=== PATIENT | male | born 1950 | race Caucasian/White ===

== ENCOUNTER 2020-03-15 11:14 | Emergency (ER) | payer MEDICARE, OTHER, SELFPAY ==
[2020-03-15 11:42] VITALS: BP 155/95; PULSE 82; RESP 20; TEMP 36.9; O2SAT 95; BMI 32.8
--- NOTE | 2020-03-15 11:43 | CTR_ITS ---
PROCEDURE INFORMATION: Exam: CT Abdomen And Pelvis Without Contrast Exam date and time: 03/15/2020 12:02 PM Age: 69 years old Clinical indication: Other: Hematuria; Prior surgery; Surgery date: 6+ months; Surgery type: Appy TECHNIQUE: Imaging protocol: Computed tomography of the abdomen and pelvis without contrast. Radiation optimization: All CT scans at this facility use at least one of these dose optimization techniques: automated exposure control; mA and/or kV adjustment per patient size (includes targeted exams where dose is matched to clinical indication); or iterative reconstruction. COMPARISON: CT Abdomen/Pelvis Renal [id number] 03/04/2018 6:52 PM RADIATION DOSE METRICS: Total DLP (mGy-cm): 1839.98 FINDINGS: Lungs: visualized portions of the lung bases normal. visualized portions of the lung bases normal. Liver: Numerous granulomas are present within the spleen and the liver. Gallbladder and bile ducts: Normal. No calcified stones. No ductal dilation. Pancreas: Normal. No ductal dilation. Spleen: Normal. No splenomegaly. Adrenal glands: Normal. No mass. Kidneys and ureters: Prior right nephrectomy. Prominence of the collecting system on the left. Prominence of the ureter to the level of the bladder. No obstructing calculus. 3 cm simple appearing cyst left kidney Stomach and bowel: Unremarkable. No obstruction. No mucosal thickening. Appendix: The appendix is not visualized. Intraperitoneal space: No free fluid within the pelvis or within the dependent portions of the peritoneum. Vasculature: Calcification of the aorta. Lymph nodes: Unremarkable. No enlarged lymph nodes. Urinary bladder: Buck catheter is present within a nondistended bladder. Subtle stranding in the fat. Correlate regarding possible cystitis. Reproductive: prostate gland is rather prominent and enlarged. Please correlate in regards to hyperplasia versus carcinoma. Bones/joints: osseous structures are unremarkable other than mild degenerative disk disease. No fracture. osseous structures are unremarkable other than mild degenerative disk disease. No fracture. Soft tissues: Unremarkable. Other findings: No acute intra-abdominal process. No inflammatory process. No obstruction. CT/CT abdomen pelvis wo con [id number] IMPRESSION: 1. Buck catheter is present within a nondistended bladder. Subtle stranding in the fat. Correlate regarding possible cystitis. 2. No acute intra-abdominal process. . No obstruction. 3. No free fluid within the pelvis or within the dependent portions of the peritoneum. 4. Prostate gland is rather prominent and enlarged. Please correlate in regards to hyperplasia versus carcinoma. 5. Prior right nephrectomy. 6. Prominence of the collecting system on the left. Prominence of the ureter to the level of the bladder. No obstructing calculus. Possibly related to the indwelling bladder. COMMENTS: Consistent with the [employer]'s Incidental Findings Committee white paper (J Am Burke Radiol 2018): Any incidental renal lesion less than 1 cm or classified as too small to characterize, or any incidental cystic renal lesion characterized as simple-appearing, is likely benign. No follow-up imaging is recommended for these lesions per consensus recommendations based on imaging criteria. Radiation Dose CTDIVOL = (mGy): DLP = 1839.98 (mGy-cm)
--- NOTE | 2020-03-15 11:59 | ED_ITS ---
HPI - Male Genitourinary General: Chief complaint: Urogenital-Male Stated complaint: Unable to pee/passing blood Time Seen by Provider: 03/15/20 11:43 Source: patient Mode of arrival: ambulatory Limitations: no limitations History of Present Illness: HPI Narrative: 69-year-old male who presents here from his PCP with unable to urinate and hematuria. He states he has been urina ting gross blood along with blood clots. States that today has not been able to urinate and is having increased pain. He states his pain is currently sharp in nature and rates it a 9 out of 10. History of kidney cancer and had his kidney removed 2 years ago. Denies any vomiting or diarrhea. Associated symptoms: Reports hematuria; Deny nausea or vomiting Review of Systems Const: Denies: fever(s), chills, body aches or change in appetite Eyes: Denies: blurry vision or eye discomfort ENMT: Denies: throat pain or dental pain Card: Denies: chest pain Resp: Denies: dyspnea GI: Denies: abdominal pain, nausea, vomiting or diarrhea : Reports: difficulty urinating and hematuria Musc: Denies: neck pain or back pain Skin/Breast: Denies: rash Neuro: Denies: headache(s) Psych: Denies: depression Jarocho/Lymph: Denies: easy bruising All/Imm: Denies: urticaria Physical Exam Const: COMMON NORMALS: no acute distress, patient oriented x3 and healthy appearing HENMT: COMMON NORMALS: normocephalic and atraumatic HEAD & SCALP: normocephalic and atraumatic Eye: COMMON NORMALS: Equal, round and reactive pupils present and EOMs intact bilaterally PUPIL: Yes Equal, round and reactive pupils present Neck/C-Spine: COMMON NORMALS: full ROM and supple Chest: COMMONS NORMALS: normal inspection of the chest and normal palpation of entire chest wall Resp: COMMON NORMALS: normal respiratory effort, No retractions, No use of accessory muscles and clear to auscultation bilaterally AUSCULTATION: clear to auscultation bilaterally Cardio: COMMON NORMALS: regular rate, regular rhythm and No murmurs present (Cardio) RATE: regular rate RHYTHM: regular rhythm GI: COMMON NORMALS: Normal to inspection, nondistended, normoactive bowel sounds present, Soft to palpation, non-tender and no masses PALPATION: Yes Soft to palpation Extremity: COMMON NORMALS: normal to inspection and full ROM Neuro: COMMON NORMALS: patient oriented x3, moves all extremities and no focal motor deficits Psych: COMMON NORMALS: mental status grossly normal, Normal thought process present and cooperative THOUGHT PROCESS: Normal thought process present Skin: COMMON NORMALS: no rashes or lesions noted and no wounds GENERAL SKIN EXAM: no rashes or lesions noted Course Vital Signs: Vital signs: Vital Signs Temperature 98.4 F 03/15/20 11:42 Pulse Rate 82 03/15/20 11:42 Respiratory Rate 20 H 03/15/20 11:42 Blood Pressure 155/95 03/15/20 11:42 Pulse Oximetry 95 03/15/20 11:42 MDM - Male MDM Narrative: Medical decision making narrative: Patient presents here with gross hematuria along with urinary retention. Did place a Buck and flushed his bladder out. CT scan and blood work are normal. Will leave Buck in place and place him on antibiotics. We will set him up an appoint with Dr. Milian. He is stable for discharge and return if worsening. Lab Data: Labs: Lab Results 03/15/20 03/15/20 03/15/20 Range/Units 12:27 12:59 12:59 WBC 9.1 (4.0-10.0) 10^3/ uL RBC 4.88 (4.1-5.3) 10^6/u L Hgb 14.3 (11.7-16.6) g/dL Hct 43.8 (42.0-52.0) % MCV 89.8 (80-94) fL MCH 29.3 (28.0-34.0) pg MCHC 32.6 (30.0-36.0) g/dL RDW 12.9 (12.1-15.1) % Plt Count 157 (130-400) 10^3/c mm MPV 11.9 H (7.4-10.4) fL Neut % (Auto) 82.6 % Lymph % (Auto) 10.2 % [place] % (Auto) 5.6 % Eos % (Auto) 0.4 % Baso % (Auto) 0.9 % Neut # (Auto) 7.55 (1.8-7.7) 10^3/u L Lymph # (Auto) 0.9 (0.8-4.8) 10^3/u L [place] # (Auto) 0.5 (0.2-0.9) 10^3/u L Eos # (Auto) 0.0 (0.0-0.8) 10^3/u L Baso # (Auto) 0.1 (0.0-0.1) 10^3/u L Nucleated RBC % (a uto) 0 % Nucleated RBCs # 0.0 /100WBC PT 13.80 (12.1-14.9) SECO NDS INR 1.03 (0.8-1.2) Sodium (136-145) mmol/L Potassium (3.5-5.1) mmol/L Chloride (98-107) mmol/L Carbon Dioxide (22-29) mmol/L Anion Gap (5-19) BUN (8-23) mg/dL Creatinine (0.7-1.2) mg/dL GFR Calculation Glucose (65-115) mg/dL Calculated Osmolal ity (285-295) mOsm/k g Calcium (8.5-10.5) mg/dL Total Bilirubin (0.15-1.2) mg/dL AST (0-40) U/L ALT (0-41) U/L Alkaline Phosphata se (40-130) IU/L Total Protein (6.6-8.7) g/dL Albumin (3.5-5.2) g/dL Globulin (1.3-4.6) g/dL Urine Color Red (Yellow) Urine Appearance Turbid (CLEAR) Urine pH 6.5 (5-7) Ur Specific Gravit y 1.015 (1.005-1.030) Urine Protein 1+ H (Negative) Urine Glucose (UA) Norm (Normal) Urine Ketones Negative (Negative) Urine Blood 3+ H (Negative) Urine Nitrate Negative (Negative) Urine Bilirubin Neg (Negative) Urine Urobilinogen Neg (Negative) mg/dL Ur Leukocyte Alexia ase Negative (Negative) Urine RBC Too numerous to c nt H (0-2) /hpf Urine WBC None (0-5) /hpf Ur Squamous Epith Cells None (0-5) /hpf Amorphous Sediment Not Reportable Urine Bacteria 1+ H (NONE) /hpf 11/12/20 Range/Units 12:59 WBC (4.0-10.0) 10^3/ uL RBC (4.1-5.3) 10^6/u L Hgb (11.7-16.6) g/dL Hct (42.0-52.0) % MCV (80-94) fL MCH (28.0-34.0) pg MCHC (30.0-36.0) g/dL RDW (12.1-15.1) % Plt Count (130-400) 10^3/c mm MPV (7.4-10.4) fL Neut % (Auto) % Lymph % (Auto) % [place] % (Auto) % Eos % (Auto) % Baso % (Auto) % Neut # (Auto) (1.8-7.7) 10^3/u L Lymph # (Auto) (0.8-4.8) 10^3/u L [place] # (Auto) (0.2-0.9) 10^3/u L Eos # (Auto) (0.0-0.8) 10^3/u L Baso # (Auto) (0.0-0.1) 10^3/u L Nucleated RBC % (a uto) % Nucleated RBCs # /100WBC PT (12.1-14.9) SECO NDS INR (0.8-1.2) Sodium 138 (136-145) mmol/L Potassium 4.3 (3.5-5.1) mmol/L Chloride 105 (98-107) mmol/L Carbon Dioxide 23 (22-29) mmol/L Anion Gap 14.3 (5-19) BUN 21 (8-23) mg/dL Creatinine 1.6 H (0.7-1.2) mg/dL GFR Calculation Not Reportable Glucose 179 H (65-115) mg/dL Calculated Osmolal ity 293 (285-295) mOsm/k g Calcium 9.4 (8.5-10.5) mg/dL Total Bilirubin 0.3 (0.15-1.2) mg/dL AST 29 (0-40) U/L ALT 45 H (0-41) U/L Alkaline Phosphata se 90 (40-130) IU/L Total Protein 6.6 (6.6-8.7) g/dL Albumin 4.3 (3.5-5.2) g/dL Globulin 2.3 (1.3-4.6) g/dL Urine Color (Yellow) Urine Appearance (CLEAR) Urine pH (5-7) Ur Specific Gravit y (1.005-1.030) Urine Protein (Negative) Urine Glucose (UA) (Normal) Urine Ketones (Negative) Urine Blood (Negative) Urine Nitrate (Negative) Urine Bilirubin (Negative) Urine Urobilinogen (Negative) mg/dL Ur Leukocyte Alexia ase (Negative) Urine RBC (0-2) /hpf Urine WBC (0-5) /hpf Ur Squamous Epith Cells (0-5) /hpf Amorphous Sediment Urine Bacteria (NONE) /hpf Imaging Data: CT Abd/Pel: Radiologist's impression: [place] [address] CT Scan Report Signed Patient: Jennifer Montiel Unit #: [id number] : [id number] Age/Sex: 69 / M ADM Date: 03/15/20 Loc: ER Room/Bed: Attending Dr: Ordering Provider/Ordering MD: Keny Blackburn MD Date of Service: 03/15/20 Procedure(s): CT abdomen pelvis wo con [id number] Accession Number(s): [id number] Report Number: [id number] PROCEDURE INFORMATION: Exam: CT Abdomen And Pelvis Without Contrast Exam date and time: 03/15/2020 12:02 PM Age: 69 years old Clinical indication: Other: Hematuria; Prior surgery; Surgery date: 6+ months; Surgery type: Appy TECHNIQUE: Imaging protocol: Computed tomography of the abdomen and pelvis without contrast. Radiation optimization: All CT scans at this facility use at least one of these dose optimization techniques: automated exposure control; mA and/or kV adjustment per patient size (includes targeted exams where dose is matched to clinical indication); or iterative reconstruction. COMPARISON: CT Abdomen/Pelvis Renal [id number] 03/04/2018 6:52 PM RADIATION DOSE METRICS: Total DLP (mGy-cm): 1839.98 FINDINGS: Lungs: visualized portions of the lung bases normal. visualized portions of the lung bases normal. Liver: Numerous granulomas are present within the spleen and the liver. Gallbladder and bile ducts: Normal. No calcified stones. No ductal dilation. Pancreas: Normal. No ductal dilation. Spleen: Normal. No splenomegaly. Adrenal glands: Normal. No mass. Kidneys and ureters: Prior right nephrectomy. Prominence of the collecting system on the left. Prominence of the ureter to the level of the bladder. No obstructing calculus. 3 cm simple appearing cyst left kidney Stomach and bowel: Unremarkable. No obstruction. No mucosal thickening. Appendix: The appendix is not visualized. Intraperitoneal space: No free fluid within the pelvis or within the dependent portions of the peritoneum. Vasculature: Calcification of the aorta. Lymph nodes: Unremarkable. No enlarged lymph nodes. Urinary bladder: Buck catheter is present within a nondistended bladder. Subtle stranding in the fat. Correlate regarding possible cystitis. Reproductive: prostate gland is rather prominent and enlarged. Please correlate in regards to hyperplasia versus carcinoma. Bones/joints: osseous structures are unremarkable other than mild degenerative disk disease. No fracture. osseous structures are unremarkable other than mild degenerative disk disease. No fracture. Soft tissues: Unremarkable. Other findings: No acute intra-abdominal process. No inflammatory process. No obstruction. CT/CT abdomen pelvis wo con [id number] IMPRESSION: 1. Buck catheter is present within a nondistended bladder. Subtle stranding in the fat. Correlate regarding possible cystitis. 2. No acute intra-abdominal process. . No obstruction. 3. No free fluid within the pelvis or within the dependent portions of the peritoneum. 4. Prostate gland is rather prominent and enlarged. Please correlate in regards to hyperplasia versus carcinoma. 5. Prior right nephrectomy. 6. Prominence of the collecting system on the left. Prominence of the ureter to the level of the bladder. No obstructing calculus. Possibly related to the indwelling bladder. Discharge Plan Discharge Patient Disposition: Home Clinical Impression: Hematuria Qualifiers: Hematuria type: gross Qualified Code(s): R31.0 - Gross hematuria Condition: Stable Prescriptions: New Keflex 500 mg capsule 500 mg PO Q6H 7 Days Qty: 28 RF: 0 No Action metformin 500 mg tablet 500 mg PO DAILY RF: 0 Sleep Aid Liquid Gels Max St 50 mg Capsule 50 mg PO QPM RF: 0 Lipitor 10 mg Tablet 10 mg PO DAILY RF: 0 Aspir-81 81 mg Tablet,Delayed Release (Dr/Ec) 81 mg PO DAILY RF: 0 Tylenol Extra Strength 500 mg Tablet 1,000 mg PO PRN RF: 0 Flomax 0.4 mg Capsule 0.4 mg PO DAILY RF: 0 lisinopril 10 mg tablet 10 mg PO QAM RF: 0 lisinopril 5 mg tablet 5 mg PO QPM RF: 0 Vitamin D3 25 mcg (1,000 unit) Capsule 25 mcg PO DAILY RF: 0 omeprazole 20 mg Tablet,Delayed Release (Dr/Ec) 20 mg PO DAILY RF: 0 Men's Multivitamin 400-20-300 mcg Tablet 1 tab PO DAILY RF: 0 Discharge Orders: Discharge Order (Routine); Ordered 03/15/20 Ordered By: Keny Blackburn Referrals: Mayco Milian MD [Physician] - 1-3 days Juan Carlos Neri MD [Primary Care Provider] - Discharge Diet: Advance as tolerated Discharge Activity: Resume usual activity Patient Instructions: Buck Catheter Placement and Care (ED), Acute Hematuria (ED) Coding Level of Care Code ED 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
--- NOTE | 2020-03-15 12:26 | PC.NURSE ---
18Fr. Buck catheter started, large amount of clots expelled from bladder, pt reports relief.
[2020-03-15 13:01] LABS: Add Urine Microscopic? YES; Bilirubin Urine Neg (Negative); Blood Urine 3+ (Negative); Glucose Urine UA Norm (Normal); Ketones Urine Negative (Negative); Leukocyte Esterase Urine Negative (Negative); Nitrate Urine Negative (Negative); Protein Urine 1+ (Negative); Specific Gravity, Urine 1.015 (1.005-1.030); Urine Appearance Turbid (CLEAR); Urine Color Red (Yellow); Urobilinogen Urine Neg (Negative); pH Urine 6.5 (5-7)
[2020-03-15 13:02] LABS: Add Urine Culture? Yes; Bacteria Urine 1+ /hpf; RBC Urine TOO NUMEROUS TO CNT /hpf (0-2)
[2020-03-15 13:14] LABS: Basophils # 0.1 10^3/uL (0.0-0.1); Basophils % 0.9 %; Eosinophils % 0.4 %; Hematocrit 43.8 % (42.0-52.0); Hemoglobin 14.3 g/dL (11.7-16.6); Lymphocytes # 0.9 10^3/uL (0.8-4.8); Lymphocytes % 10.2 %; Mean Corpuscular HGB Conc 32.6 g/dL (30.0-36.0); Mean Corpuscular Hemoglobin 29.3 pg (28.0-34.0); Mean Corpuscular Volume 89.8 fL (80-94); Mean Platelet Volume 11.9 fL (7.4-10.4); Monocytes # 0.5 10^3/uL (0.2-0.9); Monocytes % 5.6 %; Neutrophils # 7.55 10^3/uL (1.8-7.7); Neutrophils % 82.6 %; Nucleated Red Blood Cells % 0 %; Platelet Count 157 10^3/cmm (130-400); Red Blood Count 4.88 10^6/uL (4.1-5.3); Red Cell Distribution Width 12.9 % (12.1-15.1); White Blood Count 9.1 10^3/uL (4.0-10.0)
[2020-03-15 13:28] LABS: INR 1.03 (0.8-1.2)
[2020-03-15 13:37] LABS: Alanine Aminotransferase 45 U/L (0-41); Albumin Level 4.3 g/dL (3.5-5.2); Alkaline Phosphatase 90 IU/L (40-130); Anion Gap 14.3 (5-19); Aspartate Amino Transferase 29 U/L (0-40); Blood Urea Nitrogen 21 mg/dL (8-23); Calcium 9.4 mg/dL (8.5-10.5); Carbon Dioxide 23 mmol/L (22-29); Chloride 105 mmol/L (98-107); Globulin 2.3 g/dL (1.3-4.6); Glucose 179 mg/dL (65-115); Osmolality Calculated 293 mOsm/kg (285-295); Potassium 4.3 mmol/L (3.5-5.1); Sodium 138 mmol/L (136-145); Total Bilirubin 0.3 mg/dL (0.15-1.2); Total Protein 6.6 g/dL (6.6-8.7)
--- NOTE | 2020-03-15 13:47 | DCPLANNER ---
interactive media project manager was asked to schedule a follow up appointment for patient with Dr. Milian. interactive media project manager called the office of Dr. Milian, spoke with Deidre, gave clinic patients information. interactive media project manager was told that patients information would be printed and reviewed. Clinic will call patient with appointment information.
[2020-03-15 15:04] VITALS: BP 130/72; PULSE 77; RESP 20; O2SAT 99
--- NOTE | 2020-03-20 07:48 | DCPLANNER ---
Patient has a follow up appointment scheduled for Thursday, March 21, [address] Milian. Clinic will call patient with the appointment information.
--- NOTE | 2020-04-05 14:29 | DCPLANNER ---
Patient had a follow up appointment scheduled for 03.21.[address] Milian - patient did attend appointment.
== END 2020-03-15 15:12 | disposition home or self-care (01) ==
PROVIDERS: Emergency Provider Emergency Medicine; PCP Family Medicine
DX: R31.0 Gross hematuria (principal); Z79.82 Long term (current) use of aspirin; Z79.84 Long term (current) use of oral hypoglycemic drugs
CPT/HCPCS: 12345; 74176; 80053; 81001; 85025; 85610; 87086; 99281; 99283

== ENCOUNTER → 2020-03-23 07:59 | Outpatient (BNVA) | payer MEDICARE, OTHER, SELFPAY | PROVIDERS: PCP Family Medicine; Visit Provider Urology | DX: N32.9 Bladder disorder, unspecified (principal) | CPT/HCPCS: 88112 ==

== ENCOUNTER → 2020-04-04 12:51 | Outpatient (BNVA) | payer MEDICARE, OTHER, SELFPAY | PROVIDERS: PCP Family Medicine; Visit Provider Urology | DX: R33.8 Other retention of urine (principal); N32.9 Bladder disorder, unspecified; R82.89 Other abnormal findings on cytological and histological examination of urine | CPT/HCPCS: 81003 ==

== ENCOUNTER → 2020-04-06 11:43 | Outpatient (BNVA) | payer MEDICARE, OTHER, SELFPAY | PROVIDERS: PCP Family Medicine; Visit Provider Urology | DX: Z20.828 Contact with and (suspected) exposure to other viral communicable diseases (principal); N32.9 Bladder disorder, unspecified | CPT/HCPCS: 87635 ==

== ENCOUNTER 2020-04-12 17:21 | Observation (INO) | payer MEDICARE, OTHER, SELFPAY ==
[2020-04-11 08:33] VITALS: BMI 32.1
[2020-04-12] VITALS (9 sets, daily range): BP systolic 122–179; BP diastolic 71–107; PULSE 79–97; RESP 13–20; TEMP 36.2–36.7; O2SAT 91–95
[2020-04-12 13:15] LABS: Glucose Point of Care 115 mg/dL (70-110)
[2020-04-12] MEDS: sodium chloride 0.9% 1,000 ML 30 ML IV (13:18)
--- NOTE | 2020-04-12 13:25 | ANES.PREANE2 ---
Pre-Anesthetic Assessment Pre-Anesthetic Assessment: Height/Weight: Height 1.8 m Weight 104.326 kg Temp Pulse Resp BP Pulse Ox 98.0 F 83 18 179/107 95 04/12/20 12:56 04/12/20 12:56 04/12/20 12:56 04/12/20 12:56 04/12/20 12:56 Preop Diagnosis: Bladder tumor Proposed Procedure: Operation Date: 04/12/20 14:05 Proposed Procedures p Transurethral Resection Bladder Tumor 04184 n32.9(Not Applicable) - Mayco Milian MD s Cystoscopy(Not Applicable) - Mayco Milian MD Familial anesthetic complications: None Was Beta Corby taken within 24 hours: N/A Last intake: Intake Last Liquid Date 04/12/20 Last Liquid Time 08:25 Last Solid Date 04/11/20 Last Solid Time 17:00 Social: Social History: No alcohol and No tobacco Exam: Pre-Anes Outpt Exam: alert, oriented x 3, clear to auscultation bilaterally and regular rate & rhythm Airway: Cervical ROM: WNL MP: 3 Dentition: Full CV/HEM: CV/HEM: HTN : Comments: hx kidney cancer - one kidney left GI: GI: GERD Metabolic: Metabolic: Hyperlipidemia Anesthetic Plan: ASA status: 2 Anesthesia: General Risk of > 500 ml blood loss (7ml/kg in children): No Meds/Allergies Current Medications: Current Medications Generic Name Dose Route Start Last Admin Trade Name Freq PRN Reason Stop Dose Admin Sodium Chloride 1,000 mls @ 30 ml s/hr 04/12/20 08:15 04/12/20 13:18 Sodium Chloride 0.9% IV 04/13/20 08:14 30 mls/hr .Q24H ANDRES Administration PFSH Anesthesia PFSH: Medical History Diabetes Hx of renal cell carcinoma Renal cyst, left Urinary retention Surgical History History of right nephrectomy Social History Smoking and tobacco status: former smoker Alcohol intake: unknown Adopted: No Caregiver/support person: No Lives independently: No Household members: spouse Marital status: Current occupational status: retired Data Anesthesia Other Labs: Laboratory Results - last 48 hr 04/12/20 13:13 POC Glucose 115 Cardiac Studies: No Data to Display
--- NOTE | 2020-04-12 14:54 | W.PM.OPSUD ---
Surgery/Procedure H&P Update DATE OF PROCEDURE: April 12, 2020 DATE H&P PERFORMED: 04/04/20 H&P UPDATE INFORMATION: I have reviewed H&P completed within last 30 days, I have examined patient prior to procedure, No changes to prior documentation, Changes to prior documentation as noted here and H&P is in [facility] EMR on date indicated PREOP DIAGNOSIS: Bladder tumor PRIMARY INDICATION FOR PROCEDURE: Reviewed the pertinent information again with the patient and his . PLANNED PROCEDURE: Operation Date: 04/12/20 14:05 Proposed Procedures p Transurethral Resection Bladder Tumor [id number] n32.9(Not Applicable) - Mayco Milian MD s Cystoscopy(Not Applicable) - Mayco Milian MD
--- NOTE | 2020-04-12 15:53 | PM.OP ---
Operative Report Date of procedure: April 12, 2020 Pre-op Diagnosis: Bladder tumor Post-op diagnosis: same Procedure Done: Cystoscopy, transurethral section of bladder tumor large Pathology: Bladder lesions Surgeon: Rukhsana Anesthesia: General Estimated blood loss: Minimal Urine output: Not measured Complications: None Findings: Suspicious bladder mucosa Condition: stable Disposition: PACU Brief History: Mr. Montiel is a very pleasant 69-year-old white male evaluated in March for clot urinary retention. He had a known history of renal cell carcinoma having undergone a right hand-assisted laparoscopic radical nephrectomy by Dr. Piña in April 2018 with no evidence of recurrence since. In mid March 2020 he was seen in the emergency department with clot retention, a catheter was placed his bladder irrigated and he was referred to urology. CT scan showed no evidence of recurrent renal cell carcinoma or stones. Did show some evidence of clot in the bladder. Cystoscopy revealed a significant degree of inflammatory change on the posterior bladder wall in multiple areas looking suspicious for early papillary tumors or possibly carcinoma in situ with some extension to the bladder neck. Cytologies were sent and also were suspicious for malignancy. It was recommended that we undertake TURBT for diagnostic and therapeutic purposes. Procedure: After routine preoperative evaluation examination and obtaining of informed consent he was taken to the operating suite on 04/12/2020 where general anesthesia was administered without difficulty after appropriate timeout was performed, SCDs confirmed to be functioning, preoperative antibiotics administered, beta-mina protocol confirmed. Prepped and draped in usual sterile fashion in dorsolithotomy position paying careful attention to avoiding pressure points. 21 Guatemalan cystoscope with 30 degree lens was introduced into the urethra meatus and advanced into the bladder to videoscopy. Bladder was systematically examined. The findings seen in the outpatient clinic were confirmed. The suspicious areas involve both papillary but mostly CIS appearing mucosal changes. The papillary areas involve the bladder neck at 6 o'clock position extending laterally on both sides. Near but not involving the ureteral orifices were areas that were consistent with CIS. In the midline area of the posterior floor as well there was extensive areas also consistent with CIS. On the anterior bladder wall some cobblestone type appearance also noted consistent with CIS. The urethra was calibrated with Louisa sounds and easily accommodated 30 Guatemalan. 2% lidocaine jelly was instilled into the urethra then a 25 Guatemalan continuous flow resectoscope sheath with visual obturator in place was advanced into the bladder without difficulty. The gyrus bipolar system with super loop and button probe was utilized. All of these areas were extensively sampled with a super loop and sampled with cold cup biopsies as well. The button probe was then utilized to fulgurate paying careful attention to staying away from each ureteral orifice. >5 cm of area was fulgurated extending from bladder neck posterior floor anterior bladder wall and onto the right lateral bladder wall as well. Hemostasis was confirmed. The specimens have been removed sequentially and sent for pathologic evaluation labeled as such. The completion of the procedure hemostasis was confirmed, all chips throughout the bladder, no other lesions identified. Bladder was drained with a 20 Guatemalan three-way Buck catheter with 30 cc in the balloon. Catheter function was confirmed. Light CBI was initiated. Tolerated the procedure well without complications and was awakened in the operating room and returned to the recovery in stable condition. PLANS: 1. Admit for observation status to the floor with anticipation of discharge tomorrow. 2. Plan for mitomycin instillation tomorrow
[2020-04-12] MEDS: lidocaine 2% Urojet 20 mL TOPICAL (16:35)
--- NOTE | 2020-04-12 19:07 | ANE.PACU2 ---
Inpatient post-anesthesia follow up: Airway intact: Yes Vital signs: Temperature 97.1 F Pulse Rate 93 Respiratory Rate 17 Blood Pressure 128/86 Pulse Oximetry 94 Oxygen Delivery Me thod Room Air Oxygen Flow Rate 8 Fraction of Inspir ed Oxygen Hydration adequate: Yes Nausea and vomiting: No Pain level: 2 Mental status: Baseline
[2020-04-12] MEDS: morphine 4 mg/mL SDV 1 mL IVP ×2 (19:12→20:26)
[2020-04-12] MEDS: lisinopril 5 mg Tablet PO (21:29)
[2020-04-13 05:00] VITALS: BP 138/83; PULSE 64; RESP 18; TEMP 36.7; O2SAT 96
--- NOTE | 2020-04-13 05:18 | PC.NURSE ---
AT THE BEGINNING OF THE SHIFT THIS NURSE WAS TOLD THE PATIENT HAD JUST COME TO THE FLOOR FROM SURGERY. UPON ASSESSMENT, IT WAS NOTED THE PATIENT DID NOT HAVE MUCH FLUID IN THE TORRES BAG, BUT ONE OF THE IRRIGATION BAGS WERE HALF EMPTY AND THE OTHER WAS ALMOST EMPTY. THE TORRES TUBING WAS INSPECTED FOR ANY KINKS, AND TO INSURE PROPER DRAINAGE. NOT CLOTS NOTED AND NO KINKS. THE DRAINAGE IN THE TORRES BAG WAS RED, SO A BOLUS OF THE IRRIGATION WAS PERFORMED. WITH THIS THE IRRIGATION BECAME CLEARER. THE PATIENT REPORTED HE FELT SOME RELIEF WITH THIS. AT THIS TIME 1350 ML WAS DRAINED FROM THE TORRES BAG. NO CLOTS NOTED STILL AT THIS TIME.
[2020-04-13 07:53] VITALS: BP 164/81; PULSE 68; RESP 17; TEMP 36.6; O2SAT 96
--- NOTE | 2020-04-13 08:07 | PM.MISC ---
Miscellaneous Note Purpose of Documentation: INTRAVESICAL CHEMOTHERAPY Note: 40 mg of mitomycin and normal saline instilled into the bladder this morning as prophylaxis for postop TURBT with suspicion for carcinoma in situ on examination yesterday. Atraumatic. Tolerated well. Will hold for no more than 1 hour then drained. At that point remove Buck catheter and if voids well with good emptying and no excessive bleeding he can be discharged later.
[2020-04-13] MEDS: tamsulosin 0.4 mg Capsule PO (08:46)
[2020-04-13] MEDS: lisinopril 10 mg Tablet PO (08:46)
[2020-04-13] MEDS: atorvastatin 40 mg Tablet 20 MG PO (08:46)
[2020-04-13] MEDS: pantoprazole DR 40 mg Tablet PO (08:46)
[2020-04-13] MEDS: metformin 500 mg Tablet PO (08:46)
[2020-04-13 09:00] VITALS: BP 167/97; PULSE 76; RESP 17; TEMP 36.6; O2SAT 94
[2020-04-13 11:00] VITALS: BP 136/86; PULSE 80; RESP 16; TEMP 36.7; O2SAT 91
--- NOTE | 2020-04-13 12:38 | PC.CHAP ---
Pastoral Care Encounter/Spiritual Assessment Type of Contact [] Declined computer mechanic visit [] Patient/Family/Request visit [] Outpatient visit [] Follow-up visit [] Physician referral [] Code/Alert [xx] Routine visit [] Staff referral [] Actively dying [] Patient sleeping [] Family support [] [] Out of room [] Palliative care [] [] Receiving care in room [] Pre-surgical visit [] Trauma [] Long length of stay [] ICU visit [] Other: Relational/Emotional Strength [xx] Patient feels connected with others/family/visitors/staff [] Distress [] Loneliness/isolation [] Abandonment Spirituality of Patient [xx] Person of Danielle [] Attends Sikhism of their Danielle [xx] Believes in Prayer [xx] Reads Bible or Buddhist materials [] There are Spiritual issues to be addressed Quality Control Tech Interventions [xx] Prayer [xx] Active listening [xx] Non-anxious presence [] Spiritual/emotional support [] Crisis/trauma care [] Spiritual counseling [] Bereavement support [] Provided bereavement packet [] Provided Bible/devotional materials [] Provided toy/stuffed animal, coloring book to patient or family member [] Provided Communion [] Anointing/[place] [] Salvation [xx] Completed spiritual assessment [] Other: Impact on Illness or Injury [] Angry [] Fearful [xx] Anxious [] Often cries [] Exhaustion [] Unable to work [] Unable to attend yazidi [] Unable to walk/stand [] Unable to read [] Unable to drive [] Unable to eat/drink [] Unable to sleep [xx] Unable to be with family [] Patient intubated [] Other: Summary His primary concern was his 95 year old mother in group home and has Covid-19. Prayer centered almost exclusively around her needs. He is frightened for her and is not worried about himself. A nurse was present and she prayed with the computer mechanic for patient's mother also. Time spent with patient 6 minutes
[2020-04-13 15:01] VITALS: BP 136/79; PULSE 81; RESP 16; TEMP 36.9; O2SAT 96
--- NOTE | 2020-04-13 15:32 | PM.DCS ---
Discharge Providers Date of Admission: 04/12/20 17:21 Date of Discharge: April 13, 2020 Attending Provider at Admission: Mayco Milian MD Attending Provider at Discharge: Mayco Milian MD Primary Care Provider: Juan Carlos Neri MD Reason for Visit Reason for Visit: cystoscopy Hospital Course Hospital Course Admitted on the day of the procedure which went well. Unfortunately there were multiple areas in the bladder rather diffusely that looks suspicious for carcinoma in situ as well as papillary TCCA. Multiple areas were resected and a large amount of bladder wall was fulgurated. Catheter left in postoperatively and on postoperative day #1 he was treated with intravesical instillation of MITOMYCIN 40 mg and did well. He failed his postoperative voiding trial and a catheter was replaced on the afternoon of postoperative day #1. His urine cleared appropriately and he was discharged on postoperative day #1 in stable condition. Plan was to follow-up on 04/17/2020 with voiding trial and hopefully pathology check at that time. Physical Exam Const: COMMON NORMALS: no acute distress, alert and well nourished GENERAL APPEARANCE: well kempt and well developed ORIENTATION/CONSCIOUSNESS: not confused HENMT: COMMON NORMALS: normocephalic and atraumatic HEAD & SCALP: normocephalic and atraumatic Eye: COMMON NORMALS: conjunctivae normal and no scleral icterus CONJUNCTIVA: Yes conjunctivae normal Neck/C-Spine: COMMON NORMALS: full ROM Resp: COMMON NORMALS: normal respiratory effort EFFORT & INSPECTION: No labored and No Actively coughing Neuro: COMMON NORMALS: no focal motor deficits SENSORIUM/ORIENTATION: Yes alert Psych: COMMON NORMALS: mental status grossly normal APPEARANCE: Yes grossly normal and Yes well kempt ATTITUDE: Yes calm and Yes engaged Urinary Catheter Management^: 3-way Urethral CBI: Cath Placed During This Visit: yes Reason for Continuing Indwelling Catheter: Other Urinary Catheter Date of Insertion: 04/12/20 Urinary Catheter Time of Insertion: 17:03 Discharge Data Data Completed and Pending: Pending at discharge Category Date Time Status Pathology: Surgic al [PTH] Routine Pth 04/12/20 17:19 Received Vitals: Last Vital Signs Temp 98.4 F 04/13/20 15:01 Pulse 81 04/13/20 15:01 Resp 16 04/13/20 15:01 BP 136/79 04/13/20 15:01 Pulse Ox 96 04/13/20 15:01 Discharge Plan Discharge Patient Disposition: Home Condition: Stable Prescriptions: Continued Keflex 500 mg capsule 500 mg PO DAILY Qty: 28 RF: 0 metformin 500 mg tablet 500 mg PO DAILY RF: 0 diphenhydramine HCl 50 mg Capsule 50 mg PO QPM RF: 0 atorvastatin [Lipitor] 10 mg Tablet 10 mg PO DAILY RF: 0 acetaminophen [Tylenol Extra Strength] 500 mg Tablet 1,000 mg PO PRN RF: 0 tamsulosin [Flomax] 0.4 mg Capsule 0.4 mg PO DAILY RF: 0 lisinopril 10 mg tablet 10 mg PO QAM RF: 0 lisinopril 5 mg tablet 5 mg PO QPM RF: 0 cholecalciferol (vitamin D3) [Vitamin D3] 25 mcg (1,000 unit) Capsule 25 mcg PO DAILY RF: 0 omeprazole 20 mg Tablet,Delayed Release (Dr/Ec) 20 mg PO DAILY RF: 0 Men's Multivitamin 400-20-300 mcg Tablet 1 tab PO DAILY RF: 0 Held aspirin 81 mg Tablet,Delayed Release (Dr/Ec) 81 mg PO DAILY RF: 0 Hold Instructions: Resume on 04/23/20. Discharge Orders: Discharge Order (Routine); Ordered 04/13/20 Ordered By: Mayco Milian Referrals: Mayco Milian MD [Physician] - 04/17/20 (Voiding trial, pathology check) Discharge Diet: Advance as tolerated Discharge Activity: Limit activity as instructed Activity Restrictions/Additional Instructions: 1. No lifting >10 pounds x 3 weeks. 2. We will need to communicate by phone late next week to review the pathology report. Please call my office if you have not heard from me. 3. You can reach me through the hospital bandage winding machine operator at any time. Please call if you have any questions. 4. I expect that this will show carcinoma in situ a type of bladder cancer that will require additional treatment through bladder installations. We will review this information once the pathology report is back. Discharge Attestations Time Spent in Discharge Care*: greater than 30 min Quality Metrics Clinical Quality Measures During this hospital stay, did patient experience: None Coding Level of Care Code Acute Sas Developer Analyst for Griselda Gauthier
[2020-04-13 17:32] VITALS: BP 136/79; PULSE 81; RESP 16; TEMP 36.9; O2SAT 96
== END 2020-04-13 17:00 | disposition home or self-care (01) ==
LOC: MEDSURG 17:24
PROVIDERS: Admitting Provider Urology; PCP Family Medicine; Visit Provider Urology
PROC: 0TBB8ZZ Excision of Bladder, Via Natural or Artificial Opening Endoscopic (ICD-10-PCS; CPT 52240; principal; 2020-04-12 14:05)
PROC: 0TJB8ZZ Inspection of Bladder, Via Natural or Artificial Opening Endoscopic (ICD-10-PCS; CPT 52000; 2020-04-12 14:05)
DX: C67.8 Malignant neoplasm of overlapping sites of bladder (principal); I10 Essential (primary) hypertension; K21.9 Gastro-esophageal reflux disease without esophagitis; E78.5 Hyperlipidemia, unspecified; E11.9 Type 2 diabetes mellitus without complications; Z87.891 Personal history of nicotine dependence; Z85.53 Personal history of malignant neoplasm of renal pelvis
CPT/HCPCS: 52240; 12345; 36416; 51720; 82962; 88305; 96365; 96375; G0378; J0690; J2270; J2405; J3010; J7030; J9280

== ENCOUNTER → 2020-04-17 14:53 | Outpatient (BNVA) | payer MEDICARE, OTHER, SELFPAY | PROVIDERS: PCP Family Medicine; Visit Provider Urology | DX: D09.0 Carcinoma in situ of bladder (principal); Z01.812 Encounter for preprocedural laboratory examination; Z20.828 Contact with and (suspected) exposure to other viral communicable diseases | CPT/HCPCS: 87635 ==

== ENCOUNTER 2020-04-19 15:00 | Observation (INO) | payer MEDICARE, OTHER, SELFPAY ==
[2020-04-19] VITALS (14 sets, daily range): BP systolic 138–180; BP diastolic 85–103; PULSE 70–86; RESP 12–20; TEMP 36.6–36.9; O2SAT 92–97; BMI 32.8
--- NOTE | 2020-04-19 12:05 | ANES.PREANE2 ---
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 0730 water, coffee no cream. Social: Social History: No alcohol and No tobacco Comment: reports minimal tobbaco use Quit 30 years prior Exam: Pre-Anes Outpt Exam: alert, oriented x 3 and clear to auscultation bilaterally Airway: Submandibular: WNL Cervical ROM: WNL MP: 3 History/ROS: No significant history except as noted Pulmonary: Pulmonary: None reported CV/HEM: CV/HEM: None reported : Comments: previous renal cancer 1 kidney removed. 2018 Hepatic: Hepatic: None reported GI: GI: GERD Comments: controlled on medications Metabolic: Metabolic: DM and Hyperlipidemia Comments: non-insulin dependent Neuropsych: Neuropsych: None reported Anesthetic Plan: ASA status: 3 Anesthesia: Anesthesia Evaluation and General Risk of > 500 ml blood loss (7ml/kg in children): No PFSH Anesthesia PFSH: Medical History Carcinoma in situ of bladder Diabetes Hx of renal cell carcinoma Renal cyst, left Urinary retention Surgical History History of bladder surgery TURBT for carcinoma in situ April 2020. History of right nephrectomy Social History Smoking and tobacco status: former smoker Alcohol intake: unknown Adopted: No Caregiver/support person: No Lives independently: No Household members: spouse Marital status: Current occupational status: retired Data Anesthesia Cardiac Studies: No Data to Display
[2020-04-19 12:34] LABS: Glucose Point of Care 126 mg/dL (70-110)
[2020-04-19] MEDS: sodium chloride 0.9% 1,000 ML 30 ML IV (12:34)
--- NOTE | 2020-04-19 13:35 | P.HPUD_ITS ---
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
--- NOTE | 2020-04-19 13:36 | PM.OP ---
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 Condition: stable Disposition: PACU Brief History: Mr. Montiel is a very pleasant 69-year-old white male recently evaluated for gross hematuria was found to have suspicious bladder mucosa as well as abnormal cytologies and underwent TURBT of multiple areas on the bladder. PATHOLOGY revealed carcinoma in situ with lamina propria invasion without adequate assessment of the muscle. Back now for restaging deep sampling. Procedure: After routine preoperative evaluation examination and obtaining of informed consent was taken to the operating suite on 04/19/2020 where general anesthesia was administered without difficulty after appropriate timeout was performed, SCDs confirmed to be functioning, preoperative antibiotics administered, beta-mina protocol confirmed. Prepped and draped in usual sterile fashion in dorsolithotomy position pain careful attention to avoiding pressure points. 21 [place]an cystoscope with 30 degree lens was introduced into urethral meatus and advanced into the bladder without difficulty. Bladder was systematically examined with 70 and 30 degree lenses. Findings: Urethra was calibrated with Lakeisha sounds and easily accommodated 30 [place]an. 2% lidocaine jelly was instilled into the urethra then a 25 [place] continuous flow resectoscope sheath with visual obturator in place was advanced without difficulty into the bladder. The gyrus bipolar system with super loop was utilized for the resection deep sampling. Deep sampling was conducted on the posterior floor near the bladder neck and on both lateral recio with muscle visualized at the base. The mucosa did demonstrate some fairly diffuse persistent CIS type changes. The button probe was utilized to fulgurate the resected sites. At the completion of the procedure all the chips were confirmed to be evacuated from the bladder (Lizabethik evacuator) and all resection sites were hemostatic. Bladder was drained with a 18 [place]an three-way Buck catheter with 10 cc in the balloon. CBI was initiated and run at a low rate due to clear efflux.
[2020-04-19] MEDS: levofloxacin-dextrose 5 % 500 MG/100 ML PREMIX 100 MG IV (13:52)
[2020-04-19] MEDS: lidocaine 2% Urojet 20 mL TOPICAL (14:18)
--- NOTE | 2020-04-19 16:32 | ANE.PACU2 ---
Inpatient post-anesthesia follow up: Airway intact: Yes Vital signs: Temperature 97.9 F Pulse Rate 72 Respiratory Rate 19 Blood Pressure 154/89 Pulse Oximetry 93 Oxygen Delivery Me thod Nasal Cannula Oxygen Flow Rate 2 Fraction of Inspir ed Oxygen Hydration adequate: Yes Nausea and vomiting: No Pain level: 3 Mental status: Baseline
[2020-04-19 16:52] LABS: Glucose Point of Care 143 mg/dL (70-110)
--- NOTE | 2020-04-19 17:44 | PC.NURSE ---
Notified nurse of high blood pressure.
[2020-04-19] MEDS: tamsulosin 0.4 mg Capsule PO (17:58)
--- NOTE | 2020-04-19 19:19 | PC.NURSE ---
Report to Jenni MERRITT
[2020-04-19] MEDS: lisinopril 5 mg Tablet PO (19:48)
[2020-04-19] MEDS: diphenhydrAMINE 50 mg Capsule PO (20:55)
[2020-04-19 21:24] LABS: Glucose Point of Care 170 mg/dL (70-110)
[2020-04-20 00:09] VITALS: BP 103/60; PULSE 71; RESP 18; TEMP 36.9; O2SAT 93
[2020-04-20 02:27] VITALS: BP 100/60; PULSE 76; RESP 16; TEMP 36.7; O2SAT 92
[2020-04-20 04:00] VITALS: BP 128/73; PULSE 71; RESP 14; TEMP 36.6; O2SAT 93
[2020-04-20] MEDS: lisinopril 10 mg Tablet PO (05:50)
[2020-04-20 06:40] LABS: Glucose Point of Care 129 mg/dL (70-110)
--- NOTE | 2020-04-20 07:23 | PM.DCS ---
Discharge Providers Date of Admission: 04/19/20 15:00 Date of Discharge: April 20, 2020 Attending Provider at Admission: Mayco Milian MD Attending Provider at Discharge: Mayco Milian MD Primary Care Provider: Juan Carlos Neri MD Diagnoses at Discharge Discharge Diagnosis (1) Carcinoma in situ of bladder: Status: Acute Permanent problem details: High-grade, lamina propria invasion, diffuse bladder wall involvement. Reason for Visit Reason for Visit: cystoscopy Hospital Course Hospital Course Admitted on the day of the procedure which went well. A large area of the bladder was sampled deeply and multiple areas of carcinoma in situ appearing mucosa were resected/fulgurated with >5 cm diameter total. Buck catheter was left in place postop with light CBI in the urine remained clear. Catheter was maintained at discharge on postoperative day #1 with anticipation of removing on postoperative day #4 for clinic voiding trial and SCIC instruction. Hopefully pathology will be available At time of discharge she was doing well. Good appetite, no pain and no bleeding. Was deemed a good candidate for discharge to home. Physical Exam Const: COMMON NORMALS: no acute distress, alert and well nourished GENERAL APPEARANCE: well kempt and well developed ORIENTATION/CONSCIOUSNESS: not confused HENMT: COMMON NORMALS: normocephalic and atraumatic HEAD & SCALP: normocephalic and atraumatic Eye: COMMON NORMALS: no scleral icterus Neck/C-Spine: COMMON NORMALS: full ROM GENERAL: Yes normal visual inspection Resp: COMMON NORMALS: normal respiratory effort EFFORT & INSPECTION: No labored and No Actively coughing Neuro: SENSORIUM/ORIENTATION: Yes alert Psych: COMMON NORMALS: mental status grossly normal APPEARANCE: Yes grossly normal and Yes well kempt ATTITUDE: Yes calm and Yes engaged Urinary Catheter Management^: Buck: Cath Placed During This Visit: yes, but has since been removed by the nurse Date Urinary Catheter Removed: 04/19/20 Time Urinary Catheter Discontinued: 14:00 Discharge Data Data Completed and Pending: Pending at discharge Category Date Time Status Pathology: Surgic al [PTH] Routine Pth 04/19/20 14:48 Ordered Labs from last 24 hours 04/20/20 04/19/20 04/19/20 06:31 21:06 16:48 POC Glucose 129 170 143 04/19/20 12:29 POC Glucose 126 Vitals: Last Vital Signs Temp 97.9 F 04/20/20 04:00 Pulse 71 04/20/20 04:00 Resp 14 04/20/20 04:00 BP 128/73 04/20/20 04:00 Pulse Ox 93 04/20/20 04:00 Discharge Plan Discharge Patient Disposition: Home Condition: Stable Prescriptions: Continued Keflex 500 mg capsule 500 mg PO DAILY Qty: 28 RF: 0 Sleep Aid (diphenhydramine) 50 mg Capsule 50 mg PO QPM PRN (Reason: Sleep) RF: 0 metformin 500 mg tablet 500 mg PO DAILY RF: 0 atorvastatin [Lipitor] 10 mg Tablet 10 mg PO DAILY RF: 0 acetaminophen [Tylenol Extra Strength] 500 mg Tablet 1,000 mg PO PRN RF: 0 tamsulosin [Flomax] 0.4 mg Capsule 0.4 mg PO DAILY RF: 0 lisinopril 10 mg tablet 10 mg PO QAM RF: 0 cholecalciferol (vitamin D3) [Vitamin D3] 25 mcg (1,000 unit) Capsule 25 mcg PO DAILY RF: 0 omeprazole 20 mg Tablet,Delayed Release (Dr/Ec) 20 mg PO DAILY RF: 0 Men's Multivitamin 400-20-300 mcg Tablet 1 tab PO DAILY RF: 0 Held aspirin 81 mg Tablet,Delayed Release (Dr/Ec) 81 mg PO DAILY RF: 0 Hold Instructions: Resume on 04/30/20. Discharge Orders: Discharge Order (Routine); Ordered 04/20/20 Ordered By: Mayco Milian Referrals: Mayco Milian MD [Physician] - 04/23/20 (Voiding trial, SCIC instruction.) Discharge Diet: Usual diet Discharge Activity: Limit activity as instructed Activity Restrictions/Additional Instructions: We will do a voiding trial to remove the catheter on Thursday the . Continue activity restriction as previously described. The next big step regarding your bladder cancer is to review the pathology report to decide whether we can do BCG bladder instillation treatment or more aggressive therapy such as bladder removal/chemotherapy radiation protocol. We will review these details at length before any decisions are made. Discharge Attestations Time Spent in Discharge Care*: less than 30 min Quality Metrics Clinical Quality Measures During this hospital stay, did patient experience: None Coding Level of Care Code Acute Hydro Electric Station Operator for [facility] Fwd Diagnoses Carcinoma in situ of bladder D09.0
[2020-04-20 08:00] VITALS: BP 155/83; PULSE 69; RESP 18; TEMP 36.9; O2SAT 96
[2020-04-20] MEDS: tamsulosin 0.4 mg Capsule PO (08:11)
[2020-04-20] MEDS: pantoprazole DR 40 mg Tablet PO (08:11)
[2020-04-20] MEDS: metformin 500 mg Tablet PO (08:11)
[2020-04-20] MEDS: atorvastatin 40 mg Tablet 20 MG PO (08:11)
--- NOTE | 2020-04-20 09:50 | PC.CHAP ---
Pastoral Care Encounter/Spiritual Assessment Type of Contact [] Declined appeals analyst visit [] Patient/Family/Request visit [] Outpatient visit [] Follow-up visit [] Physician referral [] Code/Alert [x] Routine visit [] Staff referral [] Actively dying [] Patient sleeping [] Family support [] [] Out of room [] Palliative care [] [] Receiving care in room [] Pre-surgical visit [] Trauma [] Long length of stay [] ICU visit [] Other: Relational/Emotional Strength [x] Patient feels connected with others/family/visitors/staff [] Distress [] Loneliness/isolation [] Abandonment Spirituality of Patient [x] Person of Danielle [x] Attends Congregation of their Danielle [] Believes in Prayer [] Reads Bible or Oriental Orthodox materials [] There are Spiritual issues to be addressed Jboss Architect Interventions [x] Prayer [x] Active listening [] Non-anxious presence [] Spiritual/emotional support [] Crisis/trauma care [] Spiritual counseling [] Bereavement support [] Provided bereavement packet [] Provided Bible/devotional materials [] Provided toy/stuffed animal, coloring book to patient or family member [] Provided Communion [] Anointing/[place] [] Salvation [x] Completed spiritual assessment [] Other: Impact on Illness or Injury [] Angry [] Fearful [] Anxious [] Often cries [] Exhaustion [] Unable to work [] Unable to attend restorationism [] Unable to walk/stand [] Unable to read [] Unable to drive [] Unable to eat/drink [] Unable to sleep [] Unable to be with family [] Patient intubated [] Other: Summary doing much better Time spent with patient 15 min
--- NOTE | 2020-04-20 11:00 | PC.NURSE ---
Reviewed discharge instructions with patient at this time. IV removed intact and patient tolerated well. Patient verbalized understanding of discharge instructions including how to take care of his Buck catheter that he was discharged home with. Patient is A&Ox3. Respirations even and non-labored on room air. Patient wheel chaired to his private car.
[2020-04-20 11:19] VITALS: BP 155/83; PULSE 69; RESP 18; TEMP 36.9; O2SAT 96
== END 2020-04-20 11:06 | disposition home or self-care (01) ==
LOC: MEDSURG 15:00
PROVIDERS: Admitting Provider Urology; PCP Family Medicine; Visit Provider Urology
PROC: 0TBB8ZZ Excision of Bladder, Via Natural or Artificial Opening Endoscopic (ICD-10-PCS; CPT 52240; principal; 2020-04-19 13:10)
PROC: 0TJB8ZZ Inspection of Bladder, Via Natural or Artificial Opening Endoscopic (ICD-10-PCS; CPT 52000; 2020-04-19 13:10)
DX: D09.0 Carcinoma in situ of bladder (principal); E11.9 Type 2 diabetes mellitus without complications; E78.5 Hyperlipidemia, unspecified; Z87.891 Personal history of nicotine dependence; Z79.82 Long term (current) use of aspirin
CPT/HCPCS: 52240; 12345; 36416; 82962; 88305; G0378; J1956; J2704; J3010; J7030; Q0163

== ENCOUNTER → 2020-05-18 11:24 | Outpatient (BNVA) | payer MEDICARE, OTHER, SELFPAY | PROVIDERS: PCP Family Medicine; Visit Provider Urology | DX: D09.0 Carcinoma in situ of bladder (principal); R33.8 Other retention of urine | CPT/HCPCS: 81003 ==

== ENCOUNTER → 2020-05-25 10:59 | Outpatient (BNVA) | payer MEDICARE, OTHER, SELFPAY | PROVIDERS: PCP Family Medicine; Visit Provider Urology | DX: D09.0 Carcinoma in situ of bladder (principal) | CPT/HCPCS: 81003 ==

== ENCOUNTER → 2020-06-01 11:04 | Outpatient (BNVA) | payer MEDICARE, OTHER, SELFPAY | PROVIDERS: PCP Family Medicine; Visit Provider Urology | DX: R33.8 Other retention of urine (principal); D09.0 Carcinoma in situ of bladder | CPT/HCPCS: 81003 ==

== ENCOUNTER → 2020-06-08 11:13 | Outpatient (BNVA) | payer MEDICARE, OTHER, SELFPAY | PROVIDERS: PCP Family Medicine; Visit Provider Urology | DX: D09.0 Carcinoma in situ of bladder (principal) | CPT/HCPCS: 81003 ==

== ENCOUNTER → 2020-06-15 10:21 | Outpatient (BNVA) | payer MEDICARE, OTHER, SELFPAY | PROVIDERS: PCP Family Medicine; Visit Provider Urology | DX: D09.0 Carcinoma in situ of bladder (principal) | CPT/HCPCS: 81003 ==

== ENCOUNTER → 2020-06-22 10:34 | Outpatient (BNVA) | payer MEDICARE, OTHER, SELFPAY | PROVIDERS: PCP Family Medicine; Visit Provider Urology | DX: D09.0 Carcinoma in situ of bladder (principal) | CPT/HCPCS: 81003 ==

== ENCOUNTER → 2020-08-02 09:05 | Outpatient (BNVA) | payer MEDICARE, OTHER, SELFPAY | PROVIDERS: PCP Family Medicine; Visit Provider Urology | DX: D09.0 Carcinoma in situ of bladder (principal); C67.9 Malignant neoplasm of bladder, unspecified | CPT/HCPCS: 81003 ==

== ENCOUNTER → 2020-08-03 09:52 | Outpatient (BNVA) | payer MEDICARE, OTHER, SELFPAY | PROVIDERS: PCP Family Medicine; Visit Provider Urology | DX: Z20.822 Contact with and (suspected) exposure to COVID-19 (principal) | CPT/HCPCS: 87635 ==

== ENCOUNTER 2020-08-09 15:59 | Observation (INO) | payer MEDICARE, OTHER, SELFPAY ==
[2020-08-08 13:59] VITALS: BMI 32.8
[2020-08-09] VITALS (11 sets, daily range): BP systolic 115–179; BP diastolic 69–102; PULSE 62–92; RESP 12–19; TEMP 36.1–36.9; O2SAT 91–95
[2020-08-09 13:03] LABS: Glucose Point of Care 138 mg/dL (70-110)
[2020-08-09] MEDS: sodium chloride 0.9% 1,000 ML 30 ML IV (13:03)
--- NOTE | 2020-08-09 13:17 | ANES.PREANE2 ---
Pre-Anesthetic Assessment Pre-Anesthetic Assessment: Height/Weight: Height 1.8 m Weight 106.594 kg Temp Pulse Resp BP Pulse Ox 98.1 F 75 18 179/102 95 08/09/20 12:46 08/09/20 12:46 08/09/20 12:46 08/09/20 12:46 08/09/20 12:46 Preop Diagnosis: Carcinoma in situ of bladder Proposed Procedure: Operation Date: 08/09/20 13:20 Proposed Procedures p Cystoscopy 70655 D09.0(Not Applicable) - Mayco Milian MD s Transurethral Resection Bladder Tumor(Not Applicable) - Mayco Milian MD Familial anesthetic complications: None Was Beta Corby taken within 24 hours: N/A Was Clonidine taken within 24 hours: N/A Last intake: Intake Last Liquid Date 08/08/20 Last Liquid Time 20:00 Last Solid Date 08/08/20 Last Solid Time 20:00 Social: Social History: No alcohol and No tobacco Exam: Pre-Anes Outpt Exam: alert, oriented x 3, clear to auscultation bilaterally and regular rate & rhythm Airway: Cervical ROM: WNL MP: 3 Dentition: Full CV/HEM: CV/HEM: HTN : : Chronic renal Insufficiency (1 kidney removed in 2018 (cancer)) GI: GI: GERD Metabolic: Metabolic: DM and Hyperlipidemia Anesthetic Plan: ASA status: 3 Anesthesia: General Risk of > 500 ml blood loss (7ml/kg in children): No Meds/Allergies Current Medications: Current Medications Generic Name Dose Route Start Last Admin Trade Name Freq PRN Reason Stop Dose Admin Sodium Chloride 1,000 mls @ 30 ml s/hr 08/09/20 12:15 08/09/20 13:03 Sodium Chloride 0.9% IV 08/10/20 12:14 30 mls/hr .Q24H ANDRES Administration PFSH Anesthesia PFSH: Medical History Carcinoma in situ of bladder High-grade, lamina propria invasion, diffuse bladder wall involvement. Diabetes Hx of renal cell carcinoma Renal cyst, left Urinary retention Surgical History History of bladder surgery TURBT for carcinoma in situ April 2020. History of right nephrectomy Family History Father , AT AGE 91 Lung disease Mother Cancer Social History Smoking and tobacco status: former smoker Alcohol intake: unknown Adopted: No Caregiver/support person: No Lives independently: No Household members: spouse Marital status: Current occupational status: retired Data Anesthesia Other Labs: Laboratory Results - last 48 hr 08/09/20 12:57 POC Glucose 138 H Cardiac Studies: No Data to Display
--- NOTE | 2020-08-09 14:15 | P.HPUD_ITS ---
Surgery/Procedure H&P Update DATE OF PROCEDURE: August 09, 2020 DATE H&P PERFORMED: 08/02/20 H&P UPDATE INFORMATION: I have reviewed H&P completed within last 30 days, I have examined patient prior to procedure, No changes to prior documentation and H&P is in [facility] EMR on date indicated PREOP DIAGNOSIS: Carcinoma in situ of bladder PLANNED PROCEDURE: Operation Date: 08/09/20 13:20 Proposed Procedures p Cystoscopy 45637 D09.0(Not Applicable) - Mayco Milian MD s Transurethral Resection Bladder Tumor(Not Applicable) - Mayco Milian MD
--- NOTE | 2020-08-09 14:16 | PM.OP ---
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 Cystoscopy, transurethral section of bladder tumor, large Pathology: other (1. Cold cup biopsies (right left and posterior floor) 2. Right left and posterior resection sites.) Pathology: History of carcinoma in situ with multiple areas of cobblestone type mucosal change suspicious for persistence of CIS Surgeon: Milian Anesthesia: General Estimated blood loss: <10 cc Complications: None Findings: Area of suspicious mucosa was resected on right lateral wall, left lateral wall, posterior floor. Additional areas fulgurated. Total area >5 cm. Condition: stable Disposition: PACU Brief History: Mr. Montiel is a very pleasant 70-year-old white male with a history of carcinoma in situ that identified on cystoscopy and during work-up for hematuria. See H&P. He has undergone BCG induction therapy and a follow-up 6-week cystoscopy showed mucosa that demonstrated both routine BCG inflammatory changes but also some mucosa that was very suspicious for persistent carcinoma in situ on the right lateral wall. He is admitted now for resection of that area and bladder sampling. Procedure: After routine preop evaluation examination and obtaining of informed consent he was taken to the operating suite on 08/09/2020 where general anesthesia was administered without difficulty after appropriate timeout was performed, SCDs confirmed to be functioning, preoperative antibiotics administered, beta-mina protocol confirmed. Prepped and draped in the usual sterile fashion in dorsolithotomy position paying careful attention to avoiding pressure points. 21 [place]arian cystoscope with 30 degree lens was introduced into urethra meatus and advanced into the bladder under videoscopy. The bladder was systematically examined. Findings: The urethra was then dilated with [place] sounds and easily accommodated 28-30 Gibraltarian. 2% lidocaine jelly was instilled into the urethra then a 25 [place]tarian continuous-flow resectoscope sheath with visual obturator in place was advanced into the bladder without difficulty. COLD CUP biopsy forceps were initially used to sample some of the suspicious areas. These were sent initially. Next, the gyrus bipolar system was then utilized for resection and fulguration with the super loop initially and the button probe at completion. All tumor that was identified was resected. Specimens sent for pathologic evaluation. These included right and left lateral wall as well as posterior floor cold cup biopsies as well as resection tissue. All sites fulgurated with the button probe. At the completion of the procedure all sites were hemostatic. No additional specimens that have been resected remained in the bladder. Bladder was drained with a 20 [place]tarian three-way Buck catheter with 10 cc placed in the balloon. Catheter plug for irrigation port. He tolerated the procedure well without complications and was awakened in the operating room and returned to the recovery room in stable condition. PLANS: 1. Observation status overnight with anticipated discharge tomorrow 2. Mitomycin bladder instillation tomorrow morning
[2020-08-09] MEDS: levofloxacin-dextrose 5 % 500 MG/100 ML PREMIX 100 MG IV (14:39)
[2020-08-09] MEDS: lidocaine 2% Urojet 20 mL TOPICAL (15:00)
--- NOTE | 2020-08-09 15:46 | P.PCN_ITS ---
PACU note PACU note: VSS, Good respiratory effort, report to HUMAN RESOURCES PARTNER Post-Anesthesia Exam: awake
--- NOTE | 2020-08-09 15:46 | PM.PACU ---
PACU note PACU note: VSS, Good respiratory effort, report to INTEGRATION DIRECTOR Post-Anesthesia Exam: awake
[2020-08-09 16:31] LABS: Glucose Point of Care 125 mg/dL (70-110)
[2020-08-09] MEDS: HYDROcodone-acetaminophen 5-325 mg Tablet 1 TAB PO (16:35)
--- NOTE | 2020-08-09 17:19 | ANE.PACU2 ---
Inpatient post-anesthesia follow up: Airway intact: Yes Vital signs: Temperature 97.2 F Pulse Rate 66 Respiratory Rate 17 Blood Pressure 163/87 Pulse Oximetry 93 Oxygen Delivery Me thod Room Air Oxygen Flow Rate 8 Fraction of Inspir ed Oxygen Hydration adequate: Yes Nausea and vomiting: No Pain level: 2 Mental status: Baseline
[2020-08-09] MEDS: lisinopril 5 mg Tablet PO (17:38)
[2020-08-09] MEDS: morphine 4 mg/mL SDV 1 mL 2 MG IVP (18:41)
--- NOTE | 2020-08-09 19:38 | PC.NURSE ---
SHIFT SUMMARY PATIENT HAS DONE WELL SINCE ARRIVING TO THE FLOOR. PATIENT HAS HAD 600ML OF YELLOW URINE OUTPUT. NO CLOTS. NO PINK COLOR. PATIENT COMPLAINED OF PAIN IN THE URETHRA. HYDROCODONE AND MORPHINE ADMINISTERED. PATIENT STATED HE IS NOW COMFORTABLE. CURRENTLY RESTING IN BED. NO COMPLAINTS AT THIS TIME.
[2020-08-10] VITALS: BP 142/84; PULSE 74; RESP 17; TEMP 36.9; O2SAT 90
[2020-08-10] MEDS: sodium chloride 0.9% 1,000 ML 30 ML IV (00:25)
--- NOTE | 2020-08-10 03:51 | PC.NURSE ---
to ensure patency of catheter 100mls of irrigation solution was easily instilled into bladder to easily return the entire amount back of pale pink fluid, with minimal fibrous blood tissue sediment. Pt tolerated well. Pt has had approx 600mls light red urine out so far tonight with minimal pain, just discomfort.
[2020-08-10 04:00] VITALS: BP 146/72; PULSE 81; RESP 17; TEMP 36.9; O2SAT 90
[2020-08-10] MEDS: lisinopril 10 mg Tablet PO (05:56)
[2020-08-10 07:06] VITALS: BP 157/83; PULSE 69; RESP 17; TEMP 37; O2SAT 91
--- NOTE | 2020-08-10 07:23 | P.DS_ITS ---
Discharge Providers Date of Admission: 08/09/20 15:59 Date of Discharge: August 10, 2020 Attending Provider at Admission: Mayco Milian MD Attending Provider at Discharge: Mayco Milian MD Primary Care Provider: Juan Carlos Neri MD Diagnoses at Discharge Discharge Diagnosis (1) Carcinoma in situ of bladder: Status: Acute Permanent problem details: High-grade, lamina propria invasion, diffuse bladder wall involvement. (2) Diabetes: Status: Acute Reason for Visit Reason for Visit: History CIS, suspicious bladder mucosa Hospital Course Hospital Course He was admitted on the day of the procedure which went well. He had multiple areas within the bladder much greater than 5 cm suspicious for persistent carcinoma in situ. Some other erythematous areas more consistent with BCG inflammatory changes. He did well on night of the surgery. Had one irrigation of the bladder which revealed no significant bleeding clots etc. On the morning of postop day #1 his urine was clear and MITOMYCIN INTRAVESICAL treatment was utilized with 40 mg instilled into the bladder for 1 hour and then drained. Because of the extent of the resection it was decided to leave the catheter in at discharge. He was trained in leg bag and night bag management which he has done before. We set up a follow-up visit for early next week for voiding trial. He has already been trained in S CIC technique and did well previously. Comfortable with that still. I reviewed his postoperative limitations and encouraged him to call if he has any concerns or questions. He was notified how to reach me if he had any problems. Physical Exam Const: COMMON NORMALS: no acute distress and alert GI: COMMON NORMALS: Soft to palpation PALPATION: Yes Soft to palpation and No Tenderness to palpation present (GI) : BLADDER/KIDNEY EXAM: Yes bladder normal to palpation MEATUS: meatus normal Neuro: SENSORIUM/ORIENTATION: Yes alert Psych: COMMON NORMALS: mental status grossly normal, Normal thought process present and cooperative ATTITUDE: Yes calm and Yes engaged THOUGHT PROCESS: Normal thought process present Urinary Catheter Management^: 3-way Urethral CBI: Cath Placed During This Visit: yes Reason for Continuing Indwelling Catheter: Acute Urinary Retention or Obstruction Urinary Catheter Date of Insertion: 08/09/20 Urinary Catheter Time of Insertion: 15:30 Discharge Data Data Completed and Pending: Pending at discharge Category Date Time Status Pathology: Surgic al [PTH] Routine Pth 08/09/20 15:45 Ordered Labs from last 24 hours 08/09/20 08/09/20 16:21 12:57 POC Glucose 125 H 138 H Vitals: Last Vital Signs Temp 98.6 F 08/10/20 07:06 Pulse 69 08/10/20 07:06 Resp 17 08/10/20 07:06 BP 157/83 08/10/20 07:06 Pulse Ox 91 08/10/20 07:06 Discharge Plan Discharge Patient Disposition: Home Condition: Stable Prescriptions: Continued dorzolamide (PF) 2 % drops 1 drp ophthalmic (eye) ONCE RF: 0 diphenhydramine HCl [Sleep Aid (diphenhydramine)] 50 mg Capsule 50 mg PO QPM PRN (Reason: Sleep) RF: 0 metformin 500 mg tablet 500 mg PO DAILY RF: 0 atorvastatin [Lipitor] 10 mg Tablet 10 mg PO DAILY RF: 0 acetaminophen [Tylenol Extra Strength] 500 mg Tablet 1,000 mg PO PRN RF: 0 tamsulosin [Flomax] 0.4 mg Capsule 0.4 mg PO DAILY RF: 0 lisinopril 10 mg tablet 10 mg PO QAM RF: 0 cholecalciferol (vitamin D3) [Vitamin D3] 25 mcg (1,000 unit) Capsule 25 mcg PO DAILY RF: 0 omeprazole 20 mg Tablet,Delayed Release (Dr/Ec) 20 mg PO DAILY RF: 0 Men's Multivitamin 400-20-300 mcg Tablet 1 tab PO DAILY RF: 0 lisinopril 5 mg tablet 5 mg PO QPM RF: 0 Discharge Orders: Discharge Order (Routine); Ordered 08/10/20 Ordered By: Mayco Milian Referrals: Mayco Milian MD [Physician] - 08/14/20 (Voiding trial) Discharge Diet: Usual diet Discharge Activity: Increase activity as tolerated Activity Restrictions/Additional Instructions: Urology instructions: 1. We will schedule a follow-up appointment next week for voiding trial in the office. 2. Hopefully by that time we will have the pathology report back. If not we will communicate over the phone once it is available. 3. Please avoid straining or lifting >10 pounds for approximately 2 to 3 weeks. 4. Please call if you have any concerns or questions. The hospital process plant operator can reach me after hours. Discharge Attestations Time Spent in Discharge Care*: less than 30 min Quality Metrics Clinical Quality Measures During this hospital stay, did patient experience: None Coding Level of Care Code Acute Chg FW DC note Diagnoses Carcinoma in situ of bladder D09.0 Diabetes E11.9
--- NOTE | 2020-08-10 07:28 | PM.MISC ---
Miscellaneous Note Note: INTRAVESICAL MITOMYCIN instillation 40 mg of mitomycin was instilled into the bladder atraumatically. He did very well. No concerns. Targeted for 1 hour. Plans: 1. Drain mitomycin at 1 hour or sooner if uncomfortable 2. Maintain Buck catheter discharge for further healing before voiding trial next week.
[2020-08-10] MEDS: tamsulosin 0.4 mg Capsule PO (08:19)
[2020-08-10] MEDS: acetaminophen 500 mg Tablet PO (08:19)
[2020-08-10] MEDS: pantoprazole DR 40 mg Tablet PO (08:19)
[2020-08-10] MEDS: atorvastatin 40 mg Tablet 20 MG PO (08:19)
[2020-08-10] MEDS: metformin 500 mg Tablet PO (08:19)
[2020-08-10 09:35] VITALS: BP 157/83; PULSE 69; RESP 17; TEMP 37; O2SAT 91
== END 2020-08-10 09:20 | disposition home or self-care (01) ==
LOC: MEDSURG 16:00
PROVIDERS: Admitting Provider Urology; PCP Family Medicine; Visit Provider Urology
PROC: 0TJB8ZZ Inspection of Bladder, Via Natural or Artificial Opening Endoscopic (ICD-10-PCS; CPT 52000; principal; 2020-08-09 13:10)
PROC: 0TBB8ZZ Excision of Bladder, Via Natural or Artificial Opening Endoscopic (ICD-10-PCS; CPT 52240; 2020-08-09 13:10)
DX: D09.0 Carcinoma in situ of bladder (principal); K21.9 Gastro-esophageal reflux disease without esophagitis; I10 Essential (primary) hypertension; E11.9 Type 2 diabetes mellitus without complications; E78.5 Hyperlipidemia, unspecified; Z87.891 Personal history of nicotine dependence
CPT/HCPCS: 51720; 52240; 36416; 51701; 82962; 88305; G0378; J1956; J2270; J2704; J2710; J3010; J3490; J7030; J9280

== ENCOUNTER → 2020-08-23 08:41 | Outpatient (BNVA) | payer MEDICARE, OTHER, SELFPAY | PROVIDERS: PCP Family Medicine; Visit Provider Urology | DX: D09.0 Carcinoma in situ of bladder (principal); R33.9 Retention of urine, unspecified; R30.0 Dysuria | CPT/HCPCS: 81003 ==

== ENCOUNTER → 2020-11-02 10:45 | Outpatient (BNVA) | payer MEDICARE, OTHER, SELFPAY | PROVIDERS: PCP Family Medicine; Visit Provider Urology | DX: D09.0 Carcinoma in situ of bladder (principal) | CPT/HCPCS: 81003 ==

== ENCOUNTER → 2020-11-07 11:03 | Outpatient (BNVA) | payer MEDICARE, OTHER, SELFPAY | PROVIDERS: PCP Family Medicine; Visit Provider Urology | DX: D09.0 Carcinoma in situ of bladder (principal) | CPT/HCPCS: 87635 ==

== ENCOUNTER 2020-11-12 17:39 | Observation (INO) | payer MEDICARE, OTHER, SELFPAY ==
[2020-11-09 15:44] VITALS: BMI 32.8
[2020-11-12] VITALS (14 sets, daily range): BP systolic 117–151; BP diastolic 71–99; PULSE 55–84; RESP 12–18; TEMP 35.9–36.6; O2SAT 91–96
--- NOTE | 2020-11-12 15:32 | P.HPUD_ITS ---
Surgery/Procedure H&P Update DATE OF PROCEDURE: November 12, 2020 DATE H&P PERFORMED: 11/02/20 H&P UPDATE INFORMATION: I have reviewed H&P completed within last 30 days, I have examined patient prior to procedure, No changes to prior documentation and H&P is in [facility] EMR on date indicated CHANGES TO PREVIOUS DOCUMENTATION: Reviewed the procedure again. Questions answered. Confirmed desire to proceed. 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
--- NOTE | 2020-11-12 15:32 | ANES.PREANE2 ---
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 Proposed Procedure: Operation Date: 11/12/20 15:55 Proposed Procedures p Transurethral Resection Bladder Tumor 93660 d09.0(Not Applicable) - Mayco Milian MD s Cystoscopy(Not Applicable) - Mayco Milian MD Was Beta Corby taken within 24 hours: N/A Was Clonidine taken within 24 hours: N/A Last intake: solid 2144 liquid 0900 Social: Social History: No alcohol and No tobacco Exam: Pre-Anes Outpt Exam: alert, No oriented x 3 and No clear to auscultation bilaterally Airway: Submandibular: WNL Cervical ROM: WNL MP: 2 Dentition: Full History/ROS: No significant history except as noted Pulmonary: Pulmonary: None reported CV/HEM: CV/HEM: HTN : Comments: only 1 kidney previous cancer. Hepatic: Hepatic: None reported GI: GI: GERD Comments: well controlled. Metabolic: Metabolic: DM Musc/skel: Musc/skel: None reported Neuropsych: Neuropsych: None reported Anesthetic Plan: ASA status: 3 Anesthesia: Anesthesia Evaluation and General Risk of > 500 ml blood loss (7ml/kg in children): No PFSH Anesthesia PFSH: Medical History Carcinoma in situ of bladder High-grade, lamina propria invasion, diffuse bladder wall involvement. Diabetes Hx of renal cell carcinoma Renal cyst, left Surgical History History of bladder surgery TURBT for carcinoma in situ April 2020. History of right nephrectomy Family History Father , AT AGE 91 Lung disease Mother Cancer Social History Smoking and tobacco status: former smoker Alcohol intake: unknown Caregiver/support person: No Marital status: Current occupational status: retired History of recent travel: No Data Anesthesia Cardiac Studies: No Data to Display Documented by User: Nikolas Conde 11/12/20 17:06 PFSH Anesthesia PFSH: Medical History Carcinoma in situ of bladder High-grade, lamina propria invasion, diffuse bladder wall involvement. Diabetes Hx of renal cell carcinoma Renal cyst, left Surgical History History of bladder surgery TURBT for carcinoma in situ April 2020. History of right nephrectomy Family History Father , AT AGE 91 Lung disease Mother Cancer Social History Smoking and tobacco status: former smoker Alcohol intake: unknown Caregiver/support person: No Marital status: Current occupational status: retired History of recent travel: No Data Anesthesia Cardiac Studies: No Data to Display
[2020-11-12] MEDS: sodium chloride 0.9% 1,000 ML 30 ML IV ×2 (15:33→18:13)
[2020-11-12 15:51] LABS: Glucose Point of Care 118 mg/dL (70-110)
[2020-11-12] MEDS: levofloxacin-dextrose 5 % 500 MG/100 ML PREMIX 100 MG IV (16:05)
--- NOTE | 2020-11-12 16:33 | P.OP_ITS ---
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 Cystoscopy, transurethral section of bladder tumor medium Pathology: Multiple areas sampled throughout the bladder involving suspicious mucosa Anesthesia: General Estimated blood loss: Less than 10 cc Urine output: Not measured Complications: None Findings: Findings seen in the clinic were confirmed. Multiple areas sampled with fulguration of the most suspicious areas measuring approximately 3 cm in diameter tolerated well. Condition: stable Disposition: PACU Brief History: Mr. Montiel is a very pleasant 70-year-old white male with a history of bladder cancer/carcinoma in situ. Has undergone BCG induction and maintenance therapy with suspicious mucosa seen on surveillance cystoscopy recently. It was recommended that he undergo resection of these areas and adequate sampling of the bladder. Procedure: After routine preoperative evaluation examination and obtaining of informed consent he was taken to the operating suite on 11/12/2020 where general anesthesia was administered without difficulty after appropriate timeout was performed, SCDs confirmed to be functioning, preoperative antibiotics administered, beta-mina protocol confirmed. Prepped and draped in usual sterile fashion in dorsolithotomy position paying careful attention to avoiding pressure points. 21 [place]ayan cystoscope with 30 degree lens was introduced into the urethra meatus and advanced into the bladder under videoscopy. The bladder was systematically examined with findings seen in clinic confirmed. No additional findings noted. There were many cystic type changes in on the right lateral anterior aspect of the bladder there was more of a solid-looking component that may have been a aggregation of the cystic type changes but it looks more suspicious than the surrounding areas. The urethra was then calibrated with [place] sounds and easily accommodated 30 [place]ayan. 2% lidocaine jelly was instilled into the urethra then a 25 [place]ayan con tinuous-flow resectoscope sheath with visual obturator in place was advanced into the bladder without difficulty. The gyrus bipolar system with super loop was utilized to resect the suspicious areas. The button probe was used to fulgurate the base of these resected areas. Total diameter of resection was about 3 cm plus. Hemostasis was visually confirmed and the bladder was drained with a 20 [place] three-way Buck with 10 cc placed in the balloon. Catheter worked well. The irrigation port was plugged. Tolerated the procedure well without complications and was awakened in the operating room and returned to the cart room in stable condition. PLANS: 1. Admit to observation status on second floor.
[2020-11-12] MEDS: fentaNYL 50 mcg/mL INJ 2mL IVP (16:54)
--- NOTE | 2020-11-12 17:07 | ANE.PACU2 ---
Inpatient post-anesthesia follow up: Airway intact: Yes Vital signs: Temperature 97.6 F Pulse Rate 71 Respiratory Rate 14 Blood Pressure 151/99 Pulse Oximetry 96 Oxygen Delivery Me thod Room Air Oxygen Flow Rate 6 Fraction of Inspir ed Oxygen Hydration adequate: Yes Nausea and vomiting: No Pain level: 2 Mental status: Baseline
[2020-11-12] MEDS: HYDROcodone-acetaminophen 5-325 mg Tablet 1 TAB PO (18:13)
[2020-11-12] MEDS: lisinopril 5 mg Tablet PO (18:13)
[2020-11-12 18:38] LABS: Glucose Point of Care 134 mg/dL (70-110)
[2020-11-12] MEDS: diphenhydrAMINE 50 mg/mL SDV 1mL 25 MG IVP (21:13)
[2020-11-13 00:25] VITALS: BP 126/76; PULSE 74; RESP 18; TEMP 36.6; O2SAT 94
[2020-11-13 04:25] VITALS: BP 129/80; PULSE 67; RESP 18; TEMP 36.7; O2SAT 95
[2020-11-13] MEDS: lisinopril 10 mg Tablet PO (06:18)
--- NOTE | 2020-11-13 06:35 | PC.NURSE ---
Shift Summary Patient slept off and on, states that vital machine kept waking him up (for post op vital signs). Asked if he could take Excedrin PM. Called Dr. Milian, he did not want patient to take, but gave orders that he could take the benadryl ordered for sleep and if that did not work could give Ambien 5mg PO once. Benadryl was given and patient rested well. Over 1,000mL of urine output, urine is light pink, no visible clots noted.
--- NOTE | 2020-11-13 06:56 | PM.DCS ---
Discharge Providers Date of Admission: 11/12/20 17:39 Date of Discharge: November 13, 2020 Attending Provider at Admission: Mayco Milian MD Attending Provider at Discharge: Mayco Milian MD Primary Care Provider: Juan Carlos Neri MD Diagnoses at Discharge Discharge Diagnosis (1) Carcinoma in situ of bladder: Status: Acute Permanent problem details: High-grade, lamina propria invasion, diffuse bladder wall involvement. (2) Diabetes: Status: Acute Reason for Visit Reason for Visit: cystoscopy Hospital Course Hospital Course Admitted on the day of the procedure which went well. Findings were felt to be more consistent with inflammatory than recurrent TCCA but pathology is pending at time of dictation. His urine remained clear postoperatively. It was decided to leave his catheter in due to prior postoperative urinary retention episodes. He was discharged on postoperative day #1 in stable condition. Plans will be to follow-up at the end of the week for hopefully pathology report check and voiding trial. Leg and night bag provided. Instructions and limitations reviewed. Physical Exam Const: COMMON NORMALS: no acute distress, alert and well nourished GENERAL APPEARANCE: well kempt and well developed ORIENTATION/CONSCIOUSNESS: not confused HENMT: COMMON NORMALS: normocephalic and atraumatic HEAD & SCALP: normocephalic and atraumatic Eye: COMMON NORMALS: conjunctivae normal and no scleral icterus CONJUNCTIVA: Yes conjunctivae normal Neck/C-Spine: COMMON NORMALS: full ROM GENERAL: Yes normal visual inspection Resp: COMMON NORMALS: normal respiratory effort EFFORT & INSPECTION: No labored and No Actively coughing : OTHER: Urine clear. Abdomen soft nontender. Bladder nondistended Extremity: COMMON NORMALS: no clubbing, cyanosis or edema Neuro: COMMON NORMALS: no focal motor deficits SENSORIUM/ORIENTATION: Yes alert Psych: COMMON NORMALS: mental status grossly normal APPEARANCE: Yes grossly normal and Yes well kempt ATTITUDE: Yes calm and Yes engaged Skin: COMMON NORMALS: no rashes or lesions noted and no jaundice GENERAL SKIN EXAM: no rashes or lesions noted Urinary Catheter Management^: Buck: Cath Placed During This Visit: no Reason for Continuing Indwelling Catheter: Other Discharge Data Data Completed and Pending: Pending at discharge Category Date Time Status Pathology: Surgic al [PTH] Routine Pth 11/12/20 18:43 Ordered Labs from last 24 hours 11/12/20 11/12/20 18:31 15:39 POC Glucose 134 H 118 H Vitals: Last Vital Signs Temp 98.0 F 11/13/20 04:25 Pulse 67 11/13/20 04:25 Resp 18 11/13/20 04:25 BP 129/80 11/13/20 04:25 Pulse Ox 95 11/13/20 04:25 Discharge Plan Discharge Patient Disposition: Home Condition: Stable Prescriptions: Continued dorzolamide (PF) 2 % drops 1 drp ophthalmic (eye) ONCE RF: 0 diphenhydramine HCl [Sleep Aid (diphenhydramine)] 50 mg Capsule 50 mg PO QPM PRN (Reason: Sleep) RF: 0 metformin 500 mg tablet 500 mg PO DAILY RF: 0 atorvastatin [Lipitor] 10 mg Tablet 10 mg PO DAILY RF: 0 acetaminophen [Tylenol Extra Strength] 500 mg Tablet 1,000 mg PO PRN RF: 0 tamsulosin [Flomax] 0.4 mg Capsule 0.4 mg PO DAILY RF: 0 lisinopril 10 mg tablet 10 mg PO QAM RF: 0 cholecalciferol (vitamin D3) [Vitamin D3] 25 mcg (1,000 unit) Capsule 25 mcg PO DAILY RF: 0 omeprazole 20 mg Tablet,Delayed Release (Dr/Ec) 20 mg PO DAILY RF: 0 Men's Multivitamin 400-20-300 mcg Tablet 1 tab PO DAILY RF: 0 lisinopril 5 mg tablet 5 mg PO QPM RF: 0 sulfamethoxazole-trimethoprim [Bactrim] 400-80 mg Tablet 1 tab PO BID RF: 0 Discharge Orders: Discharge Order (Routine); Ordered 11/13/20 Ordered By: Mayco Milian Referrals: Mayco Milian MD [Physician] - 11/16/20 7:30 am (Voiding trial) Discharge Diet: Usual diet Discharge Activity: Limit activity as instructed Patient Instructions: Opioid Safety Activity Restrictions/Additional Instructions: 1. The surgery went well. Pathology report should be back in about 1 week 2. Followup in my office on Thursday morning early for a trial of voiding. 3. Drink a lot of fluids with catheter in place. Don't lift anything over 10# Discharge Attestations Time Spent in Discharge Care*: less than 30 min Quality Metrics Clinical Quality Measures During this hospital stay, did patient experience: None Coding Level of Care Code Acute Chg FW DC note Diagnoses Carcinoma in situ of bladder D09.0 Diabetes E11.9
[2020-11-13 08:00] VITALS: BP 153/81; PULSE 69; RESP 16; TEMP 36.7; O2SAT 94
[2020-11-13 08:26] VITALS: BP 153/81; PULSE 69; RESP 16; TEMP 36.7; O2SAT 94
== END 2020-11-13 08:30 | disposition home or self-care (01) ==
LOC: MEDSURG 17:40
PROVIDERS: Admitting Provider Urology; PCP Family Medicine; Visit Provider Urology
PROC: 0TBB8ZZ Excision of Bladder, Via Natural or Artificial Opening Endoscopic (ICD-10-PCS; CPT 52235; principal; 2020-11-12 15:45)
PROC: 0TJB8ZZ Inspection of Bladder, Via Natural or Artificial Opening Endoscopic (ICD-10-PCS; CPT 52000; 2020-11-12 15:45)
DX: D09.0 Carcinoma in situ of bladder (principal); E11.9 Type 2 diabetes mellitus without complications; I10 Essential (primary) hypertension; Z87.891 Personal history of nicotine dependence
CPT/HCPCS: 52235; 36416; 82962; 88305; G0378; J1200; J1956; J2250; J2405; J2704; J2710; J3010; J3490; J7030

== ENCOUNTER → 2020-12-14 10:34 | Outpatient (BNVA) | payer MEDICARE, OTHER, SELFPAY | PROVIDERS: PCP Family Medicine; Visit Provider Urology | DX: D09.0 Carcinoma in situ of bladder (principal) | CPT/HCPCS: 81003 ==

== ENCOUNTER → 2020-12-21 10:39 | Outpatient (BNVA) | payer MEDICARE, OTHER, SELFPAY | PROVIDERS: PCP Family Medicine; Visit Provider Urology | DX: D09.0 Carcinoma in situ of bladder (principal) | CPT/HCPCS: 81003 ==

== ENCOUNTER → 2020-12-28 10:30 | Outpatient (BNVA) | payer MEDICARE, OTHER, SELFPAY | PROVIDERS: PCP Family Medicine; Visit Provider Urology | DX: D09.0 Carcinoma in situ of bladder (principal) | CPT/HCPCS: 81003 ==

== ENCOUNTER → 2021-02-07 10:17 | Outpatient (BNVA) | payer MEDICARE, OTHER, SELFPAY | PROVIDERS: PCP Family Medicine; Visit Provider Urology | DX: D09.0 Carcinoma in situ of bladder (principal) | CPT/HCPCS: 81003 ==

== ENCOUNTER → 2021-04-05 10:34 | Outpatient (BNVA) | payer MEDICARE, OTHER, SELFPAY | PROVIDERS: PCP Family Medicine; Visit Provider Urology | DX: D09.0 Carcinoma in situ of bladder (principal) | CPT/HCPCS: 81003 ==

== ENCOUNTER → 2021-04-12 10:36 | Outpatient (BNVA) | payer MEDICARE, OTHER, SELFPAY | PROVIDERS: PCP Family Medicine; Visit Provider Urology | DX: D09.0 Carcinoma in situ of bladder (principal) | CPT/HCPCS: 81003 ==

== ENCOUNTER → 2021-04-19 10:30 | Outpatient (BNVA) | payer MEDICARE, OTHER, SELFPAY | PROVIDERS: PCP Family Medicine; Visit Provider Urology | DX: D09.0 Carcinoma in situ of bladder (principal) | CPT/HCPCS: 81003 ==

== ENCOUNTER 2021-05-20 09:55 | Outpatient (CLI) | payer MEDICARE, OTHER, SELFPAY ==
[2021-05-20 10:15] VITALS: BP 153/88; PULSE 91; RESP 16; TEMP 36.5; O2SAT 97; BMI 32.3
[2021-05-20 11:33] VITALS: BP 125/80; PULSE 85; RESP 16; TEMP 36.4; O2SAT 97
[2021-05-20 12:33] VITALS: BP 119/83; PULSE 85; RESP 16; TEMP 36.5; O2SAT 94
== END 2021-05-20 09:56 | disposition home or self-care (01) ==
LOC: OPS 09:59
PROVIDERS: PCP Family Medicine; Visit Provider Nurse Practitioner Family
DX: U07.1 COVID-19 (principal)
CPT/HCPCS: 96365

== ENCOUNTER → 2021-09-13 10:36 | Outpatient (BNVA) | payer MEDICARE, OTHER, SELFPAY | PROVIDERS: PCP Family Medicine; Visit Provider Urology | DX: D09.0 Carcinoma in situ of bladder (principal) | CPT/HCPCS: 52000; 81003 ==

== ENCOUNTER → 2021-10-31 15:44 | Outpatient (BNVA) | payer MEDICARE, OTHER, SELFPAY | PROVIDERS: PCP Family Medicine; Visit Provider Nurse Practitioner Family | DX: D09.0 Carcinoma in situ of bladder (principal) | CPT/HCPCS: 51720; 81003 ==

== ENCOUNTER → 2021-11-11 08:55 | Outpatient (BNVA) | payer MEDICARE, OTHER, SELFPAY | PROVIDERS: PCP Family Medicine; Visit Provider Family Medicine | DX: E11.9 Type 2 diabetes mellitus without complications (principal); I10 Essential (primary) hypertension | CPT/HCPCS: 80053; 80061; 83036 ==

== ENCOUNTER → 2022-01-08 08:37 | Outpatient (BNVA) | payer MEDICARE, OTHER, SELFPAY | PROVIDERS: PCP Family Medicine; Visit Provider Family Medicine | DX: L02.91 Cutaneous abscess, unspecified (principal) | CPT/HCPCS: 87070; 87075; 87077; 87184; 87205 ==

== ENCOUNTER → 2022-01-14 11:26 | Outpatient (BNVA) | payer MEDICARE, OTHER, SELFPAY | PROVIDERS: PCP Family Medicine; Visit Provider Family Medicine | DX: E11.22 Type 2 diabetes mellitus with diabetic chronic kidney disease (principal); N18.9 Chronic kidney disease, unspecified | CPT/HCPCS: 80048 ==

== ENCOUNTER → 2022-01-28 09:20 | Outpatient (BNVA) | payer MEDICARE, OTHER, SELFPAY | PROVIDERS: PCP Family Medicine; Visit Provider Family Medicine | DX: N17.9 Acute kidney failure, unspecified (principal); N18.9 Chronic kidney disease, unspecified; E11.9 Type 2 diabetes mellitus without complications; I10 Essential (primary) hypertension | CPT/HCPCS: 80053; 80061; 83036; 86140 ==

== ENCOUNTER → 2022-02-24 09:59 | Outpatient (BNVA) | payer OTHER, SELFPAY | PROVIDERS: PCP Family Medicine; Visit Provider Podiatrist Foot & Ankle Surgery | DX: L84 Corns and callosities (principal); Q66.6 Other congenital valgus deformities of feet | CPT/HCPCS: 99204 ==

== ENCOUNTER → 2022-02-28 08:10 | Outpatient (BNVA) | payer OTHER, SELFPAY | PROVIDERS: PCP Family Medicine; Visit Provider Urology | DX: D09.0 Carcinoma in situ of bladder (principal) | CPT/HCPCS: 52000; 81003 ==

== ENCOUNTER → 2022-05-01 11:13 | Outpatient (BNVA) | payer MEDICARE, OTHER, SELFPAY | PROVIDERS: PCP Family Medicine; Visit Provider Podiatrist Foot & Ankle Surgery | DX: M79.671 Pain in right foot (principal); L84 Corns and callosities; Q66.6 Other congenital valgus deformities of feet | CPT/HCPCS: 11055; 99213 ==

== ENCOUNTER → 2022-06-25 14:02 | Outpatient (BNVA) | payer MEDICARE, OTHER, SELFPAY | PROVIDERS: PCP Family Medicine; Visit Provider Podiatrist Foot & Ankle Surgery | DX: Q66.6 Other congenital valgus deformities of feet (principal); L97.512 Non-pressure chronic ulcer of other part of right foot with fat layer exposed; L03.115 Cellulitis of right lower limb; E11.621 Type 2 diabetes mellitus with foot ulcer; E11.628 Type 2 diabetes mellitus with other skin complications; E11.8 Type 2 diabetes mellitus with unspecified complications; Z79.84 Long term (current) use of oral hypoglycemic drugs | CPT/HCPCS: 99214 ==

== ENCOUNTER → 2022-06-26 12:56 | Outpatient (BNVA) | payer MEDICARE, OTHER, SELFPAY | PROVIDERS: PCP Family Medicine; Visit Provider Urology | DX: D09.0 Carcinoma in situ of bladder (principal) | CPT/HCPCS: 81003 ==

== ENCOUNTER → 2022-07-09 14:19 | Outpatient (BNVA) | payer MEDICARE, OTHER, SELFPAY | PROVIDERS: PCP Family Medicine; Visit Provider Podiatrist Foot & Ankle Surgery | DX: Q66.6 Other congenital valgus deformities of feet (principal) | CPT/HCPCS: 99214 ==

== ENCOUNTER 2022-07-18 06:37 | Day surgery (SDC) | payer MEDICARE, OTHER, SELFPAY ==
[2022-07-17 10:25] VITALS: BMI 31.1
[2022-07-18 06:53] VITALS: BP 155/99; PULSE 82; RESP 18; TEMP 36.5; O2SAT 95
[2022-07-18] MEDS: sodium chloride 0.9% 1,000 ML 30 ML IV (07:12)
[2022-07-18 07:16] LABS: Glucose Point of Care 109 mg/dL (70-110)
--- NOTE | 2022-07-18 07:55 | W.PM.OPSUD ---
Surgery/Procedure H&P Update DATE OF PROCEDURE: July 18, 2022 DATE H&P PERFORMED: 07/09/22 CHANGES TO PREVIOUS DOCUMENTATION: nonr PREOP DIAGNOSIS: Bunion, second hammertoe, right foot. PLANNED PROCEDURE: Operation Date: 07/18/22 08:10 Proposed Procedures p Right bunionectomy with double osteotomy and second hammertoe correction 78266, 12990,?M21.611,M20.11, M20.41(Right) - You Davis DPM s Double Osteotomy(Right) - KETTY Sandoval Second Hammertoe Correction(Right) - You Davis DPM
--- NOTE | 2022-07-18 07:56 | XR_ITS ---
WS: [id number] XR foot RT min 3V* [id number] REASON FOR EXAM: preop eval hallux valgus FINDINGS: Mild narrowing of the joint spaces with subchondral sclerosis in the DIP and PIP joints of the second through the fifth toes. Moderate hallux valgus deformity at the first metatarsal phalangeal joint with mild joint space narro wing and bony overgrowth of the distal metatarsal head. Remainder of the bone and joint structure of the forefoot without significant abnormality. Joint spaces of the midfoot are intact and relatively well-preserved. No focal bone abnormality in th e midfoot. Subtalar joint is intact and relatively well-preserved. No significant focal bony abnormality of the hindfoot. Moderate calcaneal plantar enthesophyte. XR/XR foot RT min 3V* [id number] IMPRESSION: Hallux valgus. 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 Calcaneal enthesophyte.
--- NOTE | 2022-07-18 07:57 | P.ANESASSM_ITS ---
Pre-Anesthetic Assessment Height/Weight: Height 1.8 m Weight 101.151 kg Temp Pulse Resp BP Pulse Ox O2 Del Method 97.7 F 82 18 155/99 95 07/18/22 06:53 07/18/22 06:53 07/18/22 06:53 07/18/22 06:53 07/18/22 06:53 07/18/22 06:53 Preop Diagnosis: Bunion, second hammertoe, right foot. Operation Date: 07/18/22 08:10 Proposed Procedures p Right bunionectomy with double osteotomy and second hammertoe correction 39065, 02394,?M21.611,M20.11, M20.41(Right) - You Davis DPM s Double Osteotomy(Right) - KETTY Sandoval Second Hammertoe Correction(Right) - You Davis DPM Familial anesthetic complications: none Was Beta Corby taken within 24 hours: N/A Was Clonidine taken within 24 hours: N/A Last intake: Intake Last Liquid Date 07/16/22 Last Liquid Time 22:00 Last Solid Date 07/16/22 Last Solid Time 22:00 Social No alcohol and No tobacco Exam alert, oriented x 3, clear to auscultation bilaterally and regular rate & rhythm Airway Submandibular: within normal limits Cervical ROM: within normal limits Mallampati: Class II Dentition: false (upper) CV/HEM Hypertension Chronic Renal Insufficiency single kidney GI Gastroesophageal Reflux Disease Metabolic Hyperlipidemia Anesthetic Plan ASA status: 3 Anesthesia: MAC Medications/Allergies Home Medications Medication Instructions Recorded Confirmed Last Taken Type acetaminophen 500 mg tablet 1,000 mg PO PRN 03/15/20 07/18/22 07/17/22 History (Tylenol Extra Strength) atorvastatin 10 mg tablet (Lipitor) 10 mg PO DAILY 03/15/20 07/18/22 07/17/22 History cholecalciferol (vitamin D3) 25 25 mcg PO DAILY 03/15/20 07/18/22 07/17/22 History mcg (1,000 unit) capsule (Vitamin D3) metformin 500 mg tablet 500 mg PO DAILY 03/15/20 07/18/22 07/17/22 History fwifvrtn-grtmvnkf-yxgti acid 400 1 tab PO DAILY 03/15/20 07/18/22 07/17/22 History mcg-vit K 20 mcg-lycop 300 mcg tablet (Men's Multivitamin) omeprazole 20 mg tablet,delayed 20 mg PO DAILY 03/15/20 07/18/22 07/17/22 Histo ry release diphenhydramine HCl 50 mg capsule 50 mg PO QPM PRN Sleep 04/19/20 07/18/22 07/17/22 History (Sleep Aid (diphenhydramine)) dorzolamide (PF) 2 % (PF) eye drops 1 drp ophthalmic (eye) DAILY 05/18/20 07/18/22 07/17/22 History tamsulosin 0.4 mg capsule (Flomax) 0.4 mg PO BID 12/14/20 07/18/22 07/17/22 History glimepiride 1 mg tablet 1 mg PO DAILY 09/13/21 07/18/22 07/17/22 History lisinopril 10 mg tablet 10 mg PO DAILY #30 tabs 01/15/22 07/18/22 07/17/22 Rx tadalafil 5 mg tablet 5 mg PO .Q 3 Days PRN sexual 03/21/22 07/18/22 Unknown Rx activity #10 tabs Allergies Allergy/AdvReac Type Severity Reaction Status Date / Time bactrim Allergy Intermediate renal Uncoded 07/18/22 06:50 failure Current Medications Generic Name Dose Route Start Last Admin Trade Name Freq PRN Reason Stop Dose Admin Sodium Chloride 1,000 mls @ 30 mls/hr 07/18/22 07:00 07/18/22 07:12 Sodium Chloride 0.9% IV 07/19/22 06:59 30 mls/hr .Q24H ANDRES Administration PFSH Anesthesia Medical History Carcinoma in situ of bladder High-grade, lamina propria invasion, diffuse bladder wall involvement. Chronic kidney disease (CKD) Diabetes Hx of renal cell carcinoma Hypertension Renal cyst, left Surgical History History of bladder surgery TURBT for carcinoma in situ April 2020. History of right nephrectomy Family History Father , AT AGE 91 Lung disease Mother Cancer Social History Smoking and tobacco status: former smoker Alcohol intake: unknown Caregiver/support person: No Marital status: Current occupational status: retired Data Anesthesia Cardiac Studies: No Data to Display
[2022-07-18] MEDS: ceFAZolin 2,000 MG in sodium chloride 0.9% (plus) 50 ML 100 MG IV (08:22)
[2022-07-18] MEDS: lidocaine 2% INJ 20 mL 15 ML INJECTION (08:32)
[2022-07-18 09:26] VITALS: BP 108/64; PULSE 68; RESP 14; TEMP 36.1; O2SAT 93
--- NOTE | 2022-07-18 09:27 | PM.OP ---
Operative Report Date of procedure: July 18, 2022 Pre-op diagnosis: Right bunion deformity. Right second hammertoe deformity Post-op diagnosis: Same Procedure done: Right bunionectomy with double osteotomy. CPT code 84398 Right second hammertoe correction. CPT code 44372 Implants: Golden 10 mm nitinol staple, 3-0 Vicryl, 4-0 Vicryl, 4-0 nylon Specimens removed/disposition: None Pathology: None Surgeon: You Davis D.P.M. Dyeing Machine Feeder: Robert Estimated blood loss: Less than 5 mL 39 IV fluids: None Urine output: None Complications: None Brief History: Previously documented wounds epithelialized.? Patient would like to proceed with surgical correction of his right second toe and bunion.? Discussed surgical correction of underlying deformities to surgical offload the deformity and reduce risk for recurrence of wound to the right second toe this would entail Hasmukh/Johnny/second hammertoe repair.? Like to proceed with this when he is healed.? Scheduled for July 18. I reviewed at length with the patient, the risks, potential complications, benefits, alternatives, expectations, and typical outcomes associated with the surgery. The risks and potential complications were explained in detail, including but not limited to infection, wound dehiscence or soft tissue complications, bleeding and hematoma, chronic edema, neuritis or nerve damage producing numbness or chronic pain, CRPS, failure to relieve pain or worsening pain, thick / painful / unsightly scar, limited motion / stiffness, malposition, delayed union, malunion, or nonunion, fracture, reaction to implants, anesthetic complications, venous thromboembolism, and deformity recurrence.? I discussed the notion of no regrets with the patient as it pertains to complications and outcomes. The patient seemed to understand the nature of the proposed care and required convalescence. They asked appropriate questions, answered to their satisfaction. They are aware no guarantees can be made as to a satisfactory outcome and they understand there may be other possible unforeseen complications or outcomes not listed here that will be treated accordingly if they arise. There were no written or implied guarantees given to the patient. Procedure: Under mild sedation the patient was brought to the operating room and remained on the gurney in supine position. A timeout was performed. Anesthesia was then administered by the anesthesia service. Local anesthesia was injected by myself consisting of 30 cc of one-to-one mixture 1% lidocaine and 0.5% Marcaine plain in a right Adam block and second ray block fashion. Well-padded pneumatic tourniquet was applied to the right ankle. The right lower extremity was then scrubbed, prepped and draped utilizing normal aseptic technique. Right foot was then exanguinated with an Esmarch bandage and the tourniquet inflated to 250 mmHg. Attention was directed to the dorsal medial aspect of the right first metatarsal phalangeal joint where a linear longitudinal incision was made medial and parallel to the extensor houses longus tendon through skin with a #15 blade. Dissection was carried down through subcutaneous tissue to the layer of capsule and periosteum utilizing a combination of sharp and blunt technique. Care was taken to retract and preserve neurovascular and tendinous structures. All bleeders were ligated and cauterized as necessary. Hallux valgus deformity was appreciated this was reducible. Also hammertoe of the second digit also appreciated. A linear capsulotomy was performed followed by an osteotomy to the head of the first metatarsal resecting the medial eminence and this was passed from the operative field with all rough edges smoothed with a hand rasp. Attention was then directed to the proximal phalanx of the right great toe where a Johnny osteotomy was performed maintaining a lateral cortical hinge. This was fixated after reduction utilizing a Powervation 10 mm compression staple with excellent bony apposition and compression noted. A reduction of the hallux valgus deformity was appreciated. Smooth range of motion of the first metatarsal phalangeal joint of the right foot also appreciated intraoperatively. Direct visualization confirmed that the hardware did not violate the articular surface of the first metatarsal phalangeal joint this was also confirmed with intraoperative C arm and noted to be excellent orthopedic hardware placement in all 3 planes the AP, oblique and lateral view. The incision was irrigated with copious amounts of sterile skin solution and closed in a layered fashion. Capsule and periosteum reapproximated with 3-0 Vicryl. Subcutaneous tissue reapproximated with 4-0 Vicryl and skin with 4-0 nylon. Attention was directed to the dorsal aspect of the right second hammertoe deformity where a linear longitudinal incision was made encompassing the proximal interphalangeal joint. Dissection was carried through subcutaneous tissue down to the layer of periosteum and joint capsule utilizing sharp and blunt technique. Care was taken to retract and preserve neurovascular tendinous structures. All bleeders were ligated and cauterized as necessary. The head of the proximal phalanx and base of the intermediate phalanx were then identified. Arthroplasty at the proximal interphalangeal joint was performed utilizing a sagittal saw and all rough edges smoothed utilizing hand rasp. The incision was irrigated with copious months of Staticin solution and closed in a layered fashion with subcutaneous tissue reapproximated with 4-0 Vicryl and skin with 4-0 nylon. Improvement to the right foot bunion and second hammertoe appreciated intraoperatively. The incisions were dressed with Adaptic, sterile 4 x 4's, Kerlix and Bartolome wrap. Tourniquet was then deflated and a prompt hyperemic response was noted to the distal digits of the right foot. Patient tolerated the procedure and anesthesia well and was transferred to the PACU with vital signs stable and vascular status intact. He was dispensed a cam boot and a postoperative shoe to be worn at all times when ambulating. He is to elevate his right foot while resting. Was given at home care instructions as well as my cell phone number to contact with any postoperative questions or concerns. He was given follow-up scheduled next week to be seen in podiatry clinic for his first dressing change.
[2022-07-18 09:31] VITALS: BP 119/71; PULSE 69; RESP 15; TEMP 36.1; O2SAT 93
[2022-07-18 09:36] VITALS: BP 109/79; PULSE 67; RESP 18; TEMP 36.4; O2SAT 93
[2022-07-18] MEDS: TRAMadol 50 mg Tablet PO (09:44)
[2022-07-18 09:56] VITALS: BP 132/91; PULSE 70; RESP 18; O2SAT 94
--- NOTE | 2022-07-18 14:10 | ANE.PACU2 ---
Inpatient post-anesthesia follow up: Airway intact: Yes Vital signs: Temperature 97.6 F Pulse Rate 70 Respiratory Rate 18 Blood Pressure 132/91 Pulse Oximetry 94 Oxygen Delivery Me thod Room Air Oxygen Flow Rate Fraction of Inspir ed Oxygen Hydration adequate: Yes Nausea and vomiting: No Pain level: 2 Mental status: Baseline
== END 2022-07-18 10:05 | disposition home or self-care (01) ==
PROVIDERS: PCP Family Medicine; Visit Provider Podiatrist Foot & Ankle Surgery
PROC: (CPT 28296; principal; 2022-07-18 08:10)
PROC: (CPT 28299; 2022-07-18 08:10)
PROC: (CPT 28285; 2022-07-18 08:10)
DX: M21.611 Bunion of right foot (principal); M20.41 Other hammer toe(s) (acquired), right foot; M20.11 Hallux valgus (acquired), right foot; K21.9 Gastro-esophageal reflux disease without esophagitis; E78.5 Hyperlipidemia, unspecified; E11.22 Type 2 diabetes mellitus with diabetic chronic kidney disease; I12.9 Hypertensive chronic kidney disease with stage 1 through stage 4 chronic kidney disease, or unspecified chronic kidney disease; N18.9 Chronic kidney disease, unspecified; Z87.891 Personal history of nicotine dependence
CPT/HCPCS: 28285; 28299; 36416; 73630; 82962; C1713; J0690; J2370; J2405; J2704; J3010; J3490; J7030

== ENCOUNTER → 2022-07-24 15:02 | Outpatient (BNVA) | payer MEDICARE, OTHER, SELFPAY | PROVIDERS: PCP Family Medicine; Visit Provider Podiatrist Foot & Ankle Surgery | DX: Z98.890 Other specified postprocedural states (principal) | CPT/HCPCS: 99024 ==

== ENCOUNTER → 2022-07-31 13:55 | Outpatient (BNVA) | payer MEDICARE, OTHER, SELFPAY | PROVIDERS: PCP Family Medicine; Visit Provider Podiatrist Foot & Ankle Surgery | DX: Z98.890 Other specified postprocedural states (principal) | CPT/HCPCS: 73630; 99024 ==

== ENCOUNTER → 2022-08-21 15:51 | Outpatient (BNVA) | payer MEDICARE, OTHER, SELFPAY | PROVIDERS: PCP Family Medicine; Visit Provider Podiatrist Foot & Ankle Surgery | DX: Z98.890 Other specified postprocedural states (principal) | CPT/HCPCS: 73630; 99024 ==

== ENCOUNTER → 2022-09-11 14:35 | Outpatient (BNVA) | payer MEDICARE, OTHER, SELFPAY | PROVIDERS: PCP Family Medicine; Visit Provider Podiatrist Foot & Ankle Surgery | DX: Z98.890 Other specified postprocedural states (principal) | CPT/HCPCS: 73630; 99024 ==

== ENCOUNTER 2023-09-21 06:23 | Outpatient (CLI) | payer OTHER, SELFPAY ==
--- NOTE | 2023-09-21 06:34 | USCV_ITS ---
Nicho Montiel Age: 73 Gender: M : 1950 Exam Date: 09/21/2023 06:44 Ordering Phys: Snow Calix MD Technologist: [place] [facility] [facility] [place]: chest pain BP: / HR: 78 Rhythm: Sinus Technical Quality: Adequate MEASUREMENTS (Male / Female) Normal Values 2D ECHO LV Diastolic Diameter PLAX 4.7 cm 4.2 - 5.9 / 3.9 - 5.3 cm IVS Diastolic Thickness 1.1 cm 0.6 - 1.0 / 0.6 - 0.9 cm IVS Systolic Thickness 1.5 cm LVPW Diastolic Thickness 0.8 cm 0.6 - 1.0 / 0.6 - 0.9 cm LVPW Systolic Thickness 1.5 cm LVOT Diameter 2.0 cm LV Ejection Fraction 2D Teich 67.1 % LV Ejection Fraction MOD 2C 63.7 % LV Ejection Fraction 2C AL 64.4 % LA Diameter 3.6 cm RA Systolic Volume 4C AL 35.3 ml RA Systolic Volume 4C MOD 33.8 ml Aorta at Sinotubular Diameter 2.8 cm IVC Diameter 2.4 cm M-MODE LA Ao Ratio MM 1.4 AV Cusp Separation MM 2.2 cm DOPPLER AV Peak Velocity 134.0 cm/s LVOT Peak Velocity 92.0 cm/s AV Area Cont Eq vti 2.5 cm squared AV Area Cont Eq pk 2.2 cm squared MV Peak Velocity 91.0 cm/s MV Area PHT 4.9 cm squared Mitral E to A Ratio 1.0 TV Peak Velocity 152.0 cm/s TR Peak Velocity 209.0 cm/s TR Peak Gradient 17.5 mmHg TV Peak E Velocity 106.0 cm/s Right Atrial Pressure 3.0 mmHg Pulmonary Artery Systolic Pressu 20.5 mmHg PV Peak Velocity 91.0 cm/s FINDINGS Left Ventricle Normal left ventricular size and systolic function, EF 64% . No regional wall motion abnormalities.Grade I/IV diastolic dysfunction (abnormal relaxation filling pattern), normal to mildly elevated filling pressures. Right Ventricle The right ventricle is normal in size and function. Right Atrium The right atrium is normal in size. Left Atrium The left atrium is normal in size. Mitral Valve Trace mitral valve regurgitation. Aortic Valve No gross abnormalities noted Tricuspid Valve No gross abnormalities noted Pulmonic Valve No gross abnormalities noted Pericardium Normal pericardium without effusion. Aorta Normal ascending aorta dimension. IVC Inferior vena cava not visualized. CONCLUSIONS Normal left ventricular size and systolic function, EF 64% . No regional wall motion abnormalities.Grade I/IV diastolic dysfunction (abnormal relaxation filling pattern), normal to mildly elevated filling pressures. Trace mitral valve regurgitation. There is no pericardial effusion. There are no intracardiac masses. No similar previous studies are available for comparison Dr Silas Azul MD FAC (Electronically Signed) Final Date: 21 Sep 2023 20:37 S
== END 2023-09-21 06:24 | disposition home or self-care (01) ==
LOC: RAD 06:23
PROVIDERS: PCP Family Medicine; Visit Provider Family Medicine
DX: I50.30 Unspecified diastolic (congestive) heart failure (principal)
CPT/HCPCS: 93306

== ENCOUNTER 2023-10-14 16:19 | Emergency (ER) | payer OTHER, MEDICARE, SELFPAY ==
[2023-10-14 16:21] VITALS: BP 118/75; PULSE 114; RESP 16; TEMP 37.4; O2SAT 95
--- NOTE | 2023-10-14 16:33 | XRR_ITS ---
PROCEDURE INFORMATION: Exam: XR Chest Exam date and time: 10/14/2023 4:39 PM Age: 73 years old Clinical indication: Other: Poss swpsis; Additional info: Possible sepsis TECHNIQUE: Imaging protocol: Radiologic exam of the chest. Views: 1 view. COMPARISON: CR XR chest 1V [id number] 02/27/2018 7:42 PM FINDINGS: Lungs: Unremarkable. No consolidation or mass. Pleural spaces: Unremarkable. No pleural effusion. No pneumothorax. Heart/Mediastinum: Unremarkable. No cardiomegaly. Bones/joints: Unremarkable. XR/XR chest 1V portable [id number] IMPRESSION: No acute findings.
[2023-10-14] MEDS: sodium chloride 0.9% 1,000 ML 999 ML IV (16:45)
--- NOTE | 2023-10-14 16:45 | ECG_ITS ---
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 Measurements Intervals [place] Rate: 95 P: 53 MD: 174 QRS: 3 QRSD: 123 T: 52 QT: 346 QTc: 436 Interpretive Statements SINUS RHYTHM POSSIBLE LEFT ATRIAL ENLARGEMENT [-0.1mV P-WAVE IN V1/V2] INDETERMINATE AXIS RIGHT BUNDLE BRANCH BLOCK [120+ ms QRS DURATION, UPRIGHT V1, 40+ ms S IN I/aVL/V4/V5/V6] Compared to ECG 02/27/2018 18:16:06 Indeterminate axis now present Myocardial infarct finding no longer present Electronically Signed On 10-14-2023 17:06:18 CDT by Ganga Diego M.D. [id number]
--- NOTE | 2023-10-14 16:52 | ED_ITS ---
HPI - Dizziness 2 General: Chief Complaint: Dizziness Stated Complaint: low BP high HR Time Seen by Provider: 10/14/23 16:33 History of Present Illness: HPI Narrative: 73-year-old male patient comes in today for complaints of chills and decreased urine output since last night. Patient states that he was awakened with chills last night. Patient this morning was able to get up and take his grandkids to town and then came home and mowed. When patient came in from mowing his temperature was 101.9 and he had more chills. Patient denied any significant fluid intake. Patient appears nontoxic. Patient reports no pain. Patient has a history of cancer of the kidneys, diabetes mellitus, hypertension, sciatica, and BPH. Associated symptoms: Reports chills Review of Systems 2 General: Reports: 10 or more systems reviewed and unremarkable except in HPI and below Const: Reports: fever(s) and chills : Reports: difficulty urinating PFSH ED 2 PFSH: Medical History Carcinoma in situ of bladder High-grade, lamina propria invasion, diffuse bladder wall involvement. Chronic kidney disease (CKD) Diabetes Hx of renal cell carcinoma Hypertension Renal cyst, left Surgical History History of bladder surgery TURBT for carcinoma in situ April 2020. History of right nephrectomy Family History Father , AT AGE 91 Lung disease Mother Cancer Social History Smoking and tobacco/nicotine status: former use of tobacco/nicotine Alcohol intake: unknown Substance/Drug Use: never Caregiver/support person: No Marital status: Current occupational status: retired Physical Exam 2 Const: COMMON NORMALS: alert HENMT: COMMON NORMALS: normocephalic HEAD & SCALP: normocephalic THROAT: posterior oropharynx normal Neck/C-Spine: COMMON NORMALS: full ROM Resp: COMMON NORMALS: normal respiratory effort and clear to auscultation bilaterally AUSCULTATION: clear to auscultation bilaterally Cardio: COMMON NORMALS: regular rate and regular rhythm RATE: regular rate RHYTHM: regular rhythm GI: COMMON NORMALS: Soft to palpation and non-tender PALPATION: Yes Soft to palpation Back/Pelvis: COMMON NORMALS: thoracic and lumbar spine normal to inspection Extremity: COMMON NORMALS: no pedal edema Neuro: SENSORIUM/ORIENTATION: Yes alert Skin: COMMON NORMALS: turgor normal GENERAL SKIN EXAM: turgor normal Course 2 Vital Signs: Vital signs: Vital Signs Temperature 99.4 F 10/14/23 16:21 Pulse Rate 114 H 10/14/23 16:21 Respiratory Rate 16 10/14/23 16:21 Blood Pressure 118/75 10/14/23 16:21 Pulse Oximetry 95 10/14/23 16:21 Oxygen Delivery Me thod Room Air 10/14/23 16:21 MDM - Dizziness Medical Decision Making 73-year-old male patient comes in today for complaints of fever and chills. Patient appears nontoxic. Patient appears in no pain. Lungs are clear to auscultation. Abdomen soft nontender. Vital signs are normal except for some mild elevation in pulse at 114. No edema is noted in the extremities. Differential diagnosis includes but not limited to pneumonia, viral syndrome, UTI, dehydration, heat exhaustion. Chest x-ray showed no acute findings. CBC noted a white blood cell count of 15.5, CMP showed creatinine of 1.9, urinalysis was clean. Lactic was 1.1. Outstanding labs included a respiratory panel, blood cultures, and a tick panel. Patient does not recall any tick bites this summer so far. Will go ahead and treat patient for a viral syndrome supportive care at this time. Patient and family both report understanding and need to return to the ER for worsening symptoms such as inability to hold fluids down, increasing shortness of breath, or severe chest pain. Patient will follow-up otherwise with primary care in 2 to 3 days for recheck. I reviewed this with Dr. Quintana, attending ER physician, who agreed with plan. Lab Data 10/14/23 16:54 10/14/23 16:54 Radiology Impressions Chest X-Ray 10/14/23 16:33 IMPRESSION: No acute findings. Laboratory Results WBC 15.55 10^3/uL (3.29-11.43) H 10/14/23 16:54 RBC 5.01 10^6/uL (3.85-5.65) 10/14/23 16:54 Hgb 14.80 g/dL (11.27-16.99) 10/14/23 16:54 Hct 46.2 % (37-53) 10/14/23 16:54 MCV 92.2 fl (82-101) 10/14/23 16:54 MCH 29.5 pg (27-33) 10/14/23 16:54 MCHC 32.0 g/dL (30-55) 10/14/23 16:54 RDW 13.4 % (12.1-15.1) 10/14/23 16:54 Plt Count 178 10^3/cmm (157-399) 10/14/23 16:54 MPV 11.3 fL (7.4-10.4) H 10/14/23 16:54 Neut % (Auto) 87.8 % 10/14/23 16:54 Lymph % (Auto) 6.2 % 10/14/23 16:54 Dukes % (Auto) 5.2 % 10/14/23 16:54 Eos % (Auto) 0.0 % 10/14/23 16:54 Baso % (Auto) 0.4 % 10/14/23 16:54 Neut # (Auto) 13.65 10^3/uL (1.8-7.7) H 10/14/23 16:54 Lymph # (Auto) 1.0 10^3/uL (0.8-4.8) 10/14/23 16:54 Dukes # (Auto) 0.8 10^3/uL (0.2-0.9) 10/14/23 16:54 Eos # (Auto) 0.0 10^3/uL (0.0-0.8) 10/14/23 16:54 Baso # (Auto) 0.1 10^3/uL (0.0-0.1) 10/14/23 16:54 Nucleated RBC % (auto) 0 % 10/14/23 16:54 Nucleated RBCs # 0.0 /100WBC 10/14/23 16:54 Sodium 138 mmol/L (136-145) 10/14/23 16:54 Potassium 4.1 mmol/L (3.5-5.1) 10/14/23 16:54 Chloride 103 mmol/L (98-107) 10/14/23 16:54 Carbon Dioxide 23 mmol/L (22-29) 10/14/23 16:54 Anion Gap 16.1 (5-19) 10/14/23 16:54 BUN 20 mg/dL (8-23) 10/14/23 16:54 Creatinine 1.9 mg/dL (0.7-1.2) H 10/14/23 16:54 GFR Calculation Not Reportable 10/14/23 16:54 Glucose 95 mg/dL (65-115) 10/14/23 16:54 Calculated Osmolality 288 mOsm/kg (285-295) 10/14/23 16:54 Lactic Acid 1.1 mmol/L (0.5-2.2) 10/14/23 16:54 Calcium 9.2 mg/dL (8.5-10.5) 10/14/23 16:54 Magnesium 1.9 mg/dL (1.7-2.3) 10/14/23 16:54 Total Bilirubin 0.4 mg/dL (0.15-1.2) 10/14/23 16:54 AST 15 U/L (0-40) 10/14/23 16:54 ALT 24 U/L (0-41) 10/14/23 16:54 Alkaline Phosphatase 103 U/L (40-130) 10/14/23 16:54 Total Protein 7.5 g/dL (6.6-8.7) 10/14/23 16:54 Albumin 4.4 g/dL (3.5-5.2) 10/14/23 16:54 Globulin 3.1 g/dL (1.3-4.6) 10/14/23 16:54 Urine Color Yellow (Yellow) 10/14/23 17:35 Urine Appearance Clear (CLEAR) 10/14/23 17:35 Urine pH 5 (5-7) 10/14/23 17:35 Ur Specific [place] 1.015 (1.005-1.030) 10/14/23 17:35 Urine Protein Neg (Negative) 10/14/23 17:35 Urine Glucose (UA) Norm (Normal) 10/14/23 17:35 Urine Ketones Negative (Negative) 10/14/23 17:35 Urine Blood Neg (Negative) 10/14/23 17:35 Urine Nitrate Negative (Negative) 10/14/23 17:35 Urine Bilirubin Neg (Negative) 10/14/23 17:35 Urine Urobilinogen Norm mg/dL (Negative) 10/14/23 17:35 Ur Leukocyte Esterase Negative (Negative) 10/14/23 17:35 All radiology interpretation(s) finalized by discharge EKG Data EKG 1: I personally reviewed and interpreted this EKG as follows: EKG interpretation date: 10/14/23 EKG interpretation time: 17:10 Prior EKG tracings: not available for review Interpretation: EKG shows a sinus rhythm with a regular rate at [address] elevation or ectopy is noted. Artifact is present on the exam. No prior exam was available for comparison. Computer generated interpretation: Sinus rhythm, possible left atrial enlargement, indeterminate axis, right bundle branch block, abnormal EKG, unconfirmed report. Discharge Plan Discharge Patient Disposition: Home Clinical Impression: Viral syndrome Condition: Stable Prescriptions: No Action dorzolamide (PF) 2 % drops 1 drp ophthalmic (eye) DAILY glimepiride 1 mg tablet 1 mg PO DAILY lisinopril 10 mg tablet 10 mg PO DAILY Qty: 30 11RF tadalafil 5 mg tablet 5 mg PO .Q 3 Days PRN (Reason: sexual activity) Qty: 10 6RF Rx Instructions: administer approximately 30min before sexual activity diphenhydramine HCl [Sleep Aid (diphenhydramine)] 50 mg Capsule 50 mg PO QPM PRN (Reason: Sleep) metformin 500 mg tablet 500 mg PO DAILY atorvastatin [Lipitor] 10 mg Tablet 10 mg PO DAILY acetaminophen [Tylenol Extra Strength] 500 mg Tablet 1,000 mg PO PRN cholecalciferol (vitamin D3) [Vitamin D3] 25 mcg (1,000 unit) Capsule 25 mcg PO DAILY omeprazole 20 mg Tablet,Delayed Release (Dr/Ec) 20 mg PO DAILY Men's Multivitamin 400-20-300 mcg Tablet 1 tab PO DAILY tamsulosin [Flomax] 0.4 mg capsule 0.4 mg PO BID Discharge Orders: Discharge ED (Routine); Ordered 10/14/23 Ordered By: Diego Hill Referrals: Snow Calix MD [Primary Care Provider] - Discharge Diet: Usual diet Discharge Activity: Increase activity as tolerated Patient Instructions: Viral Syndrome (ED) Activity Restrictions/Additional Instructions: Home and rest. Drink plenty of water and fluids. Use acetaminophen and ibuprofen for discomfort or fever. Follow-up with primary care in 2 to 3 days for recheck. Return to ED for worsening symptoms such as increasing shortness of breath, inability to hold fluids down, or new concerns. Coding Level of Care Code ED Department Of Sociology Chair for Griselda Gauthier
[2023-10-14 17:04] LABS: Basophils # 0.1 10^3/uL (0.0-0.1); Basophils % 0.4 %; Hematocrit 46.2 % (37-53); Lymphocytes % 6.2 %; Mean Corpuscular Hemoglobin 29.5 pg (27-33); Mean Corpuscular Volume 92.2 fl (82-101); Mean Platelet Volume 11.3 fL (7.4-10.4); Monocytes # 0.8 10^3/uL (0.2-0.9); Monocytes % 5.2 %; Neutrophils # 13.65 10^3/uL (1.8-7.7); Neutrophils % 87.8 %; Nucleated Red Blood Cells % 0 %; Platelet Count 178 10^3/cmm (157-399); Red Blood Count 5.01 10^6/uL (3.85-5.65); Red Cell Distribution Width 13.4 % (12.1-15.1); White Blood Count 15.55 10^3/uL (3.29-11.43)
[2023-10-14 17:26] LABS: Alanine Aminotransferase 24 U/L (0-41); Albumin Level 4.4 g/dL (3.5-5.2); Alkaline Phosphatase 103 U/L (40-130); Anion Gap 16.1 (5-19); Aspartate Amino Transferase 15 U/L (0-40); Blood Urea Nitrogen 20 mg/dL (8-23); Calcium 9.2 mg/dL (8.5-10.5); Carbon Dioxide 23 mmol/L (22-29); Chloride 103 mmol/L (98-107); Globulin 3.1 g/dL (1.3-4.6); Glucose 95 mg/dL (65-115); Magnesium 1.9 mg/dL (1.7-2.3); Osmolality Calculated 288 mOsm/kg (285-295); Potassium 4.1 mmol/L (3.5-5.1); Sodium 138 mmol/L (136-145); Total Bilirubin 0.4 mg/dL (0.15-1.2); Total Protein 7.5 g/dL (6.6-8.7)
[2023-10-14 17:28] LABS: Lactic Sepsis W/Reflex 1.1 mmol/L (0.5-2.2)
[2023-10-14 17:40] LABS: Add Urine Microscopic? NO; Charge for UA Resulting for Rev
[2023-10-14 17:44] LABS: Bilirubin Urine Neg (Negative); Blood Urine Neg (Negative); Glucose Urine UA Norm (Normal); Ketones Urine Negative (Negative); Nitrate Urine Negative (Negative); Protein Urine Neg (Negative); Specific Gravity, Urine 1.015 (1.005-1.030); Urine Appearance Clear (CLEAR); Urine Color Yellow (Yellow); pH Urine 5 (5-7)
[2023-10-14 17:45] LABS: Leukocyte Esterase Urine Negative (Negative); Urobilinogen Urine Norm (Negative)
[2023-10-14 18:25] LABS: C Reactive Protein 37.2 mg/L (0.0-4.9)
[2023-10-14 18:33] LABS: Erythrocyte Sedimentation Rate 2 mm/hr (0-10)
[2023-10-14 20:24] LABS: Adenovirus Not Detected (NOT DETECT); Chlamydia Pneumoniae Not Detected (NOT DETECT); Coronavirus 229E,HKU1,NL63,OC4 Not Detected (NOT DETECT); Human Metapneumovirus Not Detected (NOT DETECT); Human Rhinovirus/Enterovirus Not Detected (NOT DETECT); Influenza A Not Detected (NOT DETECT); Influenza A H1 Not Detected (NOT DETECT); Influenza A H1-2009 Not Detected (NOT DETECT); Influenza A H3 Not Detected (NOT DETECT); Influenza B Not Detected (NOT DETECT); Mycoplasma Pneumoniae Not Detected (NOT DETECT); Parainfluenza Virus Type 1 Not Detected (NOT DETECT); Parainfluenza Virus Type 2 Not Detected (NOT DETECT); Parainfluenza Virus Type 3 Not Detected (NOT DETECT); Parainfluenza Virus Type 4 Not Detected (NOT DETECT); Respiratory Syncytial Virus A Not Detected (NOT DETECT); Respiratory Syncytial Virus B Not Detected (NOT DETECT); SARS-COV-2 Not Detected (NOT DETECT)
[2023-10-16 13:14] LABS: Lyme AB Screen <0.90 index
[2023-10-20 22:05] LABS: E. Chaffeensis AB IGG <1:64; E. Chaffeensis AB IGM <1:20
== END 2023-10-14 18:24 | disposition home or self-care (01) ==
PROVIDERS: Emergency Provider Nurse Practitioner Family; PCP Family Medicine
DX: B34.9 Viral infection, unspecified (principal); I45.10 Unspecified right bundle-branch block; Z79.84 Long term (current) use of oral hypoglycemic drugs; Z87.891 Personal history of nicotine dependence; E11.22 Type 2 diabetes mellitus with diabetic chronic kidney disease; I12.9 Hypertensive chronic kidney disease with stage 1 through stage 4 chronic kidney disease, or unspecified chronic kidney disease; N18.9 Chronic kidney disease, unspecified; Z85.528 Personal history of other malignant neoplasm of kidney; Z85.51 Personal history of malignant neoplasm of bladder
CPT/HCPCS: 36415; 71045; 80053; 81003; 83605; 83735; 85025; 85651; 86140; 86618; 86666; 86757; 87040; 87486; 87581; 87633; 93005; 99285; J7030

== ENCOUNTER 2023-11-23 07:04 | Outpatient (CLI) | payer OTHER, SELFPAY ==
--- NOTE | 2023-11-23 07:30 | ECG_ITS ---
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
--- NOTE | 2023-11-23 07:30 | NMCV_ITS ---
NM sruthi perf SPECT r/s* [id number] WisemanNicho shin Age: 73 Gender: M : 1950 Exam Date: 11/23/2023 07:55 Ordering Phys: Snow Calix MD Technologist: TIM Christian Exam Location: [facility] Indications: CP STRESS TEST Please see separate stress test report in [facility] for full findings IMAGE PROTOCOL Rest/Stress 1 Lexiscan Day Radiopharmaceutical Dose (mCi) Administration Site Administered by Rest: Tc-99m 10.5 IV TIM Sheffield Sestamibi Stress:Tc-99m 32.7 IV TIM Christian Sestamital Rest: 23-Nov-2023 60 Discovery 630 Stress: 23-Nov-2023 30 Discovery 630 0.4mg Lexiscan. Images obtained in supine and prone position. SPECT RESULTS Technical Quality: Excellent Raw Data Analysis: Normal Image Corrections: No attenuation or motion correction applied Summed Stress Score: 3 Summed Rest Score: 7 Summed Difference Score: 0 PERFUSION FINDINGS There is small sized, fixed perfusion defect noted in the inferior wall. This is consistent with small area of prior infarct seen in the inferior wall. No evidence of ischemia. FUNCTIONAL RESULTS (calculated via Gated SPECT) Stress Image LV EF (%): 74 Stress EDV (mL):78 TID: 0.97 Stress ESV (mL):20 FUNCTIONAL FINDINGS: There is normal left ventricular systolic function. IMPRESSIONS 1. 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 2. LV systolic function is normal. Ganga Diego MD (Electronically Signed) Final Date: 23 November 2023 10:34 S
[2023-11-23 07:36] VITALS: BMI 30.5
[2023-11-23] MEDS: regadenoson 0.4 Mg/5 ml Syringe IVP (08:37)
[2023-11-23 08:51] VITALS: BP 125/70; PULSE 89
== END 2023-11-23 07:05 | disposition home or self-care (01) ==
LOC: CDL 07:05
PROVIDERS: PCP Family Medicine; Visit Provider Family Medicine
DX: R06.02 Shortness of breath (principal); R94.39 Abnormal result of other cardiovascular function study
CPT/HCPCS: 36415; 78452; 93017; 96374; A9500; J2785

== ENCOUNTER 2024-01-31 00:32 | Inpatient (IN) | payer OTHER, SELFPAY ==
[2024-01-31] VITALS (13 sets, daily range): BP systolic 93–147; BP diastolic 50–66; PULSE 30–63; RESP 14–28; TEMP 36.2–37.2; O2SAT 90–98; BMI 30.7; BMI 33.2; BMI 32.5
--- NOTE | 2024-01-31 00:52 | XRR_ITS ---
PROCEDURE INFORMATION: Exam: XR Chest Exam date and time: 01/31/2024 12:57 AM Age: 73 years old Clinical indication: Pain; Shortness of breath; Chest pressure; Additional info: SOB cp TECHNIQUE: Imaging protocol: Radiologic exam of the chest. Views: 1 view. COMPARISON: CR XR chest 1V portable [id number] 10/14/2023 4:39 PM FINDINGS: Lungs: Unremarkable. No consolidation. Pleural spaces: Unremarkable. No pleural effusion. No pneumothorax. Heart/Mediastinum: Stable cardiomediastinal silhouette. Bones/joints: Unremarkable. XR/XR chest 1V portable [id number] IMPRESSION: No evidence of active cardiopulmonary disease.
--- NOTE | 2024-01-31 00:52 | ECG_ITS ---
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 Measurements Intervals [place] Rate: 30 P: 0 NE: 0 QRS: -12 QRSD: 116 T: 52 QT: 537 QTc: 385 Interpretive Statements SINUS RHYTHM WITH HIGH GRADE AV BLOCK INCOMPLETE RIGHT BUNDLE BRANCH BLOCK [90+ ms QRS DURATION, TERMINAL R IN V1/V2, 40+ ms S IN I/aVL/V4/V5/V6] PROBABLE LATERAL MYOCARDIAL INFARCTION , OF INDETERMINATE AGE [35 ms Q WAVE IN I/aVL/V5/V6 Compared to ECG 10/14/2023 17:05:10 Incomplete right bundle-branch block now present Myocardial infarct finding now present Indeterminate axis no longer present Right bundle-branch block no longer present Electronically Signed On 02-01-2024 18:49:47 CDT by Ganga Diego M.D. [id number]
--- NOTE | 2024-01-31 00:56 | ED_ITS ---
HPI - SOB/Dyspnea 2 General: Chief Complaint: Shortness of Breath/Dyspnea Stated Complaint: SOB Time Seen by Provider: 01/31/24 00:46 History of Present Illness: HPI Narrative: 73-year-old male gentleman with no histo ry of coronary disease. He does have a history of hypertension. He presents after waking up at 11:30 PM not feeling well. He states he generally just does not feel well. He has a funny feeling in his chest. He is short of breath. He is generally weak feeling. In triage, he was noted to have a heart rate of 30. Related Data Home Medications Medication Instructions Recorded Confirmed acetaminophen 500 mg tablet 1,000 mg PO PRN 03/15/20 09/11/22 (Tylenol Extra Strength) atorvastatin 10 mg tablet (Lipitor) 10 mg PO DAILY 03/15/20 09/11/22 cholecalciferol (vitamin D3) 25 25 mcg PO DAILY 03/15/20 09/11/22 mcg (1,000 unit) capsule (Vitamin D3) metformin 500 mg tablet 500 mg PO DAILY 03/15/20 09/11/22 uetzqfdo-abkgunws-ovqlf acid 400 1 tab PO DAILY 03/15/20 09/11/22 mcg-vit K 20 mcg-lycop 300 mcg tablet (Men's Multivitamin) omeprazole 20 mg tablet,delayed 20 mg PO DAILY 03/15/20 09/11/22 release diphenhydramine HCl 50 mg capsule 50 mg PO QPM PRN Sleep 04/19/20 09/11/22 (Sleep Aid (diphenhydramine)) dorzolamide (PF) 2 % (PF) eye drops 1 drp ophthalmic (eye) DAILY 05/18/20 09/11/22 tamsulosin 0.4 mg capsule (Flomax) 0.4 mg PO BID 12/14/20 09/11/22 glimepiride 1 mg tablet 1 mg PO DAILY 09/13/21 09/11/22 Previous Rx's Medication Instructions Recorded lisinopril 10 mg tablet 10 mg PO DAILY #30 tabs 01/15/22 tadalafil 5 mg tablet 5 mg PO .Q 3 Days PRN sexual 03/21/22 activity #10 tabs Allergies Allergy/AdvReac Type Severity Reaction Status Date / Time bactrim Allergy Intermediate renal Uncoded 10/14/23 16:27 failure PFSH ED 2 PFSH: Medical History Chronic kidney disease (CKD) Hypertension Carcinoma in situ of bladder High-grade, lamina propria invasion, diffuse bladder wall involvement. Diabetes Renal cyst, left Hx of renal cell carcinoma Surgical History History of bladder surgery TURBT for carcinoma in situ April 2020. History of right nephrectomy Family History Father , AT AGE 91 Lung disease Mother Cancer Social History Smoking and tobacco/nicotine status: former use of tobacco/nicotine Alcohol intake: unknown Substance/Drug Use: never Caregiver/support person: No Marital status: Current occupational status: retired Physical Exam 2 Const: GENERAL APPEARANCE: cooperative and ill appearing; not frail appearing ORIENTATION/CONSCIOUSNESS: Yes awake HENMT: COMMON NORMALS: normocephalic, atraumatic and Normal external nose present HEAD & SCALP: normocephalic and atraumatic FACE & SINUS: normal facial exam and face symmetric NOSE: Normal external nose present Eye: COMMON NORMALS: Equal, round and reactive pupils present and EOMs intact bilaterally PUPIL: Yes Equal, round and reactive pupils present Neck/C-Spine: GENERAL: Yes trachea midline Chest: CHEST: Yes Symmetrical chest wall rise Resp: COMMON NORMALS: normal respiratory effort, No retractions, No use of accessory muscles and clear to auscultation bilaterally AUSCULTATION: clear to auscultation bilaterally Cardio: RATE: bradycardic (severe) GI: COMMON NORMALS: Normal to inspection, nondistended, normoactive bowel sounds present Extremity: COMMON NORMALS: no pedal edema Neuro: DIONNE COMA SCALE: document GCS findings Dionne coma scale eye opening: Spontaneous Dionne coma scale verbal response: Orientated [place] coma scale motor response: Obey commands [place] coma scale total score: 15 S ENSORY EXAM: Yes extremities (intact) Psych: COMMON NORMALS: speech normal SPEECH: Yes normal speech Skin: COMMON NORMALS: no rashes or lesions noted GENERAL SKIN EXAM: no rashes or lesions noted Course 2 Vital Signs: Vital signs: Vital Signs Temperature 97.2 F L 01/31/24 03:45 Pulse Rate 60 01/31/24 15:58 Respiratory Rate 23 H 01/31/24 03:45 Blood Pressure 114/55 01/31/24 03:45 Pulse Oximetry 98 01/31/24 13:57 Oxygen Delivery Me thod Nasal Cannula 01/31/24 13:57 Oxygen Flow Rate 2 01/31/24 13:57 MDM - SOB/Dyspnea Medical Decision Making Patient has a heart rate of 30. His blood pressure is holding, currently 128/61. EKG shows complete heart block. Pacer pads were placed. He did not respond to 1/2 mg of atropine. Dopamine drip was started at 15. Cardiology was consulted. Recommendations are again, dopamine. Calling the [place] team in. The patient is not on any heart rate lowering medication. He will have a temporary pacer this morning. Lab Data 01/31/24 00:45 01/31/24 04:12 Labs/Radiology: Radiology Impressions Chest X-Ray 01/31/24 00:52 IMPRESSION: No evidence of active cardiopulmonary disease. Laboratory Results WBC 9.01 10^3/uL (3.29-11.43) 01/31/24 00:45 RBC 5.02 10^6/uL (3.85-5.65) 01/31/24 00:45 Hgb 14.70 g/dL (11.27-16.99) 01/31/24 00:45 Hct 45.2 % (37-53) 01/31/24 00:45 MCV 90.0 fl (82-101) 01/31/24 00:45 MCH 29.3 pg (27-33) 01/31/24 00:45 MCHC 32.5 g/dL (30-55) 01/31/24 00:45 RDW 14.2 % (12.1-15.1) 01/31/24 00:45 Plt Count 237 10^3/cmm (157-399) 01/31/24 00:45 MPV 11.0 fL (7.4-10.4) H 01/31/24 00:45 Neut % (Auto) 59.3 % 01/31/24 00:45 Lymph % (Auto) 28.4 % 01/31/24 00:45 Dickens % (Auto) 9.5 % 01/31/24 00:45 Eos % (Auto) 1.7 % 01/31/24 00:45 Baso % (Auto) 0.9 % 01/31/24 00:45 Neut # (Auto) 5.34 10^3/uL (1.8-7.7) 01/31/24 00:45 Lymph # (Auto) 2.6 10^3/uL (0.8-4.8) 01/31/24 00:45 Dickens # (Auto) 0.9 10^3/uL (0.2-0.9) 01/31/24 00:45 Eos # (Auto) 0.2 10^3/uL (0.0-0.8) 01/31/24 00:45 Baso # (Auto) 0.1 10^3/uL (0.0-0.1) 01/31/24 00:45 Nucleated RBC % (auto) 0 % 01/31/24 00:45 Nucleated RBCs # 0.0 /100WBC 01/31/24 00:45 PT 13.20 SECONDS (12.1-14.9) 01/31/24 00:45 INR 0.97 (0.8-1.2) 01/31/24 00:45 APTT 30.0 SECONDS (23.9-36.7) 01/31/24 00:45 D-Dimer 0.51 ug/mLFEU (0-0.59) 01/31/24 00:45 Sodium 136 mmol/L (136-145) 01/31/24 00:45 Potassium 4.0 mmol/L (3.5-5.1) 01/31/24 00:45 Chloride 105 mmol/L (98-107) 01/31/24 00:45 Carbon Dioxide 21 mmol/L (22-29) L 01/31/24 00:45 Anion Gap 14.0 (5-19) 01/31/24 00:45 BUN 21 mg/dL (8-23) 01/31/24 00:45 Creatinine 1.6 mg/dL (0.7-1.2) H 01/31/24 00:45 GFR Calculation Not Reportable 01/31/24 00:45 Glucose 189 mg/dL (65-115) H 01/31/24 00:45 Calculated Osmolality 290 mOsm/kg (285-295) 01/31/24 00:45 Calcium 9.1 mg/dL (8.5-10.5) 01/31/24 00:45 Phosphorus 3.5 mg/dL (2.5-4.5) 01/31/24 00:45 Magnesium 1.9 mg/dL (1.7-2.3) 01/31/24 00:45 Total Bilirubin 0.3 mg/dL (0.15-1.2) 01/31/24 00:45 AST 27 U/L (0-40) 01/31/24 00:45 ALT 37 U/L (0-41) 01/31/24 00:45 Alkaline Phosphatase 91 U/L (40-130) 01/31/24 00:45 Troponin T Baseline 14 ng/L (0-15) 01/31/24 00:45 NT-Pro-B Natriuret Pep 154 pg/mL (0-450) 01/31/24 00:45 Total Protein 6.8 g/dL (6.6-8.7) 01/31/24 00:45 Albumin 4.3 g/dL (3.5-5.2) 01/31/24 00:45 Globulin 2.5 g/dL (1.3-4.6) 01/31/24 00:45 TSH 3.26 uIU/mL (0.27-4.20) 01/31/24 00:45 All radiology interpretation(s) finalized by discharge Discharge Plan Discharge Patient Disposition: Admitted As Inpatient Admit Provider: Ganga Diego Clinical Impression: Complete heart block Condition: Critical Coding Level of Care Code ED Office Technology Instructor for Griselda Gauthier
--- NOTE | 2024-01-31 00:59 | PC.NURSE ---
0.5 mg atropine given 0042. HR raised from 30 BPM to 42 BPM. 3 L NC applied at 0046. Dopamine started at 15 mcg/kg/min per MD verbal order at bedside at 0047.
[2024-01-31] MEDS: ondansetron 2 mg/ML SDV 2 mL 4 MG IVP (01:00)
[2024-01-31] MEDS: DOPamine drip 400 MG/250 ML PREMIX 18.71 MG IV (01:10)
--- NOTE | 2024-01-31 01:14 | PC.NURSE ---
o2 up to 5 L NC
--- NOTE | 2024-01-31 01:22 | P.HP_ITS ---
Providers/Chief Complaint Admitting Physician: Ganga Diego MD Primary Care Provider: Snow Calix MD Chief Complaint: SOB History of Present Illness Jennifer Montiel is a 73 year old male with past medical history of hypertension, diabetes who woke up with shortness and breath and was weak and dizzy. Some chest pressure. Patient checked his BP and found heart rate was in 20-30s. EKG shows complete heart block. His blood pressure is stable. He is nauseous and having vomiting. Stress test was done a few months ago that showed prior infarct in the RCA territory. Review of Systems Card: Reports: lightheadedness Resp: Reports: dyspnea Medications/Allergies Home Medications Medication Instructions Recorded Confirmed Last Taken Type acetaminophen 500 mg tablet 1,000 mg PO PRN 03/15/20 09/11/22 07/17/22 History (Tylenol Extra Strength) atorvastatin 10 mg tablet (Lipitor) 10 mg PO DAILY 03/15/20 09/11/22 07/17/22 History cholecalciferol (vitamin D3) 25 25 mcg PO DAILY 03/15/20 09/11/22 07/17/22 History mcg (1,000 unit) capsule (Vitamin D3) metformin 500 mg tablet 500 mg PO DAILY 03/15/20 09/11/22 07/17/22 History qqdoffjm-domittrl-eetws acid 400 1 tab PO DAILY 03/15/20 09/11/22 07/17/22 History mcg-vit K 20 mcg-lycop 300 mcg tablet (Men's Multivitamin) omeprazole 20 mg tablet,delayed 20 mg PO DAILY 03/15/20 09/11/22 07/17/22 Histo ry release diphenhydramine HCl 50 mg capsule 50 mg PO QPM PRN Sleep 04/19/20 09/11/22 07/17/22 History (Sleep Aid (diphenhydramine)) dorzolamide (PF) 2 % (PF) eye drops 1 drp ophthalmic (eye) DAILY 05/18/20 09/11/22 07/17/22 History tamsulosin 0.4 mg capsule (Flomax) 0.4 mg PO BID 12/14/20 09/11/22 07/17/22 History glimepiride 1 mg tablet 1 mg PO DAILY 09/13/21 09/11/22 07/17/22 History lisinopril 10 mg tablet 10 mg PO DAILY #30 tabs 01/15/22 09/11/22 07/17/22 Rx tadalafil 5 mg tablet 5 mg PO .Q 3 Days PRN sexual 03/21/22 09/11/22 Unknown Rx activity #10 tabs Allergies Allergy/AdvReac Type Severity Reaction Status Date / Time bactrim Allergy Intermediate renal Uncoded 10/14/23 16:27 failure PFSH Acute PFSH: Medical History Chronic kidney disease (CKD) Hypertension Carcinoma in situ of bladder High-grade, lamina propria invasion, diffuse bladder wall involvement. Diabetes Renal cyst, left Hx of renal cell carcinoma Surgical History History of bladder surgery TURBT for carcinoma in situ April 2020. History of right nephrectomy Family History Father , AT AGE 91 Lung disease Mother Cancer Social History Smoking and tobacco/nicotine status: former use of tobacco/nicotine Alcohol intake: unknown Substance/Drug Use: never Caregiver/support person: No Marital status: Current occupational status: retired Vitals/I&O/Wt Last Vital Signs Temp 97.7 F 01/31/24 00:49 Pulse 44 L 01/31/24 01:11 Resp 18 01/31/24 01:11 BP 132/50 01/31/24 01:11 Pulse Ox 92 01/31/24 01:11 O2 Del Method Nasal Cannula 01/31/24 01:11 O2 Flow Rate 3 01/31/24 01:11 01/30/24 01/30/24 01/31/24 14:59 22:59 06:59 Intake Total 0.312 / 0.312 Balance 0.312 / 0.312 Weight last 48 hrs Weight 220 lb Physical Exam Narrative: GENERAL: Patient is alert, awake and oriented x3. [] NECK: No jugular vein distension. [] HEENT: No cyanosis. No icterus. No pallor. [] HEART: Bradycardic LUNGS: Diminished air entry bilaterally. CENTRAL NERVOUS SYSTEM: Grossly nonfocal. [] EXTREMITIES: Lower extremities with 1+ edema bilaterally. A&P Assessment and plan (1) Complete heart block: (2) Hypertension: (3) Diabetes: (4) Chronic kidney disease (CKD): Plan Patient has presented with complete heart block. Also has chest pressure and shortness of breath. We will proceed with placement of temporary transvenous pacemaker emergently. Will also have coronary angiogram with possible PCI. Patient is not on rate controlling medications. Will need permanent pacemaker placement on thursday/thursday. We will consult medicine team for management of medical issues Attestations Medical Necessity Statement*: Care expected to cross 2 midnights. Patient has presented with complete heart block and going for emergent temporary transvenous pacemaker and coronary angiogram Coding Level of Care Code Acute Code for [facility] Diagnoses Complete heart block I44.2 Hypertension I10 Diabetes E11.9 Chronic kidney disease (CKD) N18.9
[2024-01-31 01:24] LABS: Basophils # 0.1 10^3/uL (0.0-0.1); Basophils % 0.9 %; Eosinophils # 0.2 10^3/uL (0.0-0.8); Eosinophils % 1.7 %; Hematocrit 45.2 % (37-53); Lymphocytes # 2.6 10^3/uL (0.8-4.8); Lymphocytes % 28.4 %; Mean Corpuscular HGB Conc 32.5 g/dL (30-55); Mean Corpuscular Hemoglobin 29.3 pg (27-33); Monocytes # 0.9 10^3/uL (0.2-0.9); Monocytes % 9.5 %; Neutrophils # 5.34 10^3/uL (1.8-7.7); Neutrophils % 59.3 %; Nucleated Red Blood Cells % 0 %; Platelet Count 237 10^3/cmm (157-399); Red Blood Count 5.02 10^6/uL (3.85-5.65); Red Cell Distribution Width 14.2 % (12.1-15.1); White Blood Count 9.01 10^3/uL (3.29-11.43)
[2024-01-31 01:30] LABS: INR 0.97 (0.8-1.2)
[2024-01-31 01:40] LABS: Troponin(5th) Baseline 14 ng/L (0-15)
--- NOTE | 2024-01-31 01:43 | W.PM.OPSUD ---
Surgery/Procedure H&P Update DATE OF PROCEDURE: January 31, 2024 DATE H&P PERFORMED: 01/31/24 H&P UPDATE INFORMATION: I have reviewed H&P completed within last 30 days, I have examined patient prior to procedure and No changes to prior documentation PREOP DIAGNOSIS: Complete heart block/shortness of breath/chest pressure PRIMARY INDICATION FOR PROCEDURE: Complete heart block/shortness of breath/chest pressure PLANNED PROCEDURE: Temporary transvenous pacemaker placement Left heart cath with possible percutaneous coronary intervention PATIENT REASSESSED PRIOR TO SEDATION, WITH NO CHANGE NOTED: Yes PHYSICAL EXAM: alert and oriented x 3 OTHER PERTINENT EXAM FINDINGS: Bradycardic, diminished air entry AIRWAY EVAL/ANESTHESIA PLAN: normal airway, ASA III, Local Anesthesia, Risks, benefits & alternatives of sedation and/or procedure discussed and Patient agrees to continue as planned ADDITIONAL INFORMATION: Moderate sedation
[2024-01-31 01:46] LABS: Alanine Aminotransferase 37 U/L (0-41); Albumin Level 4.3 g/dL (3.5-5.2); Alkaline Phosphatase 91 U/L (40-130); Aspartate Amino Transferase 27 U/L (0-40); Blood Urea Nitrogen 21 mg/dL (8-23); Calcium 9.1 mg/dL (8.5-10.5); Carbon Dioxide 21 mmol/L (22-29); Chloride 105 mmol/L (98-107); Creatinine Clr Calc Pharmacy 48.0142; Globulin 2.5 g/dL (1.3-4.6); Glucose 189 mg/dL (65-115); Magnesium 1.9 mg/dL (1.7-2.3); NT Pro B Type Natriuretic Pept 154 pg/mL (0-450); Osmolality Calculated 290 mOsm/kg (285-295); Phosphorus 3.5 mg/dL (2.5-4.5); Sodium 136 mmol/L (136-145); Thyroid Stimulating Hormone 3.26 uIU/mL (0.27-4.20); Total Bilirubin 0.3 mg/dL (0.15-1.2); Total Protein 6.8 g/dL (6.6-8.7)
--- NOTE | 2024-01-31 02:52 | ECG_ITS ---
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 Measurements Intervals [place] Rate: 58 P: 0 MT: 0 QRS: -89 QRSD: 164 T: 70 QT: 521 QTc: 515 Interpretive Statements ELECTRONIC VENTRICULAR PACEMAKER Compared to ECG 01/31/2024 00:34:51 Sinus rhythm no longer present Incomplete right bundle-branch block no longer present Myocardial infarct finding no longer present Electronically Signed On 02-01-2024 18:57:43 CDT by Ganga Diego M.D. [id number]
--- NOTE | 2024-01-31 03:34 | P.CONIM_ITS ---
Providers/Reason For Consult 2 Consulting Physician/Specialty*: Hospitalist Reason for Consult*: Medical management Attending Physician: Ganga Diego M.D Primary Care Provider: Snow Calix MD History of Present Illness History of Present Illness Pleasant 73-year-old gentleman with history of HTN, HLD, diabetes, former smoker, came in due to feeling unwell and funny feeling in his chest. Was found to have heart rate in the 30s on arrival, received atropine, dopamine, cardiology called and was taken to [facility] Otol[facility]ology for transvenous pacer placement. Found to be in complete heart block. With risk factors of coronary disease additionally underwent coronary angiography and found to have critical stenosis of LAD and RCA treated by angioplasty and stenting. Subsequently admitted to ICU. Review of Systems 2 Const: Reports: fatigue; Denies: fever(s), chills, body aches or malaise ENMT: Denies: throat pain, oral sores or ear or mastoid pain Card: Reports: palpitations and lightheadedness; Denies: chest pain, edema, pre-syncope or dyspnea on exertion Resp: Denies: dyspnea, productive cough, change in phlegm color or hemoptysis GI: Denies: abdominal pain, nausea, vomiting, diarrhea, constipation, hematochezia or melena : Denies: flank pain, difficulty urinating, urinary frequency or hematuria Musc: Denies: back pain, joint swelling or joint redness Skin/Breast: Denies: rash or new lesions Neuro: Denies: headache(s) or dizziness Medications/Allergies Home Medications Medication Instructions Recorded Confirmed Last Taken Type acetaminophen 500 mg tablet 1,000 mg PO PRN 03/15/20 09/11/22 07/17/22 History (Tylenol Extra Strength) atorvastatin 10 mg tablet (Lipitor) 10 mg PO DAILY 03/15/20 09/11/22 07/17/22 History cholecalciferol (vitamin D3) 25 25 mcg PO DAILY 03/15/20 09/11/22 07/17/22 History mcg (1,000 unit) capsule (Vitamin D3) metformin 500 mg tablet 500 mg PO DAILY 03/15/20 09/11/22 07/17/22 History welmwfde-cnmxtfpw-damik acid 400 1 tab PO DAILY 03/15/20 09/11/22 07/17/22 History mcg-vit K 20 mcg-lycop 300 mcg tablet (Men's Multivitamin) omeprazole 20 mg tablet,delayed 20 mg PO DAILY 03/15/20 09/11/22 07/17/22 History release diphenhydramine HCl 50 mg capsule 50 mg PO QPM PRN Sleep 04/19/20 09/11/22 07/17/22 History (Sleep Aid (diphenhydramine)) dorzolamide (PF) 2 % (PF) eye drops 1 drp ophthalmic (eye) DAILY 05/18/20 09/11/22 07/17/22 History tamsulosin 0.4 mg capsule (Flomax) 0.4 mg PO BID 12/14/20 09/11/22 07/17/22 History glimepiride 1 mg tablet 1 mg PO DAILY 09/13/21 09/11/22 07/17/22 History lisinopril 10 mg tablet 10 mg PO DAILY #30 tabs 01/15/22 09/11/22 07/17/22 Rx tadalafil 5 mg tablet 5 mg PO .Q 3 Days PRN sexual 03/21/22 09/11/22 Unknown Rx activity #10 tabs Allergies Allergy/AdvReac Type Severity Reaction Status Date / Time bactrim Allergy Intermediate renal Uncoded 10/14/23 16:27 failure PFSH Acute 2 PFSH: Medical History Chronic kidney disease (CKD) Hypertension Carcinoma in situ of bladder High-grade, lamina propria invasion, diffuse bladder wall involvement. Diabetes Renal cyst, left Hx of renal cell carcinoma Surgical History History of bladder surgery TURBT for carcinoma in situ April 2020. History of right nephrectomy Family History Father , AT AGE 91 Lung disease Mother Cancer Social History Smoking and tobacco/nicotine status: former use of tobacco/nicotine Alcohol intake: unknown Substance/Drug Use: never Caregiver/support person: No Marital status: Current occupational status: retired Vitals/I&O/Wt Last Vital Signs Temp 97.7 F 01/31/24 00:49 Pulse 42 L 01/31/24 01:48 Resp 16 01/31/24 01:48 BP 125/55 01/31/24 01:48 Pulse Ox 90 01/31/24 01:48 O2 Del Method Nasal Cannula 01/31/24 01:11 O2 Flow Rate 3 01/31/24 01:11 01/30/24 01/30/24 01/31/24 14:59 22:59 06:59 Intake Total 0.312 / 0.312 Balance 0.312 / 0.312 Weight last 48 hrs Weight 99.79 kg Physical Exam 2 Const: COMMON NORMALS: patient oriented x3 and alert GENERAL APPEARANCE: c ooperative ORIENTATION/CONSCIOUSNESS: Yes awake HENMT: COMMON NORMALS: oropharynx normal Neck/C-Spine: COMMON NORMALS: no JVD Resp: COMMON NORMALS: normal respiratory effort and clear to auscultation bilaterally AUSCULTATION: clear to auscultation bilaterally Cardio: COMMON NORMALS: no JVD, regular rhythm, S1 normal heart sound present, S2 normal heart sound present and No murmurs present (Cardio) RHYTHM: regular rhythm HEART SOUNDS: S1 normal heart sound present and S2 normal heart sound present OTHER: Transvenous pacing, heart rate 59. GI: COMMON NORMALS: Normal to inspection, nondistended, normoactive bowel sounds present, Soft to palpation and non-tender PALPATION: Yes Soft to palpation Extremity: COMMON NORMALS: no joint enlargement and no pedal edema Neuro: COMMON NORMALS: patient oriented x3 and moves all extremities S ENSORIUM/ORIENTATION: Yes alert Skin: COMMON NORMALS: no rashes or lesions noted GENERAL SKIN EXAM: no rashes or lesions noted Data 01/31/24 00:45 01/31/24 00:45 A&P Assessment and plan (1) Complete heart block: Reviewed vitals, CBC, INR, CMP, magnesium, baseline troponin, TSH, EKG, chest x- ray, ER provider note, discussed with ER provider, discussed with manager clinic, nursing. Currently heart rate 59, status post transvenous pacer placement. He is feeling well. No chest pain or pressure. No difficulty breathing. Is still requiring oxygen 5 L. Chest x-ray unremarkable. Will check D-dimer. Continues on Aggrastat, monitor for bleeding. Reassess blood counts. Aspirin, Plavix, statin, not a candidate for beta-mina. Continue transvenous pacing support, monitor heart rates. Has undergone coronary revascularization due to critical stenosis of LAD and RCA. Monitor for recovery of [place] rhythm. Otherwise may require permanent pacemaker. (2) CAD (coronary artery disease): Critical stenosis of LAD and RCA status post angioplasty and stenting during angiography, with ischemia possibly triggering complete heart block. Continues on Aggrastat, continue postcatheterization care. Continue aspirin, statin, not a candidate for beta-mina. Reassess kidney function. Monitor on telemetry with risk of arrhythmia. Monitor vitals. Check A1c. Optimize cardiovascular risk factors with follow-up with PCP. (3) Hypertension: Currently blood pressure 114/55, hold antihypertensive for now. Monitor blood pressure. (4) Diabetes: Last A1c available here was in 2021. Will recheck. Has been on oral hypoglycemics, hold for now. POC glucose. Mild SSI. Consult carbohydrate diet. (5) Chronic kidney disease (CKD): Creatinine so far has been at baseline. Monitor renal function. 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 Follows with urology. Has not been requiring self- catheterizations. Plan Hypoxia: Trending down on oxygen after his procedure. Possibly transient cardiogenic pulm edema/diastolic CHF due to severe bradycardia, cardiac ischemia. Continue oxygen support, wean down as tolerating. Will check COVID/flu/RSV PCR. Check D-dimer. No history of underlying respiratory illness. He does snore at night, may benefit from post discharge follow-up for sleep study for sleep apnea. HLD: Continue statin. Consult Attestations 2 Medical Necessity Statement: Admission of over 2 midnights anticipated for assessment and management of complete heart block, CAD requiring transvenous pacing, status post angioplasty and stenting of LAD and RCA. Additional comorbidities as above. Coding Level of Care Code Critical Care >/= 30 minutes Critical care time (in minutes): 35 The high probability of a clinically significant, sudden or life threatening deterioration, as referenced in this documentation, required my full and direct attention, intervention and personal management. The critical care time shown is in addition to time spent performing any reported separately billable procedures and includes the following: [x] Data and vital sign review and interpretation [x ] Patient assessment, examination and intervention [x] Medication orders and management [x] Patient/Family updates as able [x] Care Coordination and Documentation. Diagnoses Complete heart block I44.2 CAD (coronary artery disease) I25.10 Hypertension I10 Diabetes E11.9 Chronic kidney disease (CKD) N18.9 Carcinoma in situ of bladder D09.0
[2024-01-31] MEDS: sodium chloride 0.9% 1,000 ML 100 ML IV (04:10)
[2024-01-31 04:41] LABS: Troponin 5 2HR 25.67 ng/L (0-15)
[2024-01-31 04:42] LABS: Anion Gap 14.1 (5-19); Blood Urea Nitrogen 23 mg/dL (8-23); Calcium 8.7 mg/dL (8.5-10.5); Carbon Dioxide 21 mmol/L (22-29); Chloride 105 mmol/L (98-107); Glucose 214 mg/dL (65-115); Osmolality Calculated 292 mOsm/kg (285-295); Potassium 4.1 mmol/L (3.5-5.1); Sodium 136 mmol/L (136-145)
[2024-01-31 04:50] LABS: Creatinine Clr Calc Pharmacy 49.8672
[2024-01-31 04:52] LABS: Troponin 5 2HR Delta 11.67 ABS# (0-10)
[2024-01-31 05:07] LABS: D Dimer 0.51 ug/mLFEU (0-0.59)
[2024-01-31 06:32] LABS: Covid PCR NEGATIVE (Negative); Influenza A NEGATIVE (Negative); Influenza B NEGATIVE (Negative); Respiratory Syncytial Virus Ce NEGATIVE (Negative)
--- NOTE | 2024-01-31 06:52 | ECG_ITS ---
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 Measurements Intervals [place] Rate: 58 P: 0 MI: 0 QRS: -81 QRSD: 165 T: 72 QT: 511 QTc: 505 Interpretive Statements ELECTRONIC VENTRICULAR PACEMAKER ABNORMAL RHYTHM ECG Compared to ECG 01/31/2024 03:39:28 No significant changes Electronically Signed On 02-01-2024 18:57:16 CDT by Ganga Diego M.D. [email or web address]
--- NOTE | 2024-01-31 06:55 | PC.NURSE ---
TR band removal: TR band air was removed 2mL at a time q15m, removed at 0655 and tegaderm applied.
[2024-01-31 07:05] LABS: Troponin 5 6HR 44.38 ng/L (0-15)
[2024-01-31 07:07] LABS: Troponin 5 6HR Delta 30.38 ng/L (0-12)
[2024-01-31 08:06] LABS: Glucose Point of Care 130 mg/dL (70-110)
[2024-01-31] MEDS: aspirin 81 mg EC Tablet PO (08:07)
[2024-01-31] MEDS: clopidogrel 75 mg Tablet PO (08:08)
--- NOTE | 2024-01-31 09:32 | USCV_ITS ---
Jennifer Montiel Age: 73 Gender: M : 1950 Exam Date: 01/31/2024 16:11 Ordering Phys: Ganga Diego M.D ([email or web address]) Technologist: Tu Chamorro Exam Location: [facility] – [place] Indication: nstemi BP: 114 / 55 HR: 58 Rhythm: Sinus Technical Quality: Adequate MEASUREMENTS (Male / Female) Normal Values 2D ECHO LV Diastolic Diameter PLAX 4.5 cm 4.2 - 5.9 / 3.9 - 5.3 cm IVS Diastolic Thickness 1.5 cm 0.6 - 1.0 / 0.6 - 0.9 cm IVS Systolic Thickness 1.8 cm LVPW Diastolic Thickness 1.4 cm 0.6 - 1.0 / 0.6 - 0.9 cm LVPW Systolic Thickness 1.8 cm LVOT Diameter 2.0 cm LV Ejection Fraction 2D Teich 67.2 % LV Ejection Fraction MOD 4C 67.6 % LV Ejection Fraction MOD 2C 68.0 % LV Ejection Fraction 2C AL 67.2 % LA Diameter 3.2 cm RA Systolic Volume 4C AL 39.3 ml RA Systolic Volume 4C MOD 39.5 ml LA Sys Volume AL 45.3 cm cubed LA Sys Volume Index AL 19.4 cm cubed/m squared Aorta at Sinotubular Diameter 2.4 cm M-MODE LA Ao Ratio MM 1.1 AV Cusp Separation MM 1.6 cm DOPPLER AV Peak Velocity 88.0 cm/s LVOT Peak Velocity 74.0 cm/s AV Area Cont Eq vti 2.3 cm squared AV Area Cont Eq pk 2.8 cm squared MV Area PHT 4.4 cm squared Mitral E to A Ratio 0.9 TV Peak Velocity 307.5 cm/s TR Peak Velocity 325.0 cm/s TR Peak Gradient 42.3 mmHg TR Mean Velocity 259.0 cm/s TR Mean Gradient 28.3 mmHg TR Velocity Time Integral 72.5 cm PV Peak Velocity 63.0 cm/s RV Ejection Time 0.3 s FINDINGS Left Ventricle Left ventricle is normal in size. LV systolic function is normal with the EF of 55 to 60%. No regional wall motion abnormalities are seen. Grade 1 diastolic dysfunction. Right Ventricle Normal in size and function Right Atrium Normal in size Left Atrium Normal in size Mitral Valve Structurally normal mitral valve. Mild mitral regurgitation. Aortic Valve Structurally normal aortic valve. No significant stenosis or regurgitation. Tricuspid Valve Mild tricuspid regurgitation. Insufficient TR jet to calculate RVSP Pulmonic Valve Not well visualized Pericardium Normal Aorta Normal in size IVC Not seen CONCLUSIONS LV systolic lesion is normal with EF of 55 to 60%. Grade 1 diastolic dysfunction. Mild mitral regurgitation Mild tricuspid regurgitation Ganga Diego MD (Electronically Signed) Final Date: 31 January 2024 18:11 S
--- NOTE | 2024-01-31 09:50 | PM.PROC ---
Procedure Note: Date of procedure: 01/31/24 Pre-procedure diagnosis: Complete heart block/shortness of breath/chest pressure Post-procedure diagnosis: other (S/p successful transvenous pacemaker placement and PCI of rca and LAD) Procedure: Procedure details: We obtained access in the right common femoral vein and advanced temporary transvenous pacemaker under fluoroscopic guidance. We started asynchronous pacing at 60 bpm and mA of 2.5. This was followed by coronary angiography that demonstrated severe proximal to mid RCA stenosis status post successful revascularization with 1 stent and severe mid LAD stenosis status post revascularization with 1 stent. Patient was transferred to ICU in a stable condition. Performing Provider: Ganga Diego Complications: None Pathology: other Condition: stable Disposition: ICU Coding Level of Care Code Acute Code for Griselda Gauthier
[2024-01-31 12:03] LABS: Glucose Point of Care 116 mg/dL (70-110)
[2024-01-31] MEDS: sodium chloride 0.9% 1,000 ML 75 ML IV (15:53)
--- NOTE | 2024-01-31 16:17 | P.PN_ITS ---
Subjective 2 Subjective: No acute overnight events noted. Seen him at bedside this morning, denies any complaint of dizziness or shortness of breath or chest pain. Medications: Reviewed: Yes Vitals/I&O/Wt Last Vital Signs Temp 97.2 F L 01/31/24 03:45 Pulse 60 01/31/24 15:58 Resp 23 H 01/31/24 03:45 BP 114/55 01/31/24 03:45 Pulse Ox 98 01/31/24 13:57 O2 Del Method Nasal Cannula 01/31/24 13:57 O2 Flow Rate 2 01/31/24 13:57 01/31/24 01/31/24 01/31/24 06:59 14:59 22:59 Intake Total 159.347 / 091.640 0216.667 / 1191.667 408.333 / 1600.000 Output Total 300 / 300 1000 / 1000 Balance -140.653 / -822.373 2571.667 / 1191.667 -591.667 / 600.000 Weight last 48 hrs Weight 106 kg Weight 108 kg Weight 99.79 kg Physical Exam 2 Narrative: He is alert awake oriented x 3, not in acute distress Chest clear to auscultation bilaterally Cardiovascular normal heart sounds Abdomen soft nontender nondistended normal bowel sounds Extremities no edema noted bilateral lower extremity Data 01/31/24 00:45 01/31/24 04:12 A&P Assessment and plan (1) Complete heart block: Reviewed vitals, CBC, INR, CMP, magnesium, baseline troponin, TSH, EKG, chest x- ray, ER provider note, discussed with ER provider, discussed with liquid sugar melter, nursing. Currently heart rate 59, status post transvenous pacer placement. He is feeling well. No chest pain or pressure. No difficulty breathing. Is still requiring oxygen 5 L. Chest x-ray unremarkable. Will check D-dimer. Continues on Aggrastat, monitor for bleeding. Reassess blood counts. Aspirin, Plavix, statin, not a candidate for beta-mina. Continue transvenous pacing support, monitor heart rates. Has undergone coronary revascularization due to critical stenosis of LAD and RCA. Monitor for recovery of [place] rhythm. Otherwise may require permanent pacemaker. (2) CAD (coronary artery disease): Critical stenosis of LAD and RCA status post angioplasty and stenting during angiography, with ischemia possibly triggering complete heart block. Continues on Aggrastat, continue postcatheterization care. Continue aspirin, statin, not a candidate for beta-mina. Reassess kidney function. Monitor on telemetry with risk of arrhythmia. Monitor vitals. Check A1c. Optimize cardiovascular risk factors with follow-up with PCP. (3) Hypertension: Currently blood pressure 114/55, hold antihypertensive for now. Monitor blood pressure. (4) Diabetes: Last A1c available here was in 2021. Will recheck. Has been on oral hypoglycemics, hold for now. POC glucose. Mild SSI. Consult carbohydrate diet. (5) Chronic kidney disease (CKD): Creatinine so far has been at baseline. Monitor renal function. 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 Follows with urology. Has not been requiring self- catheterizations. Plan 01/30--Hypoxia: Resolved. Respiratory panel negative. D-dimer normal. Continue supplemental oxygen to keep saturation more than 90%. POC noted, well- controlled on correction scale for now. Continue to monitor. Follow-up cardiology for any new recommendations.Continue transvenous pacing support, monitor heart rates. Has undergone coronary revascularization due to critical stenosis of LAD and RCA. Monitor for recovery of [place] rhythm. Otherwise may require permanent pacemaker. Attestations 2 Medical Necessity Statement*: Care expected to cross 2 midnights. Patient has presented with complete heart block and going for emergent temporary transvenous pacemaker and coronary angiogram, need post cath care and monitoring of bradycardia. Time Spent in Patient Care: 20 minutes Coding Level of Care Code Acute Code for [facility] Fwd Diagnoses Complete heart block I44.2 CAD (coronary artery disease) I25.10 Hypertension I10 Diabetes E11.9 Chronic kidney disease (CKD) N18.9 Carcinoma in situ of bladder D09.0 Time Spent (min) 20
[2024-01-31 18:47] LABS: Anion Gap 12.1 (5-19); Blood Urea Nitrogen 23 mg/dL (8-23); Calcium 8.8 mg/dL (8.5-10.5); Carbon Dioxide 25 mmol/L (22-29); Chloride 103 mmol/L (98-107); Glucose 114 mg/dL (65-115); Osmolality Calculated 287 mOsm/kg (285-295); Potassium 4.1 mmol/L (3.5-5.1); Sodium 136 mmol/L (136-145)
[2024-01-31 18:59] LABS: Creatinine Clr Calc Pharmacy 49.4158
[2024-01-31] MEDS: temazepam 15 mg Capsule PO (20:13)
[2024-01-31] MEDS: atorvastatin 40 mg Tablet PO (20:13)
[2024-02-01] VITALS (26 sets, daily range): BP systolic 99–159; BP diastolic 60–122; PULSE 56–66; RESP 12–20; TEMP 36.8–37.1; O2SAT 92–98
[2024-02-01 04:06] LABS: Basophils # 0.1 10^3/uL (0.0-0.1); Basophils % 0.7 %; Eosinophils # 0.1 10^3/uL (0.0-0.8); Eosinophils % 1.2 %; Hematocrit 38.7 % (37-53); Lymphocytes # 1.9 10^3/uL (0.8-4.8); Lymphocytes % 22.7 %; Mean Corpuscular HGB Conc 31.8 g/dL (30-55); Mean Corpuscular Hemoglobin 29.1 pg (27-33); Mean Corpuscular Volume 91.5 fl (82-101); Mean Platelet Volume 11.1 fL (7.4-10.4); Monocytes # 0.7 10^3/uL (0.2-0.9); Monocytes % 8.9 %; Neutrophils # 5.44 10^3/uL (1.8-7.7); Neutrophils % 66.3 %; Nucleated Red Blood Cells % 0 %; Platelet Count 165 10^3/cmm (157-399); Red Blood Count 4.23 10^6/uL (3.85-5.65); Red Cell Distribution Width 14.2 % (12.1-15.1); White Blood Count 8.22 10^3/uL (3.29-11.43)
[2024-02-01 04:25] LABS: Blood Urea Nitrogen 24 mg/dL (8-23); Calcium 8.5 mg/dL (8.5-10.5); Carbon Dioxide 22 mmol/L (22-29); Chloride 108 mmol/L (98-107); Glucose 122 mg/dL (65-115); Osmolality Calculated 289 mOsm/kg (285-295); Sodium 137 mmol/L (136-145)
[2024-02-01 04:37] LABS: Creatinine Clr Calc Pharmacy 49.4158
[2024-02-01] MEDS: sodium chloride 0.9% 1,000 ML 75 ML IV ×2 (04:49→17:49)
[2024-02-01 07:36] LABS: Glucose Point of Care 171 mg/dL (70-110)
--- NOTE | 2024-02-01 07:54 | PC.NURSE ---
Dr. Azul telephone order to hold morning dose of Plavix. Okay to give asprin. Order RBR.
--- NOTE | 2024-02-01 08:08 | PM.PN ---
Subjective Subjective: Patient is doing well. no chest pain. Pacemaker capture is appropriate. Still has underlying heart block. Vitals/I&O/Wt Last Vital Signs Temp 98.4 F 02/01/24 04:00 Pulse 63 02/01/24 08:00 Resp 15 02/01/24 08:00 BP 132/80 02/01/24 08:00 Pulse Ox 97 02/01/24 08:00 O2 Del Method Nasal Cannula 02/01/24 08:00 O2 Flow Rate 3 02/01/24 08:00 01/31/24 02/01/24 02/01/24 22:59 06:59 14:59 Intake Total 848.333 / 2040.000 1030 / 3070.000 Output Total 1500 / 1500 275 / 1775 Balance -651.667 / 540.000 755 / 1295.000 Weight last 48 hrs Weight 233 lb 11.04 oz Weight 233 lb 11.04 oz Weight 238 lb 1.588 oz Weight 220 lb Physical Exam Narrative: GENERAL: Patient is alert, awake and oriented x3. [] NECK: No jugular vein distension. [] HEENT: No cyanosis. No icterus. No pallor. [] HEART: Bradycardic LUNGS: Diminished air entry bilaterally. CENTRAL NERVOUS SYSTEM: Grossly nonfocal. [] EXTREMITIES: Lower extremities with 1+ edema bilaterally. Data 02/02/24 05:17 02/02/24 05:17 A&P Assessment and plan (1) Complete heart block: (2) Hypertension: Qualifiers: Hypertension type: primary hypertension Qualified Code(s): I10 - Essential (primary) hypertension (3) Diabetes: Qualifiers: Diabetes mellitus type: type 2 Diabetes mellitus residential insulin use: without residential use Diabetes mellitus complication status: without complication Qualified Code(s): E11.9 - Type 2 diabetes mellitus without complications (4) Chronic kidney disease (CKD): Qualifiers: Chronic kidney disease stage: stage 2 (mild) Qualified Code(s): N18.2 - Chronic kidney disease, stage 2 (mild) (5) NSTEMI (non-ST elevated myocardial infarction): Plan Patient was found to have severe proximal to mid RCA stenosis treated with successful revascularization with 1 stent and severe mid LAD stenosis underwent successful revascularization with 1 stent. His troponins did go up significantly. Continue aspirin and Plavix. Has temporary transvenous pacemaker appropriately pacing. Still has underlying heart block. If it 48 hours there is no recovery of heart block, plan for permanent pacemaker placement tomorrow. Echo shows normal LV systolic function. Thank you for involving us with care of this patient. We will continue to follow. please call with questions. Attestations Medical Necessity Statement*: Care expected to cross 2 midnights. Coding Level of Care Code Acute Code for g Fwd Diagnoses Complete heart block I44.2 Primary hypertension I10 Hypertension type: primary hypertension Type 2 diabetes mellitus without complication, without long-term current use of insulin E11.9 Diabetes mellitus type: type 2 Diabetes mellitus residential insulin use: without glassware selector use Diabetes mellitus complication status: without complication Stage 2 chronic kidney disease N18.2 Chronic kidney disease stage: stage 2 (mild) NSTEMI (non-ST elevated myocardial infarction) I21.4
[2024-02-01] MEDS: aspirin 81 mg EC Tablet PO (09:52)
[2024-02-01 11:44] LABS: Glucose Point of Care 150 mg/dL (70-110)
--- NOTE | 2024-02-01 11:54 | P.PN_ITS ---
Subjective 2 Subjective: No acute overnight events noted. Denies any complaint of shortness of breath or chest pain. Medications: Reviewed: Yes Vitals/I&O/Wt Last Vital Signs Temp 98.4 F 02/01/24 04:00 Pulse 56 L 02/01/24 10:45 Resp 12 02/01/24 10:00 BP 111/71 02/01/24 10:00 Pulse Ox 96 02/01/24 10:45 O2 Del Method Nasal Cannula 02/01/24 10:45 O2 Flow Rate 2 02/01/24 10:45 01/31/24 02/01/24 02/01/24 22:59 06:59 14:59 Intake Total 848.333 / 2040.000 1030 / 3070.000 200 / 200 Output Total 1500 / 1500 275 / 1775 250 / 250 Balance -651.667 / 540.000 755 / 1295.000 -50 / -50 Weight last 48 hrs Weight 106 kg Weight 106 kg Weight 108 kg Weight 99.79 kg Physical Exam 2 Narrative: He is alert awake oriented x 3, not in acute distress Chest clear to auscultation bilaterally Cardiovascular normal heart sounds Abdomen soft nontender nondistended normal bowel sounds Extremities no edema noted bilateral lower extremity Data 02/01/24 03:54 02/01/24 03:54 A&P Assessment and plan (1) Complete heart block: Reviewed vitals, CBC, INR, CMP, magnesium, baseline troponin, TSH, EKG, chest x- ray, ER provider note, discussed with ER provider, discussed with alarm installer, nursing. Currently heart rate 59, status post transvenous pacer placement. He is feeling well. No chest pain or pressure. No difficulty breathing. Is still requiring oxygen 5 L. Chest x-ray unremarkable. Will check D-dimer. Continues on Aggrastat, monitor for bleeding. Reassess blood counts. Aspirin, Plavix, statin, not a candidate for beta-mina. Continue transvenous pacing support, monitor heart rates. Has undergone coronary revascularization due to critical stenosis of LAD and RCA. Monitor for recovery of [place] rhythm. Otherwise may require permanent pacemaker. (2) CAD (coronary artery disease): Critical stenosis of LAD and RCA status post angioplasty and stenting during angiography, with ischemia possibly triggering complete heart block. Continues on Aggrastat, continue postcatheterization care. Continue aspirin, statin, not a candidate for beta-mina. Reassess kidney function. Monitor on telemetry with risk of arrhythmia. Monitor vitals. Check A1c. Optimize cardiovascular risk factors with follow-up with PCP. (3) Hypertension: Currently blood pressure 114/55, hold antihypertensive for now. Monitor blood pressure. (4) Diabetes: Last A1c available here was in 2021. Will recheck. Has been on oral hypoglycemics, hold for now. POC glucose. Mild SSI. Consult carbohydrate diet. (5) Chronic kidney disease (CKD): Creatinine so far has been at baseline. Monitor renal function. 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 Follows with urology. Has not been requiring self- catheterizations. Plan 01/30--Hypoxia: Resolved. Respiratory panel negative. D-dimer normal. Continue supplemental oxygen to keep saturation more than 90%. POC noted, well- controlled on correction scale for now. Continue to monitor. Follow-up cardiology for any new recommendations.Continue transvenous pacing support, monitor heart rates. Has undergone coronary revascularization due to critical stenosis of LAD and RCA. Monitor for recovery of [place] rhythm. Otherwise may require permanent pacemaker. 01/31--- patient had a trial after switching off transvenous pacing but heart rate dropped to 40s hence plan for pacemaker in a.m. Will follow-up cardiology. Blood sugars have been well, he is on insulin lispro correction scale with meals and bedtime. Attestations 2 Medical Necessity Statement*: Care expected to cross 2 midnights. Patient has presented with complete heart block and going for emergent temporary transvenous pacemaker and coronary angiogram, need post cath care and monitoring of bradycardia with plan of permanent pacemaker in a.m. Time Spent in Patient Care: 15 minutes Coding Level of Care Code Acute Code for Chg Fwd Diagnoses Complete heart block I44.2 CAD (coronary artery disease) I25.10 Hypertension I10 Diabetes E11.9 Chronic kidney disease (CKD) N18.9 Carcinoma in situ of bladder D09.0 Time Spent (min) 15
[2024-02-01 12:30] LABS: Glucose Point of Care 140 mg/dL (70-110)
[2024-02-01 12:30] LABS: Glucose Point of Care 194 mg/dL (70-110)
--- NOTE | 2024-02-01 13:26 | PC.NURSE ---
Dr. Azul telephone order RBV for one dose plavix to be given now. See MAR.
[2024-02-01] MEDS: clopidogrel 75 mg Tablet PO (13:38)
--- NOTE | 2024-02-01 19:45 | PC.NURSE ---
Assumed care of patient. Resting in bed reading book. No reports of pain or discomfort. Transvenous pacemaker to right groin with dressing c/d/i, pacer capture noted. Respirations even and unlabored. Educated patient on NPO status after midnight for permanent pacemaker placement at 7AM. Left chest clipped with clippers and chest cleaned with chlorhexadine wipes.
[2024-02-01] MEDS: atorvastatin 40 mg Tablet PO (21:07)
[2024-02-01] MEDS: temazepam 15 mg Capsule PO (21:07)
--- NOTE | 2024-02-01 21:33 | P.CONIM_ITS ---
Providers/Reason For Consult 2 Consulting Physician/Specialty*: VON Azul MD/cardiology Reason for Consult*: Patient with complete heart block to consider permanent pacemaker [place] Requesting Physician: Dr. Diego Attending Physician: Marleen Drake MD Primary Care Provider: Snow Calix MD History of Present Illness History of Present Illness Jennifer Montiel is a 73 year old male with a history of hypertension, type 2 diabetes, dyslipidemia and chronic kidney disease, was admitted to the hospital with some atypical chest symptoms, weakness and shortness of breath which woke him up from sleep. He was found to have a heart rate in the 30s. EKG showed complete heart block. Patient underwent a temporary pacemaker insertion through the right femoral vein by Dr. Diego. Subsequent cardiac catheterization revealed a high-grade lesion in the proximal to mid RCA and mid LAD. He underwent a PCI of these lesions. Patient continues to be in complete heart block. He denies any chest pain or chest tightness at this time. No shortness of breath. No fever or chills. No other specific complaints. Review of Systems 2 Narrative: CONSTITUTIONAL: No fever or chills. EYES: No blurring of vision or other visual disturbances lately. ENT: No hoarseness of voice, auditory disturbances or sore throat. CARDIOVASCULAR: As mentioned above. RESPIRATORY: No significant cough. GASTROINTESTINAL: No hematemesis or melena. GENITOURINARY: Chronic kidney disease INTEGUMENTARY: No skin rashes or history of skin cancer. NEURO: No transient ischemic attacks or amaurosis. PSYCHIATRIC: No history of psychosis or major depression. HEMATOLOGIC: No bleeding disorders or significant anemia. ENDOCRINE: History of type 2 diabetes MUSCULOSKELETAL: No recent joint pain or swelling. ALLERGY/IMMUNOLOGY: As mentioned above. Medications/Allergies Home Medications Medication Instructions Recorded Confirmed Last Taken Type acetaminophen 500 mg tablet 1,000 mg PO PRN 03/15/20 02/01/24 07/17/22 History (Tylenol Extra Strength) cholecalciferol (vitamin D3) 25 25 mcg PO DAILY 03/15/20 02/01/24 07/17/22 History mcg (1,000 unit) capsule (Vitamin D3) metformin 500 mg tablet 500 mg PO DAILY 03/15/20 02/01/24 07/17/22 History diphenhydramine HCl 50 mg capsule 50 mg PO QPM PRN Sleep 04/19/20 02/01/24 07/17/22 History (Sleep Aid (diphenhydramine)) tamsulosin 0.4 mg capsule (Flomax) 0.4 mg PO BID 12/14/20 02/01/24 07/17/22 History glimepiride 1 mg tablet 1 mg PO DAILY 09/13/21 02/01/24 07/17/22 History tadalafil 5 mg tablet 5 mg PO .Q 3 Days PRN sexual 03/21/22 02/01/24 Unknown Rx activity #10 tabs atorvastatin 20 mg tablet 20 mg PO QPM 02/01/24 02/01/24 Unknown History finasteride 5 mg tablet 5 mg PO DAILY 02/01/24 02/01/24 Unknown History hydrochlorothiazide 25 mg tablet 25 mg PO DAILY 02/01/24 02/01/24 Unknown History lisinopril 40 mg tablet 20 mg PO DAILY 02/01/24 02/01/24 Unknown History Allergies Allergy/AdvReac Type Severity Reaction Status Date / Time bactrim Allergy Intermediate renal Uncoded 10/14/23 16:27 failure Current Medications Generic Name Dose Route Start Last Admin Trade Name Freq PRN Reason Stop Dose Admin Aspirin 81 mg 01/31/24 09:00 02/01/24 09:52 Aspirin 81 Mg Ec Tablet PO 81 mg DAILY ANDRES Administration Atorvastatin Calcium 40 mg 01/31/24 21:00 02/01/24 21:07 Atorvastatin 40 Mg Tablet PO 40 mg BEDTIME ANDRES Administration Clopidogrel Bisulfate 75 mg 01/31/24 09:00 02/01/24 07:56 Clopidogrel 75 Mg Tablet PO Not Given DAILY ANDRES Sodium Chloride 1,000 mls @ 75 mls/hr 01/31/24 03:30 02/01/24 17:49 Sodium Chloride 0.9% IV 75 mls/hr .[id number] ANDRES Administration Insulin Human Lispro 0 unit 01/31/24 08:00 02/01/24 21:05 Insulin Lispro 100 Unit/1 Ml SUBCUT Not Given WM&BEDTIME ANDRES Protocol Temazepam 15 mg 01/31/24 03:23 02/01/24 21:07 Temazepam 15 Mg Capsule PO 15 mg BEDTIME PRN Administration INSOMNIA PFSH Acute 2 PFSH: Medical History Chronic kidney disease (CKD) Hypertension Carcinoma in situ of bladder High-grade, lamina propria invasion, diffuse bladder wall involvement. Diabetes Renal cyst, left Hx of renal cell carcinoma Surgical History History of bladder surgery TURBT for carcinoma in situ April 2020. History of right nephrectomy Family History Father , AT AGE 91 Lung disease Mother Cancer Social History Smoking and tobacco/nicotine status: former use of tobacco/nicotine Alcohol intake: unknown Substance/Drug Use: never Caregiver/support person: No Marital status: Current occupational status: retired Vitals/I&O/Wt Last Vital Signs Temp 98.3 F 02/01/24 20:00 Pulse 61 02/01/24 20:00 Resp 17 02/01/24 20:00 BP 135/88 02/01/24 20:00 Pulse Ox 95 02/01/24 20:00 O2 Del Method Nasal Cannula 02/01/24 20:00 O2 Flow Rate 2 02/01/24 20:00 02/01/24 02/01/24 02/01/24 06:59 14:59 22:59 Intake Total 1030 / 3070.000 300 / 300 1175 / 1475 Output Total 275 / 1775 400 / 400 250 / 650 Balance 755 / 1295.000 -100 / -100 925 / 825 Weight last 48 hrs Weight 233 lb 11.04 oz Weight 233 lb 11.04 oz Weight 238 lb 1.588 oz Weight 220 lb Physical Exam 2 Narrative: GENERAL: The patient is alert and oriented times three. Not in any acute distress. HEENT: No significant pallor, icterus or lymphadenopathy.Oral cavity: There are no mucous membrane lesions. NECK: Trachea appears to be central. No masses noted. No JVD or thyromegaly appreciated. RESPIRATORY: Chest is symmetrical. No intercostals muscle retraction or any accessory muscle activation. There is no chest wall tenderness. Breath sounds are heard bilaterally. No rales or rhonchi heard. No evidence of any consolidation. BREASTS: Deferred. HEART: The heart sounds are normal. No S3 or S4. No significant murmurs. No pericardial rub ABDOMEN: No vessel pulsations or distention. No tenderness. No organomegaly appreciated. Bowel sounds are normally heard. : Deferred. RECTAL: Deferred. LYMPHATIC: No lymphadenopathy noted in the neck. EXTREMITIES: No edema or cyanosis. No clubbing. Right groin has no hematoma bleeding MUSCULOSKELETAL: No acute joint deformities or swelling SKIN: There are no significant rashes or ecchymosis NEUROPSYCHIATRIC: The patient is alert and oriented x3. Appears to be in a good mood. No tremors or rigidity noted. Data 02/01/24 03:54 02/01/24 03:54 Other Labs: The initial EKG showed sinus rhythm with third-degree heart block. Junctional escape rhythm of 30 bpm. The echocardiogram on 01/31/2024 LV systolic lesion is normal with EF of 55 to 60%. Grade 1 diastolic dysfunction. Mild mitral regurgitation Mild tricuspid regurgitation Other data: Laboratory Last Values WBC 8.22 10^3/uL (3.29-11.43) 02/01/24 03:54 RBC 4.23 10^6/uL (3.85-5.65) 02/01/24 03:54 Hgb 12.30 g/dL (11.27-16.99) 02/01/24 03:54 Hct 38.7 % (37-53) 02/01/24 03:54 MCV 91.5 fl (82-101) 02/01/24 03:54 MCH 29.1 pg (27-33) 02/01/24 03:54 MCHC 31.8 g/dL (30-55) 02/01/24 03:54 RDW 14.2 % (12.1-15.1) 02/01/24 03:54 Plt Count 165 10^3/cmm (157-399) D 02/01/24 03:54 MPV 11.1 fL (7.4-10.4) H 02/01/24 03:54 Neut % (Auto) 66.3 % 02/01/24 03:54 Lymph % (Auto) 22.7 % 02/01/24 03:54 [place] % (Auto) 8.9 % 02/01/24 03:54 Eos % (Auto) 1.2 % 02/01/24 03:54 Baso % (Auto) 0.7 % 02/01/24 03:54 Neut # (Auto) 5.44 10^3/uL (1.8-7.7) 02/01/24 03:54 Lymph # (Auto) 1.9 10^3/uL (0.8-4.8) 02/01/24 03:54 [place] # (Auto) 0.7 10^3/uL (0.2-0.9) 02/01/24 03:54 Eos # (Auto) 0.1 10^3/uL (0.0-0.8) 02/01/24 03:54 Baso # (Auto) 0.1 10^3/uL (0.0-0.1) 02/01/24 03:54 Nucleated RBC % (auto) 0 % 02/01/24 03:54 Nucleated RBCs # 0.0 /100WBC 02/01/24 03:54 PT 13.20 SECONDS (12.1-14.9) 01/31/24 00:45 INR 0.97 (0.8-1.2) 01/31/24 00:45 APTT 30.0 SECONDS (23.9-36.7) 01/31/24 00:45 D-Dimer 0.51 ug/mLFEU (0-0.59) 01/31/24 00:45 Sodium 137 mmol/L (136-145) 02/01/24 03:54 Potassium 4.0 mmol/L (3.5-5.1) 02/01/24 03:54 Chloride 108 mmol/L (98-107) H 02/01/24 03:54 Carbon Dioxide 22 mmol/L (22-29) 02/01/24 03:54 Anion Gap 11.0 (5-19) 02/01/24 03:54 BUN 24 mg/dL (8-23) H 02/01/24 03:54 Creatinine 1.6 mg/dL (0.7-1.2) H 02/01/24 03:54 GFR Calculation Not Reportable 02/01/24 03:54 Glucose 122 mg/dL (65-115) H 02/01/24 03:54 POC Glucose 150 mg/dL (70-110) H 02/01/24 11:41 Calculated Osmolality 289 mOsm/kg (285-295) 02/01/24 03:54 Calcium 8.5 mg/dL (8.5-10.5) 02/01/24 03:54 Phosphorus 3.5 mg/dL (2.5-4.5) 01/31/24 00:45 Magnesium 1.9 mg/dL (1.7-2.3) 01/31/24 00:45 Total Bilirubin 0.3 mg/dL (0.15-1.2) 01/31/24 00:45 AST 27 U/L (0-40) 01/31/24 00:45 ALT 37 U/L (0-41) 01/31/24 00:45 Alkaline Phosphatase 91 U/L (40-130) 01/31/24 00:45 Troponin T Baseline 14 ng/L (0-15) 01/31/24 00:45 Troponin T 120 Minute 25.67 ng/L (0-15) H 01/31/24 04:12 Delta Troponin T 11.67 ABS# (0-10) H* 01/31/24 04:12 Troponin T Hi Sens 6Hr 44.38 ng/L (0-15) H 01/31/24 06:37 Troponin T Hi Sens 6Hr Delta 30.38 ng/L (0-12) H* 01/31/24 06:37 NT-Pro-B Natriuret Pep 154 pg/mL (0-450) 01/31/24 00:45 Total Protein 6.8 g/dL (6.6-8.7) 01/31/24 00:45 Albumin 4.3 g/dL (3.5-5.2) 01/31/24 00:45 Globulin 2.5 g/dL (1.3-4.6) 01/31/24 00:45 TSH 3.26 uIU/mL (0.27-4.20) 01/31/24 00:45 Coronavirus (PCR) Negative (Negative) 01/31/24 05:37 Influenza A (PCR) Negative (Negative) 01/31/24 05:37 Influenza Type B (PCR) Negative (Negative) 01/31/24 05:37 RSV (PCR) Negative (Negative) 01/31/24 05:37 A&P Assessment and plan (1) Complete heart block: Patient has third-degree heart block with the slow junctional escape rhythm of 30 bpm. He is symptomatic with this arrhythmia. Now it is more than 24 hours since he had the coronary intervention. He continues to be bradycardic. Telemetry shows 100% V paced rhythm. (2) Atherosclerotic heart disease of [place] coronary artery with other forms of angina pectoris: Patient with high-grade lesions in the proximal to mid right coronary artery and mid LAD. Status post PCI. Currently seems to be stable. (3) Chronic kidney disease (CKD): Patient's creatinine is around 1.6, seems to be stable. History of renal carcinoma and bladder CA Qualifiers: Chronic kidney disease stage: stage 2 (mild) Qualified Code(s): N18.2 - Chronic kidney disease, stage 2 (mild) (4) Hypertension: Fairly under control. Qualifiers: Hypertension type: primary hypertension Qualified Code(s): I10 - Essential (primary) hypertension (5) Diabetes: The diabetes seems to be fairly under control. Qualifiers: Diabetes mellitus type: type 2 Diabetes mellitus complication status: w ithout complication Diabetes mellitus termite control servicer insulin use: without nursing home use Qualified Code(s): E11.9 - Type 2 diabetes mellitus without complications Plan Patient has symptomatic bradycardia with third-degree heart block. If she continues to remain in this rhythm even after 48 hours of coronary intervention, it would be appropriate to go ahead with a permanent pacemaker insertion, for further management of his condition. I discussed this in detail with the patient and his Which he understood well and consented to proceed. Also discussed about the possible risks and benefits of the procedure. The risk of bleeding, hematoma, vascular injury, myocardial perforation, pericardial tamponade pneumothorax, infection, renal failure and other concomitant complications were explained in detail. The patient and his understood this well and consented to proceed. Because of the chronic kidney disease, he carries a higher risk for contrast-induced nephropathy. I also discussed with the patient and the family that as of now, we do not have a cardiac surgery backup to deal with any complications that may arise with the procedure. If such a situation arise, he may need to be transferred emergently to another facility with surgical backup. The implications were discussed in detail. Patient is wanting to have the procedure done in our facility with this understanding. He will be kept n.p.o. after midnight Reevaluate in the morning and a final decision will be made afterwards Coding Level of Care Code 83677 Diagnoses Complete heart block I44.2 Atherosclerotic heart disease of [place] coronary artery with other forms of angina pectoris I25.118 Stage 2 chronic kidney disease N18.2 Chronic kidney disease stage: stage 2 (mild) Primary hypertension I10 Hypertension type: primary hypertension Type 2 diabetes mellitus without complication, without long-term current use of insulin E11.9 Diabetes mellitus type: type 2 Diabetes mellitus complication status: without complication Diabetes mellitus nursing home insulin use: without nursing home use
--- NOTE | 2024-02-01 21:36 | PC.NURSE ---
Dr. Azul called to check on patient status and wants this nurse to verify that pacemaker is scheduled for 7am and pacemaker rep has been called. Notified housekeeper cleaning cooking. tunnel form placing supervisor, Angie contacted cardiac cath lab manager team and Nilsa Blackburn to verify. Reports that Nilsa reports it is all scheduled and everyone is notified of pacemaker at 0700.
[2024-02-01 23:59] LABS: Glucose Point of Care 129 mg/dL (70-110)
[2024-02-02] VITALS (27 sets, daily range): BP systolic 99–160; BP diastolic 60–87; PULSE 58–92; RESP 13–22; TEMP 36.7–37.6; O2SAT 91–98
[2024-02-02 05:38] LABS: Basophils # 0.1 10^3/uL (0.0-0.1); Basophils % 0.4 %; Eosinophils # 0.1 10^3/uL (0.0-0.8); Eosinophils % 1.1 %; Hematocrit 41.1 % (37-53); Lymphocytes # 1.5 10^3/uL (0.8-4.8); Lymphocytes % 13.8 %; Mean Corpuscular HGB Conc 31.9 g/dL (30-55); Mean Corpuscular Hemoglobin 29.6 pg (27-33); Mean Corpuscular Volume 92.8 fl (82-101); Mean Platelet Volume 11.4 fL (7.4-10.4); Monocytes # 0.8 10^3/uL (0.2-0.9); Monocytes % 6.7 %; Neutrophils # 8.68 10^3/uL (1.8-7.7); Neutrophils % 77.6 %; Nucleated Red Blood Cells % 0 %; Platelet Count 169 10^3/cmm (157-399); Red Blood Count 4.43 10^6/uL (3.85-5.65); Red Cell Distribution Width 14.1 % (12.1-15.1); White Blood Count 11.18 10^3/uL (3.29-11.43)
--- NOTE | 2024-02-02 05:57 | PC.NURSE ---
Chlorhexadine wipes to chest and arms bilat.
[2024-02-02 06:01] LABS: Anion Gap 12.3 (5-19); Blood Urea Nitrogen 17 mg/dL (8-23); Calcium 8.3 mg/dL (8.5-10.5); Carbon Dioxide 23 mmol/L (22-29); Chloride 108 mmol/L (98-107); Creatinine Clr Calc Pharmacy 60.2639; Glucose 119 mg/dL (65-115); Osmolality Calculated 291 mOsm/kg (285-295); Potassium 4.3 mmol/L (3.5-5.1); Sodium 139 mmol/L (136-145)
[2024-02-02] MEDS: sodium chloride 0.9% 1,000 ML 75 ML IV ×3 (06:37→20:59)
--- NOTE | 2024-02-02 06:57 | PC.NURSE ---
To seed analysis laboratory assistant via bed with RN x2 at bedside.
--- NOTE | 2024-02-02 07:02 | PC.NURSE ---
To labeling machine operator via bed by labeling machine operator team. Patient AAOX4, no complaints.
--- NOTE | 2024-02-02 07:08 | P.PN_ITS ---
Subjective 2 Subjective: The patient remained on a paced rhythm throughout the night. Was 100% V paced. Denies any chest pain or shortness of breath. No fever, chills or cough. Medications: Medication Review Details: Current Medications Acetaminophen (Acetaminophen 325 Mg Tablet) 650 mg PO Q6H PRN PRN Reason: MILD PAIN Al Hydrox/Mg Hydrox/Simethicone (Msqx-Unt-Pcxplwzgu-Agnes 30 Ml Udc) 30 ml PO Q15M PRN PRN Reason: INDIGESTION Aspirin (Aspirin 81 Mg Ec Tablet) 81 mg PO DAILY [facility] Last Admin: 02/01/24 09:52 Dose: 81 mg Atorvastatin Calcium (Atorvastatin 40 Mg Tablet) 40 mg PO BEDTIME [facility] Last Admin: 02/01/24 21:07 Dose: 40 mg Atropine Sulfate (Atropine 1 Mg/Ml Sdv 1 Ml) 0.5 mg IVP PRN PRN PRN Reason: Symptomatic bradycardia Clopidogrel Bisulfate (Clopidogrel 75 Mg Tablet) 75 mg PO DAILY [facility] Last Admin: 02/01/24 07:56 Dose: Not Given Fentanyl (Fentanyl 50 Mcg/Ml Inj 2ml) 50 mcg IVP PRN PRN PRN Reason: Prior to sheath removal Glucagon (Glucagon 1 Mg/Ml Kit 1 Ml) 1 mg IM ONCE PRN; Protocol PRN Reason: Adult Acute Hypoglycemia Nursing Prot. Sodium Chloride (Sodium Chloride 0.9%) 1,000 mls @ 75 mls/hr IV .[id number] [facility] Last Admin: 02/02/24 06:37 Dose: 75 mls/hr Dextrose (D5w) 500 mls @ 0 mls/hr IV ONCE PRN; Protocol PRN Reason: Adult Acute Hypoglycemia Prot Dextrose (D10w) 125 mls @ 750 mls/hr IV PRN PRN; Protocol PRN Reason: Adult Acute Hypoglycemia Nursing Protocol Dextrose (D10w) 250 mls @ 1,000 mls/hr IV PRN PRN; Protocol PRN Reason: Adult Acute Hypoglycemia Nursing Protocol Sodium Chloride (Sodium Chloride 0.9%) 1,000 mls @ 75 mls/hr IV .[id number] [facility] Last Admin: 02/01/24 22:01 Dose: Not Given Insulin Human Lispro (Insulin Lispro 100 Unit/1 Ml) 0 unit SUBCUT WM&BEDTIME [facility]; Protocol Last Admin: 02/01/24 21:05 Dose: Not Given Magnesium Hydroxide (Magnesium Hydroxide 30 Ml Udc) 30 ml PO DAILY PRN PRN Reason: CONSTIPATION Naloxone HCl (Naloxone 0.4 Mg/Ml Sdv) 0.1 mg IVP Q2M PRN PRN Reason: RESPIRATORY RATE < 8/MIN Nitroglycerin (Nitroglycerin 0.4 Mg Sublingual Tablet) 0.4 mg SUBLINGUAL Q5M PRN PRN Reason: CHEST PAIN Temazepam (Temazepam 15 Mg Capsule) 15 mg PO BEDTIME PRN PRN Reason: INSOMNIA Last Admin: 02/01/24 21:07 Dose: 15 mg Vitals/I&O/Wt Last Vital Signs Temp 98.0 F 02/02/24 04:00 Pulse 58 L 02/02/24 06:00 Resp 19 H 02/02/24 06:00 BP 141/83 02/02/24 06:00 Pulse Ox 96 02/02/24 06:00 O2 Del Method Nasal Cannula 02/02/24 06:00 O2 Flow Rate 2 02/02/24 04:00 02/01/24 02/02/24 02/02/24 22:59 06:59 14:59 Intake Total 1275 / 1575 960 / 2535 Output Total 500 / 900 750 / 1650 Balance 775 / 675 210 / 885 Weight last 48 hrs Weight 229 lb 4.492 oz Weight 233 lb 11.04 oz Physical Exam 2 Narrative: GENERAL: The patient is alert and oriented times three. Not in any acute distress. HEENT: No significant pallor, icterus or lymphadenopathy.Oral cavity: There are no mucous membrane lesions. NECK: Trachea appears to be central. No masses noted. No JVD or thyromegaly appreciated. RESPIRATORY: Chest is symmetrical. No intercostals muscle retraction or any accessory muscle activation. There is no chest wall tenderness. Breath sounds are heard bilaterally. No rales or rhonchi heard. No evidence of any consolidation. BREASTS: Deferred. HEART: The heart sounds are normal. No S3 or S4. No significant murmurs. No pericardial rub ABDOMEN: No vessel pulsations or distention. No tenderness. No organomegaly appreciated. Bowel sounds are normally heard. : Deferred. RECTAL: Deferred. LYMPHATIC: No lymphadenopathy noted in the neck. EXTREMITIES: No edema or cyanosis. No clubbing. Right groin has no hematoma bleeding MUSCULOSKELETAL: No acute joint deformities or swelling SKIN: There are no significant rashes or ecchymosis NEUROPSYCHIATRIC: The patient is alert and oriented x3. Appears to be in a good mood. No tremors or rigidity noted. Data 02/02/24 05:17 02/02/24 05:17 Other Labs: Laboratory Last Values WBC 11.18 10^3/uL (3.29-11.43) 02/02/24 05:17 RBC 4.43 10^6/uL (3.85-5.65) 02/02/24 05:17 Hgb 13.10 g/dL (11.27-16.99) 02/02/24 05:17 Hct 41.1 % (37-53) 02/02/24 05:17 MCV 92.8 fl (82-101) 02/02/24 05:17 MCH 29.6 pg (27-33) 02/02/24 05:17 MCHC 31.9 g/dL (30-55) 02/02/24 05:17 RDW 14.1 % (12.1-15.1) 02/02/24 05:17 Plt Count 169 10^3/cmm (157-399) 02/02/24 05:17 MPV 11.4 fL (7.4-10.4) H 02/02/24 05:17 Neut % (Auto) 77.6 % 02/02/24 05:17 Lymph % (Auto) 13.8 % 02/02/24 05:17 [place] % (Auto) 6.7 % 02/02/24 05:17 Eos % (Auto) 1.1 % 02/02/24 05:17 Baso % (Auto) 0.4 % 02/02/24 05:17 Neut # (Auto) 8.68 10^3/uL (1.8-7.7) H 02/02/24 05:17 Lymph # (Auto) 1.5 10^3/uL (0.8-4.8) 02/02/24 05:17 [place] # (Auto) 0.8 10^3/uL (0.2-0.9) 02/02/24 05:17 Eos # (Auto) 0.1 10^3/uL (0.0-0.8) 02/02/24 05:17 Baso # (Auto) 0.1 10^3/uL (0.0-0.1) 02/02/24 05:17 Nucleated RBC % (auto) 0 % 02/02/24 05:17 Nucleated RBCs # 0.0 /100WBC 02/02/24 05:17 PT 13.20 SECONDS (12.1-14.9) 01/31/24 00:45 INR 0.97 (0.8-1.2) 01/31/24 00:45 APTT 30.0 SECONDS (23.9-36.7) 01/31/24 00:45 D-Dimer 0.51 ug/mLFEU (0-0.59) 01/31/24 00:45 Sodium 139 mmol/L (136-145) 02/02/24 05:17 Potassium 4.3 mmol/L (3.5-5.1) 02/02/24 05:17 Chloride 108 mmol/L (98-107) H 02/02/24 05:17 Carbon Dioxide 23 mmol/L (22-29) 02/02/24 05:17 Anion Gap 12.3 (5-19) 02/02/24 05:17 BUN 17 mg/dL (8-23) 02/02/24 05:17 Creatinine 1.3 mg/dL (0.7-1.2) H 02/02/24 05:17 GFR Calculation Not Reportable 02/02/24 05:17 Glucose 119 mg/dL (65-115) H 02/02/24 05:17 POC Glucose 129 mg/dL (70-110) H 02/01/24 21:04 Calculated Osmolality 291 mOsm/kg (285-295) 02/02/24 05:17 Calcium 8.3 mg/dL (8.5-10.5) L 02/02/24 05:17 Phosphorus 3.5 mg/dL (2.5-4.5) 01/31/24 00:45 Magnesium 1.9 mg/dL (1.7-2.3) 01/31/24 00:45 Total Bilirubin 0.3 mg/dL (0.15-1.2) 01/31/24 00:45 AST 27 U/L (0-40) 01/31/24 00:45 ALT 37 U/L (0-41) 01/31/24 00:45 Alkaline Phosphatase 91 U/L (40-130) 01/31/24 00:45 Troponin T Baseline 14 ng/L (0-15) 01/31/24 00:45 Troponin T 120 Minute 25.67 ng/L (0-15) H 01/31/24 04:12 Delta Troponin T 11.67 ABS# (0-10) H* 01/31/24 04:12 Troponin T Hi Sens 6Hr 44.38 ng/L (0-15) H 01/31/24 06:37 Troponin T Hi Sens 6Hr Delta 30.38 ng/L (0-12) H* 01/31/24 06:37 NT-Pro-B Natriuret Pep 154 pg/mL (0-450) 01/31/24 00:45 Total Protein 6.8 g/dL (6.6-8.7) 01/31/24 00:45 Albumin 4.3 g/dL (3.5-5.2) 01/31/24 00:45 Globulin 2.5 g/dL (1.3-4.6) 01/31/24 00:45 TSH 3.26 uIU/mL (0.27-4.20) 01/31/24 00:45 Coronavirus (PCR) Negative (Negative) 01/31/24 05:37 Influenza A (PCR) Negative (Negative) 01/31/24 05:37 Influenza Type B (PCR) Negative (Negative) 01/31/24 05:37 RSV (PCR) Negative (Negative) 01/31/24 05:37 A&P Assessment and plan (1) Complete heart block: Patient has third-degree heart block with the slow junctional escape rhythm of 30 bpm. He is symptomatic with this arrhythmia. Now it is more than 48 hours since he had the coronary intervention. He continues to be bradycardic. Telemetry shows 100% V paced rhythm. At this point, we will be appropriate to go ahead with the permanent pacemaker insertion. This was discussed with the patient once again which he understood well and consented to proceed. (2) Atherosclerotic heart disease of [place] coronary artery with other forms of angina pectoris: Patient with high-grade lesions in the proximal to mid right coronary artery and mid LAD. Status post PCI. Currently seems to be stable. (3) Chronic kidney disease (CKD): Patient's creatinine is around 1.3, seems to be stable. History of renal carcinoma and bladder CA Qualifiers: Chronic kidney disease stage: stage 2 (mild) Qualified Code(s): N18.2 - Chronic kidney disease, stage 2 (mild) (4) Hypertension: Fairly under control. Qualifiers: Hypertension type: primary hypertension Qualified Code(s): I10 - Essential (primary) hypertension (5) Diabetes: The diabetes seems to be fairly under control. Qualifiers: Diabetes mellitus type: type 2 Diabetes mellitus intermediate insulin use: without rodent exterminator use Diabetes mellitus complication status: without complication Qualified Code(s): E11.9 - Type 2 diabetes mellitus without complications Plan Because of third-degree heart block, patient would benefit from a dual-chamber permanent pacemaker. This is scheduled for this morning. He need to be staying overnight after the procedure, for IV antibiotics Possible discharge home tomorrow. Attestations 2 Medical Necessity Statement*: Patient need to stay in the hospital for the above Coding Level of Care Code 97040 Diagnoses Complete heart block I44.2 Atherosclerotic heart disease of [place] coronary artery with other forms of angina pectoris I25.118 Stage 2 chronic kidney disease N18.2 Chronic kidney disease stage: stage 2 (mild) Primary hypertension I10 Hypertension type: primary hypertension Type 2 diabetes mellitus without complication, without long-term current use of insulin E11.9 Diabetes mellitus type: type 2 Diabetes mellitus rodent exterminator insulin use: without intermediate use Diabetes mellitus complication status: without complication
--- NOTE | 2024-02-02 07:12 | W.PM.OPSUD ---
Surgery/Procedure H&P Update DATE OF PROCEDURE: February 02, 2024 DATE H&P PERFORMED: 02/01/24 H&P UPDATE INFORMATION: I have reviewed H&P completed within last 30 days, I have examined patient prior to procedure and No changes to prior documentation PREOP DIAGNOSIS: Complete heart block/ASHD PRIMARY INDICATION FOR PROCEDURE: Symptomatic bradycardia with a heart rate in the 30s. Third-degree heart block on EKG PLANNED PROCEDURE: Operation Date: 01/31/24 01:30 Proposed Procedures p Cardiac Catheterization(Not Applicable) - Ganga Diego M.D PATIENT REASSESSED PRIOR TO SEDATION, WITH NO CHANGE NOTED: Yes PHYSICAL EXAM: alert, oriented x 3, clear to auscultation bilaterally and regular rate & rhythm AIRWAY EVAL/ANESTHESIA PLAN: normal airway, see other exam findings, ASA III, Monitored Anesthesia, Local Anesthesia, Risks, benefits & alternatives of sedation and/or procedure discussed and Patient agrees to continue as planned
--- NOTE | 2024-02-02 07:16 | PM.PN ---
Subjective Subjective: Patient is doing well. Had permanent pacemaker placed today. Appropriately capturing. No chest pain. Vitals/I&O/Wt Last Vital Signs Temp 98.0 F 02/02/24 04:00 Pulse 58 L 02/02/24 06:00 Resp 19 H 02/02/24 06:00 BP 141/83 02/02/24 06:00 Pulse Ox 96 02/02/24 06:00 O2 Del Method Nasal Cannula 02/02/24 06:00 O2 Flow Rate 2 02/02/24 04:00 02/01/24 02/02/24 02/02/24 22:59 06:59 14:59 Intake Total 1275 / 1575 960 / 2535 Output Total 500 / 900 750 / 1650 Balance 775 / 675 210 / 885 Weight last 48 hrs Weight 229 lb 4.492 oz Weight 233 lb 11.04 oz Physical Exam Narrative: GENERAL: Patient is alert, awake and oriented x3. [] NECK: No jugular vein distension. [] HEENT: No cyanosis. No icterus. No pallor. [] HEART: Bradycardic LUNGS: Diminished air entry bilaterally. CENTRAL NERVOUS SYSTEM: Grossly nonfocal. [] EXTREMITIES: Lower extremities with 1+ edema bilaterally. 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 Will continue with aspirin and Plavix. At provide pacemaker placement today. Likely discharge home tomorrow. Attestations Medical Necessity Statement*: Care expected to cross 2 midnights. Patient had permanent pacemaker placement today. Likely will be discharged tomorrow. 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
--- NOTE | 2024-02-02 09:14 | P.OP_ITS ---
Operative Report Date of procedure: February 02, 2024 Surgeon: Silas Azul MD Procedure: LOCATION: ICU PREOPERATIVE DIAGNOSES: Complete heart block. POSTOPERATIVE DIAGNOSES: Same. COMPLICATIONS: None. ESTIMATED BLOOD LOSS: Around less than 5 milliliters. BRIEF HISTORY: This is a 73-year-old white male who was admitted to hospital with complaints of shortness of breath, fatigue and some sweating. He was found to be in third-degree heart block with heart rate of 30 bpm. He had a temporary pacer insertion to the right groin by Dr. Diego. He was found to have high- grade lesions in the proximal to mid RCA and mid LAD for which she underwent PCI . Even after 48 hours of the intervention, he continued to stay in the heart block. For further management of his condition, a permanent pacemaker Insertion was requested. A dual-chamber pacemaker was thought to be appropriate for the symptom relief and AV synchrony The procedure was explained to the patient in detail with the risks and benefits. The risks of bleeding, hematoma, vascular injury, infection, pneumothorax, myocardial perforation and other concomitant complications were explained in detail, which the patient understood well and consented to proceed. PROCEDURE DESCRIPTION: The patient was brought to the Cardiac Catheterization Lab. The left and the right side of the neck and the subclavian area were cleaned and draped in a sterile fashion. 1% Xylocaine was used as the local anesthetic agent. Left subclavian venogram was performed by injecting 20 milliliters of Omnipaque through the left antecubital vein. A left subclavian venous access was obtained using a micropuncture needle system, under venographic guidance. . A two-inch long incision was made 2.0 centimeters below the midclavicular region. By sharp and blunt dissection, a pacemaker pocket was made. A second venous access was obtained using another micropuncture needle system. Over the first guidewire, a 7-[place] venous sheath with dilator was advanced. The venous dilator and the guidewire were taken out. A screw-in ventricular lead was advanced through the venous sheath and was positioned towards the right ventricle. Under fluoroscopic guidance, the ventricular lead was positioned toward the right ventricular apex. Good pacing and sensing thresholds were obtained. The lead was secured to the endocardium by advancing the helix. The stability of the lead was tested by gentle twisting movements and also by asking the patient to take some deep breaths and cough. The venous sheath was peeled off, at this time. The lead was secured to the pectoralis fascia, by suturing with 1-0 Surgilon. Over the second guidewire, another 7- [place] venous sheath with dilator was advanced. The dilator and the guidewire were taken out. Under fluoroscopic guidance, an atrial lead (Medtronic), was advanced and positioned toward the right atrium. The lead was positioned in the right atrial appendage. Good pacing and sensing thresholds were obtained. The lead was secured to the endocardium by advancing the helix. Stability of the lead was tested by gentle twisting movements and also by asking the patient to take some deep breaths and cough. The venous sheath was peeled off, at this time. The lead was secured to the pectoralis fascia by suturing with 0-Surgilon. The pacemaker pocket was copiously irrigated with vancomycin solution. Complete hemostasis was achieved. Sponge counts were confirmed. The leads were attached to a Medtronic generator. The leads were positioned behind the generator and the generator was attached to the pectoralis fascia by suturing with 0-Surgilon. The pocket was closed in layers. Skin was approximated using 4-0 Vicryl. IMPLANTED DEVICES: ATRIAL LEAD: Model number: 5076/52 Serial number: [id number] Make: Medtronic VENTRICULAR LEAD: Model number: 5076/58 Serial number: [id number] Make: Medtronic GENERATOR Brand: Telma XT DR MRI SureScan Model number: W1 DR01 Serial number: [id number] Make: Medtronic IMPLANTATION DATA: With the pacing system analyzer, the R wave sensing was 11.6 millivolts with a lead impedance of 997 and a pacing threshold was 0.5 volts at 0.4 milliseconds. In the atrium, the sensing was 3.0 millivolts with a lead impedance of 738 ohms and a pacing threshold was 0.7 volts at 0.4 milliseconds. Through the device, the R-wave sensing was not obtained because of the pacer dependency. With a lead impedance of 741 and a pacing threshold was 0.5 volts at 0.4 milliseconds. The atrial sensing was 2.4 millivolts with a lead impedance of 551 ohms and a pacing threshold of less than 0.75 volts at 0.4 milliseconds. The pacemaker was set for AAIR/DDDR mode with upper rate of 130 and a lower rate of 60. A pressure dressing was applied over the pacemaker site. The patient was transferred to the Medical Floor in stable condition. A chest x-ray was ordered to confirm the lead position and also to rule out any pneumothorax.
[2024-02-02] MEDS: aspirin 81 mg EC Tablet PO (10:14)
[2024-02-02] MEDS: clopidogrel 75 mg Tablet PO (10:14)
--- NOTE | 2024-02-02 10:34 | PC.NURSE ---
0950 to room, VSS, incision intact with pressure dressing. 5# sandbag applied. at bedside.
[2024-02-02 12:07] LABS: Glucose Point of Care 142 mg/dL (70-110)
[2024-02-02 12:13] LABS: Glucose Point of Care 102 mg/dL (70-110)
--- NOTE | 2024-02-02 17:26 | P.PN_ITS ---
Subjective 2 Subjective: No acute overnight events noted. Seen him at bedside this morning. Denies any complaint of chest pain or palpitations. Medications: Reviewed: Yes Vitals/I&O/Wt Last Vital Signs Temp 98.7 F 02/02/24 16:00 Pulse 81 02/02/24 16:00 Resp 15 02/02/24 16:00 BP 160/86 02/02/24 16:00 Pulse Ox 93 02/02/24 16:00 O2 Del Method Room Air 02/02/24 16:00 O2 Flow Rate 2 02/02/24 14:00 02/02/24 02/02/24 02/02/24 06:59 14:59 22:59 Intake Total 960 / 2535 240 / 240 Output Total 750 / 1650 500 / 500 Balance 210 / 885 -260 / -260 Weight last 48 hrs Weight 104 kg Weight 106 kg Physical Exam 2 Narrative: He is alert awake oriented x 3, not in acute distress Chest clear to auscultation bilaterally Cardiovascular normal heart sounds Abdomen soft nontender nondistended normal bowel sounds Extremities no edema noted bilateral lower extremity Data 02/02/24 05:17 02/02/24 05:17 A&P Assessment and plan (1) Complete heart block: Reviewed vitals, CBC, INR, CMP, magnesium, baseline troponin, TSH, EKG, chest x- ray, ER provider note, discussed with ER provider, discussed with optical fabricator, nursing. Currently heart rate 59, status post transvenous pacer placement. He is feeling well. No chest pain or pressure. No difficulty breathing. Is still requiring oxygen 5 L. Chest x-ray unremarkable. Will check D-dimer. Continues on Aggrastat, monitor for bleeding. Reassess blood counts. Aspirin, Plavix, statin, not a candidate for beta-mina. Continue transvenous pacing support, monitor heart rates. Has undergone coronary revascularization due to critical stenosis of LAD and RCA. Monitor for recovery of chehalis rhythm. Otherwise may require permanent pacemaker. (2) CAD (coronary artery disease): Critical stenosis of LAD and RCA status post angioplasty and stenting during angiography, with ischemia possibly triggering complete heart block. Continues on Aggrastat, continue postcatheterization care. Continue aspirin, statin, not a candidate for beta-mina. Reassess kidney function. Monitor on telemetry with risk of arrhythmia. Monitor vitals. Check A1c. Optimize cardiovascular risk factors with follow-up with PCP. (3) Hypertension: Currently blood pressure 114/55, hold antihypertensive for now. Monitor blood pressure. Qualifiers: Hypertension type: primary hypertension Qualified Code(s): I10 - Essential (primary) hypertension (4) Diabetes: Last A1c available here was in 2021. Will recheck. Has been on oral hypoglycemics, hold for now. POC glucose. Mild SSI. Consult carbohydrate diet. 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 Monitor renal function. 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 Follows with urology. Has not been requiring self- catheterizations. Plan 01/30--Hypoxia: Resolved. Respiratory panel negative. D-dimer normal. Continue supplemental oxygen to keep saturation more than 90%. POC noted, well- controlled on correction scale for now. Continue to monitor. Follow-up cardiology for any new recommendations.Continue transvenous pacing support, monitor heart rates. Has undergone coronary revascularization due to critical stenosis of LAD and RCA. Monitor for recovery of chehalis rhythm. Otherwise may require permanent pacemaker. 01/31--- patient had a trial after switching off transvenous pacing but heart rate dropped to 40s hence plan for pacemaker in a.m. Will follow-up cardiology. Blood sugars have been well, he is on insulin lispro correction scale with meals and bedtime. 02/01--- he is s/p pacemaker. The pacemaker was set for AAIR/DDDR mode with upper rate of 130 and a lower rate of 60. Doing well. Blood sugars have been well-controlled. Will continue to follow. Attestations 2 Medical Necessity Statement*: He is s/p pacemaker and needs monitoring in ICU. Will follow-up cardiology for discharge planning. Time Spent in Patient Care: 10 minutes Coding Level of Care Code Acute Code for [facility] Fwd Diagnoses Complete heart block I44.2 CAD (coronary artery disease) I25.10 Primary hypertension I10 Hypertension type: primary hypertension Type 2 diabetes mellitus without complication, without long-term current use of insulin E11.9 Diabetes mellitus type: type 2 Diabetes mellitus fci insulin use: without terminal gauger supervisor use Diabetes mellitus complication status: without complication Stage 2 chronic kidney disease N18.2 Chronic kidney disease stage: stage 2 (mild) Carcinoma in situ of bladder D09.0 Time Spent (min) 10
--- NOTE | 2024-02-02 17:52 | XRR_ITS ---
PROCEDURE INFORMATION: Exam: XR Chest Exam date and time: 02/02/2024 6:02 PM Age: 73 years old Clinical indication: Device placement; Cardiac pacemaker placement or adjustment; Prior surgery; Surgery date: Post-operative (0-2 days); Surgery type: Pacer; Additional info: Post pacemaker placement TECHNIQUE: Imaging protocol: Radiologic exam of the chest. Views: 1 view. COMPARISON: CR (CHEST, ) 01/31/2024 12:57 AM FINDINGS: Tubes, catheters and devices: Interval placement of a left subclavian pacer with right atrial appendage and right ventricular leads. Lungs: Low lung volumes with mild hypoventilatory changes. No focal consolidation. Pleural spaces: Unremarkable. No pleural effusion. No pneumothorax. Heart/Mediastinum: Unremarkable. No cardiomegaly. Bones/joints: Unremarkable. XR/XR chest 1V portable [id number] IMPRESSION: 1. Interval placement of a left subclavian pacer. 2. No definite acute cardiopulmonary findings.
[2024-02-02 17:59] LABS: Glucose Point of Care 100 mg/dL (70-110)
[2024-02-02] MEDS: lisinopril 20 mg Tablet PO (18:08)
[2024-02-02] MEDS: ceFAZolin 2,000 mg SDV 2000 MG IVP (18:09)
[2024-02-02 19:43] LABS: Glucose Point of Care 117 mg/dL (70-110)
[2024-02-02] MEDS: temazepam 15 mg Capsule PO (20:01)
[2024-02-02] MEDS: atorvastatin 40 mg Tablet PO (20:01)
[2024-02-02 21:00] LABS: Glucose Point of Care 110 mg/dL (70-110)
[2024-02-03] VITALS (16 sets, daily range): BP systolic 109–157; BP diastolic 68–88; PULSE 75–88; RESP 11–18; TEMP 36.9–37.2; O2SAT 90–95
[2024-02-03] MEDS: ceFAZolin 2,000 mg SDV 2000 MG IVP ×2 (01:24→08:07)
[2024-02-03] MEDS: acetaminophen 325 mg Tablet 650 MG PO ×2 (03:42→11:40)
[2024-02-03 04:03] LABS: Basophils % 0.4 %; Eosinophils # 0.1 10^3/uL (0.0-0.8); Hematocrit 40.9 % (37-53); Lymphocytes # 1.1 10^3/uL (0.8-4.8); Lymphocytes % 11.6 %; Mean Corpuscular HGB Conc 32.5 g/dL (30-55); Mean Corpuscular Volume 89.3 fl (82-101); Mean Platelet Volume 10.9 fL (7.4-10.4); Monocytes # 0.8 10^3/uL (0.2-0.9); Monocytes % 8.3 %; Neutrophils # 7.66 10^3/uL (1.8-7.7); Neutrophils % 78.4 %; Nucleated Red Blood Cells % 0 %; Platelet Count 155 10^3/cmm (157-399); Red Blood Count 4.58 10^6/uL (3.85-5.65); Red Cell Distribution Width 13.8 % (12.1-15.1); White Blood Count 9.77 10^3/uL (3.29-11.43)
--- NOTE | 2024-02-03 06:00 | ECG_ITS ---
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 Measurements Intervals [place] Rate: 73 P: 53 NM: 187 QRS: -82 QRSD: 172 T: 63 QT: 446 QTc: 492 Interpretive Statements ELECTRONIC VENTRICULAR PACEMAKER ABNORMAL RHYTHM ECG Compared to ECG 01/31/2024 06:30:27 No significant changes Electronically Signed On 02-03-2024 23:43:46 CDT by Silas Azul M.D. [email or web address]
[2024-02-03] MEDS: clopidogrel 75 mg Tablet PO (08:07)
[2024-02-03] MEDS: aspirin 81 mg EC Tablet PO (08:07)
[2024-02-03] MEDS: lisinopril 20 mg Tablet PO (08:07)
[2024-02-03 08:10] LABS: Glucose Point of Care 102 mg/dL (70-110)
--- NOTE | 2024-02-03 08:53 | P.MISC_ITS ---
Miscellaneous Note Purpose of Documentation: Post pacemaker insertion Note: The patient is doing okay. He has no hematoma bleeding at the pacemaker insertion site. The pacemaker function was found to be appropriate. Chest x- ray shows appropriate positioning of the atrial ventricular leads. No pneumothorax. Patient may take Keflex 500 mg p.o. every 6 hours x 5 days Multivitamin 1 tablet daily for 2 weeks Appointment at the [facility] to be seen by the nurse practitioner in 1 week for a wound check and pacemaker check Patient was given instructions about the pacemaker care/wound care Disposition-as per the primary attending
--- NOTE | 2024-02-03 11:21 | PC.SOCIAL ---
IMM Updated Updated pt on IMM. No questions voiced. Provided pt a copy. Initialed, dated, & timed a copy & placed in chart.
--- NOTE | 2024-02-03 11:54 | PM.DCS ---
Discharge Providers Date of Admission: 01/31/24 03:28 Date of Discharge: February 03, 2024 Attending Provider at Admission: Ganga Diego M.D Attending Provider at Discharge: Marleen Drake MD Primary Care Provider: Snow Calix MD Diagnoses at Discharge Discharge Diagnosis (1) Complete heart block: Status: Acute (2) Hypertension: Status: Acute Qualifiers: Hypertension type: primary hypertension Qualified Code(s): I10 - Essential (primary) hypertension (3) Diabetes: Status: Acute Qualifiers: Diabetes mellitus type: type 2 Diabetes mellitus halfway insulin use: without adjunct faculty for medical terminology use Diabetes mellitus complication status: without complication Qualified Code(s): E11.9 - Type 2 diabetes mellitus without complications (4) Chronic kidney disease (CKD): Status: Acute Qualifiers: Chronic kidney disease stage: stage 2 (mild) Qualified Code(s): N18.2 - Chronic kidney disease, stage 2 (mild) (5) NSTEMI (non-ST elevated myocardial infarction): Status: Acute Reason for Visit Reason for Visit: SOB Brief History: Pleasant 73-year-old gentleman with history of HTN, HLD, diabetes, former smoker, came in due to feeling unwell and funny feeling in his chest. Was found to have heart rate in the 30s on arrival, received atropine, dopamine, cardiology called and was taken to Tobacco Primer Machine Operator for transvenous pacer placement. Found to be in complete heart block. With risk factors of coronary disease additionally underwent coronary angiography and found to have critical stenosis of LAD and RCA treated by angioplasty and stenting. Subsequently admitted to ICU. Stress test was done a few months ago that showed prior infarct in the RCA territory. Hospital Course Hospital Course (1) Complete heart block: Reviewed vitals, CBC, INR, CMP, magnesium, baseline troponin, TSH, EKG, chest x-ray, ER provider note, discussed with ER provider, discussed with brasswind instrument repairer, nursing. Currently heart rate 59, status post transvenous pacer placement. He is feeling well. No chest pain or pressure. No difficulty breathing. Is still requiring oxygen 5 L. Chest x-ray unremarkable. Will check D-dimer. Continues on Aggrastat, monitor for bleeding. Reassess blood counts. Aspirin, Plavix, statin, not a candidate for beta-mina. Continue transvenous pacing support, monitor heart rates. Has undergone coronary revascularization due to critical stenosis of LAD and RCA. Monitor for recovery of [place] rhythm. Otherwise may require permanent pacemaker. (2) CAD (coronary artery disease): Critical stenosis of LAD and RCA status post angioplasty and stenting during angiography, with ischemia possibly triggering complete heart block. Continues on Aggrastat, continue postcatheterization care. Continue aspirin, statin, not a candidate for beta-mina. Reassess kidney function. Monitor on telemetry with risk of arrhythmia. Monitor vitals. Check A1c. Optimize cardiovascular risk factors with follow-up with PCP. (3) Hypertension: Currently blood pressure 114/55, hold antihypertensive for now. Monitor blood pressure. (4) Diabetes: Last A1c available here was in 2021. Will recheck. Has been on oral hypoglycemics, hold for now. POC glucose. Mild SSI. Consult carbohydrate diet. (5) Chronic kidney disease (CKD): Creatinine so far has been at baseline. Monitor renal function. 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 Follows with urology. Has not been requiring self-catheterizations. 01/30--Hypoxia: Resolved. Respiratory panel negative. D-dimer normal. Continue supplemental oxygen to keep saturation more than 90%. POC noted, well-controlled on correction scale for now. Continue to monitor. Follow-up cardiology for any new recommendations.Continue transvenous pacing support, monitor heart rates. Has undergone coronary revascularization due to critical stenosis of LAD and RCA. Monitor for recovery of [place] rhythm. Otherwise may require permanent pacemaker. 01/31--- patient had a trial after switching off transvenous pacing but heart rate dropped to 40s hence plan for pacemaker in a.m. Will follow-up cardiology. Blood sugars have been well, he is on insulin lispro correction scale with meals and bedtime. 02/01--- he is s/p pacemaker. The pacemaker was set for AAIR/DDDR mode with upper rate of 130 and a lower rate of 60. Doing well. Blood sugars have been well-controlled. Will continue to follow. 02/02---He is doing well and feeling well. Will discharge him today anf follow up in cardiology clinic in 1 week. He is suppose to take Keflex 500 mg p.o. every 6 hours x 5 days Multivitamin 1 tablet daily for 2 weeks. He has no hematoma bleeding at the pacemaker insertion site. The pacemaker function was found to be appropriate. Chest x-ray shows appropriate positioning of the atrial ventricular leads. No pneumothorax. Physical Exam Narrative: He is alert awake oriented x 3, not in acute distress Chest clear to auscultation bilaterally Cardiovascular normal heart sounds Abdomen soft nontender nondistended normal bowel sounds Extremities no edema noted bilateral lower extremity Discharge Data Studies Completed and Pending Completed Studies During Hospitalization Category Date Time Status INTERNAL SECURITY MANAGER request for service Routine Exams 02/02/24 07:00 Completed XR chest 1V portable [id number] Routine Exams 02/02/24 17:52 Completed XR chest 1V portable [id number] Stat Exams 01/31/24 00:52 Completed CV. echo complete* [id number] Routine Ultrasound 01/31/24 09:32 Completed Pending at discharge Category Date Time Status INTERNAL SECURITY MANAGER request for service Routine Exams 01/31/24 01:10 Taken Radiology Impressions Chest X-Ray 02/02/24 17:52 IMPRESSION: 1. Interval placement of a left subclavian pacer. 2. No definite acute cardiopulmonary findings. Laboratory Results WBC 9.77 10^3/uL (3.29-11.43) 02/03/24 03:44 RBC 4.58 10^6/uL (3.85-5.65) 02/03/24 03:44 Hgb 13.30 g/dL (11.27-16.99) 02/03/24 03:44 Hct 40.9 % (37-53) 02/03/24 03:44 MCV 89.3 fl (82-101) 02/03/24 03:44 MCH 29.0 pg (27-33) 02/03/24 03:44 MCHC 32.5 g/dL (30-55) 02/03/24 03:44 RDW 13.8 % (12.1-15.1) 02/03/24 03:44 Plt Count 155 10^3/cmm (157-399) L 02/03/24 03:44 MPV 10.9 fL (7.4-10.4) H 02/03/24 03:44 Neut % (Auto) 78.4 % 02/03/24 03:44 Lymph % (Auto) 11.6 % 02/03/24 03:44 Grainger % (Auto) 8.3 % 02/03/24 03:44 Eos % (Auto) 1.0 % 02/03/24 03:44 Baso % (Auto) 0.4 % 02/03/24 03:44 Neut # (Auto) 7.66 10^3/uL (1.8-7.7) 02/03/24 03:44 Lymph # (Auto) 1.1 10^3/uL (0.8-4.8) 02/03/24 03:44 Grainger # (Auto) 0.8 10^3/uL (0.2-0.9) 02/03/24 03:44 Eos # (Auto) 0.1 10^3/uL (0.0-0.8) 02/03/24 03:44 Baso # (Auto) 0.0 10^3/uL (0.0-0.1) 02/03/24 03:44 Nucleated RBC % (auto) 0 % 02/03/24 03:44 Nucleated RBCs # 0.0 /100WBC 02/03/24 03:44 PT 13.20 SECONDS (12.1-14.9) 01/31/24 00:45 INR 0.97 (0.8-1.2) 01/31/24 00:45 APTT 30.0 SECONDS (23.9-36.7) 01/31/24 00:45 D-Dimer 0.51 ug/mLFEU (0-0.59) 01/31/24 00:45 Sodium 139 mmol/L (136-145) 02/02/24 05:17 Potassium 4.3 mmol/L (3.5-5.1) 02/02/24 05:17 Chloride 108 mmol/L (98-107) H 02/02/24 05:17 Carbon Dioxide 23 mmol/L (22-29) 02/02/24 05:17 Anion Gap 12.3 (5-19) 02/02/24 05:17 BUN 17 mg/dL (8-23) 02/02/24 05:17 Creatinine 1.3 mg/dL (0.7-1.2) H 02/02/24 05:17 GFR Calculation Not Reportable 02/02/24 05:17 Glucose 119 mg/dL (65-115) H 02/02/24 05:17 POC Glucose 102 mg/dL (70-110) 02/03/24 07:54 Calculated Osmolality 291 mOsm/kg (285-295) 02/02/24 05:17 Calcium 8.3 mg/dL (8.5-10.5) L 02/02/24 05:17 Phosphorus 3.5 mg/dL (2.5-4.5) 01/31/24 00:45 Magnesium 1.9 mg/dL (1.7-2.3) 01/31/24 00:45 Total Bilirubin 0.3 mg/dL (0.15-1.2) 01/31/24 00:45 AST 27 U/L (0-40) 01/31/24 00:45 ALT 37 U/L (0-41) 01/31/24 00:45 Alkaline Phosphatase 91 U/L (40-130) 01/31/24 00:45 Troponin T Baseline 14 ng/L (0-15) 01/31/24 00:45 Troponin T 120 Minute 25.67 ng/L (0-15) H 01/31/24 04:12 Delta Troponin T 11.67 ABS# (0-10) H* 01/31/24 04:12 Troponin T Hi Sens 6Hr 44.38 ng/L (0-15) H 01/31/24 06:37 Troponin T Hi Sens 6Hr Delta 30.38 ng/L (0-12) H* 01/31/24 06:37 NT-Pro-B Natriuret Pep 154 pg/mL (0-450) 01/31/24 00:45 Total Protein 6.8 g/dL (6.6-8.7) 01/31/24 00:45 Albumin 4.3 g/dL (3.5-5.2) 01/31/24 00:45 Globulin 2.5 g/dL (1.3-4.6) 01/31/24 00:45 TSH 3.26 uIU/mL (0.27-4.20) 01/31/24 00:45 Coronavirus (PCR) Negative (Negative) 01/31/24 05:37 Influenza A (PCR) Negative (Negative) 01/31/24 05:37 Influenza Type B (PCR) Negative (Negative) 01/31/24 05:37 RSV (PCR) Negative (Negative) 01/31/24 05:37 Vitals Last Vital Signs Temp 98.4 F 02/03/24 08:00 Pulse 79 02/03/24 10:00 Resp 14 02/03/24 08:00 BP 130/68 02/03/24 10:00 Pulse Ox 92 02/03/24 10:00 O2 Del Method Room Air 02/02/24 20:00 O2 Flow Rate 2 02/02/24 14:00 Discharge Plan Discharge Patient Disposition: Home Condition: Stable Prescriptions: New atorvastatin 40 mg Tablet 40 mg PO BEDTIME 30 Days Qty: 30 0RF lisinopril 20 mg Tablet 20 mg PO DAILY 15 Days Qty: 15 0RF multivitamin Tablet 1 tab PO DAILY Qty: 14 0RF cephalexin 500 mg capsule 500 mg PO QID Qty: 20 0RF metoprolol succinate [Toprol XL] 25 mg tablet extended release 24 hr 25 mg PO BID Qty: 14 0RF Continued glimepiride 1 mg tablet 1 mg PO DAILY diphenhydramine HCl [Sleep Aid (diphenhydramine)] 50 mg Capsule 50 mg PO QPM PRN (Reason: Sleep) metformin 500 mg tablet 500 mg PO DAILY acetaminophen [Tylenol Extra Strength] 500 mg Tablet 1,000 mg PO PRN cholecalciferol (vitamin D3) [Vitamin D3] 25 mcg (1,000 unit) Capsule 25 mcg PO DAILY tamsulosin [Flomax] 0.4 mg capsule 0.4 mg PO BID finasteride 5 mg Tablet 5 mg PO DAILY Held hydrochlorothiazide 25 mg Tablet 25 mg PO DAILY Hold Instructions: Resume on 02/11/24. Blood pressure soft, hols for BP<130/90 Discontinued tadalafil 5 mg tablet 5 mg PO .Q 3 Days PRN (Reason: sexual activity) Qty: 10 6RF Rx Instructions: administer approximately 30min before sexual activity atorvastatin 20 mg Tablet 20 mg PO QPM lisinopril 40 mg Tablet 20 mg PO DAILY Discharge Orders: Discharge Order (Routine); Ordered 02/03/24 Ordered By: Marleen Drake Referrals: Hedy Ellis FNP [Nurse Practitioner] - 02/10/24 Discharge Diet: Cardiac Discharge Activity: Increase activity as tolerated Patient Instructions: Opioid Safety Activity Restrictions/Additional Instructions: Minimize the movements of the left shoulder to 45 degrees. Avoid any weight bearing of the left elbow for the next 6 weeks. Follow the physical therapy instructions. Keflex 500 mg p.o. every 6 hours for 5 days Multivitamin 1 tablet p.o. daily for 2 weeks Appointment the [facility] to be seen by nurse practitioner in 1 week for a pacemaker check and wound check Appoint with me Dr Azul in the office in 1 month. Discharge Attestations Time Spent in Discharge Care*: less than 30 min Quality Metrics Clinical Quality Measures [ No reported AMI, CVA or VTE this stay] Coding Level of Care Code Acute Code for Chg Fwd Diagnoses Complete heart block I44.2 Primary hypertension I10 Hypertension type: primary hypertension Type 2 diabetes mellitus without complication, without long-term current use of insulin E11.9 Diabetes mellitus type: type 2 Diabetes mellitus adjunct faculty for medical terminology insulin use: without halfway use Diabetes mellitus complication status: without complication Stage 2 chronic kidney disease N18.2 Chronic kidney disease stage: stage 2 (mild) NSTEMI (non-ST elevated myocardial infarction) I21.4 Time Spent (min) 20
--- NOTE | 2024-02-03 12:04 | PM.PN ---
Vitals/I&O/Wt Last Vital Signs Temp 98.4 F 02/03/24 08:00 Pulse 88 02/03/24 11:54 Resp 14 02/03/24 08:00 BP 130/68 02/03/24 10:00 Pulse Ox 94 02/03/24 11:54 O2 Del Method Room Air 02/03/24 11:54 O2 Flow Rate 2 02/02/24 14:00 02/02/24 02/03/24 02/03/24 22:59 06:59 14:59 Intake Total 2036.25 / 2276.25 150 / 150 Output Total 460 / 960 200 / 1160 200 / 200 Balance 1576.25 / 1316.25 -200 / 1116.25 -50 / -50 Weight last 48 hrs Weight 241 lb 6.499 oz Weight 229 lb 4.492 oz Data 02/03/24 03:44 02/02/24 05:17 Coding Level of Care Code Acute Code for Chg Fwd
--- NOTE | 2024-02-03 13:39 | PC.NURSE ---
Plavix not on D/C meds, 90 supply with 3 refills called in to [facility] pharmacy per t.o. from Dr. Diego
--- NOTE | 2024-02-03 13:40 | PC.NURSE ---
All D/C instructions educated to patient, transported home by , [facility] dc
== END 2024-02-03 13:40 | disposition home or self-care (01) | DRG 244 ==
LOC: ER 00:46 → CCL 00:53 → ICU 03:29
PROVIDERS: Internal Medicine; Internal Medicine Cardiovascular Disease; Admitting Provider Internal Medicine; Emergency Provider Emergency Medicine; PCP Family Medicine; Visit Provider Internal Medicine
PROC: 027135Z Dilation of Coronary Artery, Two Arteries with Two Drug-eluting Intraluminal Devices, Percutaneous Approach (ICD-10-PCS; principal; 2024-01-31 01:30)
PROC: 027135Z Dilation of Coronary Artery, Two Arteries with Two Drug-eluting Intraluminal Devices, Percutaneous Approach (ICD-10-PCS; 2024-01-31 01:30)
PROC: 0JH606Z Insertion of Pacemaker, Dual Chamber into Chest Subcutaneous Tissue and Fascia, Open Approach (ICD-10-PCS; principal; 2024-02-02 07:00)
DX: I44.2 Atrioventricular block, complete (principal); I12.9 Hypertensive chronic kidney disease with stage 1 through stage 4 chronic kidney disease, or unspecified chronic kidney disease; E11.22 Type 2 diabetes mellitus with diabetic chronic kidney disease; N18.2 Chronic kidney disease, stage 2 (mild); E78.5 Hyperlipidemia, unspecified; I25.10 Atherosclerotic heart disease of native coronary artery without angina pectoris; R09.02 Hypoxemia; Z79.84 Long term (current) use of oral hypoglycemic drugs; Z87.891 Personal history of nicotine dependence
CPT/HCPCS: 0241U; 33208; 33210; 36415; 36416; 71045; 80048; 80053; 82962; 83735; 83880; 84100; 84443; 84484; 85025; 85347; 85378; 85610; 85730; 93005; 93306; 93454; 96365; 96367; 96374; 96375; 96376; 97165; 99152; 99153; 99285; 99291; A4216; C1725; C1769; C1779; C1786; C1874; C1887; C1894; C1898; C9600; J0461; J0690; J1265; J1644; J1940; J2250; J2405; J3010; J3370; J3490; J7030; J7050; Q9967

== ENCOUNTER → 2024-02-10 13:24 | Outpatient (BNVA) | payer OTHER, SELFPAY | PROVIDERS: PCP Family Medicine; Visit Provider Nurse Practitioner Family | DX: I25.10 Atherosclerotic heart disease of native coronary artery without angina pectoris (principal); Z87.891 Personal history of nicotine dependence; I12.9 Hypertensive chronic kidney disease with stage 1 through stage 4 chronic kidney disease, or unspecified chronic kidney disease; N18.9 Chronic kidney disease, unspecified; E11.22 Type 2 diabetes mellitus with diabetic chronic kidney disease; Z79.84 Long term (current) use of oral hypoglycemic drugs | CPT/HCPCS: 99214 ==

== ENCOUNTER → 2024-02-17 08:40 | Outpatient (BNVA) | payer OTHER, SELFPAY | PROVIDERS: PCP Family Medicine; Visit Provider Internal Medicine Cardiovascular Disease | DX: Z45.010 Encounter for checking and testing of cardiac pacemaker pulse generator [battery] (principal) | CPT/HCPCS: 93296 ==

== ENCOUNTER 2024-03-22 14:14 | Outpatient (RCR) | payer OTHER, SELFPAY | END 2024-04-02 23:59 | disposition home or self-care (01) | LOC: CR 14:14 | PROVIDERS: PCP Family Medicine; Referring Provider Family Medicine; Visit Provider Family Medicine | DX: Z95.5 Presence of coronary angioplasty implant and graft (principal) | CPT/HCPCS: 93798 ==

== ENCOUNTER 2024-04-05 08:13 | Outpatient (RCR) | payer OTHER, SELFPAY | END 2024-05-03 23:59 | disposition home or self-care (01) | LOC: CR 08:13 | PROVIDERS: PCP Family Medicine; Referring Provider Family Medicine; Visit Provider Family Medicine | DX: Z95.5 Presence of coronary angioplasty implant and graft (principal) | CPT/HCPCS: 93798 ==

== ENCOUNTER 2024-05-04 08:56 | Outpatient (RCR) | payer OTHER, SELFPAY | END 2024-06-03 23:59 | disposition home or self-care (01) | LOC: CR 08:56 | PROVIDERS: PCP Family Medicine; Referring Provider Family Medicine; Visit Provider Family Medicine | DX: Z95.5 Presence of coronary angioplasty implant and graft (principal) | CPT/HCPCS: 93798 ==

== ENCOUNTER 2024-06-06 13:04 | Outpatient (RCR) | payer OTHER, SELFPAY | END 2024-07-01 23:59 | disposition home or self-care (01) | LOC: CR 13:04 | PROVIDERS: PCP Family Medicine; Referring Provider Family Medicine; Visit Provider Family Medicine | DX: Z95.5 Presence of coronary angioplasty implant and graft (principal) | CPT/HCPCS: 93798 ==

== ENCOUNTER 2024-07-02 13:11 | Outpatient (RCR) | payer OTHER, SELFPAY | END 2024-08-01 23:59 | disposition home or self-care (01) | LOC: CR 13:11 | PROVIDERS: PCP Family Medicine; Referring Provider Family Medicine; Visit Provider Family Medicine | DX: Z95.5 Presence of coronary angioplasty implant and graft (principal) | CPT/HCPCS: 93798 ==

== ENCOUNTER 2024-08-03 10:14 | Outpatient (RCR) | payer SELFPAY | END 2024-08-31 23:59 | disposition home or self-care (01) | LOC: CR 10:14 | PROVIDERS: PCP Family Medicine; Referring Provider Family Medicine; Visit Provider Family Medicine | DX: Z95.5 Presence of coronary angioplasty implant and graft (principal) ==

== ENCOUNTER → 2024-08-31 10:52 | Outpatient (BNVA) | payer OTHER, SELFPAY | PROVIDERS: PCP Family Medicine; Visit Provider Internal Medicine Cardiovascular Disease | DX: Z45.018 Encounter for adjustment and management of other part of cardiac pacemaker (principal) | CPT/HCPCS: 93296 ==

== ENCOUNTER 2024-09-01 13:32 | Outpatient (RCR) | payer SELFPAY | END 2024-10-01 23:59 | disposition home or self-care (01) | LOC: CR 13:32 | PROVIDERS: PCP Family Medicine; Referring Provider Family Medicine; Visit Provider Family Medicine | DX: Z95.5 Presence of coronary angioplasty implant and graft (principal) ==

== ENCOUNTER → 2024-09-14 14:30 | Outpatient (BNVA) | payer OTHER, SELFPAY | PROVIDERS: PCP Family Medicine; Visit Provider Internal Medicine | DX: I25.10 Atherosclerotic heart disease of native coronary artery without angina pectoris (principal); Z98.61 Coronary angioplasty status; Z79.01 Long term (current) use of anticoagulants; Z95.0 Presence of cardiac pacemaker; Z87.891 Personal history of nicotine dependence | CPT/HCPCS: 99214 ==

== ENCOUNTER 2024-10-05 07:31 | Outpatient (RCR) | payer SELFPAY | END 2024-10-31 23:59 | disposition home or self-care (01) | LOC: CR 07:31 | PROVIDERS: PCP Family Medicine; Referring Provider Family Medicine; Visit Provider Family Medicine | DX: I25.10 Atherosclerotic heart disease of native coronary artery without angina pectoris (principal) ==

== ENCOUNTER 2024-11-01 10:47 | Outpatient (RCR) | payer SELFPAY | END 2024-12-01 23:59 | disposition home or self-care (01) | LOC: CR 10:47 | PROVIDERS: PCP Family Medicine; Referring Provider Family Medicine; Visit Provider Family Medicine | DX: Z95.5 Presence of coronary angioplasty implant and graft (principal) ==

== ENCOUNTER 2024-11-18 22:25 | Emergency (ER) | payer OTHER, MEDICARE, SELFPAY ==
--- OUTSIDE RECORDS SUMMARY | 2024-02-17 06:30 | XMS_ITS | Encounter Summary ---
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 This section includes the names of all active insurance providers for the patient. Insurance Provider Type of Coverage Plan Name Start of Policy Coverage End of Policy Coverage Group Number Member ID Insurance Provider's Telephone Number Policy Fernández's Name Patient's Relationship to Policy Fernández MEDICARE (WNR) MEDICARE (M) PART A Jul 02, 2013 PART A [id number] JENNIFER KATZ PATIENT MEDICARE (WNR) MEDICARE (M) PART B Jul 02, 2013 PART B [id number] [phone] JENNIFER KATZ PATIENT Selected Encounter This section includes the information on record at [place] for the Encounter. Date/Time Encounter Type Encounter Description Reason Provider Source Feb 17, 2024 11:30 AM OFFICE O/P EST MOD 30 MIN PRIMARY CARE/MEDICINE ICD-10-CM I25.10 Athscl heart disease of [place] coronary artery w/o ang pctrs SNOW DUVAL IHE Encounter Template Text not used by [facility] Assessments - Encounter Diagnoses This section includes the primary and secondary diagnoses documented for the Encounter. Date/Time Primary/Secondary Diagnosis Diagnosis Name Provider Source Feb 17, 2024 12:18 PM PRIMARY Athscl heart disease of [place] coronary artery w/o ang pctrs SNOW DUVAL [facility] Feb 17, 2024 12:18 PM SECONDARY [facility]rioventricular block, [facility] Feb 17, 2024 12:18 PM SECONDARY Benign prostatic hyperplasia without lower urinry tract symp [facility] Feb 17, 2024 12:18 PM SECONDARY Contact with and exposure to other hazardous substances [facility] Feb 17, 2024 12:18 PM SECONDARY Encounter for immunization [facility] Feb 17, 2024 12:18 PM SECONDARY Gastro-esophageal reflux disease without esophagitis [facility] Feb 17, 2024 12:18 PM SECONDARY Hyperlipidemia, unspecified [facility] Feb 17, 2024 12:18 PM SECONDARY Hypertensive heart disease without heart failure [facility] Feb 17, 2024 12:18 PM SECONDARY Insomnia, unspecified [facility] Feb 17, 2024 12:18 PM SECONDARY Malignant neoplasm of bladder, unspecified [facility] Feb 17, 2024 12:18 PM SECONDARY Malignant neoplasm of unsp kidney, except renal pelvis [facility] Feb 17, 2024 12:18 PM SECONDARY Obesity, unspecified [facility] Feb 17, 2024 12:18 PM SECONDARY Type 2 diabetes mellitus with diabetic neuropathy, unsp [facility] Feb 17, 2024 12:18 PM SECONDARY Type 2 diabetes mellitus with unspecified complications [facility] Feb 17, 2024 12:18 PM SECONDARY Unspecified glaucoma [facility] Feb 17, 2024 12:18 PM SECONDARY Unspecified right bundle-branch block [facility] Feb 17, 2024 12:18 PM SECONDARY Vitamin deficiency, unspecified SNOW DUVAL [facility] Plan of Treatment: Future Appointments (+ 6 months) and Future Tests (+/- 45 days) The Plan of Treatment section includes future care activities for the patient from all [place] [facility]. This section includes future appointments and future orders which are active, pending or scheduled. Future Appointments This section includes appointments that were scheduled to occur 6 months from the date of the Encounter, up to a maximum of 20 appointments. The data comes from all [place] treatment facilities. Appointment Date/Time Appointment Type Appointme nt Facility Name Jul 14, 2024 10:20 AM [facility] [facility] Lab Results: +/- 30 days of the encounter This section includes the Chemistry and Hematology Lab Results on record with [place] for the patient. Radiology Reports and Pathology Reports are provided separately, in subsequent sections. Lab Results This section contains the Chemistry/Hematology Results that were resulted 30 days before or 30 daysafter the date of the Encounter. Date/Time Source Result Type Result - Unit Interpretation Reference Range Specimen Type Comment Mar 01, 2024 08:04 AM [facility] HGA1C BLOOD Specimen Type: BLOOD No comment entered. Ordering Provider: SNOW DUVAL Report Released Date/Time: Mar 03, 2023 02:03 PM Reporting Lab: [place] [facility] [address] [place] [address] Performing Lab: [place] [facility] [address] [place] [address] HGA1C 6.5 H 4.0-6.0 Mar 01, 2024 08:04 AM [facility] CHOLESTEROL PANEL (PB) PLASMA Specimen Type: P LASMA No comment entered. Ordering Provider: SNOW DUVAL Report Released Date/Time: Mar 03, 2023 02:03 PM Reporting Lab: [place] [facility] [address] [place] [address] Performing Lab: [place] [facility] [address] [place] [address] CHOLESTEROL 118 mg/dL 0-200 TRIGLYCERIDE 190 mg/dL H 0-150 CALCULATED LDL 49.0 mg/dL HDL(New) 31.0 mg/dL L >40 HDL % OF TOTAL CHOLESTEROL (PB) 26.3 >25 Mar 01, 2024 08:04 AM [facility] TSH (MA-PB) SERUM Specimen Typ e: SERUM No comment entered. Ordering Provider: SNOW DUVAL Report Released Date/Time: Mar 03, 2023 02:03 PM Reporting Lab: [place] [facility] [address] [place] [address] Performing Lab: [place] [facility] [address] [place] [address] TSH 1.633 u[IU]/mL 0.47-5 Mar 01, 2024 08:04 AM [facility] COMPREHENSIVE METABOLIC PANEL PLASMA Specimen Type: PLASMA No comment entered. Ordering Provider: SNOW DUVAL Report Released Date/Time: Mar 03, 2023 02:03 PM Reporting Lab: [place] [facility] [address] [place] [address] Performing Lab: [place] [facility] [address] [place] [address] CREATININE 1.74 mg/dL H 0.7-1.3 UREA NITROGEN 19 mg/dL 9-25 GLUCOSE 106 mg/dL H 72-99 SODIUM 139 meq/L 136-145 POTASSIUM 4.4 meq/L 3.5-5 CHLORIDE 107 meq/L 98-107 CARBON DIOXIDE 23 meq/L 22-31 CALCIUM 9.3 mg/dL 8.4-10.4 PROTEIN 7.1 g/dL 6-8.6 ALBUMIN 4.2 g/dL 3.4-5 TOTAL BILIRUBIN 0.4 mg/dL 0.2-1.2 ALKALINE PHOSPHATASE 86 U/L 40-150 AST/SGOT 19 U/L 5-34 ALT/SGPT 27 U/L 8-40 EGFR (CKD-EPI 2020) 40 Mar 01, 2024 08:03 AM [facility] URINE ALBUMIN PROFILE-ih (PB) URINE Specimen Type: URINE No comment entered. Ordering Provider: SNOW DUVAL Report Released Date/Time: Mar 03, 2023 02:03 PM Reporting Lab: [place] [facility] [address] [place] [address] Performing Lab: [place] [facility] [address] [place] [address] URINE ALBUMIN (PB-STL) 13.30 mg/L 0-30 uACR (PB-MA) 12.04 ug/mg CREATININE URINE/OTHERS 110.42 mg/dL Mar 01, 2024 08:03 AM [facility] CBC BLOOD Specimen Type: BLOOD No comment entered. Ordering Provider: SNOW DUVAL Report Released Date/Time: Mar 03, 2023 02:03 PM Reporting [facility] [address] [place] [phone] Performing Lab: [place] [facility] [address] [place] [phone] WBC 6.3 10*3/uL 3.6-11.2 RBC 4.92 10*6/uL 4.10-5.70 HGB 14.1 g/dL 13.1-16.8 HCT 43.4 38.2-48.4 MCV 88.2 fL 80.0-100.0 MCH 28.7 pg 27.0-34.0 MCHC 32.5 g/dL L 33.0-36.0 PLT 178 10*3/uL 150-400 MPV 11.7 fL H 7.5-11.2 RDW 13.5 11.8-15.1 LYMPHOCYTES, AUTO % 22.3 MONOCYTES, AUTO % 7.7 NEUTROPHILS, AUTO % 66.2 EOSINOPHILS, AUTO % 2.2 BASOPHILS, AUTO % 1.1 LYMPHOCYTES, ABSOLUTE 1.40 10*3/uL 0.77- 4.50 MONOCYTES, ABSOLUTE 0.48 10*3/uL 0.19-0. 8 NEUTROPHILS, ABSOLUTE 4.15 10*3/uL 2.10- 8.00 EOSINOPHILS, ABSOLUTE 0.14 10*3/uL 0.00- 0.60 BASOPHILS, ABSOLUTE 0.07 10*3/uL 0.00-0. 20 IMMATURE GRANS, AUTO % 0.5 IMMATURE GRANS, AUTO ABS 0.03 10*3/uL 0. 00-0.05 Vital Signs: All taken on the encounter date This section contains inpatient and outpatient Vital Signs collected on the date of the Encounter. Date/Time Temperature Pulse Blood Pressure Respiratory Rate SP02 Pain Height Weight Body Mass Index Source Feb 17, 2024 11:38 AM 97.9 86 128/86 18 96 0 71.0 226.5 32 [facility] Immunizations: All administered on the encounter date This section contains immunizations associated to the Encounter. Immunization Series Date Issued Administered By Site Reaction Lot Number CVX Code Drug Retention Manager Comment(s) Source INFLUENZA, HIGH-DOSE, TRIVALENT, PF Feb 17, 2024 ONEAL CATALAN RIGHT DELTO ID [id number] [facility] AT [facility] Social History: Smoking Status (Most current) and Tobacco Use (All prior to encounter date) This section includes the most current, and the historical, smoking and tobacco- related health factors from the [place] facility where the Encounter took place. Current Smoking Status This section includes the most current smoking, or tobacco-related health factor, from the [place] facility where the Encounter took place. Date/Time Current Smoking Status Comment Facil ity Mar 03, 2023 01:00 PM VA-TOBACCO FORMER USER [facility] Tobacco Use History This section includes a history of the smoking, or tobacco-related health factors, that were collected on or before the date of the Encounter. The data comes from the [place] facility where the Encounter took place. Date/Time Smoking Status/Tobacco Use Comment F acility Mar 03, 2023 01:00 PM VA-TOBACCO QUIT 15 YRS OR MORE [facility] Feb 21, 2022 09:00 AM VA-TOBACCO FORMER USER [facility] Feb 21, 2022 09:00 AM VA-TOBACCO QUIT 15 YRS OR MORE [facility] Feb 06, 2021 08:30 AM VA-TOBACCO NEVER USED [facility] Mar 04, 2018 02:14 PM VA-TOBACCO FORMER USER [facility] Mar 04, 2018 02:14 PM VA-TOBACCO QUIT 15 YRS OR MORE [facility] Oct 15, 2011 01:47 PM QUIT TOBACCO >7 YEARS AGO [facility] Advance Directives: All historical and current Section Date Range: From patient's date of to the date document was created. This section includes ALL of a patient's completed or amended [place] Advance and Rescinded Directives. The entries below indicate that a directive exists for the patient, but an actual copy is not included with this document. The data comes from all [place] facilities. Date Advance Directives Provider Source Mar 06, 2015 ADVANCE DIRECTIVE DISCUSSION SANDRA CAMPBELL [facility] Feb 02, 2013 ADVANCE DIRECTIVE DISCUSSION MYLA WILL [facility] Oct 15, 2011 ADVANCE DIRECTIVE DISCUSSION SANDRA CAMPBELL [facility] Jul 28, 2011 ADVANCE DIRECTIVE MANISHA CESAR [facility] Radiology Reports: +/- 30 days of the encounter Radiology Reports For cases when an order for radiology services may have been completed prior to the date of the Encounter, the report list includes the Radiology Reports that were completed up to 30 days before dateof the Encounter. For cases when an order for radiology services may have been completed after the date of the Encounter, the report list also includes the Radiology Reports that were completed up to30 days after date of the Encounter. The data comes from all [place] treatment facilities. Date/Time Radiology Report Provider Source Feb 02, 2024 06:02 PM CHEST PORTABLE: JENNIFER KATZ EAR [id number] -1950 M Exm Date: FEB 02, 2024@18:02 Req Phys: SNOW DUVAL Pat Loc: OUTSIDE PB-GENERAL RAD (Req'g Img Loc: OUTSIDE PB-GENERAL RAD Service: Unknown (Case 84 COMPLETE) CHEST PORTABLE (RAD Detailed) CPT:93758 Reason for Study: Exam imported from outside Clinical History: Original Data for Imported Study Patient Name: JENNIFER KATZ Date: 1950 Sex: M Study Date: 02/02/24 Study Time: 06:02:01 Study Description: XR chest 1V portable [id number] Referring Physician: UNKNOWN, UNKNOWN Series 1: 1 CR file, description: CHEST AP 72 VG Acquisition site: [facility] Report Status: Electronically Filed Date Reported: MAY 01, 2024 Report: Electronically generated report for outside study. Impression: Electronically generated report for outside study. VERIFIED BY: / *ELECTRONICALLY FILED* SHE DAVID [facility] Feb 02, 2024 08:07 AM UNLISTED RADIOLOGI C PROCEDURE: JENNIFER KATZ EAR [id number] -1950 M Exm Date: FEB 02, 2024@08:07 Req Phys: SNOW DUVAL Loc: OUTSIDE PB-GENERAL RAD (Req'g Img Loc: OUTSIDE PB-GENERAL RAD Service: Unknown (Case 85 COMPLETE) UNLISTED RADIOLOGIC PROCEDURE (RAD Detailed) CPT:32777 Reason for Study: Exam imported from outside Clinical History: Original Data for Imported Study Patient Name: Jennifer Katz Date: 1950 Sex: M Study Date: 02/02/24 Study Time: 08:07:13 Study Description: Cardiac Catheterization Referring Physician: Series 1: 1 XA file, description: Left Coronary 15 fps Series 2: 1 XA file, description: Left Coronary 15 fps Acquisition site: [facility] Report Status: Electronically Filed Date Reported: MAY 01, 2024 Report: Electronically generated report for outside study. Impression: Electronically generated report for outside study. VERIFIED BY: / *ELECTRONICALLY FILED* SHE FRANKIE ADAIR [facility] Jan 31, 2024 04:11 PM US ECHOCARDIOGRAPH Y, TRANSTHORACIC: JENNIFER KATZ EAR [id number] -1950 M Exm Date: JAN 31, 2024@16:11 Req Phys: SNOW DUVAL Loc: OUTSIDE PB-ULTRASOUND (Req'g L Img Loc: OUTSIDE PB-ULTRASOUND Service: Unknown (Case 137 COMPLETE) US ECHOCARDIOGRAPHY, TRANSTHORACI(US Detailed) CPT:69362 Reason for Study: Exam imported from outside Clinical History: Original Data for Imported Study Patient Name: Jennifer Katz Date: 1950 Sex: M Study Date: 01/31/24 Study Time: 04:11:00 Study Description: Transthoracic Echo Referring Physician: ALEKSANDR Series 1: 82 US files, description: CV. echo complete* 01727 Acquisition site: [place] [address] Report Status: Electronically Filed Date Reported: MAY 01, 2024 Report: Electronically generated report for outside study. Impression: Electronically generated report for outside study. VERIFIED BY: / *ELECTRONICALLY FILED* NATIVIDADDAHIANA JEANELUIS ANTONIO [facility] Jan 31, 2024 01:12 AM UNLISTED RADIOLOGI C PROCEDURE: JENNIFER KATZ EAR [id number] -1950 M Exm Date: JAN 31, 2024@01:12 Req Phys: SNOW DUVAL Loc: OUTSIDE PB-GENERAL RAD (Req'g Img Loc: OUTSIDE PB-GENERAL RAD Service: Unknown (Case 86 COMPLETE) UNLISTED RADIOLOGIC PROCEDURE (RAD Detailed) CPT:10040 Reason for Study: Exam imported from outside Clinical History: Original Data for Imported Study Patient Name: Jennifer Katz Date: 1950 Sex: M Study Date: 01/31/24 Study Time: 01:12:00 Study Description: Cardiac Catheterization Referring Physician: Alvin ESPINOZA Series 1: 1 XA file Series 2: 1 XA file Series 3: 1 XA file Series 4: 1 XA file Series 5: 1 XA file Series 6: 1 XA file Series 7: 1 XA file Series 8: 1 XA file Series 9: 1 XA file, description: RDSR Series Acquisition site: [facility] Address: [address] [place], [place] [id number] Report Status: Electronically Filed Date Reported: MAY 01, 2024 Report: Electronically generated report for outside study. Impression: Electronically generated report for outside study. VERIFIED BY: / *ELECTRONICALLY FILED* POPLDAHIANA JEANELUIS ANTONIO [facility] Jan 31, 2024 12:57 AM CHEST PORTABLE: JENNIFER KATZ EAR [id number] -1950 M Exm Date: JAN 31, 2024@00:57 Req Phys: SNOW DUVAL Loc: OUTSIDE PB-GENERAL RAD (Req'g Img Loc: OUTSIDE PB-GENERAL RAD Service: Unknown (Case 83 COMPLETE) CHEST PORTABLE (RAD Detailed) CPT:30287 Reason for Study: Exam imported from outside Clinical History: Original Data for Imported Study Patient Name: JENNIFER KATZ Date: 1950 Sex: M Study Date: 01/31/24 Study Time: 12:57:58 Study Description: XR chest 1V portable [id number] Referring Physician: UNKNOWN, UNKNOWN Series 1: 1 CR file, description: CHEST AP X-ANDREA VG Acquisition site: [facility] Report Status: Electronically Filed Date Reported: MAY 01, 2024 Report: Electronically generated report for outside study. Impression: Electronically generated report for outside study. VERIFIED BY: / *ELECTRONICALLY FILED* SHE DAVID [facility] Encounter Notes: All associated encounter notes This section contains the clinical notes associated to the Encounter. Date/Time Encounter Note(s) Provider Source Mar 02, 2024 08:55 AM PHYSICIAN LETTERS: LOCAL TITLE: TEST RESULT GENERAL LETTER ST STANDARD TITLE: PHYSICIAN LETTERS DATE OF NOTE: MAR 02, 2024@08:55 ENTRY DATE: MAR 02, 2024@08:55:50 AUTHOR: SNOW DUVAL EXP COSIGNER: URGENCY: STATUS: COMPLETED [facility] [address] [place] [address] Mar 02, 2024 Mr. Jennifer Katz [address] [place], [place] [address] Dear Mr. Katz: This letter is to inform you regarding your recent laboratory tests. The ordering provider has reviewed these reports and will take necessary action, if needed. Date Lab Test Result H/L Unit Range 03/01/2024 TSH 1.633 uIU/mL 0.47 - 5 03/01/2024 HEMOGLOBIN A1C 6.5 H % 4.0 - 6.0 03/01/2024 eGFR 40 - 03/01/2024 SODIUM 139 mEq/L 136 - 145 03/01/2024 POTASSIUM 4.4 mEq/L 3.5 - 5 03/01/2024 CHLORIDE 107 mEq/L 98 - 107 03/01/2024 UREA NITROGEN 19 mg/dL 9 - 25 03/01/2024 CREATININE, SERUM 1.74 H mg/dL 0.7 - 1.3 03/01/2024 CALCIUM, SERUM 9.3 mg/dL 8.4 - 10.4 03/01/2024 PROTEIN, TOTAL 7.1 g/dL 6 - 8.6 03/01/2024 ALBUMIN, SERUM 4.2 g/dL 3.4 - 5 03/01/2024 TRIGLYCERIDE 190 H mg/dL 0 - 150 03/01/2024 CHOLESTEROL 118 mg/dL 0 - 200 03/01/2024 ALKALINE PHOSPHAT 86 U/L 40 - 150 03/01/2024 ALT (SGPT) 27 U/L 8 - 40 03/01/2024 AST (SGOT) 19 U/L 5 - 34 03/01/2024 BILIRUBIN, TOTAL 0.4 mg/dL 0.2 - 1.2 03/01/2024 CO2 23 mEq/L 22 - 31 03/01/2024 GLUCOSE 106 H mg/dL 72 - 99 03/01/2024 HDL-CHOL 31.0 L mg/dL 40 - 03/01/2024 LDL-CHOL 49.0 mg/dL - 03/01/2024 HDL%CHO 26.3 % 25 - 03/01/2024 uACR (PB-MA) 12.04 mcg/mg - 03/01/2024 CREATuF 110.42 mg/dL - 03/01/2024 MICROALBUMIN LEVE 13.30 mg/L 0 - 30 03/01/2024 WBC 6.3 10*3/uL 3.6 - 11.2 03/01/2024 RBC 4.92 10*6/uL 4.10 - 5.70 03/01/2024 HEMOGLOBIN 14.1 g/dL 13.1 - 16.8 03/01/2024 HEMATOCRIT 43.4 % 38.2 - 48.4 03/01/2024 MCV 88.2 fL 80.0 - 100.0 03/01/2024 MCH 28.7 pg 27.0 - 34.0 03/01/2024 MCHC 32.5 L g/dL 33.0 - 36.0 03/01/2024 RDW 13.5 % 11.8 - 15.1 03/01/2024 PLATELETS 178 10*3/uL 150 - 400 03/01/2024 MPV 11.7 H fL 7.5 - 11.2 03/01/2024 NEUTROPHIL % 66.2 % - 03/01/2024 LYMPHOCYTE % 22.3 % - 03/01/2024 MONOCYTES, AUTO % 7.7 % - 03/01/2024 EO% 2.2 % - 03/01/2024 BASOPHILS, AUTO % 1.1 % - 03/01/2024 IG% 0.5 % - 03/01/2024 NEUT ABS 4.15 10*3/uL 2.10 - 8.00 03/01/2024 LYMPH ABS 1.40 10*3/uL 0.77 - 4.50 03/01/2024 MONO ABS 0.48 10*3/uL 0.19 - 0.8 03/01/2024 EO ABS 0.14 10*3/uL 0.00 - 0.60 03/01/2024 BASO ABS 0.07 10*3/uL 0.00 - 0.20 03/01/2024 IG ABS 0.03 10*3/uL 0.00 - 0.05 If you are seeing any outside provider(s), please share this information with him/her. If you have any questions, please feel free to contact our clinic. Sincerely, Snow Duval MD [facility] JENNIFER [facility] Feb 18, 2024 12:48 PM ADDENDUM: LOCAL TITLE: Addendum STANDARD TITLE: ADDENDUM DATE OF NOTE: FEB 18, 2024@12:48:36 ENTRY DATE: FEB 18, 2024@12:48:37 AUTHOR: SNOW DUVAL EXP COSIGNER: URGENCY: STATUS: COMPLETED Notify patient I did receive his stress test result from 11/23/2023 which was normal except for a noted small prior infarct in the RCA distribution. /es/ Snow Duval MD [facility] Signed: 02/18/2024 12:49 Receipt Acknowledged By: 02/26/2024 10:18 /es/ LESLIE CATALAN LPN [place] [facility] --- Original Document --- 02/17/24 PRIMARY CARE CLINIC PROGRESS NOTE PB: SUBJECTIVE: JENNIFER KATZ is a 73 years old MALE. HPI: Presents to the clinic today for a periodic health maintenance visit and hospital follow-up. Last seen September 09, 2023 HPI: Patient was admitted to [facility] 01/30- 02/03/2024 for complete heart block received a pacemaker and 2 coronary stents. He has been out of his metoprolol for about a week now. Since getting out of the hospital he reports no chest pain no shortness of breath very minimal lightheadedness a couple of times upon standing, but actually better than before he had been feeling. He did have an echocardiogram back in September which was normal. He had a stress test done in November which I did not get the report on. Non-VA Primary Care Provider none Specialty Services Urology, Dr. Renner Nephrology in [place] Dr. Ruiz, dermatology Dr. Hayden, optometry Cardiology, Dr. Diego Opthamologist, Dr. Cr FAMILY HX: Mother is , cancer? age - 95 Father is , age - 92 Siblings - neg SOCIAL HX: MARITAL STATUS: , [employer] WORK HX: retired, [employer] HOBBIES: golf TOBACCO: quit pipe/cigar for 20 years ALCOHOL: no DRUGS: no HX: BRANCH: [facility] . 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 STATIONS/DEPLOYMENTS: [place] [employer] ACCIDENTS OR INJURIES WHILE ON ACTIVE DUTY: SURGICAL HX: Right nephrectomy Tonsillectomy Appendectomy Coronary stents x 2 Pacemaker Problem List 1) Glaucoma (SNOMED CT 38948645) 2) HTN - Hypertension (SNOMED CT 03651109) 3) Vitamin D deficiency (SNOMED CT 07881467) 4) Right bundle branch block (SNOMED CT 92507580) 5) Diabetes mellitus type 2 (SNOMED CT 43700688) 6) Diabetic neuropathy 7) HLD - Hyperlipidemia 8) Obesity 9) GERD - Gastro-esophageal reflux disease 10) Renal cell carcinoma 11) Bladder cancer 12) Benign prostatic hyperplasia 13) Insomnia ([facility] [id number]) 14) Exposure to potentially hazardous substance 15) Complete heart block Active Outpatient Medications (including Supplies): Active Outpatient Medications Status 1) ATORVASTATIN CALCIUM 20MG TAB TAKE ONE-HALF TABLET BY ACTIVE MOUTH EVERY EVENING FOR CHOLESTEROL. REPORT ANY UNEXPLAINED MUSCLE PAIN/WEAKNESS TO PROVIDER THIS TABLET IS TO BE CUT IN HALF FOR YOUR DOSE 2) ATORVASTATIN CALCIUM 40MG TAB TAKE ONE TABLET BY ACTIVE MOUTH AT BEDTIME 3) CLOPIDOGREL BISULFATE 75MG TAB TAKE ONE TABLET BY ACTIVE MOUTH ONCE A DAY 4) DORZOLAMIDE 22.3/TIMOLOL6.8MG/ML OPH SIERRA INSTILL 1 ACTIVE DROP IN BOTH EYES TWICE A DAY FOR GLAUCOMA 5) FINASTERIDE 5MG TAB TAKE ONE TABLET BY MOUTH ONCE A ACTIVE DAY FOR BENIGN PROSTATIC HYPERPLASIA SWALLOW WHOLE, DO NOT CRUSH, SPLIT, OR CHEW. 6) GLIMEPIRIDE 1MG TAB TAKE ONE TABLET BY MOUTH EVERY ACTIVE MORNING FOR DIABETES. TAKE WITH BREAKFAST OR FIRST FOOD. 7) HYDROCHLOROTHIAZIDE 25MG TAB TAKE ONE-HALF TABLET BY ACTIVE MOUTH ONCE A DAY FOR BLOOD PRESSURE 8) LISINOPRIL 40MG TAB TAKE ONE-HALF TABLET BY MOUTH ACTIVE ONCE A DAY FOR HEART OR BLOOD PRESSURE 9) METFORMIN HCL 500MG TAB TAKE ONE-HALF TABLET BY MOUTH ACTIVE TWICE A DAY WITH MEALS FOR BLOOD SUGAR CONTROL. TAKE WITH FOOD. AVOID ALCOHOL. DISCONTINUE BEFORE GETTING XRAY DYE. 10) METOPROLOL SUCCINATE 25MG SA TAB TAKE ONE TABLET BY ACTIVE MOUTH TWICE A DAY SWALLOW WHOLE, DO NOT CRUSH OR CHEW (TABLETS MAY BE CUT IN HALF). 11) TAMSULOSIN HCL 0.4MG CAP TAKE ONE CAPSULE BY MOUTH ACTIVE TWICE A DAY APPROXIMATELY 30 MINUTES AFTER THE SAME MEAL EACH DAY (FOR PROSTATE) Active Non-VA Medications Status 1) Non-VA CHOLECALCIF 25MCG (D3-1,000UNIT) TAB 1000UNIT ACTIVE BY MOUTH ONCE A DAY 12 Total Medications Allergies: BACTRIM Review of Systems: as per HPI and Systemic: Denies fatigue, fever, chills, or weight loss CV: Denies chest pain, palpitations Pulmonary: Denies hemoptysis, Shortness of breath, dyspnea on exertion GI: Denies constipation, bloody stools, diarrhea, indigestion, or n/v Ext: Denies any swelling Neuro: Denies slurred speech or dizziness Skin: Denies abnormal lesions; denies any new rashes PSYCH: Denies SI/HI; denies nightmares OBJECTIVE: Vital Signs Temperature: 97.9 F [36.6 C] (02/17/2024 11:38) Respiratory Rate: 18 (02/17/2024 11:38) Pulse Rate: 86 (02/17/2024 11:38) Blood Pressure: 128/86 (02/17/2024 11:38) HT: 71.0 in [180.3 cm] (02/17/2024 11:38) WT: 226.5 lb [102.74 kg] (02/17/2024 11:38) BMI: 31.7 96% (02/17/2024 11:38) Physical Exam General: NAD noted, A&Ox3, pleasant, appears stated age HEENT: NCAT, TM's clear, nares and oropharynx clear Neck: Supple with normal active ROM, without any lymphadenopathy Heart: RRR, no murmur, clicks, or rub Resp: Lungs CTA bilaterally, respirations even and unlabored Ext: No clubbing, cyanosis, edema or obvious deformity Skin: Warm, pink, and dry, no rashes Neuro: Grossly intact Psych: Affect normal, answers questions appropriately throughout visit A/P: ASSESSMENT and PLAN Health Maintenance: Labs pending. Discussed preventative health to include diet and exercise as well as immunizations. He did receive his flu shot today he is going to get his COVID-vaccine through the health department. Coronary artery disease with recent ME and complete heart block status post stents x 2 and pacemaker; on Plavix followed by cardiology HTN - controlled with HCTZ, lisinopril; now also on metoprolol Vitamin D Deficiency- on supplement Diabetes mellitus type 2- controlled on metformin and glimepiride; lab pending Diabetic neuropathy- stable Hyperlipidemia - controlled on atorvastatin; lab pending Obesity- encouraged healthy diet and exercise; will be starting cardiac rehab soon GERD - controlled on omeprazole Renal cell and Bladder cancer- followed by urology, no treatments at this time Benign prostatic hyperplasia- on tamsulosin and finasteride Glaucoma- followed by optometry Insomnia- doing better, did not like the trazadone. Exposure to potentially hazardous substance Stable. Discussed medications with patient; med rec completed. Continue current regimen as prescribed by PCP and specialists. RTC as needed if developing any new or worsening symptoms. Please notify PACT with medication changes or for orders coordination as needed if seen by a specialist in the future. Will f/u with patient once updated labs / imaging / testing received; otherwise f/u as listed below. Follow-up: 6 months with fasting labs prior to appointment and/or as needed. Discussed with patient that in the event of community imaging / testing being ordered in the future, once the imaging / testing has been completed, please notify PACT of completion at outside facility if not called with results within 1 week by a [facility] PACT member; this is due to intermittent lapses in notification of imaging completion within [facility]. All questions answered; agrees to plan of care. Follow up as listed above, annually, and as needed. Keep all appointments. Medications Reconciled. See AVS given to . Time spent 30 minutes. /anne/ MD [facility] Signed: 02/17/2024 13:15 SNOW DUVAL JIM Feb 17, 2024 11:44 AM PRIMARY CARE PROGRESS NOTE: LOCAL TITLE: PRIMARY CARE CLINIC PROGRESS NOTE PB STANDARD TITLE: PRIMARY CARE PROGRESS NOTE DATE OF NOTE: FEB 17, 2024@11:44 ENTRY DATE: FEB 17, 2024@11:44:13 AUTHOR: SNOW DUVAL EXP COSIGNER: URGENCY: STATUS: COMPLETED PRIMARY CARE CLINIC PROGRESS NOTE PB Has ADDENDA SUBJECTIVE: GIANNAJENNIFER is a 73 years old MALE. HPI: Presents to the clinic today for a periodic health maintenance visit and hospital follow-up. Last seen September 09, 2023 HPI: Patient was admitted to [facility] 01/30- 02/03/2024 for complete heart block received a pacemaker and 2 coronary stents. He has been out of his metoprolol for about a week now. Since getting out of the hospital he reports no chest pain no shortness of breath very minimal lightheadedness a couple of times upon standing, but actually better than before he had been feeling. He did have an echocardiogram back in September which was normal. He had a stress test done in November which I did not get the report on. Non-VA Primary Care Provider none Specialty Services Urology, Dr. Renner [facility] in [place] Dr. Ruiz, dermatology Dr. Hayden, optometry Cardiology, Dr. Diego Opthamologist, Dr. Cr FAMILY HX: Mother is , cancer? age - 95 Father is , age - 92 Siblings - neg SOCIAL HX: MARITAL STATUS: , [employer] WORK HX: retired, [employer] HOBBIES: golf TOBACCO: quit pipe/cigar for 20 years ALCOHOL: no DRUGS: no HX: BRANCH: [facility] . 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 STATIONS/DEPLOYMENTS: [employer]JOR ACCIDENTS OR INJURIES WHILE ON ACTIVE DUTY: SURGICAL HX: Right nephrectomy Tonsillectomy Appendectomy Coronary stents x 2 Pacemaker Problem List 1) Glaucoma (SNOMED CT 19049340) 2) HTN - Hypertension (SNOMED CT 63646525) 3) Vitamin D deficiency (SNOMED CT 22382794) 4) Right bundle branch block (SNOMED CT 06041790) 5) Diabetes mellitus type 2 (SNOMED CT 45510380) 6) Diabetic neuropathy 7) HLD - Hyperlipidemia 8) Obesity 9) GERD - Gastro-esophageal reflux disease 10) Renal cell carcinoma 11) Bladder cancer 12) Benign prostatic hyperplasia 13) Insomnia (SCT 778055325) 14) Exposure to potentially hazardous substance 15) Complete heart block Active Outpatient Medications (including Supplies): Active Outpatient Medications Status 1) ATORVASTATIN CALCIUM 20MG TAB TAKE ONE-HALF TABLET BY ACTIVE MOUTH EVERY EVENING FOR CHOLESTEROL. REPORT ANY UNEXPLAINED MUSCLE PAIN/WEAKNESS TO PROVIDER THIS TABLET IS TO BE CUT IN HALF FOR YOUR DOSE 2) ATORVASTATIN CALCIUM 40MG TAB TAKE ONE TABLET BY ACTIVE MOUTH AT BEDTIME 3) CLOPIDOGREL BISULFATE 75MG TAB TAKE ONE TABLET BY ACTIVE MOUTH ONCE A DAY 4) DORZOLAMIDE 22.3/TIMOLOL6.8MG/ML OPH SIERRA INSTILL 1 ACTIVE DROP IN BOTH EYES TWICE A DAY FOR GLAUCOMA 5) FINASTERIDE 5MG TAB TAKE ONE TABLET BY MOUTH ONCE A ACTIVE DAY FOR BENIGN PROSTATIC HYPERPLASIA SWALLOW WHOLE, DO NOT CRUSH, SPLIT, OR CHEW. 6) GLIMEPIRIDE 1MG TAB TAKE ONE TABLET BY MOUTH EVERY ACTIVE MORNING FOR DIABETES. TAKE WITH BREAKFAST OR FIRST FOOD. 7) HYDROCHLOROTHIAZIDE 25MG TAB TAKE ONE-HALF TABLET BY ACTIVE MOUTH ONCE A DAY FOR BLOOD PRESSURE 8) LISINOPRIL 40MG TAB TAKE ONE-HALF TABLET BY MOUTH ACTIVE ONCE A DAY FOR HEART OR BLOOD PRESSURE 9) METFORMIN HCL 500MG TAB TAKE ONE-HALF TABLET BY MOUTH ACTIVE TWICE A DAY WITH MEALS FOR BLOOD SUGAR CONTROL. TAKE WITH FOOD. AVOID ALCOHOL. DISCONTINUE BEFORE GETTING XRAY DYE. 10) METOPROLOL SUCCINATE 25MG SA TAB TAKE ONE TABLET BY ACTIVE MOUTH TWICE A DAY SWALLOW WHOLE, DO NOT CRUSH OR CHEW (TABLETS MAY BE CUT IN HALF). 11) TAMSULOSIN HCL 0.4MG CAP TAKE ONE CAPSULE BY MOUTH ACTIVE TWICE A DAY APPROXIMATELY 30 MINUTES AFTER THE SAME MEAL EACH DAY (FOR PROSTATE) Active Non-VA Medications Status 1) Non-VA CHOLECALCIF 25MCG (D3-1,000UNIT) TAB 1000UNIT ACTIVE BY MOUTH ONCE A DAY 12 Total Medications Allergies: BACTRIM Review of Systems: as per HPI and Systemic: Denies fatigue, fever, chills, or weight loss CV: Denies chest pain, palpitations Pulmonary: Denies hemoptysis, Shortness of breath, dyspnea on exertion GI: Denies constipation, bloody stools, diarrhea, indigestion, or n/v Ext: Denies any swelling Neuro: Denies slurred speech or dizziness Skin: Denies abnormal lesions; denies any new rashes PSYCH: Denies SI/HI; denies nightmares OBJECTIVE: Vital Signs Temperature: 97.9 F [36.6 C] (02/17/2024 11:38) Respiratory Rate: 18 (02/17/2024 11:38) Pulse Rate: 86 (02/17/2024 11:38) Blood Pressure: 128/86 (02/17/2024 11:38) HT: 71.0 in [180.3 cm] (02/17/2024 11:38) WT: 226.5 lb [102.74 kg] (02/17/2024 11:38) BMI: 31.7 96% (02/17/2024 11:38) Physical Exam General: NAD noted, A&Ox3, pleasant, appears stated age HEENT: NCAT, TM's clear, nares and oropharynx clear Neck: Supple with normal active ROM, without any lymphadenopathy Heart: RRR, no murmur, clicks, or rub Resp: Lungs CTA bilaterally, respirations even and unlabored Ext: No clubbing, cyanosis, edema or obvious deformity Skin: Warm, pink, and dry, no rashes Neuro: Grossly intact Psych: Affect normal, answers questions appropriately throughout visit A/P: ASSESSMENT and PLAN Health Maintenance: Labs pending. Discussed preventative health to include diet and exercise as well as immunizations. He did receive his flu shot today he is going to get his COVID-vaccine through the health department. Coronary artery disease with recent ME and complete heart block status post stents x 2 and pacemaker; on Plavix followed by cardiology HTN - controlled with HCTZ, lisinopril; now also on metoprolol Vitamin D Deficiency- on supplement Diabetes mellitus type 2- controlled on metformin and glimepiride; lab pending Diabetic neuropathy- stable Hyperlipidemia - controlled on atorvastatin; lab pending Obesity- encouraged healthy diet and exercise; will be starting cardiac rehab soon GERD - controlled on omeprazole Renal cell and Bladder cancer- followed by urology, no treatments at this time Benign prostatic hyperplasia- on tamsulosin and finasteride Glaucoma- followed by optometry Insomnia- doing better, did not like the trazadone. Exposure to potentially hazardous substance Stable. Discussed medications with patient; med rec completed. Continue current regimen as prescribed by PCP and specialists. RTC as needed if developing any new or worsening symptoms. Please notify PACT with medication changes or for orders coordination as needed if seen by a specialist in the future. Will f/u with patient once updated labs / imaging / testing received; otherwise f/u as listed below. Follow-up: 6 months with fasting labs prior to appointment and/or as needed. Discussed with patient that in the event of community imaging / testing being ordered in the future, once the imaging / testing has been completed, please notify PACT of completion at outside facility if not called with results within 1 week by a [facility] PACT member; this is due to intermittent lapses in notification of imaging completion within [facility]. All questions answered; agrees to plan of care. Follow up as listed above, annually, and as needed. Keep all appointments. Medications Reconciled. See AVS given to . Time spent 30 minutes. /anne/ Snow Duval MD [facility] Signed: 02/17/2024 13:15 02/18/2024 ADDENDUM STATUS: COMPLETED Notify patient I did receive his stress test result from 11/23/2023 which was normal except for a noted small prior infarct in the RCA distribution. /anne/ Snow Duval MD [facility] Signed: 02/18/2024 12:49 Receipt Acknowledged By: * AWAITING SIGNATURE * CHITRA MCCOY T[facility]MY [facility] Feb 17, 2024 11:27 AM PRIMARY CARE NURSING NOTE: LOCAL TITLE: PRIMARY CARE NURSING PROGRESS NOTE (TEXT) NURSING P STANDARD TITLE: PRIMARY CARE NURSING NOTE DATE OF NOTE: FEB 17, 2024@11:27 ENTRY DATE: FEB 17, 2024@11:28:04 AUTHOR: LESLIE CATALAN COSIGNER: URGENCY: STATUS: COMPLETED PRIMARY CARE NURSING PROGRESS NOTE (TEXT) NURSING PB Has ADDENDA Established Patient JENNIFER KATZ IS A 73 YEAR OLD MALE BEING SEEN IN CLINIC FEB 17, 2024. REASON FOR VISIT: here for hospital follow up Are you receiving care any where other than the [facility]? No HEALTH AND SURGICAL HISTORY: Does patient report using home oxygen? No CURRENT ACTIVE MEDICATIONS FOR REVIEW: Allergies/ADRs (Tool #5) FACILITY ALLERGY/ADR -------- No Remote Allergy/ADR Data available for this patient [facility] Med. Reconciliation (Tool #1) INCLUDED IN THIS LIST: Alphabetical list of active outpatient prescriptions dispensed from this VA (local) and dispensed from another VA or DoD facility (remote) as well as inpatient orders (local pending and active), local clinic medications, locally documented non-VA medications, and local prescriptions that have or been discontinued in the past 90 days. Non-VA Meds Last Documented On: Feb 05, 2016 NOTE The display of VA prescriptions dispensed from another VA or DoD facility (remote) is limited to active outpatient prescription entries matched to National Drug File at the originating site and may not include some items such as investigational drugs, compounds, etc. NOT INCLUDED IN THIS LIST: Medications self-entered by the patient into personal health records (i.e. [employer]) are NOT included in this list. Non-VA medications documented outside this [place], remote inpatient orders (regardless of status) and remote clinic medications are NOT included in this list. The patient and provider must always discuss medications the patient is taking, regardless of where the medication was dispensed or obtained. OUTPT ATORVASTATIN CALCIUM 20MG TAB (Status = Active) TAKE ONE-HALF TABLET BY MOUTH EVERY EVENING FOR CHOLESTEROL. REPORT ANY UNEXPLAINED MUSCLE PAIN/WEAKNESS TO PROVIDER THIS TABLET IS TO BE CUT IN HALF FOR YOUR DOSE Rx# [id number] Last Released: 01/28/24 Qty/Days Supply: Rx Expiration Date: 10/29/24 Refills Remainin OUTPT ATORVASTATIN CALCIUM 40MG TAB (Status = Active) TAKE ONE TABLET BY MOUTH AT BEDTIME Rx# [id number] Last Released: 02/15/24 Qty/Days Supply: Rx Expiration Date: 02/10/25 Refills Remainin Non-VA CHOLECALCIF 25MCG (D3-1,000UNIT) TAB TAKE ONE TABLET BY MOUTH ONCE A DAY Patient wants to buy from Non-VA pharmacy. Medication prescribed by Non-VA provider. OUTPT CLOPIDOGREL BISULFATE 75MG TAB (Status = Active) TAKE ONE TABLET BY MOUTH ONCE A DAY Rx# [id number] Last Released: 02/15/24 Qty/Days Supply: Rx Expiration Date: 02/10/25 Refills Remainin OUTPT DORZOLAMIDE 22.3/TIMOLOL6.8MG/ML OPH SIERRA (Status = Discontinued) INSTILL 1 DROP IN BOTH EYES TWICE A DAY FOR GLAUCOMA Rx# [id number] Last Released: 10/16/23 Qty/Days Supply: 03/02 Rx Expiration Date: 01/07/24 Refills Remainin OUTPT DORZOLAMIDE 22.3/TIMOLOL6.8MG/ML OPH SIERRA (Status = Active) INSTILL 1 DROP IN BOTH EYES TWICE A DAY FOR GLAUCOMA Rx# [id number] Last Released: 02/05/24 Qty/Days Supply: 03/02 Rx Expiration Date: 02/03/25 Refills Remainin OUTPT FINASTERIDE 5MG TAB (Status = Active) TAKE ONE TABLET BY MOUTH ONCE A DAY FOR BENIGN PROSTATIC HYPERPLASIA SWALLOW WHOLE, DO NOT CRUSH, SPLIT, OR CHEW. Rx# [id number] Last Released: 12/18/23 Qty/Days Supply: Rx Expiration Date: 08/28/24 Refills Remainin Indication: FOR BENIGN PROSTATIC HYPERPLASIA OUTPT GLIMEPIRIDE 1MG TAB (Status = Active) TAKE ONE TABLET BY MOUTH EVERY MORNING FOR DIABETES. TAKE WITH BREAKFAST OR FIRST FOOD. Rx# [id number] Last Released: 02/10/24 Qty/Days Supply: 90 Rx Expiration Date: 03/20/24 Refills Remainin OUTPT HYDROCHLOROTHIAZIDE 25MG TAB (Status = Active) TAKE ONE-HALF TABLET BY MOUTH ONCE A DAY FOR BLOOD PRESSURE Rx# [id number] Last Released: 11/11/23 Qty/Days Supply: 45 Rx Expiration Date: 05/05/24 Refills Remainin OUTPT LISINOPRIL 40MG TAB (Status = Active) TAKE ONE-HALF TABLET BY MOUTH ONCE A DAY FOR HEART OR BLOOD PRESSURE Rx# [id number] Last Released: 12/30/23 Qty/Days Supply: 45 Rx Expiration Date: 03/02/24 Refills Remainin OUTPT METFORMIN HCL 500MG TAB (Status = Active) TAKE ONE-HALF TABLET BY MOUTH TWICE A DAY WITH MEALS FOR BLOOD SUGAR CONTROL. TAKE WITH FOOD. AVOID ALCOHOL. DISCONTINUE BEFORE GETTING XRAY DYE. Rx# [id number] Last Released: 01/28/24 Qty/Days Supply: Rx Expiration Date: 06/29/24 Refills Remainin OUTPT METOPROLOL SUCCINATE 25MG SA TAB (Status = Active) TAKE ONE TABLET BY MOUTH TWICE A DAY SWALLOW WHOLE, DO NOT CRUSH OR CHEW (TABLETS MAY BE CUT IN HALF). Rx# [id number] Last Released: 02/16/24 Qty/Days Supply: 180/ Rx Expiration Date: 02/10/25 Refills Remainin OUTPT OMEPRAZOLE 20MG EC CAP (Status = ) TAKE ONE CAPSULE BY MOUTH EVERY MORNING TO LOWER STOMACH ACID. TAKE 30 MINUTES PRIOR TO FOOD. Rx# [id number] Last Released: 10/30/23 Qty/Days Supply: 90 Rx Expiration Date: 01/16/24 Refills Remainin OUTPT TAMSULOSIN HCL 0.4MG CAP (Status = Active) TAKE ONE CAPSULE BY MOUTH TWICE A DAY APPROXIMATELY 30 MINUTES AFTER THE SAME MEAL EACH DAY (FOR PROSTATE) Rx# [id number] Last Released: 02/08/24 Qty/Days Supply: 180/90 Rx Expiration Date: 07/17/24 Refills Remainin SUPPLIES PHARMACY TERMS AND POSSIBLE PATIENT ACTIONS INPT = [place] inpatient order IV = [place] intravenous medication OUTPT = [place] outpatient prescription PHARMACY POSSIBLE PATIENT TERMS EXPLANATION ACTIONS -------- -- ACTIVE A prescription that can be If you have refills, filled at the local [place] pharmacy. you may request a refill of this prescription from your [place] pharmacy. CLINIC A medication you received during If you have questions a visit to a [place] clinic or about this medication emergency department. contact your [place] healthcare team. DISCONTINUED A prescription your provider has Contact your [place] stopped. It is no longer healthcare team if you available to be sent to you or need more of this picked up at the [place] pharmacy medication. window. A prescription which is too old Contact your VA to fill. This does not refer to healthcare team if you the expiration date of the need more of this medication in the container. medication. NON-VA A medication that came from If this medication someplace other than a VA information is pharmacy. This may be a incorrect or out of prescription from either the VA date, please tell your or non VA providers that was VA healthcare team. filled outside the VA. Or, it may be an [id number] (OTC), herbal, dietary supplements or sample medication. ON HOLD An active prescription that will Contact your VA not be filled until pharmacy pharmacy when you need resolves the issue. more of this medication. PARKED An active prescription that will Contact your VA not be filled until the patient pharmacy when you need requests it. this medication. PENDING This prescription order has been If you have been sent to the pharmacy for review instructed to start and is not ready yet. this medication now, contact your VA pharmacy. SUSPENDED An active prescription that is Contact your [place] not scheduled to be filled yet. pharmacy if you need You should receive it before this medication now. you run out. ====== Patient reports taking medications as ordered. IS PATIENT TAKING ANY OVER THE COUNTER MEDICATIONS, SUCH VITAMINS OR HERBAL SUPPLEMENTS, INCLUDING ANY MEDICATIONS PRESCRIBED BY ANOTHER PHYSICIAN? No ALLERGIES/ADVERSE REACTIONS: BACTRIM Does patient have any new allergies to report since last visit? NO VITALS: TEMPERATURE: 99.6 F [37.6 C] (10/14/2023 15:58) BP: 102/67 (10/14/2023 15:58) RESP: 20 (10/14/2023 15:55) PULSE: 119 (10/14/2023 15:58) HT: 71 in [180.3 cm] (09/09/2023 10:11) WT: 227.1 lb [103.01 kg] (10/14/2023 15:55) BMI: 31.7 PAIN ASSESSMENT: (Most Recent Pain Score in Vitals Package: 0 (09/09/2023 10:11) ) The patient indicated that they and their close contacts have not traveled outside of the [place] in the past 21 days. The patient reports the following symptoms: No symptoms present The patient is not immunocompromised. The patient does not report having a history of Multi Drug Resistant Organism (MDRO) within the last five years. The patient does not report having been exposed to measles, chickenpox, or zoster in last 30 days. Patient reports no pain at this visit. Pain Score = 0. STRESS: Thank you for your service. Now let us serve you. At the [facility], we strive to provide you with exceptional health care that improves your health and well-being. Are you feeling sad, empty, or depressed? No Do you need to talk about things in your life that worry you or cause you stress? No Do you need to talk about personal problems, family problems, alcohol use, drug use, or mental or emotional illness? No SUICIDE SCREENING: The patient was asked, Over the past two weeks, how often have you been bothered by thoughts that you would be better off or of hurting yourself in some way? Not At All SPIRITUAL ASSESSMENT: Are there roman catholic practices or spiritual concerns you want the post hole digging machine operator, your physician, and other health care team members to immediately know about? No Patient advised to call the clinic for any concerns, questions, or symptoms. Patient and/or caregiver verbalized understanding of plan of care. Suicide Screen - V: C-SSRS Screening [place]-Suicide Severity Rating Scale (C-SSRS Screener) 1. Over the past month, have you wished you were or wished you could go to sleep and not wake up? No 2. Over the past month, have you had any actual thoughts of killing yourself? No 3. Over the past month, have you been thinking about how you might do this? Response not required due to responses to other questions. 4. Over the past month, have you had these thoughts and had some intention of acting on them? Response not required due to responses to other questions. 5. Over the past month, have you started to work out or worked out the details of how to kill yourself? Response not required due to responses to other questions. 6. If yes, at any time in the past month did you intend to carry out this plan? Response not required due to responses to other questions. 7. In your lifetime, have you ever done anything, started to do anything, or prepared to do anything to end your life (for example, collected pills, obtained a gun, gave away valuables, went to the roof but didn't jump)? No 8. If YES, was this within the past 3 months? Response not required due to responses to other questions. /anne/ LESLIE CATALAN LPN [facility] Signed: 02/17/2024 11:55 02/17/2024 ADDENDUM STATUS: COMPLETED Influenza Immunization - L,N,P,PH,U: Influenza, High-Dose, Trivalent, Preservative Free (Fluzone-Syringe) Administered: INFLUENZA, HIGH-DOSE, TRIVALENT, PF Date Administered: Feb 17, 2024 11:30 Retention Manager: [employer] PASTEUR Lot: [id number] Exp Date: Oct 31, 2024 [facility] [place]: [phone] Admin Route/Site: INTRAMUSCULAR/RIGHT DELTOID Dosage: 0.5mL Vaccine Information Statement(s): INFLUENZA(FLU) VACC(INACTIVATED OR RECOMBINANT)VIS Dec 07, 2020 ([place]RA[place]IAN) Order By: Policy Administered By: Leslie Catalan The Influenza Vaccine Information Statement (VIS) was reviewed with the patient/caregiver which lists the benefits and risks of the vaccine and the risks of not receiving the Influenza vaccine. The patient/caregiver denied any prior severe reaction to this vaccine or its components or a severe allergic reaction, such as anaphylaxis, to any vaccine or any injectable therapy. The patient/caregiver gave verbal consent to receive the vaccine. /anne/ LESLIE CATALAN LPN [facility] Signed: 02/17/2024 12:17 LESLIE CATALAN [facility]
--- OUTSIDE RECORDS SUMMARY | 2024-09-01 09:31 | XMS_ITS | Encounter Summary ---
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 Date/Time Encounter Type Encounter Description Reason Pro vider Source September 01, 2024 02:31 PM Outpatient Encounter ADMIN PAT ACTIVTIES (MASNONCT) I[facility] Encounter Template Text not used by [facility] Plan of Treatment: Future Appointments (+ 6 months) and Future Tests (+/- 45 days) The Plan of Treatment section includes future care activities for the patient from all [facility] treatment[facility]. This section includes future appointments and future orders which are active, pending or scheduled. Future Appointments This section includes appointments that were scheduled to occur 6 months from the date of the Encounter, up to a maximum of 20 appointments. The data comes from all [facility] treatment facilities. Appointment Date/Time Appointment Type Appointme nt Facility Name September 08, 2024 09:00 AM [facility] September 14, 2024 02:45 PM [facility] [place] [facility] Mar 02, 2025 08:20 AM AMBULATORY - MEDICINE [facility] Lab Results: +/- 30 days of the encounter This section includes the Chemistry and Hematology Lab Results on record with [facility] for the patient. Radiology Reports and Pathology Reports are provided separately, in subsequent sections. Lab Results This section contains the Chemistry/Hematology Results that were resulted 30 days before or 30 daysafter the date of the Encounter. Date/Time Source Result Type Result - Unit Interpretation Reference Range Specimen Type Comment September 01, 2024 08:03 AM [facility] HGA1C BLOOD Specimen Type: BLOOD No comment entered. Ordering Provider: RODRIGO DUVAL Report Released Date/Time: Feb 17, 2024 12:05 PM Reporting Lab: [place] [facility] [address] [place] [address] Performing Lab: [place] [facility] [address] [place] [address] HGA1C 7.0 H 4.0-6.0 September 01, 2024 08:03 AM [facility] CHOLESTEROL PANEL (PB) PLASMA Specimen Type: P LASMA No comment entered. Ordering Provider: RODRIGO DUVAL Report Released Date/Time: Feb 17, 2024 12:05 PM Reporting Lab: [place] [facility] [address] [place] [address] Performing Lab: [place] [facility] [address] [place] [address] CHOLESTEROL 110 mg/dL 0-200 TRIGLYCERIDE 246 mg/dL H 0-150 CALCULATED LDL 31.8 mg/dL HDL(New) 29.0 mg/dL L >40 HDL % OF TOTAL CHOLESTEROL (PB) 26.4 >25 September 01, 2024 08:03 AM [facility] COMPREHENSIVE METABOLIC PANEL PLASMA Specimen Type: PLASMA No comment entered. Ordering Provider: RODRIGO DUVAL Report Released Date/Time: Feb 17, 2024 12:05 PM Reporting Lab: [place] [facility] [address] [place] [address] Performing Lab: [place] [facility] [address] [place] [address] CREATININE 1.48 mg/dL H 0.7-1.3 UREA NITROGEN 17 mg/dL 9-25 GLUCOSE 140 mg/dL H 72-99 SODIUM 140 meq/L 136-145 POTASSIUM 4.3 meq/L 3.5-5 CHLORIDE 109 meq/L H 98-107 CARBON DIOXIDE 23 meq/L 22-31 CALCIUM 8.9 mg/dL 8.4-10.4 PROTEIN 7.0 g/dL 6-8.6 ALBUMIN 4.3 g/dL 3.4-5 TOTAL BILIRUBIN 0.6 mg/dL 0.2-1.2 ALKALINE PHOSPHATASE 81 U/L 40-150 AST/SGOT 23 U/L 5-34 ALT/SGPT 30 U/L 8-40 EGFR (CKD-EPI 2020) 49 Social History: Smoking Status (Most current) and Tobacco Use (All prior to encounter date) This section includes the most current, and the historical, smoking and tobacco- related health factors from the [facility] facility where the Encounter took place. Current Smoking Status This section includes the most current smoking, or tobacco-related health factor, from the [facility] facility where the Encounter took place. Date/Time Current Smoking Status Comment [place] [facility] Mar 03, 2023 01:00 PM VA-TOBACCO QUIT 15 YRS OR MORE [facility] Tobacco Use History This section includes a history of the smoking, or tobacco-related health factors, that were collected on or before the date of the Encounter. The data comes from the [facility] facility where the Encounter took place. Date/Time Smoking Status/Tobacco Use Comment F acility Mar 03, 2023 01:00 PM VA-TOBACCO QUIT 15 YRS OR MORE [facility] Feb 21, 2022 09:00 AM VA-TOBACCO FORMER USER [facility] Feb 21, 2022 09:00 AM VA-TOBACCO QUIT 15 YRS OR MORE [facility] Feb 06, 2021 08:30 AM VA-TOBACCO NEVER USED [facility] Mar 04, 2018 02:14 PM VA-TOBACCO FORMER USER [facility] Mar 04, 2018 02:14 PM VA-TOBACCO QUIT 15 YRS OR MORE [facility] Oct 15, 2011 01:47 PM QUIT TOBACCO >7 YEARS AGO [facility] Advance Directives: All historical and current Section Date Range: From patient's date of to the date document was created. This section includes ALL of a patient's completed or amended [facility] Advance and Rescinded Directives. The entries below indicate that a directive exists for the patient, but an actual copy is not included with this document. The data comes from all [facility] facilities. Date Advance Directives Provider Source Mar 06, 2015 ADVANCE DIRECTIVE DISCUSSION SANDRA CAMPBELL [facility] Feb 02, 2013 ADVANCE DIRECTIVE DISCUSSION MYLA WILL [facility] Oct 15, 2011 ADVANCE DIRECTIVE DISCUSSION SANDRA CAMPBELL [facility] Jul 28, 2011 ADVANCE DIRECTIVE MANISHA CESAR [facility] Encounter Notes: All associated encounter notes This section contains the clinical notes associated to the Encounter. Date/Time Encounter Note(s) Provider Source September 01, 2024 02:31 PM GENERAL MEDICINE N OTE: LOCAL TITLE: General Note PB STANDARD TITLE: GENERAL MEDICINE NOTE DATE OF NOTE: SEPTEMBER 01, 2024@14:31 ENTRY DATE: SEPTEMBER 01, 2024@14:32 AUTHOR: JAMIE KHAN EXP COSIGNER: URGENCY: STATUS: COMPLETED Eye Care At-Risk Screen - L,N,PH,U: Patient identified to be at risk for the following eye condition(s): DIABETIC RETINOPATHY: Diabetes Diagnosis Information: Encounter Diagnosis: 02/17/2024@11:30 E11.8 (ICD-10-CM) Type 2 Diabetes Mellitus with unspecified Complications rank: SECONDARY Prov. Narr. - Diabetes mellitus type 2 ([facility] [id number]) MACULAR DEGENERATION: Macular Degeneration Risk Factors Information: Reminder Term: [facility]-AMD RISK FACTORS Encounter Diagnosis: 02/17/2024@11:30 I25.10 (ICD-10-CM) Atherosclerotic Heart Disease of [place] Coronary Artery without Angina Pectoris rank: PRIMARY Prov. Narr. - Coronary artery disease ([facility] CT [id number]) GLAUCOMA: Glaucoma Risk Factors Information: Encounter Diagnosis: 02/17/2024@11:30 H40.9 (ICD-10-CM) Unspecified Glaucoma rank: SECONDARY Prov. Narr. - Glaucoma ([facility] [id number]) Action: No Referral Ordered: Eye exam completed elsewhere by an Health Support Specialist or Jacquard Fixer Diabetic retinal exam result: Results Unknown (recommended that patient proceed with eye care request or obtain outside retinal exam result within 90 days) Date: June, ? Exact date is unknown Location: Dr. Brady Comment: Per he is seen by Dr. Brady every 3 months /es/ JAMIE KHAN Telehealth Clinical Director Of Cardiology Service Line Signed: 09/01/2024 14:33 [facility]
--- OUTSIDE RECORDS SUMMARY | 2024-09-08 04:00 | XMS_ITS | Encounter Summary ---
Author Name [facility] Organization [facility] [place] Address [address], [place] [address] Care Team Providers Care Kitchen Clerk Name Role Phone SNOW DUVAL Primary Care [...] PART A Jul 02, 2013 PART A [id number] [phone] SARAH KATZ PATIENT MEDICARE (WNR) MEDICARE (M) PART B Jul 02, 2013 PART B [id number] SARAH KATZ PATIENT Selected Encounter This section includes the information on record at [place] for the Encounter. Date/Time Encounter Type Encounter Description Reason Provider Source September 08, 2024 09:00 AM OFFICE O/P EST MOD 30 MIN PRIMARY CARE/MEDICINE ICD-10-CM E11.8 Type 2 diabetes mellitus with unspecified complications GLORIA DUVAL IHAnette Encounter Template Text not used by [facility] Assessments - Encounter Diagnoses This section includes the primary and secondary diagnoses documented for the Encounter. Date/Time Primary/Secondary Diagnosis Diagnosis Name Provider Source September 08, 2024 09:29 AM PRIMARY Type 2 diabetes mellitus with unspecified complications SNOW DU[facility] September 08, 2024 09:29 AM SECONDARY Athscl heart disease of [place] coronary artery w/o ang pctrs [facility] [place] [place] [facility] September 08, 2024 09:29 AM SECONDARY [facility], [facility] September 08, 2024 09:29 AM SECONDARY Benign prostatic hyperplasia without lower urinry tract symp [facility] September 08, 2024 09:29 AM SECONDARY Contact with and exposure to other hazardous substances [facility] September 08, 2024 09:29 AM SECONDARY Gastro-esophageal reflux disease without esophagitis [facility] September 08, 2024 09:29 AM SECONDARY Hyperlipidemia, unspecified [facility] September 08, 2024 09:29 AM SECONDARY Hypertensive heart disease without heart failure [facility] September 08, 2024 09:29 AM SECONDARY Insomnia, unspecified [facility] September 08, 2024 09:29 AM SECONDARY Malignant neoplasm of bladder, unspecified [facility] [place] September 08, 2024 09:29 AM SECONDARY Malignant neoplasm of unsp kidney, except renal pelvis [facility] September 08, 2024 09:29 AM SECONDARY Obesity, unspecified [facility] September 08, 2024 09:29 AM SECONDARY Type 2 diabetes mellitus with diabetic neuropathy, unsp [facility],SNOW [facility] September 08, 2024 09:29 AM SECONDARY Unspecified glaucoma [facility] September 08, 2024 09:29 AM SECONDARY Unspecified right bundle-branch block [facility] [place] [facility] September 08, 2024 09:29 AM SECONDARY Vitamin deficiency, unspecified [facility]UK[facility],SNOW [facility] Plan of Treatment: Future Appointments (+ 6 months) and Future Tests (+/- 45 days) The Plan of Treatment section includes future care activities for the patient from all [place] treatmentfacilities. This section includes future appointments and future orders which are active, pending or scheduled. Future Appointments This section includes appointments that were scheduled to occur 6 months from the date of the Encounter, up to a maximum of 20 appointments. The data comes from all [place] treatment facilities. Appointment Date/Time Appointment Type Appointme nt Facility Name September 14, 2024 02:45 PM AMBULATORY - [place]ICINE [place] [facility] Mar 02, 2025 08:20 AM AMBULATORY - MEDICINE [facility] Mar 09, 2025 08:30 AM AMBULATORY - MEDICINE [facility] Lab Results: +/- 30 days of the encounter This section includes the Chemistry and Hematology Lab Results on record with PA for the patient. Radiology Reports and Pathology Reports are provided separately, in subsequent sections. Lab Results This section contains the Chemistry/Hematology Results that were resulted 30 days before or 30 daysafter the date of the Encounter. Date/Time Source Result Type Result - Unit Interpretation Reference Range Specimen Type Comment September 01, 2024 08:03 AM [facility] HGA1C BLOOD Specimen Type: BLOOD No comment entered. Ordering Provider: SNOW DUVAL Report Released Date/Time: Feb 17, 2024 12:05 PM Reporting Lab: [place] [facility] [address] [place] [address] Performing Lab: [place] [facility] [address] [place] [address] HGA1C 7.0 H 4.0-6.0 September 01, 2024 08:03 AM [facility] CHOLESTEROL PANEL (PB) PLASMA Specimen Type: P LASMA No comment entered. Ordering Provider: SNOW DUVAL Report Released Date/Time: Feb 17, 2024 12:05 PM Reporting Lab: [place] [facility] [address] [place] [address] Performing Lab: [place] [facility] [address] [place] [address] CHOLESTEROL 110 mg/dL 0-200 TRIGLYCERIDE 246 mg/dL H 0-150 CALCULATED LDL 31.8 mg/dL HDL(New) 29.0 mg/dL L >40 HDL % OF TOTAL CHOLESTEROL (PB) 26.4 >25 September 01, 2024 08:03 AM [facility] COMPREHENSIVE METABOLIC PANEL PLASMA Specimen Type: PLASMA No comment entered. Ordering Provider: SNOW DUVAL Report Released Date/Time: Feb 17, 2024 12:05 PM Reporting Lab: [place] [facility] [address] [place] [place] [address] Performing Lab: [place] [facility] [address] [facility] [address] CREATININE 1.48 mg/dL H 0.7-1.3 UREA NITROGEN [...] 30 U/L 8-40 EGFR (CKD-EPI 2020) 49 Vital Signs: All taken on the encounter date This section contains inpatient and outpatient Vital Signs collected on the date of the Encounter. Date/Time Temperature Pulse Blood Pressure Respiratory Rate SP02 Pain Height Weight Body Mass Index Source September 08, 2024 09:12 AM 79 137/83 18 95 0 239.2 33 [facility] Social History: Smoking Status (Most current) and Tobacco Use (All prior to encounter date) This section includes the most current, and the historical, smoking and tobacco- related health factors from the [place] facility where the Encounter took place. Current Smoking Status This section includes the most current smoking, or tobacco-related health factor, from the PA facility where the Encounter took place. Date/Time Current Smoking Status Comment Facil ity September 08, 2024 09:00 AM PA-TOBACCO USE FORMER CIGARETTES [facility] Tobacco Use History This section includes a history of the smoking, or tobacco-related health factors, that were collected on or before the date of the Encounter. The data comes from the [place] facility where the Encounter took place. Date/Time Smoking Status/Tobacco Use Comment F acility September 08, 2024 09:00 AM VA-TOBACCO USE FORMER CIGARETTES [facility] Mar 03, 2023 01:00 PM VA-TOBACCO FORMER USER [facility] Mar 03, 2023 01:00 PM VA-TOBACCO QUIT 15 YRS OR MORE [facility] Feb 21, 2022 09:00 AM VA-TOBACCO FORMER USER [facility] Feb 21, 2022 09:00 AM VA-TOBACCO QUIT 15 YRS OR MORE [facility] Feb 06, 2021 08:30 AM VA-TOBACCO NEVER USED [facility] Mar 04, 2018 02:14 PM VA-TOBACCO FORMER USER [facility] Mar 04, 2018 02:14 PM VA-TOBACCO QUIT 15 YRS OR MORE [facility] Oct 15, 2011 01:47 PM QUIT TOBACCO >7 YEARS AGO [facility] Advance Directives: All historical and current Section Date Range: From patient's date of to the date document was created. This section includes ALL of a patient's completed or amended [place] Advance and Rescinded Directives. The entries below indicate that a directive exists for the patient, but an actual copy is not included with this document. The data comes from all [place] facilities. Date Advance Directives Provider Source Mar 06, 2015 ADVANCE DIRECTIVE DISCUSSION SANDRA CAMPBELL [facility] Feb 02, 2013 ADVANCE DIRECTIVE DISCUSSION MYLA WILL [facility] Oct 15, 2011 ADVANCE DIRECTIVE DISCUSSION SANDRA CAMPBELL [facility] Jul 28, 2011 ADVANCE DIRECTIVE MANISHA CESAR [facility] Encounter Notes: All associated encounter notes This section contains the clinical notes associated to the Encounter. Date/Time Encounter Note(s) Provider Source September 08, 2024 09:15 AM PRIMARY CARE PROGRESS NOTE: LOCAL TITLE: PRIMARY CARE CLINIC PROGRESS NOTE PB STANDARD TITLE: PRIMARY CARE PROGRESS NOTE DATE OF NOTE: SEPTEMBER 08, 2024@09:15 ENTRY DATE: SEPTEMBER 08, 2024@09:15:30 AUTHOR: SNOW DUVAL COSIGNER: URGENCY: STATUS: COMPLETED SUBJECTIVE: GIANNASARAH PAUL is a 74 years old MALE. HPI: Presents to the clinic today for a periodic health maintenance visit. Last seen February 17, 2024. He reports doing well overall. Feeling better after his stents placement last fall. Non-VA Primary Care Provider none Specialty Services Urology, Dr. Renner Nephrology in [place] Dr. Ruiz, dermatology Dr. Hayden, optometry Cardiology, Dr. Diego Opthamologist, Dr. Cr FAMILY HX: Mother is , cancer? age - 95 Father is , age - 92 Siblings - neg SOCIAL HX: MARITAL STATUS: , [employer] WORK HX: retired, [employer] HOBBIES: golf TOBACCO: quit pipe/cigar for 20 years ALCOHOL: no DRUGS: no HX: BRANCH: [facility] . 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 STATIONS/DEPLOYMENTS: [employer] ACCIDENTS OR INJURIES WHILE ON ACTIVE DUTY: SURGICAL HX: Right nephrectomy Tonsillectomy Appendectomy Coronary stents x 2 Pacemaker Problem List 1) Glaucoma (SNOMED CT 90496030) 2) HTN - Hypertension (SNOMED CT 48513477) 3) Vitamin D deficiency (SNOMED CT 39592677) 4) Right bundle branch block (SNOMED CT 17919770) 5) Diabetes mellitus type 2 (SNOMED CT 42167761) 6) Diabetic neuropathy 7) HLD - Hyperlipidemia 8) Obesity 9) GERD - Gastro-esophageal reflux disease 10) Renal cell carcinoma 11) Bladder cancer 12) Benign prostatic hyperplasia 13) Insomnia (SCT 956563594) 14) Exposure to potentially hazardous substance 15) Complete heart block 16) Coronary artery disease Active Outpatient Medications (including Supplies): Active Outpatient Medications Status 1) ATORVASTATIN CALCIUM 20MG TAB TAKE ONE-HALF TABLET BY MOUTH ACTIVE EVERY EVENING FOR CHOLESTEROL. REPORT ANY UNEXPLAINED MUSCLE PAIN/WEAKNESS TO PROVIDER THIS TABLET IS TO BE CUT IN HALF FOR YOUR DOSE 2) ATORVASTATIN CALCIUM 40MG TAB TAKE ONE TABLET BY MOUTH AT ACTIVE BEDTIME 3) CLOPIDOGREL BISULFATE 75MG TAB TAKE ONE TABLET BY MOUTH ONCE ACTIVE A DAY 4) DORZOLAMIDE 22.3/TIMOLOL6.8MG/ML OPH SIERRA INSTILL 1 DROP IN ACTIVE BOTH EYES TWICE A DAY FOR GLAUCOMA 5) GLIMEPIRIDE 1MG TAB TAKE ONE TABLET BY MOUTH EVERY MORNING ACTIVE FOR DIABETES. TAKE WITH BREAKFAST OR FIRST FOOD. 6) HYDROCHLOROTHIAZIDE 25MG TAB TAKE ONE-HALF TABLET BY MOUTH ACTIVE ONCE A DAY FOR BLOOD PRESSURE 7) LISINOPRIL 40MG TAB TAKE ONE-HALF TABLET BY MOUTH ONCE A DAY ACTIVE FOR HEART OR BLOOD PRESSURE 8) METFORMIN HCL 500MG TAB TAKE ONE-HALF TABLET BY MOUTH TWICE ACTIVE A DAY WITH MEALS FOR BLOOD SUGAR CONTROL. TAKE WITH FOOD. AVOID ALCOHOL. DISCONTINUE BEFORE GETTING XRAY DYE. 9) METOPROLOL SUCCINATE 25MG SA TAB TAKE ONE TABLET BY MOUTH ACTIVE TWICE A DAY SWALLOW WHOLE, DO NOT CRUSH OR CHEW (TABLETS MAY BE CUT IN HALF). 10) OMEPRAZOLE 20MG EC CAP TAKE ONE CAPSULE BY MOUTH EVERY ACTIVE MORNING TO LOWER STOMACH ACID. TAKE 30 MINUTES PRIOR TO FOOD. 11) TAMSULOSIN HCL 0.4MG CAP TAKE ONE CAPSULE BY MOUTH TWICE A ACTIVE DAY APPROXIMATELY 30 MINUTES AFTER THE SAME MEAL EACH DAY (FOR PROSTATE) Active Non-VA Medications Status 1) Non-VA CHOLECALCIF 25MCG (D3-1,000UNIT) TAB 1000UNIT BY ACTIVE MOUTH ONCE A DAY 12 Total Medications [...] [36.6 C] (02/17/2024 11:38) Respiratory Rate: 18 (09/08/2024 09:12) Pulse Rate: 79 (09/08/2024 09:12) Blood Pressure: 137/83 (09/08/2024 09:12) HT: 71.0 in [180.3 cm] (02/17/2024 11:38) WT: 239.2 lb [108.50 kg] (09/08/2024 09:12) BMI: 33.4 95% (09/08/2024 09:12) Physical Exam General: NAD noted, A&Ox3, pleasant, [...] A/P: ASSESSMENT and PLAN Health Maintenance: Labs reviewed with patient and printout given to patient. Discussed preventative health to include diet and exercise as well as immunizations. Coronary artery disease with ME 02/2024 and complete heart block status post stents x 2 and pacemaker; on Plavix followed by cardiology; still in cardiac rehab HTN - controlled with HCTZ, lisinopril, and metoprolol Vitamin D Deficiency- on supplement Diabetes mellitus type 2- controlled on metformin and glimepiride; encouraged healthy diet Diabetic neuropathy- stable Hyperlipidemia - controlled on atorvastatin; encouraged improved diet low- cholesterol Obesity- encouraged healthy diet and exercise GERD - controlled on omeprazole Renal cell and Bladder cancer- followed by urology, no treatments at this time Benign prostatic hyperplasia- on tamsulosin and finasteride Glaucoma- followed by optometry Insomnia- doing better, using benadryl prn Exposure to potentially hazardous substance Stable. Discussed [...] given to . Time spent 30 minutes. /es/ Snow Duval MD [facility] Primary Care Signed: 09/08/2024 09:30 SNOW DUVAL [facility] September 08, 2024 08:52 AM PRIMARY CARE NURSING NOTE: LOCAL TITLE: PRIMARY CARE NURSING PROGRESS NOTE (TEXT) NURSING P STANDARD TITLE: PRIMARY CARE NURSING NOTE DATE OF NOTE: SEPTEMBER 08, 2024@08:52 ENTRY DATE: SEPTEMBER 08, 2024@08:52:34 AUTHOR: CHITRA MOHAN COSIGNER: URGENCY: STATUS: COMPLETED Established Patient SARAH KATZ IS A 74 YEAR OLD MALE BEING SEEN IN CLINIC SEPTEMBER 08, 2024. REASON FOR VISIT: The is here for 6 month follow up for DM. Short term memory, Dm neuropathy getting worse Are you receiving care any where other than the VA? No HEALTH AND SURGICAL HISTORY: Does patient report using home oxygen? No CURRENT ACTIVE MEDICATIONS FOR REVIEW: If the list for review does not include a component, then it was not applicable to this patient. Allergies/ADRs (Tool #5) FACILITY ALLERGY/ADR -------- No Remote Allergy/ADR Data available for this patient [facility] Med. Reconciliation (Tool #1) INCLUDED [...] display of VA prescriptions dispensed from another PA or [facility] facility (remote) is limited to active outpatient prescription entries matched to National Drug File at the originating site and may not include some items such as investigational drugs, compounds, etc. NOT INCLUDED IN THIS LIST: Medications self-entered by the patient into personal health records (i.e. [employer]) are NOT included in this list. Non-VA medications documented outside this PA, remote inpatient orders (regardless of status) and [...] CUT IN HALF FOR YOUR DOSE Rx# [id number] Last Released: 01/28/24 Qty/Days Supply: Rx Expiration Date: 10/29/24 Refills Remainin OUTPT ATORVASTATIN CALCIUM 40MG TAB (Status = Active) TAKE ONE TABLET BY MOUTH AT BEDTIME Rx# [id number] Last Released: 08/16/24 Qty/Days Supply: Rx Expiration Date: 02/10/25 Refills Remainin Non-VA CHOLECALCIF 25MCG (D3-1,000UNIT) TAB TAKE ONE TABLET BY MOUTH ONCE A DAY Patient wants to buy from Non-VA pharmacy. Medication prescribed by Non-VA provider. OUTPT CLOPIDOGREL BISULFATE 75MG TAB (Status = Active) TAKE ONE TABLET BY MOUTH ONCE A DAY Rx# [id number] Last Released: 08/16/24 Qty/Days Supply: Rx Expiration Date: 02/10/25 Refills Remainin OUTPT DORZOLAMIDE 22.3/TIMOLOL6.8MG/ML OPH SIERRA (Status = Active) INSTILL 1 DROP IN BOTH EYES TWICE A DAY FOR GLAUCOMA Rx# [id number] Last Released: 08/15/24 Qty/Days Supply: 03/02 Rx Expiration Date: 02/03/25 Refills Remainin OUTPT FINASTERIDE 5MG TAB (Status = ) TAKE ONE TABLET BY MOUTH ONCE A DAY FOR BENIGN PROSTATIC HYPERPLASIA SWALLOW WHOLE, DO NOT CRUSH, SPLIT, OR CHEW. Rx# [id number] Last Released: 06/21/24 Qty/Days Supply: Rx Expiration Date: 08/28/24 Refills Remainin Indication: FOR BENIGN PROSTATIC HYPERPLASIA OUTPT GLIMEPIRIDE 1MG TAB (Status = Active) TAKE ONE TABLET BY MOUTH EVERY MORNING FOR DIABETES. TAKE WITH BREAKFAST OR FIRST FOOD. Rx# [id number] Last Released: 07/19/24 Qty/Days Supply: Rx Expiration Date: 05/10/25 Refills Remainin OUTPT HYDROCHLOROTHIAZIDE 25MG TAB (Status = Active) TAKE ONE-HALF TABLET BY MOUTH ONCE A DAY FOR BLOOD PRESSURE Rx# [id number] Last Released: 08/16/24 Qty/Days Supply: Rx Expiration Date: 05/21/25 Refills Remainin OUTPT LISINOPRIL 40MG TAB (Status = Active) TAKE ONE-HALF TABLET BY MOUTH ONCE A DAY FOR HEART OR BLOOD PRESSURE Rx# [id number] Last Released: 07/01/24 Qty/Days Supply: Rx Expiration Date: 04/07/25 Refills Remainin OUTPT METFORMIN HCL 500MG TAB (Status = Discontinued) TAKE ONE-HALF TABLET BY MOUTH TWICE A DAY WITH MEALS FOR BLOOD SUGAR CONTROL. TAKE WITH FOOD. AVOID ALCOHOL. DISCONTINUE BEFORE GETTING XRAY DYE. Rx# [id number] Last Released: 05/05/24 Qty/Days Supply: Rx Expiration Date: 06/29/24 Refills Remainin OUTPT METFORMIN HCL 500MG TAB (Status = Active) TAKE ONE-HALF TABLET BY MOUTH TWICE A DAY WITH MEALS FOR BLOOD SUGAR CONTROL. TAKE WITH FOOD. AVOID ALCOHOL. DISCONTINUE BEFORE GETTING XRAY DYE. Rx# [id number] Last Released: 07/28/24 Qty/Days Supply: Rx Expiration Date: 07/27/25 Refills Remainin OUTPT METOPROLOL SUCCINATE 25MG SA TAB (Status = Active) TAKE ONE TABLET BY MOUTH TWICE A DAY SWALLOW WHOLE, DO NOT CRUSH OR CHEW (TABLETS MAY BE CUT IN HALF). Rx# [id number] Last Released: 08/16/24 Qty/Days Supply: 180 Rx Expiration Date: 02/10/25 Refills Remainin OUTPT OMEPRAZOLE 20MG EC CAP (Status = Active) TAKE ONE CAPSULE BY MOUTH EVERY MORNING TO LOWER STOMACH ACID. TAKE 30 MINUTES PRIOR TO FOOD. Rx# [id number] Last Released: 08/30/24 Qty/Days Supply: Rx Expiration Date: 02/19/25 Refills Remainin OUTPT TAMSULOSIN HCL 0.4MG CAP (Status = Discontinued) TAKE ONE CAPSULE BY MOUTH TWICE A DAY APPROXIMATELY 30 MINUTES AFTER THE SAME MEAL EACH DAY (FOR PROSTATE) Rx# [id number] Last Released: 05/05/24 Qty/Days Supply: Rx Expiration Date: 07/17/24 Refills Remainin OUTPT TAMSULOSIN HCL 0.4MG CAP (Status = Active) TAKE ONE CAPSULE BY MOUTH TWICE A DAY APPROXIMATELY 30 MINUTES AFTER THE SAME MEAL EACH DAY (FOR PROSTATE) Rx# [id number] Last Released: 08/17/24 Qty/Days Supply: Rx Expiration Date: 08/16/25 Refills Remainin SUPPLIES PHARMACY TERMS AND POSSIBLE PATIENT ACTIONS INPT = PA inpatient order IV = PA intravenous medication OUTPT = PA outpatient prescription PHARMACY POSSIBLE PATIENT TERMS EXPLANATION ACTIONS -------- -- ACTIVE A prescription that can be If you have refills, filled at the local PA pharmacy. you may request a refill of this prescription from your VA pharmacy. CLINIC A medication you received during If you have questions a visit to a PA clinic or about this medication emergency department. contact your PA healthcare team. DISCONTINUED A prescription your provider has Contact your VA stopped. It is no longer healthcare team if you available to be sent to you or need more of this picked up at the PA pharmacy medication. window. A prescription which is [...] the VA. Or, it may be an lyfm-zop-rkvtajk (OTC), herbal, dietary supplements or sample medication. [...] An active prescription that is Contact your VA not scheduled to be filled yet. pharmacy if you need You should receive it before this medication now. you run out. ====== Medication list reviewed with Patient and caregiver Patient/Caregiver reports taking medications as ordered. IS PATIENT TAKING ANY OVER THE COUNTER MEDICATIONS, SUCH VITAMINS OR HERBAL SUPPLEMENTS, INCLUDING ANY MEDICATIONS PRESCRIBED BY ANOTHER PHYSICIAN? No Does patient have any new allergies to report since last visit? NO VITALS: TEMPERATURE: 97.9 F [36.6 C] (02/17/2024 11:38) BP: 128/86 (02/17/2024 11:38) RESP: 18 (02/17/2024:) PULSE: 86 (02/17/2024:) HT: 71.0 in [180.3 cm] (02/17/2024) WT: 226.5 lb [102.74 kg] (02/17/2024) BMI: 31.7 PAIN ASSESSMENT: (Most Recent Pain Score in Vitals Package: 0 (02/17/2024 11:38) ) The patient indicated that they and [...] Now let us serve you. At the [facility], we strive to provide you with exceptional [...] Not At All SPIRITUAL ASSESSMENT: Are there scientologist practices or spiritual concerns you want the retail performance coach, your physician, and other health care team members to immediately know about? No Patient advised to call the clinic for any concerns, questions, or symptoms. Patient and/or caregiver verbalized understanding of plan of care. Depression Screening - V: Perform PHQ-2 A PHQ-2 screen was performed. The score was 0 which is a negative screen for depression. Over the past two weeks, how often have you been bothered by the following problems? 1. Little interest or pleasure in doing things Not at all 2. Feeling down, depressed, or hopeless Not at all Homelessness/Food Insecurity Screen - DI,L,N,P,PH,PS,S,U: In the past 2 months, have you been living in stable housing that you own, rent, or stay in as part of a household? Yes - Living in stable housing. Are you worried or concerned that in the next 2 months you may NOT have stable housing that you own, rent, or stay in as part of a household? No - Not worried about housing near future [facility] [place] reports the following: Within the past 12 months, you worried whether your food would run out before you got money to buy more. Never true Within the past 12 months, the food you bought just didn't last and you didn't have money to get more. Never true FALL RISK OP PB: SAPPHIRE FALL RISK ASSESSMENT Have you experienced any falls within the last 12 months: 0 = No Secondary Dx: 5 = Yes Secondary Dx Ambulatory Aid: 0 = No Gait/Transferrin = Normal/Bedrest/Immobile Mental status: 0 = Oriented to own ability Medications: 5 = High risk meds TOTAL SCORE: 10 Score <30 - patient IS NOT at risk for falls. No action at this time. Reassess annually or if needed. Fall Documentation No - Patient did not experience a fall within the last year RHS Screen - VS: RHS Screen Session Format: Face to Face Environmental Check Screening was not completed at this time due to: Another adult present COVID-19 Immunization-L,N,P,PH,U: Refused Moderna Monovalent COVID-19 vaccine Immunization: COVID-19 (MODERNA), MRNA, LNP-S, PF, 50 MCG/0.5 ML (AGES 12+ YEARS) Refusal Reason: PATIENT DECISION Patient refuses all immunization(s) in the COVID-19 group Comment: reports that he had one 03/2024 Date Documented: 09/08/24 09:17 Alcohol Use Screen (AUDIT-C) - V: Alcohol Screen: SCREEN FOR ALCOHOL (AUDIT-C) An alcohol screening test (AUDIT-C) was negative (score=0). 1. How often did you have a drink containing alcohol in the past year? Consider a drink to be a 12 ounce can or bottle of regular beer, 8 ounces of malt liquor, a 5 ounce glass of table wine, or a 1.5 ounce shot of liquor (like scotch, gin, or vodka). Never 2. How many drinks containing alcohol did you have on a typical day when you were drinking in the past year? Response not required due to responses to other questions. 3. How often did you have six or more drinks on one occasion in the past year? Response not required due to responses to other questions. Tobacco Use Screening - AT,DE,L,M,N,P,PH,PS,RT,S,U: The patient is a former cigarette smoker. The patient has never used other types of tobacco. Pain Assessment: - PAIN ASSESSMENT: .. Patient reports no pain at this visit. Pain Score = 0. Patient's self identified pain goal: 0 Weight Control/Nutrition Counseling: * Patient declined nutrition and weight screen counseling at this encounter. Patient/Nurse Interview: * * Patient stated that adequate information was received regarding the condition and/or treatment. Comment: If you have any questions please call the clinic PAVE Foot Check - L,N,P,PH,PO,PT,U: A complete foot check was completed at this encounter. VISUAL INSPECTION: Includes inspection for skin breaks, deformity, erythema, trauma, pallor on elevation, dependent rubor, nail deformities, extensive callus and pitting edema. Visual exam results: Normal PEDAL PULSES: Includes palpation of dorsalis and posterior tibial pulses and signs/symptoms of vascular compromise like pain, pallor, paresthesia or paralysis. Present (even if diminished) SENSORY CHECK: Includes 10 gram Monofilament (Tracy-Joaquin) test of sensation. Intact (Greater than or equal to 80% of sites checked) Abnormal (Less than 80% of sites checked): Intact LOW-RISK: LOW RISK INFORMATION PROVIDED: 1. Advised patient not to walk barefoot. 2. Explained the importance of daily foot checks for changes. 3. Stressed the importance of daily foot hygiene, including bathing and complete drying. The patient verbalized understanding and was offered a detailed handout on diabetic foot care. Per [facility] Directive 1605.06, wristband documentation: Patient wristband was removed and destroyed by (staff name) Patria Mohan RN and placed in the designated [employer] bin. /anne/ Chitra Mohan RN,BSN [place], CBOC Signed: 09/08/2024 09:20 CHITRA MOHAN
--- OUTSIDE RECORDS SUMMARY | 2024-11-18 17:33 | XMS_ITS | Continuity of Care Document ---
Author Name [facility] Organization [facility] Care Team Providers Care Case Specialist Name Role Phone [facility] Unavailable Unavailable Problems Combined list of problems from Department of Defense and Veterans Affairs facilities. It does not include entries that were removed or entered in error. Problem Status Onset Date Problem Type Date of Resolution Comments Source Benign prostatic hyperplasia Active Condition [facility] Bladder cancer Active Condition [facility] Complete heart block Active Condition Feb 17, 2024 Entered By: GLORIA DUVAL Comment: Pacemaker placement 02/2024 [facility] Coronary artery disease Active Condition September 28, 2024 Entered By: GLORIA DUVAL Comment: PCI of LAD and RCA [facility] Diabetes mellitus type 2 (SNOMED CT 50298982) Active Condition [facility] Diabetic neuropathy Active Condition [facility] Exposure to potentially hazardous substance Active Condition [facility] - Gastro-esophageal reflux disease Active Condition [facility] Glaucoma (SNOMED CT 92056497) Active Condition [facility] HLD - Hyperlipidemia Active Condition [facility] HTN - Hypertension (SNOMED CT 11269833) Active Condition [facility] [facility] Insomnia (SCT 391978522) Active Condition [facility] Obesity Active Condition [facility] Renal cell carcinoma Active Condition May 15, 2020 Entered By: GLORIA DUVAL Comment: s/p right nephrectomy [facility] Right bundle branch block (SNOMED CT 05437136) Active Condition [facility] Vitamin D deficiency (SNOMED CT 23805157) Active Condition [facility] Acute low back pain (SNOMED CT 150098943) Inactive Condition 02/04/2016 [facility] Electrocardiogram Abnormal (ICD-9-CM 794.31) Inactive Condition 02/04/2016 [facility] Elevated Liver Function Tests Inactive Condition 02/04/2016 [facility] Hyperlipidemia * (ICD-9-CM 272.4) Inactive Condition 02/04/2016 [facility] Laboratory Examination Ordered as part of a Routine General Medical Examination Inactive Condition 02/04/2016 [facility] Routine General Medical Examination at a Health Care Facility * (ICD-9-CM V70.0) Inactive Condition 02/04/2016 [facility] Screening for Diabetes Mellitus Inactive Condition 02/04/2016 [facility] Shoulder joint pain (SNOMED CT 558242309) Inactive Condition 02/04/2016 [facility] VACCINATION FOR TD-DT - Tetanus-diphtheria [td] [dt] (ICD-9-CM V06.5) Inactive Condition 05/08/2020 [facility] Diagnosis: ICD-10-CM E11.8 Type 2 diabetes mellitus with unspecified complications Active Diagnosis [facility] Diagnosis: ICD-10-CM I25.10 Athscl heart disease of [place] coronary artery w/o ang pctrs [facility] Diagnosis: ICD-10-CM R50.9 Fever, unspecified Active Diagnosis [facility] Diagnosis: ICD-10-CM I11.9 Hypertensive heart disease without heart failure Active Diagnosis [facility] Medications Combined list of outpatient medications from Department of Defense and Veterans Affairs facilities.Medications provided include 1) outpatient medications from the last 15 months, and 2) patient-reported medications. Medication Details Route Status Patient Instructions Prescription Expires Prescription Number Last Dispense Date Ordering Provider Order Date Order Qty Source ASPIRIN 81MG TAB,EC TAKE ONE TABLET BY MOUTH ONCE A DAY TAKE WITH FOOD. ORAL ACTIVE 09/15/2025 [id number] BARRETO,H USSAIN 2024 120 [facility] ATORVASTATI N CA 20MG TAB TAKE ONE-HALF TABLET BY MOUTH EVERY EVENING FOR CHOLESTE ROL. REPORT ANY UNEXPLAI MARLENE MUSCLE PAIN/WEA KNESS TO PROVIDER THIS TABLET IS TO BE CUT IN HALF FOR YOUR DOSE ORAL 10/29/2024 [id number] ISSAC GEE LLIAM R 2023 45 [facility] ATORVASTATI N CA 40MG TAB TAKE ONE TABLET BY MOUTH AT BEDTIME ORAL ACTIVE 02/10/2025 [id number] CARMEN JOE 2023 90 [place] [facility] [facility] CHOLECALCIF CAROLE 25MCG (1,000UNIT) TAB TAKE ONE TABLET BY MOUTH ONCE A DAY ORAL ACTIVE ISSAC GEE R 2015 [facility] CLOPIDOGREL BISULFATE 75MG TAB TAKE ONE TABLET BY MOUTH ONCE A DAY ORAL ACTIVE 02/10/2025 [id number] 5 CARMEN JOE 2023 90 [place] [facility] DORZOLAMIDE HCL 22.3MG/JOSE LOL MALEATE 6.8MG/ML SOLN,OPH INSTILL 1 DROP IN BOTH EYES TWICE A DAY FOR GLAUCOMA OPHTHA LMIC ACTIVE 02/03/2025 [id number] 5 MUKUND RODRIGO [address] [place] [address] CB DORZOLAMIDE HCL 22.3MG/JOSE LOL MALEATE 6.8MG/ML SOLN,OPH INSTILL 1 DROP IN BOTH EYES TWICE A DAY FOR GLAUCOMA OPHTHA LMIC DISCONT INUED 01/07/2024 [id number] 4 [facility] RODRIGO [address] [place] [address] CBOC FINASTERIDE 5MG TAB TAKE ONE TABLET BY MOUTH ONCE A DAY FOR BENIGN PROSTATI C HYPERPLA DANIELLE SWALLOW WHOLE, DO NOT CRUSH, SPLIT, OR CHEW. ORAL ACTIVE 09/09/2025 [id number] 5 [facility] RODRIGO [address] [place] [address] CBOC FINASTERIDE 5MG TAB TAKE ONE TABLET BY MOUTH ONCE A DAY FOR BENIGN PROSTATI C HYPERPLA DANIELLE SWALLOW WHOLE, DO NOT CRUSH, SPLIT, OR CHEW. ORAL DISCONT INUED 08/28/2024 [id number] 5 [facility] RODRIGO [address] [place] [address] CBOC GLIMEPIRIDE 1MG TAB TAKE ONE TABLET BY MOUTH EVERY MORNING FOR DIABETES . TAKE WITH BREAKFAS T OR FIRST FOOD. ORAL ACTIVE 05/10/2025 [id number] 5 MUKUND, RODRIGO [address] [place] [address] [facility]OC GLIMEPIRIDE 1MG TAB TAKE ONE TABLET BY MOUTH EVERY MORNING FOR DIABETES . TAKE WITH BREAKFAS T OR FIRST FOOD. ORAL DISCONT INUED 03/20/2024 [id number] 4 MUKUND, RODRIGO [address] [place] [address] CBOC HYDROCHLORO THIAZIDE 25MG TAB TAKE ONE-HALF TABLET BY MOUTH ONCE A DAY FOR BLOOD PRESSURE ORAL ACTIVE 05/21/2025 [id number] 5 MUKUND, RODRIGO [address] [place] [address] [facility]OC HYDROCHLORO THIAZIDE 25MG TAB TAKE ONE-HALF TABLET BY MOUTH ONCE A DAY FOR BLOOD PRESSURE ORAL DISCONT INUED 05/05/2024 [id number] 4 MUKUND, RODRIGO [address] [place] [address] CBOC LISINOPRIL 40MG TAB TAKE ONE-HALF TABLET BY MOUTH ONCE A DAY FOR HEART OR BLOOD PRESSURE ORAL ACTIVE 04/07/2025 [id number] 5 MUKUND, RODRIGO [address] [place] [address] [facility]OC LISINOPRIL 40MG TAB TAKE ONE-HALF TABLET BY MOUTH ONCE A DAY FOR HEART OR BLOOD PRESSURE ORAL DISCONT INUED 03/02/2024 [id number] 4 MUKUND, RODRIGO [address] [place] [address] CBOC METFORMIN HCL 500MG TAB TAKE ONE-HALF TABLET BY MOUTH TWICE A DAY WITH MEALS FOR BLOOD SUGAR CONTROL. TAKE WITH FOOD. AVOID ALCOHOL. DISCONTI NUE BEFORE GETTING XRAY DYE. ORAL ACTIVE 07/27/2025 [id number] 5 MUKUND, RODRIGO [address] [place] [address] CBOC METFORMIN HCL 500MG TAB TAKE ONE-HALF TABLET BY MOUTH TWICE A DAY WITH MEALS FOR BLOOD SUGAR CONTROL. TAKE WITH FOOD. AVOID ALCOHOL. DISCONTI NUE BEFORE GETTING XRAY DYE. ORAL DISCONT INUED 06/29/2024 [id number] ISSAC GEE 2023 90 [place] [facility] METOPROLOL SUCCINATE 25MG TAB,SA TAKE ONE TABLET BY MOUTH TWICE A DAY SWALLOW WHOLE, DO NOT CRUSH OR CHEW (TABLETS MAY BE CUT IN HALF). ORAL ACTIVE 02/10/2025 [id number] CARMEN JOE LIE 2023 180 [place] [facility] OMEPRAZOLE 20MG CAP,EC TAKE ONE CAPSULE BY MOUTH EVERY MORNING TO LOWER STOMACH ACID. TAKE 30 MINUTES PRIOR TO FOOD. ORAL ACTIVE 02/19/2025 [id number] 5 MUKUND, RODRIGO 2023 90 [facility] OMEPRAZOLE 20MG CAP,EC TAKE ONE CAPSULE BY MOUTH EVERY MORNING TO LOWER STOMACH ACID. TAKE 30 MINUTES PRIOR TO FOOD. ORAL DISCONT INUED 01/16/2024 [id number] 4 MUKUND, RODRIGO [address] [place] [address] CBOC TAMSULOSIN HCL 0.4MG CAP TAKE ONE CAPSULE BY MOUTH TWICE A DAY APPROXIM ATELY 30 MINUTES AFTER THE SAME MEAL EACH DAY (FOR PROSTATE ) ORAL ACTIVE 08/16/2025 [id number] 5 MUKUND, RODRIGO 2024 180 [facility] TAMSULOSIN HCL 0.4MG CAP TAKE ONE CAPSULE BY MOUTH TWICE A DAY APPROXIM ATELY 30 MINUTES AFTER THE SAME MEAL EACH DAY (FOR PROSTATE ) ORAL DISCONT INUED 07/17/2024 [id number] 5 MUKUND, RODRIGO 2023 180 [facility] Allergies, Adverse Reactions, Alerts Combined list of allergies from Department of Defense and Veterans Affairs facilities. It does not include entries that were removed or entered in error. Substance Category Reaction Severity Reaction type Status Date Reported Comments Source BACTRI Propensity to adverse reactions to drug (finding) Kidney disease active 4 . [facility] Immunizations Combined list of available immunizations from the Department of Defense and Veterans Affairs facilities. Immunization Series Date Given Administered By Site Reaction Lot Number CVX Code Drug Government Affairs Specialist Status Comments Source COVID-19 (PFIZER), MRNA, LNP-S, PF, ANDREZ-SUCROSE, 30 MCG/0.3 ML (AGES 12+ YEARS) 6 2023 309 complet ed HISTORICA L INFORMATI ON - FROM OTHER REGISTRY, [facility] INFLUENZA, HIGH-DOSE, TRIVALENT, PF 2023 ONEAL CATALAN RIGHT DELTO ID [id number] 135 complet ed [facility] COVID-19 ([facility]), MRNA, LNP-S, PF, ANDREZ-SUCROSE, 30 MCG/0.3 ML (AGES 12+ YEARS) 5 2022 309 complet ed HISTORICA L INFORMATI ON - FROM OTHER REGISTRY, [facility] TDAP 2022 ONEAL CATALAN RIGHT DELTO ID [id number] 115 complet ed [facility] INFLUENZA, HIGH-DOSE, QUADRIVALENT 2022 ONDINA MAJOR D LEFT DELTO ID [id number] 197 complet ed [facility] ([facility]), MRNA, LNP-S, BIVALENT, PF, 30 MCG/0.3 ML DOSE 4 2022 300 complet ed HISTORICA L INFORMATI ON - FROM OTHER [facility], [facility] INFLUEN[facility], INJECTABLE, QUADRIVALENT, PRESERVATIVE FREE 2021 150 complet ed [facility] COVID-19 ([facility]), MRNA, LNP-S, PF, 30 MCG/0.3 ML DOSE 3 2020 208 complet ed HISTORICA L INFORMATI ON - FROM OTHER REGISTRY, [facility] INFLU[facility], INJECTABLE, QUADRIVALENT, PRESERVATIVE FREE 2020 150 complet ed [facility] ZOSTER RECOMBINANT 2 2020 187 complet ed [facility] COVID-19 ([facility]), MRNA, LNP-S, PF, 30 MCG/0.3 ML DOSE 2 2020 208 complet ed HISTORICA L INFORMATI ON - FROM OTHER REGISTRY, [facility] COVID-[facility] ([facility]), MRNA, LNP-S, PF, 30 MCG/0.3 ML DOSE 1 2020 208 complet ed HISTORICA L INFORMATI ON - FROM OTHER REGISTRY, [facility] INFLUENZA, INJECTABLE, QUADRIVALENT, PRESERVATIVE FREE 2019 150 complet ed [facility] PNEUMOCOCCAL POLYSACCHARID E [id number] 2018 33 complet ed [facility] ZOSTER RECOMBINANT 1 2018 187 complet ed [facility] INFLUENZA, INJECTABLE, QUADRIVALENT, PRESERVATIVE FREE 2018 150 complet ed [facility] INFLUENZA, INJECTABLE, QUADRIVALENT, PRESERVATIVE FREE 2017 150 complet ed [facility] INFLUENZA, SEASONAL, INJECTABLE, PRESERVATIVE FREE 2016 140 complet ed Right Deltoid [facility] INFLUENZA, SEASONAL, INJECTABLE, PRESERVATIVE FREE 2015 140 complet ed [facility] PNEUMOCOCCAL CONJUGATE PCV 13 2014 133 complet ed [facility] INFLUENZA, SEASONAL, INJECTABLE, PRESERVATIVE FREE 2014 140 complet ed [facility] INFLUENZA, SEASONAL, INJECTABLE, PRESERVATIVE FREE 2013 140 complet ed [facility] ZOSTER LIVE 2013 121 complet ed [facility] TDAP 2012 115 complet ed Left Deltoid [facility] INFLUENZA, UNSPECIFIED FORMULATION 2011 88 complet ed [facility] Results Combined list of recent chemistry, hematology and other laboratory results from Department of Defense and Veterans Affairs, ranging from 15 months to all on record, depending upon the facility. Order Name Results Value Reference Range Date Interpretation Specimen Comments Source COMPREHENSI VE METABOLIC PANEL CREATININE [MASS/VOLUME] IN SERUM OR PLASMA 1.48 mg/dL 0.7 - 1.3 09/01 H Specimen Type: PLASMA No comment entered. Ordering Provider: RODRIGO DUVAL Report Released Date/Time : Feb 17, 2024 12:05 PM Reporting Lab: [place] [facility] [address] [place] [address] Performin g Lab: [place] [facility] [facility] [address] [place] [address] [facility] COMPREHENSI VE METABOLIC PANEL UREA NITROGEN [MASS/VOLUME] IN SERUM OR PLASMA 17 mg/dL 9 - 25 09/01 Specimen Type: PLASMA No comment entered. Ordering Provider: RODRIGO DUVAL Report Released Date/Time : Feb 17, 2024 12:05 PM Reporting Lab: [place] [facility] [address] [place] [address] Performin g Lab: [place] [facility] [address] [place] [address] [facility] COMPREHENSI VE METABOLIC PANEL GLUCOSE [MASS/VOLUME] IN SERUM OR PLASMA 140 mg/dL 72 - 99 09/01 H Specimen Type: PLASMA No comment entered. Ordering Provider: RODRIGO DUVAL Report Released Date/Time : Feb 17, 2024 12:05 PM Reporting Lab: [place] [facility] [address] [place] [address] Performin g Lab: [place] [facility] [address] [place] [address] [place] [facility] COMPREHENSI VE METABOLIC PANEL SODIUM [MOLES/VOLUME ] IN SERUM OR PLASMA 140 meq/L 136 - 145 09/01 Specimen Type: PLASMA No comment entered. Ordering Provider: RODRIGO DUVAL Report Released Date/Time : Feb 17, 2024 12:05 PM Reporting Lab: [place] [facility] [address] [place] [address] Performin g Lab: [place] [facility] [address] [place] [address] [facility] COMPREHENSI VE METABOLIC PANEL POTASSIUM [MOLES/VOLUME ] IN SERUM OR PLASMA 4.3 meq/L 3.5 - 5 09/01 Specimen Type: PLASMA No comment entered. Ordering Provider: RODRIGO DUVAL Report Released Date/Time : Feb 17, 2024 12:05 PM Reporting Lab: [place] [facility] [address] [place] [address] Performin g Lab: [place] [facility] [address] [place] [address] [facility] COMPREHENSI VE METABOLIC PANEL CHLORIDE [MOLES/VOLUME ] IN SERUM OR PLASMA 109 meq/L 98 - 107 09/01 H Specimen Type: PLASMA No comment entered. Ordering Provider: RODRIGO DUVAL Report Released Date/Time : Feb 17, 2024 12:05 PM Reporting Lab: [place] [facility] [address] [place] [address] Performin g Lab: [place] [facility] [address] [place] [address] [place] [facility] COMPREHENSI VE METABOLIC PANEL CARBON DIOXIDE, TOTAL [MOLES/VOLUME ] IN SERUM OR PLASMA 23 meq/L 22 - 31 09/01 Specimen Type: PLASMA No comment entered. Ordering Provider: RODRIGO DUVAL Report Released Date/Time : Feb 17, 2024 12:05 PM Reporting Lab: [place] [facility] [address] [place] [address] Performin g Lab: [place] [facility] [address] [place] [address] [facility] COMPREHENSI VE METABOLIC PANEL CALCIUM [MASS/VOLUME] IN SERUM OR PLASMA 8.9 mg/dL 8.4 - 10.4 09/01 Specimen Type: PLASMA No comment entered. Ordering Provider: RODRIGO DUVAL Report Released Date/Time : Feb 17, 2024 12:05 PM Reporting Lab: [place] [facility] [address] [place] [address] Performin g Lab: [place] [facility] [address] [place] [address] [facility] COMPREHENSI VE METABOLIC PANEL PROTEIN [MASS/VOLUME] IN SERUM OR PLASMA 7.0 g/dL 6 - 8.6 09/01 Specimen Type: PLASMA No comment entered. Ordering Provider: RODRIGO DUVAL Report Released Date/Time : Feb 17, 2024 12:05 PM Reporting Lab: [place] [facility] [address] [place] [address] Performin g Lab: [place] [facility] [address] [place] [address] [facility] COMPREHENSI VE METABOLIC PANEL ALBUMIN [MASS/VOLUME] IN SERUM OR PLASMA 4.3 g/dL 3.4 - 5 05/01 /2025 Specimen Type: PLASMA No comment entered. Ordering Provider: RODRIGO DUVAL Report Released Date/Time : Feb 17, 2024 12:05 PM Reporting Lab: [place] [facility] [address] [place] [address] Performin g Lab: [place] [facility] [address] [place] [address] [facility] COMPREHENSI VE METABOLIC PANEL BILIRUBIN.TOT AL [MASS/VOLUME] IN SERUM OR PLASMA 0.6 mg/dL 0.2 - 1.2 09/01 Specimen Type: PLASMA No comment entered. Ordering Provider: RODRIGO DUVAL Report Released Date/Time : Feb 17, 2024 12:05 PM Reporting Lab: [place] [facility] [address] [place] [address] Performin g Lab: [place] [facility] [address] [place] [address] [facility] COMPREHENSI VE METABOLIC PANEL ALKALINE PHOSPHATASE [ENZYMATIC ACTIVITY/VOLU ME] IN SERUM OR PLASMA 81 U/L 40 - 150 09/01 Specimen Type: PLASMA No comment entered. Ordering Provider: RODRIGO DUVAL Report Released Date/Time : Feb 17, 2024 12:05 PM Reporting Lab: [place] [facility] [address] [place] [address] Performin g Lab: [place] [facility] [address] [place] [address] [facility] COMPREHENSI VE METABOLIC PANEL ASPARTATE AMINOTRANSFER ASE [ENZYMATIC ACTIVITY/VOLU ME] IN SERUM OR PLASMA 23 U/L 5 - 34 09/01 Specimen Type: PLASMA No comment entered. Ordering Provider: RODRIGO DUVAL Report Released Date/Time : Feb 17, 2024 12:05 PM Reporting Lab: [place] [facility] [address] [place] [address] Performin g Lab: [place] [facility] [address] [place] [address] [facility] COMPREHENSI VE METABOLIC PANEL ALANINE AMINOTRANSFER ASE [ENZYMATIC ACTIVITY/VOLU ME] IN SERUM OR PLASMA 30 U/L 8 - 40 09/01 Specimen Type: PLASMA No comment entered. Ordering Provider: RODRIGO DUVAL Report Released Date/Time : Feb 17, 2024 12:05 PM Reporting Lab: [place] [facility] [address] [place] [address] Performin g Lab: [place] [facility] [address] [place] [address] [facility] COMPREHENSI VE METABOLIC PANEL GLOMERULAR FILTRATION RATE/1.73 SQ M.PREDICTED [VOLUME RATE/AREA] IN SERUM, PLASMA OR BLOOD BY CREATININE-BA SED FORMULA (CKD-EPI 2020) 49 09/01 Specimen Type: PLASMA No comment entered. Ordering Provider: RODRIGO DUVAL Report Released Date/Time : Feb 17, 2024 12:05 PM Reporting Lab: [place] [facility] [address] [place] [address] Performin g Lab: [place] [facility] [address] [place] [address] [facility] CHOLESTEROL PANEL (PB) CHOLESTEROL [MASS/VOLUME] IN SERUM OR PLASMA 110 mg/dL 0 - 200 09/01 Specimen Type: PLASMA No comment entered. Ordering Provider: RODRIGO DUVAL Report Released Date/Time : Feb 17, 2024 12:05 PM Reporting Lab: [place] [facility] [address] [place] [address] Performin g Lab: [place] [facility] [address] [place] [address] [facility] CHOLESTEROL PANEL (PB) TRIGLYCERIDE [MASS/VOLUME] IN SERUM OR PLASMA 246 mg/dL 0 - 150 09/01 H Specimen Type: PLASMA No comment entered. Ordering Provider: RODRIGO DUVAL Report Released Date/Time : Feb 17, 2024 12:05 PM Reporting Lab: [place] [facility] [address] [place] [address] Performin g Lab[place] [facility] [address] [place] [address] [facility] CHOLESTEROL PANEL (PB) CHOLESTEROL IN LDL [MASS/VOLUME] IN SERUM OR PLASMA BY CALCULATION 31.8 mg/dL 09/01 Specimen Type: PLASMA No comment entered. Ordering Provider: RODRIGO DUVAL Report Released Date/Time : Feb 17, 2024 12:05 PM Reporting Lab: [place] [facility] [address] [place] [address] Performin g Lab: [place] [facility] [address] [place] [address] [facility] CHOLESTEROL PANEL (PB) CHOLESTEROL IN HDL [MASS/VOLUME] IN SERUM OR PLASMA 29.0 mg/dL 40 09/01 L Specimen Type: PLASMA No comment entered. Ordering Provider: RODRIGO DUVAL Report Released Date/Time : Feb 17, 2024 12:05 PM Reporting Lab: [place] [facility] [address] [place] [address] Performin g Lab[facility] [place] [facility] [address] [place] [address] [facility] CHOLESTEROL PANEL (PB) CHOLESTEROL IN HDL/CHOLESTER OL.TOTAL [MASS RATIO] IN SERUM OR PLASMA 26.4 25 09/01 Specimen Type: PLASMA No comment entered. Ordering Provider: RODRIGO DUVAL Report Released Date/Time : Feb 17, 2024 12:05 PM Reporting Lab: [place] [facility] [address] [place] [address] Performin g Lab: [place] [facility] [address] [place] [address] [facility] HGA1C HEMOGLOBIN A1C/HEMOGLOBI N.TOTAL IN BLOOD 7.0 4.0 - 6.0 09/01 H Specimen Type: BLOOD No comment entered. Ordering Provider: RODRIGO DUVAL Report Released Date/Time : Feb 17, 2024 12:05 PM Reporting Lab: [place] [facility] [address] [place] [address] Performin g Lab: [place] [facility] [address] [place] [address] [facility] COMPREHENSI VE METABOLIC PANEL CREATININE [MASS/VOLUME] IN SERUM OR PLASMA 1.74 mg/dL 0.7 - 1.3 03/01 H Specimen Type: PLASMA No comment entered. Ordering Provider: RODRIGO DUVAL Report Released Date/Time : Mar 03, 2023 02:03 PM Reporting Lab: [place] [facility] [address] [place] [address] Performin g Lab: [place] [facility] [address] [place] [address] [place] [facility] COMPREHENSI VE METABOLIC PANEL UREA NITROGEN [MASS/VOLUME] IN SERUM OR PLASMA 19 mg/dL 9 - 25 03/01 Specimen Type: PLASMA No comment entered. Ordering Provider: RODRIGO DUVAL Report Released Date/Time : Mar 03, 2023 02:03 PM Reporting Lab: [place] [facility] [address] [place] [address] Performin g Lab: [place] [facility] [address] [place] [address] [facility] COMPREHENSI VE METABOLIC PANEL GLUCOSE [MASS/VOLUME] IN SERUM OR PLASMA 106 mg/dL 72 - 99 03/01 H Specimen Type: PLASMA No comment entered. Ordering Provider: RODRIGO DUVAL Report Released Date/Time : Mar 03, 2023 02:03 PM Reporting Lab: [place] [facility] [address] [place] [address] Performin g Lab: [place] [facility] [address] [place] [address] 8 [facility] COMPREHENSI VE METABOLIC PANEL SODIUM [MOLES/VOLUME ] IN SERUM OR PLASMA 139 meq/L 136 - 145 03/01 Specimen Type: PLASMA No comment entered. Ordering Provider: RODRIGO DUVAL Report Released Date/Time : Mar 03, 2023 02:03 PM Reporting Lab: [place] [facility] [address] [place] [address] Performin g Lab: [place] [facility] [address] [place] [address] 8 [facility] COMPREHENSI VE METABOLIC PANEL POTASSIUM [MOLES/VOLUME ] IN SERUM OR PLASMA 4.4 meq/L 3.5 - 5 03/01 Specimen Type: PLASMA No comment entered. Ordering Provider: RODRIGO DUVAL Report Released Date/Time : Mar 03, 2023 02:03 PM Reporting Lab: [place] [facility] [address] [place] [address] Performin g Lab: [place] [facility] [address] [place] [address] [place] [facility] COMPREHENSI VE METABOLIC PANEL CHLORIDE [MOLES/VOLUME ] IN SERUM OR PLASMA 107 meq/L 98 - 107 03/01 Specimen Type: PLASMA No comment entered. Ordering Provider: RODRIGO DUVAL Report Released Date/Time : Mar 03, 2023 02:03 PM Reporting Lab: [place] [facility] [address] [place] [address] 8 Performin g Lab: [place] [facility] [address] [place] [address] [place] [facility] COMPREHENSI VE METABOLIC PANEL CARBON DIOXIDE, TOTAL [MOLES/VOLUME ] IN SERUM OR PLASMA 23 meq/L 22 - 31 03/01 Specimen Type: PLASMA No comment entered. Ordering Provider: RODRIGO DUVAL Report Released Date/Time : Mar 03, 2023 02:03 PM Reporting Lab: [place] [facility] [address] [place] [address] Performin g Lab: [place] [facility] [address] [place] [address] 8 [facility] COMPREHENSI VE METABOLIC PANEL CALCIUM [MASS/VOLUME] IN SERUM OR PLASMA 9.3 mg/dL 8.4 - 10.4 03/01 Specimen Type: PLASMA No comment entered. Ordering Provider: RODRIGO DUVAL Report Released Date/Time : Mar 03, 2023 02:03 PM Reporting Lab: [place] [facility] [address] [place] [address] 8 Performin g Lab: [place] [facility] [address] [place] [address] [facility] COMPREHENSI VE METABOLIC PANEL PROTEIN [MASS/VOLUME] IN SERUM OR PLASMA 7.1 g/dL 6 - 8.6 03/01 Specimen Type: PLASMA No comment entered. Ordering Provider: RODRIGO DUVAL Report Released Date/Time : Mar 03, 2023 02:03 PM Reporting Lab: [place] [facility] [address] [place] [address] [facility]formin [facility]: [place] [facility] [address] [place] [address] [facility] COMPREHENSI VE METABOLIC PANEL ALBUMIN [MASS/VOLUME] IN SERUM OR PLASMA 4.2 g/dL 3.4 - 5 03/01 Specimen Type: PLASMA No comment entered. Ordering Provider: RODRIGO DUVAL Report Released Date/Time : Mar 03, 2023 02:03 PM Reporting Lab: [place] [facility] [address] [place] [address] Performin g Lab: [place] [facility] [address] [place] [address] 8 [facility] COMPREHENSI VE METABOLIC PANEL BILIRUBIN.TOT AL [MASS/VOLUME] IN SERUM OR PLASMA 0.4 mg/dL 0.2 - 1.2 03/01 Specimen Type: PLASMA No comment entered. Ordering Provider: RODRIGO DUVAL Report Released Date/Time : Mar 03, 2023 02:03 PM Reporting Lab: [place] [facility] [address] [place] [address] Performin g Lab: [place] [facility] [address] [place] [address] 8 [facility] COMPREHENSI VE METABOLIC PANEL ALKALINE PHOSPHATASE [ENZYMATIC ACTIVITY/VOLU ME] IN SERUM OR PLASMA 86 U/L 40 - 150 03/01 Specimen Type: PLASMA No comment entered. Ordering Provider: RODRIGO DUVAL Report Released Date/Time : Mar 03, 2023 02:03 PM Reporting Lab: [place] [facility] [address] [place] [address] Performin g Lab: [place] [facility] [address] [place] [address] [facility] COMPREHENSI VE METABOLIC PANEL ASPARTATE AMINOTRANSFER ASE [ENZYMATIC ACTIVITY/VOLU ME] IN SERUM OR PLASMA 19 U/L 5 - 34 03/01 Specimen Type: PLASMA No comment entered. Ordering Provider: RODRIGO DUVAL Report Released Date/Time : Mar 03, 2023 02:03 PM Reporting Lab: [place] [facility] [address] [place] [address] Performin g Lab: [place] [facility] [address] [place] [address] 8 [facility] COMPREHENSI VE METABOLIC PANEL ALANINE AMINOTRANSFER ASE [ENZYMATIC ACTIVITY/VOLU ME] IN SERUM OR PLASMA 27 U/L 8 - 40 03/01 Specimen Type: PLASMA No comment entered. Ordering Provider: RODRIGO DUVAL Report Released Date/Time : Mar 03, 2023 02:03 PM Reporting Lab: [place] [facility] [address] [place] [address] Performin g Lab: [place] [facility] [address] [place] [address] [facility] COMPREHENSI VE METABOLIC PANEL GLOMERULAR FILTRATION RATE/1.73 SQ M.PREDICTED [VOLUME RATE/AREA] IN SERUM, PLASMA OR BLOOD BY CREATININE-BA SED FORMULA (CKD-EPI 2020) 40 03/01 Specimen Type: PLASMA No comment entered. Ordering Provider: RODRIGO DUVAL Report Released Date/Time : Mar 03, 2023 02:03 PM Reporting Lab: [place] [facility] [address] [place] [address] Performin g Lab: [place] [facility] [address] [place] [address] 8 [facility] HGA1C HEMOGLOBIN A1C/HEMOGLOBI N.TOTAL IN BLOOD 6.5 4.0 - 6.0 03/01 H Specimen Type: BLOOD No comment entered. Ordering Provider: RODRIGO DUVAL Report Released Date/Time : Mar 03, 2023 02:03 PM Reporting Lab: [place] [facility] [address] [place] [address] 8 Performin g Lab: [place] [facility] [address] [place] [address] 8 [facility] CHOLESTEROL PANEL (PB) CHOLESTEROL [MASS/VOLUME] IN SERUM OR PLASMA 118 mg/dL 0 - 200 03/01 Specimen Type: PLASMA No comment entered. Ordering Provider: RODRIGO DUVAL Report Released Date/Time : Mar 03, 2023 02:03 PM Reporting Lab: [place] [facility] [address] [place] [address] Performin g Lab: [place] [facility] [address] [place] [address] 8 [facility] CHOLESTEROL PANEL (PB) TRIGLYCERIDE [MASS/VOLUME] IN SERUM OR PLASMA 190 mg/dL 0 - 150 03/01 H Specimen Type: PLASMA No comment entered. Ordering Provider: RODRIGO DUVAL Report Released Date/Time : Mar 03, 2023 02:03 PM Reporting Lab: [place] [facility] [address] [place] [address] 8 Performin g Lab: [place] [facility] [address] [place] [address] [facility] CHOLESTEROL PANEL (PB) CHOLESTEROL IN LDL [MASS/VOLUME] IN SERUM OR PLASMA BY CALCULATION 49.0 mg/dL 03/01 Specimen Type: PLASMA No comment entered. Ordering Provider: RODRIGO DUVAL Report Released Date/Time : Mar 03, 2023 02:03 PM Reporting Lab: [place] [facility] [address] [place] [address] 8 Performin g Lab: [place] [facility] [address] [place] [address] 8 [facility] CHOLESTEROL PANEL (PB) CHOLESTEROL IN HDL [MASS/VOLUME] IN SERUM OR PLASMA 31.0 mg/dL 40 03/01 L Specimen Type: PLASMA No comment entered. Ordering Provider: RODRIGO DUVAL Report Released Date/Time : Mar 03, 2023 02:03 PM Reporting Lab: [place] [facility] [address] [place] [address] Performin g Lab: [place] [facility] [address] [place] [address] 8 [facility] CHOLESTEROL PANEL (PB) CHOLESTEROL IN HDL/CHOLESTER OL.TOTAL [MASS RATIO] IN SERUM OR PLASMA 26.3 25 03/01 Specimen Type: PLASMA No comment entered. Ordering Provider: RODRIGO DUVAL Report Released Date/Time : Mar 03, 2023 02:03 PM Reporting Lab: [place] [facility] [address] [place] [address] Performin g Lab: [place] [facility] [address] [place] [address] 8 [facility] TSH (MA-PB) THYROTROPIN [UNITS/VOLUME ] IN SERUM OR PLASMA 1.633 u[IU]/ mL 0.47 - 5 03/01 Specimen Type: SERUM No comment entered. Ordering Provider: RODRIGO DUVAL Report Released Date/Time : Mar 03, 2023 02:03 PM Reporting Lab: [place] [facility] [address] [place] [address] 8 Performin g Lab: [place] [facility] [address] [place] [address] 8 [facility] CBC LEUKOCYTES [#/VOLUME] IN BLOOD BY AUTOMATED COUNT 6.3 10*3/u L 3.6 - 11.2 03/01 Specimen Type: BLOOD No comment entered. Ordering Provider: RODRIGO DUVAL Report Released Date/Time : Mar 03, 2023 02:03 PM Reporting Lab: [place] [facility] [address] [place] [address] Performin g Lab: [place] [facility] [address] [place] [address] 8 [facility] CBC ERYTHROCYTES [#/VOLUME] IN BLOOD BY AUTOMATED COUNT 4.92 10*6/u L 4.10 - 5.70 03/01 Specimen Type: BLOOD No comment entered. Ordering Provider: RODRIGO DUVAL Report Released Date/Time : Mar 03, 2023 02:03 PM Reporting Lab: [place] [facility] [address] [place] [address] 8 Performin g Lab: [place] [facility] [address] [place] [address] 8 [facility] CBC HEMOGLOBIN [MASS/VOLUME] IN BLOOD 14.1 g/dL 13.1 - 16.8 03/01 Specimen Type: BLOOD No comment entered. Ordering Provider: RODRIGO DUVAL Report Released Date/Time : Mar 03, 2023 02:03 PM Reporting Lab: [place] [facility] [address] [place] [address] 8 Performin g Lab: [place] [facility] [address] [place] [address] 8 [facility] CBC HEMATOCRIT [VOLUME FRACTION] OF BLOOD 43.4 38.2 - 48.4 03/01 Specimen Type: BLOOD No comment entered. Ordering Provider: RODRIGO DUVAL Report Released Date/Time : Mar 03, 2023 02:03 PM Reporting Lab: [place] [facility] [address] [place] [address] Performin g Lab: [place] [facility] [address] [place] [address] 8 [facility] CBC MCV [ENTITIC VOLUME] BY AUTOMATED COUNT 88.2 fL 80.0 - 100.0 03/01 Specimen Type: BLOOD No comment entered. Ordering Provider: RODRIGO DUVAL Report Released Date/Time : Mar 03, 2023 02:03 PM Reporting Lab: [place] [facility] [address] [place] [address] 8 Performin g Lab: [place] [facility] [address] [place] [address] 8 [facility] CBC MCH [ENTITIC MASS] BY AUTOMATED COUNT 28.7 pg 27.0 - 34.0 03/01 Specimen Type: BLOOD No comment entered. Ordering Provider: RODRIGO DUVAL Report Released Date/Time : Mar 03, 2023 02:03 PM Reporting Lab: [place] [facility] [address] [place] [address] Performin g Lab: [place] [facility] [address] [place] [address] 8 [facility] CBC MCHC [MASS/VOLUME] BY AUTOMATED COUNT 32.5 g/dL 33.0 - 36.0 03/01 L Specimen Type: BLOOD No comment entered. Ordering Provider: RODRIGO DUVAL Report Released Date/Time : Mar 03, 2023 02:03 PM Reporting Lab: [place] [facility] [address] [place] [address] 8 Performin g Lab: [place] [facility] [address] [place] [address] 8 [facility] CBC PLATELETS [#/VOLUME] IN BLOOD BY AUTOMATED COUNT 178 10*3/u L 150 - 400 03/01 Specimen Type: BLOOD No comment entered. Ordering Provider: RODRIGO DUVAL Report Released Date/Time : Mar 03, 2023 02:03 PM Reporting Lab: [place] [facility] [address] [place] [address] 8 Performin g Lab: [place] [facility] [address] [place] [address] 8 [facility] CBC PLATELET MEAN VOLUME [ENTITIC VOLUME] IN BLOOD BY AUTOMATED COUNT 11.7 fL 7.5 - 11.2 03/01 H Specimen Type: BLOOD No comment entered. Ordering Provider: RODRIGO DUVAL Report Released Date/Time : Mar 03, 2023 02:03 PM Reporting Lab: [place] [facility] [address] [place] [address] 8 Performin g Lab: [place] [facility] [address] [place] [address] 8 [facility] CBC ERYTHROCYTE DISTRIBUTION WIDTH [RATIO] BY AUTOMATED COUNT 13.5 11.8 - 15.1 03/01 Specimen Type: BLOOD No comment entered. Ordering Provider: RODRIGO DUVAL Report Released Date/Time : Mar 03, 2023 02:03 PM Reporting Lab: [place] [facility] [address] [place] [address] 8 Performin g Lab: [place] [facility] [address] [place] [address] 8 [facility] CBC LYMPHOCYTES/1 00 LEUKOCYTES IN BLOOD BY AUTOMATED COUNT 22.3 03/01 Specimen Type: BLOOD No comment entered. Ordering Provider: RODRIGO DUVAL Report Released Date/Time : Mar 03, 2023 02:03 PM Reporting Lab: [place] [facility] [address] [place] [address] 8 Performin g Lab: [place] [facility] [address] [place] [address] 8 [facility] CBC MONOCYTES/100 LEUKOCYTES IN BLOOD BY AUTOMATED COUNT 7.7 03/01 Specimen Type: BLOOD No comment entered. Ordering Provider: RODRIGO DUVAL Report Released Date/Time : Mar 03, 2023 02:03 PM Reporting Lab: [place] [facility] [address] [place] [address] 8 Performin g Lab: [place] [facility] [address] [place] [address] 8 [facility] CBC NEUTROPHILS/1 00 LEUKOCYTES IN BLOOD BY AUTOMATED COUNT 66.2 03/01 Specimen Type: BLOOD No comment entered. Ordering Provider: RODRIGO DUVAL Report Released Date/Time : Mar 03, 2023 02:03 PM Reporting Lab: [place] [facility] [address] [place] [address] Performin g Lab: [place] [facility] [address] [place] [address] 8 [facility] CBC EOSINOPHILS/1 00 LEUKOCYTES IN BLOOD BY AUTOMATED COUNT 2.2 03/01 Specimen Type: BLOOD No comment entered. Ordering Provider: RODRIGO DUVAL Report Released Date/Time : Mar 03, 2023 02:03 PM Reporting Lab: [place] [facility] [address] [place] [address] Performin g Lab: [place] [facility] [address] [place] [address] 8 [facility] CBC BASOPHILS/100 LEUKOCYTES IN BLOOD BY AUTOMATED COUNT 1.1 03/01 Specimen Type: BLOOD No comment entered. Ordering Provider: RODRIGO DUVAL Report Released Date/Time : Mar 03, 2023 02:03 PM Reporting Lab: [place] [facility] [address] [place] [address] Performin g [facility]: [place] [facility] [address] [place] [address] [place] [facility] CBC LYMPHOCYTES [#/VOLUME] IN BLOOD BY AUTOMATED COUNT 1.40 10*3/u L 0.77 - 4.50 03/01 Specimen Type: BLOOD No comment entered. Ordering Provider: RODRIGO DUVAL Report Released Date/Time : Mar 03, 2023 02:03 PM Reporting Lab: [place] [facility] [address] [place] [address] Performin g Lab: [place] [facility] [address] [place] [phone] 8 [facility] CBC MONOCYTES [#/VOLUME] IN BLOOD BY AUTOMATED COUNT 0.48 10*3/u L 0.19 - 0.8 03/01 Specimen Type: BLOOD No comment entered. Ordering Provider: RODRIGO DUVAL Report Released Date/Time : Mar 03, 2023 02:03 PM Reporting Lab: [place] [facility] [address] [place] [phone] 8 Performin g [facility]: [place] [facility] [address] [place] [address] [facility] CBC NEUTROPHILS [#/VOLUME] IN BLOOD BY AUTOMATED COUNT 4.15 10*3/u L 2.10 - 8.00 03/01 Specimen Type: BLOOD No comment entered. Ordering Provider: RODRIGO DUVAL Report Released Date/Time : Mar 03, 2023 02:03 PM Reporting Lab: [place] [facility] [address] [place] [phone] 8 Performin g Lab: [place] [facility] [address] [place] [phone] 8 [facility] CBC EOSINOPHILS [#/VOLUME] IN BLOOD BY AUTOMATED COUNT 0.14 10*3/u L 0.00 - 0.60 03/01 Specimen Type: BLOOD No comment entered. Ordering Provider: RODRIGO DUVAL Report Released Date/Time : Mar 03, 2023 02:03 PM Reporting Lab: [place] [facility] [address] [place] [address] 8 Performin g [facility]: [place] [facility] [address] [place] [address] 8 [facility] CBC BASOPHILS [#/VOLUME] IN BLOOD BY AUTOMATED COUNT 0.07 10*3/u L 0.00 - 0.20 03/01 Specimen Type: BLOOD No comment entered. Ordering Provider: RODRIGO DUVAL Report Released Date/Time : Mar 03, 2023 02:03 PM Reporting Lab: [place] [facility] [address] [place] [address] Performin g Lab: [place] [facility] [address] [place] [address] 8 [facility] CBC IMMATURE GRANULOCYTES/ 100 LEUKOCYTES IN BLOOD BY AUTOMATED COUNT 0.5 03/01 Specimen Type: BLOOD No comment entered. Ordering Provider: RODRIGO DUVAL Report Released Date/Time : Mar 03, 2023 02:03 PM Reporting Lab: [place] [facility] [address] [place] [address] 8 Performin g [facility]: [place] [facility] [address] [place] [address] 8 [facility] CBC IMMATURE GRANULOCYTES [#/VOLUME] IN BLOOD BY AUTOMATED COUNT 0.03 10*3/u L 0.00 - 0.05 03/01 Specimen Type: BLOOD No comment entered. Ordering Provider: RODRIGO DUVAL Report Released Date/Time : Mar 03, 2023 02:03 PM Reporting Lab: [place] [facility] [address] [place] [address] 8 [facility]: [place] [facility] [address] [place] [address] 8 [facility] URINE ALBUMIN PROFILE-ih (PB) ALBUMIN [MASS/VOLUME] IN URINE 13.30 mg/L 0 - 30 03/01 Specimen Type: URINE No comment entered. Ordering Provider: RODRIGO DUVAL Report Released Date/Time : Mar 03, 2023 02:03 PM Reporting Lab: [place] [facility] [address] [place] [address] 8 [facility]formin g [facility]: [place] [facility] [address] [place] [address] 8 [facility] URINE ALBUMIN PROFILE-ih (PB) ALBUMIN/CREAT ININE [MASS RATIO] IN URINE 12.04 ug/mg 03/01 Specimen Type: URINE No comment entered. Ordering Provider: RODRIGO DUVAL Report Released Date/Time : Mar 03, 2023 02:03 PM Reporting Lab: [place] [facility] [address] [place] [address] 8 [facility]: [place] [facility] [address] [place] [address] [facility] URINE ALBUMIN PROFILE-ih (PB) CREATININE [MASS/VOLUME] IN URINE 110.42 mg/dL 03/01 Specimen Type: URINE No comment entered. Ordering Provider: RODRIGO DUVAL Report Released Date/Time : Mar 03, 2023 02:03 PM Reporting Lab: [place] [facility] [address] [place] [address] Performin g Lab: [place] [facility] [address] [place] [address] [facility] CHOLESTEROL PANEL (PB) CHOLESTEROL [MASS/VOLUME] IN SERUM OR PLASMA 132 mg/dL 0 - 200 09/01 Specimen Type: PLASMA No comment entered. Ordering Provider: RODRIGO DUVAL Report Released Date/Time : Mar 03, 2023 02:03 PM Reporting Lab: [place] [facility] [address] [place] [address] Performin g Lab: [place] [facility] [address] [place] [address] [facility] CHOLESTEROL PANEL (PB) TRIGLYCERIDE [MASS/VOLUME] IN SERUM OR PLASMA 207 mg/dL 0 - 150 09/01 H Specimen Type: PLASMA No comment entered. Ordering Provider: RODRIGO DUVAL Report Released Date/Time : Mar 03, 2023 02:03 PM Reporting Lab: [place] [facility] [address] [place] [address] Performin g Lab: [place] [facility] [address] [place] [address] [facility] CHOLESTEROL PANEL (PB) CHOLESTEROL IN LDL [MASS/VOLUME] IN SERUM OR PLASMA BY CALCULATION 61.2 mg/dL 09/01 Specimen Type: PLASMA No comment entered. Ordering Provider: RODRIGO DUVAL Report Released Date/Time : Mar 03, 2023 02:03 PM Reporting Lab: [place] [facility] [address] [place] [address] Performin g Lab: [place] [facility] [address] [place] [address] [facility] CHOLESTEROL PANEL (PB) CHOLESTEROL IN HDL [MASS/VOLUME] IN SERUM OR PLASMA 29.4 mg/dL 40 09/01 L Specimen Type: PLASMA No comment entered. Ordering Provider: RODRIGO DUVAL Report Released Date/Time : Mar 03, 2023 02:03 PM Reporting Lab: [place] [facility] [address] [place] [address] Performin g Lab: [place] [facility] [address] [place] [address] [facility] CHOLESTEROL PANEL (PB) CHOLESTEROL IN HDL/CHOLESTER OL.TOTAL [MASS RATIO] IN SERUM OR PLASMA 22.3 25 09/01 Specimen Type: PLASMA No comment entered. Ordering Provider: RODRIGO DUVAL Report Released Date/Time : Mar 03, 2023 02:03 PM Reporting Lab: [place] [facility] [address] [place] [address] Performin g Lab: [place] [facility] [address] [place] [id number] [facility] Vital Signs Combined list of inpatient and outpatient Vital Signs from Department of Defense and Veterans Affairs, ranging from 12 months to all on record, depending upon the facility. Vital Sign Value Date Comments Source SYSTOLIC BLOOD PRESSURE 137 09/08/2024 09:12:00 [facility] DIASTOL[facility] PRESSURE 83 09/08/2024 09:12:00 [facility] PULSE OXIMETRY 95 09/08/2024 09:12:00 [facility] WEIGHT 239.2 09/08/2024 09:12:00 [facility] BMI 33 kg/m2 09/08/2024 09:12:00 [facility] PAIN 0 09/08/2024 09:12:00 [facility] PULSE 79 09/08/2024 09:12:00 [facility] RESPIRATION 18 09/08/2024 09:12:00 [facility] SYSTOLIC BLOOD PRESSURE 128 02/17/2024 11:38:00 [place] [facility] DIASTOLIC BLOOD PRESSURE 86 02/17/2024 11:38:00 [facility] PULSE OXIMETRY 96 02/17/2024 11:38:00 [facility] WEIGHT 226.5 02/17/2024 11:38:00 [facility] BMI 32 kg/m2 02/17/2024 11:38:00 [place] [facility] PAIN 0 02/17/2024 11:38:00 [place] [facility] HEIGHT 71.0 02/17/2024 11:38:00 [place] [facility] TEMPERATURE 97.9 02/17/2024 11:38:00 [facility] PULSE 86 02/17/2024 11:38:00 [facility] RESPIRATION 18 02/17/2024 11:38:00 [facility] Encounters Combined list of: 1) Encounters from Department of [facility] Affairs facilities going backup to the last 18 months, not all VA inpatient encounters are included; 2) Encounters from the Department of [facility] facilities going backup to 280 months. Location Location Details Encounter Type Encounter Number Reason For Visit Attending Provider ADM Date DC Date Status Disposition Source [facility] Outpatient Encounter [id number] 07[facility] Outpatient Encounter [id number] HARRISON WALTERS 09/06 [facility] OFFICE O/P EST MOD 30 MIN [id number] Diagnos is: ICD-10- CM I11.9 Hyperte nsive heart disease without heart failure Moira DUVAL 09/08 [facility] Outpatient Encounter [id number] 09/08 [facility] Outpatient Encounter [id number] 10/13 [facility] OFF/OP EST MAY X REQ PHY/QHP [id number] Diagnos is: ICD-10- CM R50.9 Fever, unspeci fied NADINEALLIE R 10/13 [facility] Outpatient Encounter [id number] RUBY ANTOINELa Nena NOVA N 10/[facility] Encounter [id number] 10/19 [facility] Encounter [id number] 11/02 [facility] Outpatient Encounter [id number] QUE ANTOINE N 01/30 [facility] Out[facility] Encounter [id number] 02/09 [facility] OFFICE O/P EST MOD 30 MIN [id number] Diagnos is: ICD-10- CM I25.10 [facility] [place] coron[place] y artery w/o ang pctMoira Houston 02/16 [facility] Outpatient Encounter [id number] 02/17 [facility] Outpatient Encounter [id number] 02/24 [facility] Outpatient Encounter [id number] 03/04 [facility] Outpatient Encounter [id number] 03/10 [facility] Outpatient Encounter [id number] 06/04 [facility] Outpatient Encounter [id number] 07/14 [facility] Outpatient Encounter [id number] 08/10 [facility] Outpatient Encounter [id number] 08/25 [facility] Outpatient Encounter [id number] 09/01 [facility] Outpatient Encounter [id number] 09/05 [facility] OFFICE O/P EST MOD 30 MIN [id number] Diagnos is: ICD-10- CM E11.8 Type 2 diabete s mellitu s with unspeci fied complic Moira Garcia 09/08 [facility] Outpatient Encounter [id number] 09/14 [facility] Social History Combined list of available smoking, tobacco, and other social history from Department of Defense and Veterans Affairs facilities. Social History Type Response Date Comment Sourc e Tobacco smoking status NHIS VA-TOBACCO USE FORMER CIGARETTES 09/08/2024 [facility] History of tobacco use VA-TOBACCO NEVER USED OTHER TYPE 09/08/2024 [facility] History of tobacco use VA-TOBACCO FORMER USER 03/03/2023 [facility] History of tobacco use VA-TOBACCO FORMER USER 02/21/2022 [facility] History of tobacco use VA-TOBACCO NEVER USED 02/06/2021 [facility] History of tobacco use VA-TOBACCO QUIT 1 5 YRS OR MORE 03/04/2018 [facility] History of tobacco use QUIT TOBACCO >7 Y EARS AGO 10/15/2011 [facility] Plan of Care List of future care activities from [facility] facilities. Additional future care activities may be listed in the Assessment and Plan section. Date/Time Care Activity Care Activity Detail Facili ty 03/02/2025 AMBULATORY - MEDICINE AMBULATORY - MEDICI [place] [facility] Advance Directives List of completed, amended, or rescinded Advance Directives on record at [facility] facilities. An actual copy of the Directive is not included. Date Advance Directive Provider Source 03/06/2015 ADVANCE DIRECTIVE DISCUSSION SANDRA CAMPBELL [facility] 02/02/2013 ADVANCE DIRECTIVE DISCUSSION MYLA WILL [facility] 10/15/2011 ADVANCE DIRECTIVE DISCUSSION SANDRA CAMBPELL [facility] 07/28/2011 ADVANCE DIRECTIVE MANISHA CESAR [facility]
[2024-11-18 22:34] VITALS: BP 158/80; PULSE 74; RESP 16; TEMP 36.7; O2SAT 92; BMI 31.4
--- OUTSIDE RECORDS SUMMARY | 2024-11-18 22:34 | XMS_ITS | Patient Health Record ---
Author Organization [facility] Address [address] [place] [address] Care Team Providers Care Security Checker Name Role Phone Snow Rome MD Primary Care Provider Xin garza Gauri Francisco Unavailable [phone] Mayco Milian Unavailable Unavailable Reason For Referral No Information Problems Problem Type SNOMED Code ICD Code Onset Dates Problem Status W/U Status Risk Notes Problem Malignant tumor of kidney (124755568) Renal cell carcinoma of right kidney (C64.1) Active confirmed Plan Of Treatment No Information Insurance Providers Payer Name Payer Address Payer Phone Subscriber Number Group Number Insured Name Patient Relationship to Insured Coverage Start Date Coverage End Date [place] Medicare [address] [place] [phone] [id number] Nicho Hendricks Self - patient is the insured
--- OUTSIDE RECORDS SUMMARY | 2024-11-18 22:35 | XMS_ITS | Patient Health Record ---
Author Organization [facility] Address [address] [facility] [place] [address] Care Team Providers Care Trial Attorney Name Role Phone Snow Cade MD Primary Care Provider Unav ailable FRAN ESCUDERO Unavailable [phone] Mayco Milian Unavailable Unavailable Allergies Allergen (clinical drug ingredient) Drug/Non Drug Allergy documented on EMR Reaction Allergy Type Onset Date Status sulfamethoxazole / trimethoprim Bactrim renal failure Drug Allergy Active Results Component Value Reference Range Notes Urinalysis, Routine Reviewed date:01/14/2024 10:40:48 AM Interpretation: Performing Lab: Notes/Report: Urine-Color yellow Appearance clear Glucose - Bilirubin - Ketones - Specific [place] 1.025 Occult Blood trace pH 6.0 Urine Protein - Urobilinogen,Semi-Qn - Nitrite, Urine - WBC Esterase - Urinalysis, Routine Reviewed date:07/14/2024 10:29:05 AM Interpretation: Performing Lab: Notes/Report: Urine-Color yellow Appearance clear Glucose - Bilirubin - Ketones - Specific [place] 1.020 Occult Blood - pH 6.0 Urine Protein - Nitrite, Urine - WBC Esterase - Reason For Referral No Information Medications Medication SIG (Take, Route, Frequency, Duration) Notes Start Date End Date Status Tamsulosin HCl 0.4 MG 1 capsule Orally twice a day Active Omeprazole 20 MG 1 capsule 30 minutes before morning meal Orally Once a day Active Mens Multivitamin Ac tive metFORMIN HCl 500 MG 1 tablet with a charlie l Orally Once a day Active hydroCHLOROthiazide 12.5 MG 1 capsule in the morning Orally Once a day Active Clopidogrel & Aspirin Active Atorvastatin Calcium 10 MG 1 tablet Oral ly Once a day 07/09/2023 Active Finasteride 5 MG 1 tablet Orally Once a day Active diphenhydrAMINE HCl 25 MG 1 capsule at b edtime as needed Orally Once a day Active Lisinopril 10 MG 1 tablet Orally Once a day Active Acetaminophen 500 MG 1 capsule as needed Orally every 6 hrs Active Glimepiride 1 MG 1 tablet with breakfast or the first main meal of the day Orally Once a day Active Cholecalciferol Acti ve Benadryl for sleep Active Dorzolamide HCl Acti ve Vitamin D3 Active Social History Tobacco Use: Social History Observation Description Date Details (start date - stop date) Former Smoker NA - NA Tobacco Control (Standard) Question Answer Notes Tobacco use: Former smoker Problems Problem Type SNOMED Code ICD Code Onset Dates Problem Status W/U Status Risk Notes Problem Benign prostatic hyperplasia (202869245) BPH (benign prostatic hyperplasia) (N40.0) Active confirmed Problem Personal history of primary malignant neoplasm of kidney (634513998) History of renal cell carcinoma (Z85.528) Active confirmed Problem Absent kidney (081126493) History of nephrectomy, right (Z90.5) Active confirmed Problem 470407253 Renal cell carcinoma of right kidney (C64.1) Active confirmed Problem Personal history of primary malignant neoplasm of urinary bladder (362856529) History of bladder cancer (Z85.51) Active confirmed Problem Malignant tumor of urinary bladder (682899857) Malignant neoplasm of urinary bladder, unspecified site (C67.9) Active confirmed Vital Signs Heart Rate 80 /min 01/14/2024 Blood pressure diastolic 90 mm Hg 01/14/2024 Height-cm 180.34 cm 07/14/2024 Weight-kg 104.33 kg 07/14/2024 Height 71 in 07/14/2024 Blood pressure systolic 173 mm Hg 01/14/2024 Weight 230 lbs 07/14/2024 BMI 32.07 kg/m2 07/14/2024 Encounters Encounter Location Date Provider Diagnosis [facility] [address] [place] [address] 01/14/2024 FRAN ESCUDERO History of bladder cancer Z85.51 ; History of renal cell carcinoma Z85.528 ; History of nephrectomy, right Z90.5 and BPH (benign prostatic hyperplasia) N40.0 [facility] [address] [facility] [place] [address] 07/14/2024 FRAN ESCUDERO History of bladder cancer Z85.51 ; History of renal cell carcinoma Z85.528 ; History of nephrectomy, right Z90.5 and BPH (benign prostatic hyperplasia) N40.0 [facility], [facility] [address] [facility] [place] [address] 07/14/2024 FRAN ESCUDERO Assessments Encounter Date Diagnosis (ICD Code) Assessment Notes Treatment Notes Treatment Clinical Notes Section Notes 07/14/2024 History of bladder cancer (ICD-10 - Z85.51) 73 yo male with history of bladder cancer. Surveillance cysto negative today. Plan: surveillance cysto in 1yr UA sent to [facility] 01/14/2024 History of bladder cancer (ICD-10 - Z85.51) 73 yo male with history of bladder cancer. Surveillance cysto negative today. Plan: surveillance cysto in 6 months Cx Bladder 01/14/2024 History of renal cell carcinoma (ICD-10 - Z85.528) 73 yo male with history of bladder cancer. Surveillance cysto negative today. Plan: surveillance cysto in 6 months Cx Bladder 07/14/2024 History of renal cell carcinoma (ICD-10 - Z85.528) 73 yo male with history of bladder cancer. Surveillance cysto negative today. Plan: surveillance cysto in 1yr UA sent to [facility] 07/14/2024 History of nephrectomy, right (ICD-10 - Z90.5) 73 yo male with history of bladder cancer. Surveillance cysto negative today. Plan: surveillance cysto in 1yr UA sent to [facility] 01/14/2024 History of nephrectomy, right (ICD-10 - Z90.5) 73 yo male with history of bladder cancer. Surveillance cysto negative today. Plan: surveillance cysto in 6 months Cx Bladder 01/14/2024 BPH (benign prostatic hyperplasia) (ICD-10 - N40.0) 73 yo male with history of bladder cancer. Surveillance cysto negative today. Plan: surveillance cysto in 6 months Cx Bladder 07/14/2024 BPH (benign prostatic hyperplasia) (ICD-10 - N40.0) 73 yo male with history of bladder cancer. Surveillance cysto negative today. Plan: surveillance cysto in 1yr UA sent to [facility]/Uro[facility] Plan Of Treatment Next Appt Details Provider Name:FRAN Martinez, 07/20/2025 10:20:00 AM, [address] [place], [address], Insurance Providers Payer Name Payer Address Payer Phone Subscriber Number Group Number Insured Name Patient Relationship to Insured Coverage Start Date Coverage End Date [place] [address] [place] [id number] Jennifer Hendricks Self - patient is the insured [employer] [address] [address] [place] [address] [id number] Jennifer Hendricks Self - patient is the insured Medical (General) History Medical History History ICD Code TCCA/ Carcinoma (Dx 04/12/2020) CKD diabetes hypertension left renal cyst Surgical History Surgery Date(Month/Year) TURBT 04/2020 Right nephrectomy PACEMAKER INSERTION 02/03/2024 Hospitalization History Reason Date(Month/Year) myocardial infarction 02/02/2024 above
--- NOTE | 2024-11-19 00:05 | ECG_ITS ---
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 Measurements Intervals [place] Rate: 70 P: 74 HI: 175 QRS: -25 QRSD: 138 T: 26 QT: 424 QTc: 460 Interpretive Statements ELECTRONIC VENTRICULAR PACEMAKER-AV pacing ABNORMAL RHYTHM ECG Compared to ECG 02/03/2024 06:25:12 No significant changes Electronically Signed On 11-19-2024 00:14:55 CDT by Silas Azul M.D. [email or web address]
[2024-11-19 00:10] VITALS: BP 122/66; PULSE 80; O2SAT 93
--- NOTE | 2024-11-19 00:15 | CTR_ITS ---
PROCEDURE INFORMATION: Exam: CT Abdomen And Pelvis With Contrast Exam date and time: 11/19/2024 12:57 AM Age: 74 years old Clinical indication: Abdominal pain; Prior surgery; Surgery date: 6+ months; Surgery type: RT nephrectomy. Pacer. Bladder lesion resection; C/O epigastric pain. History of renal cell carcinoma and bladder carcinoma in situ. TECHNIQUE: Imaging protocol: Computed tomography of the abdomen and pelvis with contrast. Radiation optimization: All CT scans at this facility use at least one of these dose optimization techniques: automated exposure control; mA and/or kV adjustment per patient size (includes targeted exams where dose is matched to clinical indication); or iterative reconstruction. Contrast material: OMNI 350; Contrast volume: 75 ml; Contrast route: INTRAVENOUS (IV); COMPARISON: CT abdomen pelvis wo con [id number] 03/15/2020 12:32 PM RADIATION DOSE METRICS: Total DLP (mGy-cm): 1062.11 FINDINGS: Liver: Few calcified granulomas within the liver. Liver otherwise unremarkable. Gallbladder and biliary ducts: Subtle hyperdensities in the dependent portion of the gallbladder neck, presumably small stones. Pancreas: No evidence of pancreatitis. No ductal dilation. Spleen: Granulomatous changes to the spleen. Adrenal glands: Adrenal glands are within expected limits. Kidneys and ureters: Left renal cortical cyst measuring 4.5 cm. No stones or hydronephrosis. Right kidney surgically absent. Stomach and bowel: Small bowel is normal caliber. No obstruction. Large bowel within normal limits. No inflammatory wall thickening or abnormal bowel dilatation. Appendix: No evidence of appendicitis. Intraperitoneal space: No free air. No significant fluid collection. Vasculature: Calcific plaquing of the aorta with no aneurysm. Lymph nodes: No pathologically enlarged lymph nodes by CT size criteria. Urinary bladder: Unremarkable as visualized. Reproductive: Prominence of the prostate gland, slightly asymmetric with higher density of the left portion of the prostate gland. Bones/joints: No acute osseous abnormalities. Soft tissues: Unremarkable. CT/CT abdomen pelvis w con* [id number] IMPRESSION: 1. No acute abdominopelvic abnormalities are identified. 2. Cholelithiasis. 3. Mildly asymmetric prominence of the prostate gland. Correlation with PSA levels recommended. COMMENTS: Consistent with the [place] [employer] [place] [employer]'s Incidental Findings Committee white paper (J Am Burke Radiol 2018): Any incidental renal lesion less than 1 cm or classified as too small to characterize, or any incidental cystic renal lesion characterized as simple-appearing, is likely benign. No follow-up imaging is recommended for these lesions per consensus recommendations based on imaging criteria.
--- NOTE | 2024-11-19 00:16 | XRR_ITS ---
PROCEDURE INFORMATION: Exam: XR Chest Exam date and time: 11/19/2024 12:38 AM Age: 74 years old Clinical indication: Radiating; Prior surgery; Surgery date: 6+ months; Surgery type: Pacemaker, coronary stents; Epigastric pain that radiates into back, n/v, bloating. TECHNIQUE: Imaging protocol: Radiologic exam of the chest. Views: 1 view. COMPARISON: CR XR chest 1V portable [id number] 02/02/2024 6:02 PM FINDINGS: Lungs: No pulmonary edema. No consolidation. Pleural spaces: Unremarkable. No pleural effusion. No pneumothorax. Heart/Mediastinum: Left-sided pacemaker. No cardiomegaly. Bones/joints: Unremarkable. XR/XR chest 1V portable [id number] IMPRESSION: No acute findings.
[2024-11-19 00:17] LABS: Hematocrit 43.9 % (37-53); Hemoglobin 14.20 g/dL (11.27-16.99); Mean Corpuscular HGB Conc 32.3 g/dL (30-55); Mean Corpuscular Hemoglobin 29.4 pg (27-33); Mean Corpuscular Volume 90.9 fl (82-101); Nucleated Red Blood Cells % 0 %; Platelet Count 172 10^3/cmm (157-399); Red Blood Count 4.83 10^6/uL (3.85-5.65); White Blood Count 9.95 10^3/uL (3.29-11.43)
[2024-11-19 00:33] LABS: Alanine Aminotransferase 30 U/L (0-41); Albumin Level 4.3 g/dL (3.5-5.2); Alkaline Phosphatase 90 U/L (40-130); Anion Gap 18.3 (5-19); Aspartate Amino Transferase 19 U/L (0-40); Blood Urea Nitrogen 17 mg/dL (8-23); Calcium 9.4 mg/dL (8.5-10.5); Carbon Dioxide 24 mmol/L (22-29); Chloride 99 mmol/L (98-107); Creatinine Clr Calc Pharmacy 47.7796; Globulin 2.8 g/dL (1.3-4.6); Glucose 196 mg/dL (65-115); Osmolality Calculated 291 mOsm/kg (285-295); Potassium 4.3 mmol/L (3.5-5.1); Sodium 137 mmol/L (136-145); Total Protein 7.1 g/dL (6.6-8.7)
[2024-11-19 00:35] LABS: Lipase 25 U/L (13-60)
[2024-11-19] MEDS: iohexol 350 mg/mL 500 mL Btl (per mL) IV (00:58)
[2024-11-19 01:30] VITALS: PULSE 80; O2SAT 93
--- NOTE | 2024-11-19 02:30 | W.ED.ABDPA2 ---
HPI - Abdominal Pain General: Chief Complaint: Abdominal Pain Stated Complaint: Pain Lower Middle Back & Upper ABD N/V Time Seen by Provider: 11/19/24 00:09 History of Present Illness: 74-yo male with no clearly documented chronic illnesses presents with sudden epigastric pain that began around 2000 tonight. Pain radiated to the back and was described as nearly as severe as prior kidney stone episodes. He experienced nausea, attempted to vomit with minimal output initially, then had a large emesis approximately 40 minutes prior to evaluation, after which the pain partially improved. Denies diarrhea. States the pain earlier was excruciating and unlike a routine stomach-ache. No other ROS elements provided. Related Data Home Medications ?Medication ?Instructions ?Recorded ?Confirmed acetaminophen 500 mg tablet 1,000 mg PO PRN 03/15/20 09/14/24 (Tylenol Extra Strength) cholecalciferol (vitamin D3) 25 25 mcg PO DAILY 03/15/20 09/14/24 mcg (1,000 unit) capsule (Vitamin D3) metformin 500 mg tablet 500 mg PO DAILY 03/15/20 09/14/24 diphenhydramine HCl 50 mg capsule 50 mg PO QPM PRN Sleep 04/19/20 09/14/24 (Sleep Aid (diphenhydramine)) tamsulosin 0.4 mg capsule (Flomax) 0.4 mg PO BID 12/14/20 09/14/24 glimepiride 1 mg tablet 1 mg PO DAILY 09/13/21 09/14/24 finasteride 5 mg tablet 5 mg PO DAILY 02/01/24 09/14/24 hydrochlorothiazide 25 mg tablet 25 mg PO DAILY 02/01/24 09/14/24 Held on 02/03/24. Instructions: Resume on 02/11/24. Blood pressure soft, hols for BP<130/90 omeprazole 20 mg capsule,delayed 20 mg PO DAILY 02/10/24 09/14/24 release Previous Rx's ?Medication ?Instructions ?Recorded multivitamin 1 tab PO DAILY #14 tabs 02/03/24 atorvastatin 40 mg tablet 40 mg PO BEDTIME 30 days #90 tabs 02/10/24 clopidogrel 75 mg tablet 75 mg PO DAILY #90 tabs 02/10/24 metoprolol succinate 25 mg 25 mg PO BID #180 tabs 02/10/24 tablet,extended release 24 hr (Toprol XL) aspirin 81 mg tablet 81 mg PO DAILY #90 tabs 09/14/24 Allergies Allergy/AdvReac Type Severity Reaction Status Date / Time sulfamethoxazole (From AdvReac Unknown Verified 11/18/24 22:37 Bactrim) trimethoprim (From Bactrim) AdvReac Unknown Verified 11/18/24 22:37 PFSH ED PFSH: Medical History (Updated 11/19/24 @ 02:09 by David Miller MD) CAD (coronary artery disease) Atherosclerotic heart disease of [place] coronary artery with other forms of angina pectoris Chronic kidney disease (CKD) Hypertension Carcinoma in situ of bladder High-grade, lamina propria invasion, diffuse bladder wall involvement. Diabetes Renal cyst, left Hx of renal cell carcinoma Surgical History History of bladder surgery TURBT for carcinoma in situ April 2020. History of right nephrectomy Family History Father , AT AGE 91 Lung disease Mother Cancer Social History Smoking and tobacco/nicotine status: former use of tobacco/nicotine (40 years ago) Alcohol intake: unknown Substance/Drug Use: never Caregiver/support person: No Marital status: Current occupational status: retired Physical Exam Const: COMMON NORMALS: no acute distress, patient oriented x3 and alert HENMT: COMMON NORMALS: normocephalic and atraumatic HEAD & SCALP: normocephalic and atraumatic Eye: COMMON NORMALS: Equal, round and reactive pupils present, EOMs intact bilaterally and no scleral icterus PUPIL: Yes Equal, round and reactive pupils present Resp: COMMON NORMALS: normal respiratory effort and No retractions Cardio: COMMON NORMALS: regular rate, regular rhythm and No murmurs present (Cardio) RATE: regular rate RHYTHM: regular rhythm GI: COMMON NORMALS: Normal to inspection, nondistended, normoactive bowel sounds present, Soft to palpation and non-tender PALPATION: Yes Soft to palpation Neuro: COMMON NORMALS: patient oriented x3 SENSORIUM/ORIENTATION: Yes alert Skin: COMMON NORMALS: no rashes or lesions noted GENERAL SKIN EXAM: no rashes or lesions noted Course Vital Signs: Vital signs: Vital Signs Temperature 98.0 F 11/18/24 22:34 Pulse Rate 80 11/19/24 01:30 Respiratory Rate 16 11/18/24 22:34 Blood Pressure 122/66 11/19/24 00:10 Pulse Oximetry 93 11/19/24 01:30 Oxygen Delivery Me thod Room Air 11/19/24 00:10 MDM - Abdominal Pain Medical Decision Making Patient symptoms resolved spontaneously prior to arrival in the emergency department. He describes severe pain, nausea, and vomiting and that the pain got better shortly after vomiting. CT scan shows nothing acute and labs are unremarkable. I suspect he had a short-lived small bowel obstruction which spontaneously resolved. We discussed this and other etiologies and he shows good understanding. He will be discharged home in stable improved condition Lab Data 11/18/24 23:57 11/18/24 23:57 Labs/Radiology: Radiology Impressions Abdomen/Pelvis CT 11/19/24 00:15 IMPRESSION: 1. No acute abdominopelvic abnormalities are identified. 2. Cholelithiasis. 3. Mildly asymmetric prominence of the prostate gland. Correlation with PSA levels recommended. COMMENTS: Consistent with the [place]'s Incidental Findings Committee white paper (J Am Burke Radiol 2018): Any incidental renal lesion less than 1 cm or classified as too small to characterize, or any incidental cystic renal lesion characterized as simple-appearing, is likely benign. No follow-up imaging is recommended for these lesions per consensus recommendations based on imaging criteria. Chest X-Ray 11/19/24 00:16 IMPRESSION: No acute findings. Laboratory Results WBC 9.95 10^3/uL (3.29-11.43) 11/18/24 23:57 RBC 4.83 10^6/uL (3.85-5.65) 11/18/24 23:57 Hgb 14.20 g/dL (11.27-16.99) 11/18/24 23:57 Hct 43.9 % (37-53) 11/18/24 23:57 MCV 90.9 fl (82-101) 11/18/24 23:57 MCH 29.4 pg (27-33) 11/18/24 23:57 MCHC 32.3 g/dL (30-55) 11/18/24 23:57 RDW 13.7 % (12.1-15.1) 11/18/24 23:57 Plt Count 172 10^3/cmm (157-399) 11/18/24 23:57 MPV 11.6 fL (7.4-10.4) H 11/18/24 23:57 Neut % (Auto) 87.6 % 11/18/24 23:57 Lymph % (Auto) 8.0 % 11/18/24 23:57 Elbert % (Auto) 3.0 % 11/18/24 23:57 Eos % (Auto) 0.2 % 11/18/24 23:57 Baso % (Auto) 0.6 % 11/18/24 23:57 Neut # (Auto) 8.71 10^3/uL (1.8-7.7) H 11/18/24 23:57 Lymph # (Auto) 0.8 10^3/uL (0.8-4.8) 11/18/24 23:57 Elbert # (Auto) 0.3 10^3/uL (0.2-0.9) 11/18/24 23:57 Eos # (Auto) 0.0 10^3/uL (0.0-0.8) 11/18/24 23:57 Baso # (Auto) 0.1 10^3/uL (0.0-0.1) 11/18/24 23:57 Nucleated RBC % (auto) 0 % 11/18/24 23:57 Nucleated RBCs # 0.0 /100WBC 11/18/24 23:57 Sodium 137 mmol/L (136-145) 11/18/24 23:57 Potassium 4.3 mmol/L (3.5-5.1) 11/18/24 23:57 Chloride 99 mmol/L (98-107) 11/18/24 23:57 Carbon Dioxide 24 mmol/L (22-29) 11/18/24 23:57 Anion Gap 18.3 (5-19) 11/18/24 23:57 BUN 17 mg/dL (8-23) 11/18/24 23:57 Creatinine 1.6 mg/dL (0.7-1.2) H 11/18/24 23:57 GFR Calculation Not Reportable 11/18/24 23:57 Glucose 196 mg/dL (65-115) H 11/18/24 23:57 Calculated Osmolality 291 mOsm/kg (285-295) 11/18/24 23:57 Calcium 9.4 mg/dL (8.5-10.5) 11/18/24 23:57 Total Bilirubin 0.4 mg/dL (0.15-1.2) 11/18/24 23:57 AST 19 U/L (0-40) 11/18/24 23:57 ALT 30 U/L (0-41) 11/18/24 23:57 Alkaline Phosphatase 90 U/L (40-130) 11/18/24 23:57 Total Protein 7.1 g/dL (6.6-8.7) 11/18/24 23:57 Albumin 4.3 g/dL (3.5-5.2) 11/18/24 23:57 Globulin 2.8 g/dL (1.3-4.6) 11/18/24 23:57 Lipase 25 U/L (13-60) 11/18/24 23:57 All radiology interpretation(s) finalized by discharge Discharge Plan Discharge Patient Disposition: Home Clinical Impression: Abdominal pain, Nausea & vomiting Condition: Stable Prescriptions: No Action glimepiride 1 mg tablet 1 mg PO DAILY omeprazole 20 mg capsule,delayed release(DR/EC) 20 mg PO DAILY metoprolol succinate [Toprol XL] 25 mg tablet extended release 24 hr 25 mg PO BID Qty: 180 3RF clopidogrel 75 mg tablet 75 mg PO DAILY Qty: 90 3RF atorvastatin 40 mg tablet 40 mg PO BEDTIME 30 Days Qty: 90 3RF aspirin 81 mg tablet 81 mg PO DAILY Qty: 90 3RF diphenhydramine HCl [Sleep Aid (diphenhydramine)] 50 mg Capsule 50 mg PO QPM PRN (Reason: Sleep) metformin 500 mg tablet 500 mg PO DAILY acetaminophen [Tylenol Extra Strength] 500 mg Tablet 1,000 mg PO PRN cholecalciferol (vitamin D3) [Vitamin D3] 25 mcg (1,000 unit) Capsule 25 mcg PO DAILY tamsulosin [Flomax] 0.4 mg capsule 0.4 mg PO BID hydrochlorothiazide 25 mg Tablet 25 mg PO DAILY finasteride 5 mg Tablet 5 mg PO DAILY multivitamin Tablet 1 tab PO DAILY Qty: 14 0RF Discharge Orders: Discharge ED (Routine); Ordered 11/19/24 Ordered By: David Miller Referrals: Snow Calix MD [Primary Care Provider, Family Practice] Discharge Diet: Advance as tolerated Discharge Activity: Increase activity as tolerated Patient Instructions: Abdominal Pain (ED), Patient Portal & Sonia Instructions Print Language: Micronesian Coding Level of Care Code ED Electronic Equipment Repairer for Grieslda Gauthier
[2024-11-19 02:51] VITALS: BP 138/80; PULSE 81; O2SAT 97
== END 2024-11-19 02:50 | disposition home or self-care (01) ==
PROVIDERS: Emergency Provider Student in an Organized Health Care Education/Training Program; PCP Family Medicine
DX: R10.13 Epigastric pain (principal); R11.2 Nausea with vomiting, unspecified; I25.10 Atherosclerotic heart disease of native coronary artery without angina pectoris; I12.9 Hypertensive chronic kidney disease with stage 1 through stage 4 chronic kidney disease, or unspecified chronic kidney disease; N18.9 Chronic kidney disease, unspecified; E11.22 Type 2 diabetes mellitus with diabetic chronic kidney disease; Z79.899 Other long term (current) drug therapy; Z79.84 Long term (current) use of oral hypoglycemic drugs; Z88.2 Allergy status to sulfonamides; Z87.891 Personal history of nicotine dependence; Z85.528 Personal history of other malignant neoplasm of kidney; Z85.51 Personal history of malignant neoplasm of bladder
CPT/HCPCS: 36415; 71045; 74177; 80053; 83690; 85025; 93005; 99285; J7030

== ENCOUNTER 2024-12-02 12:55 | Outpatient (RCR) | payer SELFPAY | END 2025-01-01 23:59 | disposition home or self-care (01) | LOC: CR 12:55 | PROVIDERS: PCP Family Medicine; Referring Provider Family Medicine; Visit Provider Family Medicine | DX: Z95.5 Presence of coronary angioplasty implant and graft (principal) ==

== ENCOUNTER 2025-01-03 13:22 | Outpatient (RCR) | payer SELFPAY | END 2025-01-31 23:59 | disposition home or self-care (01) | LOC: CR 13:22 | PROVIDERS: PCP Family Medicine; Referring Provider Family Medicine; Visit Provider Family Medicine | DX: Z95.5 Presence of coronary angioplasty implant and graft (principal) ==

== ENCOUNTER 2025-02-01 10:59 | Outpatient (RCR) | payer SELFPAY | END 2025-03-03 23:59 | disposition home or self-care (01) | LOC: CR 10:59 | PROVIDERS: PCP Family Medicine; Referring Provider Nurse Practitioner Family; Visit Provider Family Medicine | DX: Z95.5 Presence of coronary angioplasty implant and graft (principal) ==

== ENCOUNTER → 2025-02-22 13:13 | Outpatient (BNVA) | payer OTHER, SELFPAY | PROVIDERS: PCP Family Medicine; Visit Provider Internal Medicine Cardiovascular Disease | DX: Z45.018 Encounter for adjustment and management of other part of cardiac pacemaker (principal) | CPT/HCPCS: 93296 ==

== ENCOUNTER 2025-03-04 13:23 | Outpatient (RCR) | payer SELFPAY | END 2025-04-02 23:59 | disposition home or self-care (01) | LOC: CR 13:23 | PROVIDERS: PCP Family Medicine; Referring Provider Nurse Practitioner Family; Visit Provider Family Medicine | DX: Z95.5 Presence of coronary angioplasty implant and graft (principal) ==

== ENCOUNTER → 2025-03-15 14:42 | Outpatient (BNVA) | payer OTHER, SELFPAY | PROVIDERS: PCP Family Medicine; Visit Provider Internal Medicine | DX: I25.10 Atherosclerotic heart disease of native coronary artery without angina pectoris (principal); Z95.0 Presence of cardiac pacemaker; Z87.891 Personal history of nicotine dependence; I12.9 Hypertensive chronic kidney disease with stage 1 through stage 4 chronic kidney disease, or unspecified chronic kidney disease; N18.9 Chronic kidney disease, unspecified; E11.22 Type 2 diabetes mellitus with diabetic chronic kidney disease; Z79.84 Long term (current) use of oral hypoglycemic drugs | CPT/HCPCS: 99214 ==

== ENCOUNTER 2025-04-06 20:36 | Emergency (ER) | payer OTHER, SELFPAY ==
[2025-04-06] VITALS (7 sets, daily range): BP systolic 151–175; BP diastolic 77–88; PULSE 80–85; RESP 16–17; TEMP 36.5; O2SAT 90–95; BMI 31.8
--- OUTSIDE RECORDS SUMMARY | 2025-04-06 20:54 | XMS_ITS | Patient Health Record ---
Author Organization [facility], [facility] Address [address] [place] [address] Care Team Providers Care Daylight Driller Name Role Phone Snow Cade MD Primary Care Provider Unav ailable FRAN ESCUDERO Unavailable [phone] Mayco Milian Unavailable Unavailable Allergies Allergen (clinical drug ingredient) Drug/Non Drug Allergy documented on EMR Reaction Allergy Type Onset Date Status sulfamethoxazole / trimethoprim Bactrim renal failure Drug Allergy Active Results Component Value Reference Range Notes Urinalysis, Routine Reviewed date:07/14/2024 10:29:05 AM Interpretation: Performing Lab: Notes/Report: Urine-Color yellow Appearance clear Glucose - Bilirubin - Ketones - Specific [place] 1.020 Occult Blood - pH 6.0 Urine [...] Status Risk Notes Problem Benign prostatic hyperplasia (105352409) BPH (benign prostatic hyperplasia) (N40.0) Active confirmed Problem Personal history of primary malignant neoplasm of kidney (463630139) History of renal cell carcinoma (Z85.528) Active confirmed Problem Absent kidney (538805273) History of nephrectomy, right (Z90.5) Active confirmed Problem Malignant tumor of kidney (592217230) Renal cell carcinoma of right kidney (C64.1) Active confirmed Problem Personal history of primary malignant neoplasm of urinary bladder (338164690) History of bladder cancer (Z85.51) Active confirmed Problem Malignant tumor of urinary bladder (408913867) Malignant neoplasm of urinary bladder, unspecified site (C67.9) Active confirmed Vital Signs Height-cm 180.34 cm 07/14/2024 Weight-kg 104.33 kg 07/14/2024 Height 71 in 07/14/2024 Weight 230 lbs 07/14/2024 BMI 32.07 kg/m2 07/14/2024 Encounters Encounter Location Date Provider Diagnosis [facility] [address] [place] [address] 07/14/2024 FRAN ESCUDERO History of bladder cancer Z85.51 ; History of renal cell carcinoma Z85.528 ; History of nephrectomy, right Z90.5 and BPH (benign prostatic hyperplasia) N40.0 [facility] [address] [place] [address] 07/14/2024 FRAN ESCUDERO Assessments Encounter Date Diagnosis (ICD Code) Assessment Notes Treatment Notes Treatment Clinical Notes Section Notes 07/14/2024 History of bladder cancer (ICD-10 - Z85.51) 73 yo male with history of bladder cancer. Surveillance cysto negative today. Plan: surveillance cysto in 1yr UA sent to [facility] cytology/Uro17 07/14/2024 History of renal cell carcinoma (ICD-10 - Z85.528) 73 yo male with history of bladder cancer. Surveillance cysto negative today. Plan: surveillance cysto in 1yr UA sent to [facility] cytology/Uro17 07/14/2024 History of nephrectomy, right (ICD-10 - Z90.5) 73 yo male with history of bladder cancer. Surveillance cysto negative today. Plan: surveillance cysto in 1yr UA sent to [facility] cytology/Uro17 07/14/2024 BPH (benign prostatic hyperplasia) (ICD-10 - N40.0) 73 yo male with history of bladder cancer. Surveillance cysto negative today. Plan: surveillance cysto in 1yr UA sent to [facility] cytology/Uro17 Plan Of Treatment Next Appt Details Provider Name:FRAN Martinez, 07/20/2025 10:20:00 AM, [address] [place], [address], Insurance Providers Payer Name Payer Address Payer Phone Subscriber Number Group Number Insured Name Patient Relationship to Insured Coverage Start Date Coverage End Date [place] [address] [facility] [place] [id number] Jennifer Hendricks Self - patient is the insured [employer] [address] [address] [place] [address] [id number] Jennifer Hendricks Self - patient is the insured Medical (General) History Medical History History ICD Code TCCA/ Carcinoma (Dx 04/12/2020) CKD diabetes hypertension left renal cyst Surgical History Surgery Date(Month/Year) TURBT 04/2020 Right nephrectomy PACEMAKER INSERTION 02/03/2024 Hospitalization History Reason Date(Month/Year) myocardial infarction 02/02/2024 above
--- OUTSIDE RECORDS SUMMARY | 2025-04-06 20:54 | XMS_ITS | Patient Health Record ---
Author Organization [facility] Address [address] [place] [address] Care Team Providers Care Anesthesia Assistant Name Role Phone Snow Rome MD Primary Care Provider Xin garza Gauri Francisco Unavailable [phone] Mayco Milian Unavailable Unavailable Reason For Referral No Information Problems Problem Type SNOMED Code ICD Code Onset Dates Problem Status W/U Status Risk Notes Problem Malignant tumor of kidney (210964408) Renal cell carcinoma of right kidney (C64.1) Active confirmed Plan Of Treatment No Information Insurance Providers Payer Name Payer Address Payer Phone Subscriber Number Group Number Insured Name Patient Relationship to Insured Coverage Start Date Coverage End Date [place] Medicare [address] [place] [phone] [id number] Nicho Hendricks Self - patient is the insured
--- NOTE | 2025-04-06 21:04 | ECG_ITS ---
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 Measurements Intervals [place] Rate: 79 P: 45 CO: 185 QRS: -32 QRSD: 125 T: 16 QT: 421 QTc: 484 Interpretive Statements ELECTRONIC VENTRICULAR PACEMAKER ABNORMAL RHYTHM ECG Compared to ECG 11/18/2024 22:40:37 AV dual-paced complex(es) or rhythm no longer present Electronically Signed On 04-07-2025 18:47:20 SUPERVISOR ELECTRON TUBE PROCESSING by Silas Azul M.D. [email or web address]
--- NOTE | 2025-04-06 21:05 | CTR_ITS ---
PROCEDURE INFORMATION: Exam: CT Abdomen And Pelvis With Contrast Exam date and time: 04/06/2025 10:32 PM Age: 74 years old Clinical indication: Abdominal pain; Prior surgery; Surgery date: 6+ months; Surgery type: Kidney removal, bladder scrapping, appendectomy; Additional info: Upper abd pain radiating to back with nausea and diarrhea TECHNIQUE: Imaging protocol: Computed tomography of the abdomen and pelvis with contrast. Radiation optimization: All CT scans at this facility use at least one of these dose optimization techniques: automated exposure control; mA and/or kV adjustment per patient size (includes targeted exams where dose is matched to clinical indication); or iterative reconstruction. Contrast material: OMNI 350; Contrast volume: 100 ml; Contrast route: INTRAVENOUS (IV); COMPARISON: CT abdomen pelvis w con* [id number] 11/19/2024 12:57 AM RADIATION DOSE METRICS: Total DLP (mGy-cm): 1121.03 FINDINGS: Tubes, catheters and devices: Pacemaker leads. Liver: Normal. No mass. Gallbladder and biliary ducts: Mild gallbladder wall thickening, measuring up to 5 mm, correlate for acute cholecystitis. Mild gallbladder sludge. Mild wall thickening of the gallbladder, which is decompressed. The need for urinalysis should be determined clinically. Pancreas: Normal. No ductal dilation. Spleen: Multiple calcified splenic granulomas. Adrenal glands: Normal. No mass. Kidneys and ureters: Right nephrectomy. Left upper pole renal cyst measures 4.0 cm. Stomach and bowel: No acute diverticulitis. No small bowel obstruction. No free air. Appendix: Appendectomy. Intraperitoneal space: See Stomach and bowel finding. Vasculature: Unremarkable. No abdominal aortic aneurysm. Lymph nodes: Unremarkable. No enlarged lymph nodes. Urinary bladder: Unremarkable as visualized. Reproductive: Unremarkable as visualized. Bones/joints: Unremarkable. No acute fracture. Soft tissues: Fat containing left inguinal hernia. CT/CT abdomen pelvis w con* [id number] IMPRESSION: 1. Mild gallbladder wall thickening, measuring up to 5 mm, correlate for acute cholecystitis. Mild gallbladder sludge. 2. Right nephrectomy. 3. No acute diverticulitis. No small bowel obstruction. No free air. 4. Fat containing left inguinal hernia. 5. Appendectomy. 6. Mild wall thickening of the gallbladder, which is decompressed. The need for urinalysis should be determined clinically. COMMENTS: Consistent with the [employer] [employer]'s Incidental Findings Committee white paper (J Am Burke Radiol 2018): Any incidental renal lesion less than 1 cm or classified as too small to characterize, or any incidental cystic renal lesion characterized as simple-appearing, is likely benign. No follow-up imaging is recommended for these lesions per consensus recommendations based on imaging criteria.
--- NOTE | 2025-04-06 21:25 | W.ED.ABDPA2 ---
HPI - Abdominal Pain General: Chief Complaint: Abdominal Pain Stated Complaint: stomach pain. into back Time Seen by Provider: 04/06/25 20:57 History of Present Illness: 74-year-old male with a past medical history significant for hypertension, CAD status post stent with pacemaker in place, status post right nephrectomy for cancer/tumor, presenting the emergency department with onset this morning of upper abdominal pain radiating to the back stabbing in nature preceded by 2 to 3-day history of watery diarrhea 3-4 episodes per day, nausea today without any vomiting, no fever, no tucker chest pain, no shortness of breath, no leg swelling or calf tenderness, no falls or trauma, reports pain that felt similar a few months ago that resolved after an episode of vomiting, denies alcohol abuse, denies drug use. Related Data Home Medications ?Medication ?Instructions ?Recorded ?Confirmed acetaminophen 500 mg tablet 1,000 mg PO PRN 03/15/20 03/15/25 (Tylenol Extra Strength) cholecalciferol (vitamin D3) 25 25 mcg PO DAILY 03/15/20 03/15/25 mcg (1,000 unit) capsule (Vitamin D3) metformin 500 mg tablet 500 mg PO DAILY 03/15/20 03/15/25 diphenhydramine HCl 50 mg capsule 50 mg PO QPM PRN Sleep 04/19/20 03/15/25 (Sleep Aid (diphenhydramine)) tamsulosin 0.4 mg capsule (Flomax) 0.4 mg PO BID 12/14/20 03/15/25 glimepiride 1 mg tablet 1 mg PO DAILY 09/13/21 03/15/25 finasteride 5 mg tablet 5 mg PO DAILY 02/01/24 03/15/25 omeprazole 20 mg capsule,delayed 20 mg PO DAILY 02/10/24 03/15/25 release lisinopril 30 mg tablet 30 mg PO DAILY 03/15/25 03/15/25 Previous Rx's ?Medication ?Instructions ?Recorded multivitamin 1 tab PO DAILY #14 tabs 02/03/24 atorvastatin 40 mg tablet 40 mg PO BEDTIME 30 days #90 tabs 02/09/25 clopidogrel 75 mg tablet 75 mg PO DAILY #90 tabs 02/09/25 metoprolol succinate 25 mg 25 mg PO BID #180 tabs 02/09/25 tablet,extended release 24 hr (Toprol XL) furosemide 20 mg tablet (Lasix) 20 mg PO DAILY PRN edema #90 tabs 03/15/25 Allergies Allergy/AdvReac Type Severity Reaction Status Date / Time sulfamethoxazole (From AdvReac Unknown Verified 04/06/25 20:55 Bactrim) trimethoprim (From Bactrim) AdvReac Unknown Verified 04/06/25 20:55 PFSH ED PFSH: Medical History CAD (coronary artery disease) Atherosclerotic heart disease of lime coronary artery with other forms of angina pectoris Chronic kidney disease (CKD) Hypertension Carcinoma in situ of bladder High-grade, lamina propria invasion, diffuse bladder wall involvement. Diabetes Renal cyst, left Hx of renal cell carcinoma Surgical History History of bladder surgery TURBT for carcinoma in situ April 2020. History of right nephrectomy Family History Father , AT AGE 91 Lung disease Mother Cancer Social History Smoking and tobacco/nicotine status: former use of tobacco/nicotine (40 years ago) Alcohol intake: unknown Substance/Drug Use: never Caregiver/support person: No Marital status: Current occupational status: retired Physical Exam Narrative: EXAM NARRATIVE: Gen: A&Ox4, no acute distress, nontoxic appearing, obese HEENT: Normocephalic, atraumatic, no scleral icterus, external ears normal, moist mucous membranes Neck: Supple, full range of motion, no observable masses Lungs: No Respiratory distress, Lungs clear to auscultation bilaterally no rales, rhonchi, wheezing CV: Regular rate and rhythm, no murmur, no pitting edema to lower extremities bilaterally Abdomen: Soft, nondistended, diffusely tender to palpation with tenderness most notable to the epigastrium, surgical scars to the right lower quadrant and umbilicus MSK: No joint swelling, FROM all 4 extremities Skin: No rashes, petechiae, lesions. Normal color per patient. Neuro: Alert and oriented, no slurred speech, sensation and strength grossly intact all 4 extremities Psych: Appropriate for situation. Course Reevaluation(s): Reevaluation #1: Patient reassessed at this time, has been completely asymptomatic for greater than 2 hours now, repeat abdominal exam completely benign with specific attention to the right upper quadrant and a negative Morales sign. CT suggestive of borderline widening of the gallbladder wall and gallbladder sludge raising concern for possible cholecystitis versus symptomatic cholelithiasis, ultrasound of the gallbladder performed subsequently which shows a normal gallbladder, possible passage of sludge in the interim given patient's resolved symptoms. He did have a leukocytosis but no fever and given his symptoms are entirely resolved at this time and his ultrasound shows no evidence of acute cholecystitis I do not have concern for acute cholecystitis at this time. I do recommend he follow-up with an outpatient general surgeon to discuss elective gallbladder removal however given his extensive cardiac history he is not a very good surgical candidate and elective gallbladder surgery may be considered too high risk. I did specifically intake counselor him on returning to the ER if his pain were to worsen or if he were to develop any fevers to be reassessed for possible interval development of cholecystitis. At this time patient is stable for discharge with return precautions and close monitoring of symptoms at home Time: 00:11 Vital Signs: Vital signs: Vital Signs Temperature 97.7 F 04/06/25 20:48 Pulse Rate 82 04/06/25 20:48 Respiratory Rate 17 04/06/25 22:03 Blood Pressure 169/88 04/06/25 22:10 Pulse Oximetry 90 04/06/25 22:10 Oxygen Delivery Me thod Room Air 04/06/25 21:31 MDM - Abdominal Pain Medical Decision Making 74-year-old male history of hypertension, CAD with stents, pacemaker in place, nephrectomy for cancer in the past, presenting to the emergency department with 1 day history of upper abdominal pain rating to the back in the context of a 3 to 4-day history of diarrhea, nausea without vomiting, diffuse tenderness to the abdomen without peritoneal signs, mildly hypertensive, no tucker chest pain, nondiaphoretic, plan for CT of the abdomen to assess for diverticulitis/pancreatitis/partial bowel obstruction, labs, urinalysis, pain control, differential also includes atypical ACS presentation, cardiac screen for this, aortic dissection/aneurysm considered but thought to be less likely at this time based on the antecedent diarrhea, reassess for disposition. Lab Data Laboratory evaluation showing leukocytosis to 15, no ROCIO, normal electrolytes other than borderline hyponatremia 135 not clinically relevant, no anemia, LFTs normal with normal bilirubin AST and ALT and normal alk phos, troponin negative at 10, lipase normal, urinalysis without evidence of UTI 04/06/25 21:14 04/06/25 21:14 Labs/Radiology: Radiology Impressions Abdomen/Pelvis CT 04/06/25 21:05 IMPRESSION: 1. Mild gallbladder wall thickening, measuring up to 5 mm, correlate for acute cholecystitis. Mild gallbladder sludge. 2. Right nephrectomy. 3. No acute diverticulitis. No small bowel obstruction. No free air. 4. Fat containing left inguinal hernia. 5. Appendectomy. 6. Mild wall thickening of the gallbladder, which is decompressed. The need for urinalysis should be determined clinically. COMMENTS: Consistent with the [employer]'s Incidental Findings Committee white paper (J Am Burke Radiol 2018): Any incidental renal lesion less than 1 cm or classified as too small to characterize, or any incidental cystic renal lesion characterized as simple-appearing, is likely benign. No follow-up imaging is recommended for these lesions per consensus recommendations based on imaging criteria. Gallbladder Ultrasound 04/06/25 22:58 IMPRESSION: No sonographic findings of acute cholecystitis. No acute abnormality. Laboratory Results WBC 15.02 10^3/uL (3.29-11.43) H 04/06/25 21:14 RBC 4.90 10^6/uL (3.85-5.65) 04/06/25 21:14 Hgb 13.90 g/dL (11.27-16.99) 04/06/25 21:14 Hct 42.9 % (37-53) 04/06/25 21:14 MCV 87.6 fl (82-101) 04/06/25 21:14 MCH 28.4 pg (27-33) 04/06/25 21:14 MCHC 32.4 g/dL (30-55) 04/06/25 21:14 RDW 13.5 % (12.1-15.1) 04/06/25 21:14 Plt Count 183 10^3/cmm (157-399) 04/06/25 21:14 MPV 11.4 fL (7.4-10.4) H 04/06/25 21:14 Neut % (Auto) 87.8 % 04/06/25 21:14 Lymph % (Auto) 7.0 % 04/06/25 21:14 [place] % (Auto) 4.3 % 04/06/25 21:14 Eos % (Auto) 0.1 % 04/06/25 21:14 Baso % (Auto) 0.5 % 04/06/25 21:14 Neut # (Auto) 13.19 10^3/uL (1.8-7.7) H 04/06/25 21:14 Lymph # (Auto) 1.1 10^3/uL (0.8-4.8) 04/06/25 21:14 [place] # (Auto) 0.7 10^3/uL (0.2-0.9) 04/06/25 21:14 Eos # (Auto) 0.0 10^3/uL (0.0-0.8) 04/06/25 21:14 Baso # (Auto) 0.1 10^3/uL (0.0-0.1) 04/06/25 21:14 Nucleated RBC % (auto) 0 % 04/06/25 21:14 Nucleated RBCs # 0.0 /100WBC 04/06/25 21:14 Sodium 135 mmol/L (136-145) L 04/06/25 21:14 Potassium 4.3 mmol/L (3.5-5.1) 04/06/25 21:14 Chloride 100 mmol/L (98-107) 04/06/25 21:14 Carbon Dioxide 23 mmol/L (22-29) 04/06/25 21:14 Anion Gap 16.3 (5-19) 04/06/25 21:14 BUN 16 mg/dL (8-23) 04/06/25 21:14 Creatinine 1.2 mg/dL (0.7-1.2) 04/06/25 21:14 GFR Calculation Not Reportable 04/06/25 21:14 Glucose 159 mg/dL (65-115) H 04/06/25 21:14 Calculated Osmolality 285 mOsm/kg (285-295) 04/06/25 21:14 Calcium 9.3 mg/dL (8.5-10.5) 04/06/25 21:14 Total Bilirubin 0.6 mg/dL (0.15-1.2) 04/06/25 21:14 AST 19 U/L (0-40) 04/06/25 21:14 ALT 25 U/L (0-41) 04/06/25 21:14 Alkaline Phosphatase 101 U/L (40-130) 04/06/25 21:14 Troponin T Baseline 10 ng/L (0-15) 04/06/25 21:14 Total Protein 6.7 g/dL (6.6-8.7) 04/06/25 21:14 Albumin 4.5 g/dL (3.5-5.2) 04/06/25 21:14 Globulin 2.2 g/dL (1.3-4.6) 04/06/25 21:14 Lipase 15 U/L (13-60) 04/06/25 21:14 Urine Color Yellow (Yellow) 04/06/25 22:21 Urine Appearance Clear (CLEAR) 04/06/25 22:21 Urine pH 5.5 (5-7) 04/06/25 22:21 Ur Specific [place] 1.026 (1.005-1.030) 04/06/25 22:21 Urine Protein 1+ (Negative) A 04/06/25 22:21 Urine Glucose (UA) Negative (Normal) 04/06/25 22:21 Urine Ketones 2+ (Negative) H 04/06/25 22:21 Urine Blood Negative (Negative) 04/06/25 22:21 Urine Nitrate Negative (Negative) 04/06/25 22:21 Urine Bilirubin Negative (Negative) 04/06/25 22:21 Urine Urobilinogen 0.2 mg/dL (Negative) 04/06/25 22:21 Ur Leukocyte Esterase Negative (Negative) 04/06/25 22:21 Urine RBC 0-2 /hpf (0-2) 04/06/25 22:21 Urine WBC 0-5 /hpf (0-5) 04/06/25 22:21 Ur Squamous Epith Cells 0-5 /hpf (0-5) 04/06/25 22:21 Amorphous Sediment Not Reportable 04/06/25 22:21 Urine Bacteria None seen /hpf (NONE) 04/06/25 22:21 Hyaline Casts 0-4 /lpf H 04/06/25 22:21 All radiology interpretation(s) finalized by discharge ED provider radiology interpretation(s): CT abdomen pelvis showing gallbladder sludge and borderline thickening of the gallbladder wall, ultrasound of the gallbladder normal EKG Data EKG 1: I personally reviewed and interpreted this EKG as follows: EKG interpretation date: 04/06/25 EKG interpretation time: 21:35 Interpretation: Electronic Godfrey paced rhythm at 79 bpm, no ectopy, QTc 456, no STEMI by modified Sgarbossa criteria Discharge Plan Discharge Patient Disposition: Home Clinical Impression: Cholelithiasis Qualifiers: Cholelithiasis location: gallbladder Cholecystitis presence: without cholecystitis Biliary obstruction: without biliary obstruction Qualified Code(s): K80.20 - Calculus of gallbladder without cholecystitis without obstruction Condition: Stable Prescriptions: No Action glimepiride 1 mg tablet 1 mg PO DAILY lisinopril 30 mg tablet 30 mg PO DAILY furosemide [Lasix] 20 mg tablet 20 mg PO DAILY PRN (Reason: edema) Qty: 90 1RF omeprazole 20 mg capsule,delayed release(DR/EC) 20 mg PO DAILY metoprolol succinate [Toprol XL] 25 mg tablet extended release 24 hr 25 mg PO BID Qty: 180 3RF clopidogrel 75 mg tablet 75 mg PO DAILY Qty: 90 3RF atorvastatin 40 mg tablet 40 mg PO BEDTIME 30 Days Qty: 90 3RF diphenhydramine HCl [Sleep Aid (diphenhydramine)] 50 mg Capsule 50 mg PO QPM PRN (Reason: Sleep) metformin 500 mg tablet 500 mg PO DAILY acetaminophen [Tylenol Extra Strength] 500 mg Tablet 1,000 mg PO PRN cholecalciferol (vitamin D3) [Vitamin D3] 25 mcg (1,000 unit) Capsule 25 mcg PO DAILY tamsulosin [Flomax] 0.4 mg capsule 0.4 mg PO BID finasteride 5 mg Tablet 5 mg PO DAILY multivitamin Tablet 1 tab PO DAILY Qty: 14 0RF Discharge Orders: Discharge ED (Routine); Ordered 04/07/25 Ordered By: Ehsan Weiner Referrals: Snow Calix MD [Referring, Family Practice] Florencio Mclean MD [Physician, General Surgery] Patient Instructions: Abdominal Pain (ED), Patient Portal & Sonia Instructions, Gallstones (ED) Print Language: Sinhala Coding Level of Care Code ED Heel Coverer for Griselda Gauthier
[2025-04-06 21:31] LABS: Hematocrit 42.9 % (37-53); Hemoglobin 13.90 g/dL (11.27-16.99); Mean Corpuscular HGB Conc 32.4 g/dL (30-55); Mean Corpuscular Hemoglobin 28.4 pg (27-33); Mean Corpuscular Volume 87.6 fl (82-101); Nucleated Red Blood Cells % 0 %; Platelet Count 183 10^3/cmm (157-399); Red Blood Count 4.90 10^6/uL (3.85-5.65); White Blood Count 15.02 10^3/uL (3.29-11.43)
[2025-04-06 21:42] LABS: Troponin(5th) Baseline 10 ng/L (0-15)
[2025-04-06 21:57] LABS: Alanine Aminotransferase 25 U/L (0-41); Albumin Level 4.5 g/dL (3.5-5.2); Alkaline Phosphatase 101 U/L (40-130); Anion Gap 16.3 (5-19); Aspartate Amino Transferase 19 U/L (0-40); Blood Urea Nitrogen 16 mg/dL (8-23); Calcium 9.3 mg/dL (8.5-10.5); Carbon Dioxide 23 mmol/L (22-29); Chloride 100 mmol/L (98-107); Globulin 2.2 g/dL (1.3-4.6); Glucose 159 mg/dL (65-115); Lipase 15 U/L (13-60); Osmolality Calculated 285 mOsm/kg (285-295); Potassium 4.3 mmol/L (3.5-5.1); Sodium 135 mmol/L (136-145); Total Protein 6.7 g/dL (6.6-8.7)
[2025-04-06] MEDS: morphine 4 mg/mL SDV 1 mL IVP (22:03)
[2025-04-06] MEDS: ondansetron 2 mg/ML SDV 2 mL 4 MG IVP (22:03)
[2025-04-06] MEDS: iohexol 350 mg/mL 500 mL Btl (per mL) IV (22:44)
[2025-04-06 22:54] LABS: Glucose Urine UA Negative (Normal); Nitrate Urine Negative (Negative); Specific Gravity, Urine 1.026 (1.005-1.030)
--- NOTE | 2025-04-06 22:58 | USR_ITS ---
PROCEDURE INFORMATION: Exam: US Abdomen, Limited; Right Upper Quadrant Exam date and time: 04/06/2025 11:11 PM Age: 74 years old Clinical indication: Upper abdominal pain TECHNIQUE: Imaging protocol: Real time ultrasound of the abdomen with image documentation. Limited exam focused on the right upper quadrant. COMPARISON: CT abdomen pelvis w con* [id number] 04/06/2025 10:32 PM FINDINGS: Liver: Normal. No masses. Gallbladder: No gallstones. Gallbladder wall measures near the upper limits of normal in size. Negative sonographic Morales's sign. Biliary ducts: Normal. No stones. No dilation. Pancreas: Visualized pancreas is unremarkable. Right kidney: Not visualized US/US gall bladder [id number] IMPRESSION: No sonographic findings of acute cholecystitis. No acute abnormality.
[2025-04-07] VITALS: BP 142/69; PULSE 79; O2SAT 90
[2025-04-07 00:39] VITALS: BP 142/69; PULSE 79; O2SAT 90
--- NOTE | 2025-04-07 07:04 | DCPLANNER ---
messaged general surgery for er f/u
== END 2025-04-07 00:40 | disposition home or self-care (01) ==
PROVIDERS: Emergency Provider Student in an Organized Health Care Education/Training Program; PCP Nurse Practitioner
DX: K80.20 Calculus of gallbladder without cholecystitis without obstruction (principal); Z79.84 Long term (current) use of oral hypoglycemic drugs; Z79.02 Long term (current) use of antithrombotics/antiplatelets; Z87.891 Personal history of nicotine dependence; E11.22 Type 2 diabetes mellitus with diabetic chronic kidney disease; I12.9 Hypertensive chronic kidney disease with stage 1 through stage 4 chronic kidney disease, or unspecified chronic kidney disease; N18.9 Chronic kidney disease, unspecified; I25.118 Atherosclerotic heart disease of native coronary artery with other forms of angina pectoris; Z85.528 Personal history of other malignant neoplasm of kidney
CPT/HCPCS: 36415; 74177; 76705; 80053; 81001; 83690; 84484; 85025; 93005; 96374; 96375; 99285; J1885; J2270; J2405; J7030

== ENCOUNTER 2025-04-08 15:33 | Observation (INO) | payer OTHER, SELFPAY ==
--- OUTSIDE RECORDS SUMMARY | 2025-04-08 15:39 | XMS_ITS | Patient Health Record ---
Author Organization [facility], [facility] Address [address] [facility] [place] [address] Care Team Providers Care Die Designer Name Role Phone Snow Cade MD Primary Care Provider Unav ailable FRAN ESCUDERO Unavailable [phone] Mayco Milian Unavailable Unavailable Allergies Allergen (clinical drug ingredient) Drug/Non Drug Allergy documented on EMR Reaction Allergy Type Onset Date Status sulfamethoxazole / trimethoprim Bactrim renal failure Drug Allergy Active Results Component Value Reference Range Notes Urinalysis, Routine Reviewed date:07/14/2024 10:29:05 AM Interpretation: Performing Lab: Notes/Report: Urine-Color yellow Appearance clear Glucose - Bilirubin - Ketones - Specific [place] 1.020 Occult Blood - pH 6.0 Urine [...] Status Risk Notes Problem Benign prostatic hyperplasia (260594419) BPH (benign prostatic hyperplasia) (N40.0) Active confirmed Problem Personal history of primary malignant neoplasm of kidney (474809254) History of renal cell carcinoma (Z85.528) Active confirmed Problem Absent kidney (900717057) History of nephrectomy, right (Z90.5) Active confirmed Problem Malignant tumor of kidney (065447478) Renal cell carcinoma of right kidney (C64.1) Active confirmed Problem Personal history of primary malignant neoplasm of urinary bladder (523519046) History of bladder cancer (Z85.51) Active confirmed Problem Malignant tumor of urinary bladder (857745601) Malignant neoplasm of urinary bladder, unspecified site (C67.9) Active confirmed Vital Signs Height-cm 180.34 cm 07/14/2024 Weight-kg 104.33 kg 07/14/2024 Height 71 in 07/14/2024 Weight 230 lbs 07/14/2024 BMI 32.07 kg/m2 07/14/2024 Encounters Encounter Location Date Provider Diagnosis [facility] [address] [place] [address] 07/14/2024 FRAN ESCUDERO History of bladder cancer Z85.51 ; History of renal cell carcinoma Z85.528 ; History of nephrectomy, right Z90.5 and BPH (benign prostatic hyperplasia) N40.[address] [facility] [address] [place] [address] 07/14/2024 FRAN ESCUDERO Assessments Encounter Date Diagnosis (ICD Code) Assessment Notes Treatment Notes Treatment Clinical Notes Section Notes 07/14/2024 History of bladder cancer (ICD-10 - Z85.51) 73 yo male with history of bladder cancer. Surveillance cysto negative today. Plan: surveillance cysto in 1yr UA sent to [facility] cytology/Uro17 07/14/2024 History of renal cell carcinoma (ICD-10 - Z85.528) 73 yo male with history of bladder cancer. Surveillance cysto negative today. Plan: surveillance cysto in 1yr UA sent to [facility] cytology/Uro17 07/14/2024 History of nephrectomy, right (ICD-10 - Z90.5) 73 yo male with history of bladder cancer. Surveillance cysto negative today. Plan: surveillance cysto in 1yr UA sent to [facility] cytology/Uro17 07/14/2024 BPH (benign prostatic hyperplasia) (ICD-10 - N40.0) 73 yo male with history of bladder cancer. Surveillance cysto negative today. Plan: surveillance cysto in 1yr UA sent to [facility] cytology/Uro17 Plan Of Treatment Next Appt Details Provider Name:FRAN Martinez, 07/20/2025 10:20:00 AM, [address] [place], [address], Insurance Providers Payer Name Payer Address Payer Phone Subscriber Number Group Number Insured Name Patient Relationship to Insured Coverage Start Date Coverage End Date [place] [address] [facility] [place] [id number] Jennifer Hendricks Self - patient is the insured [employer] [address] [address] [place] [address] [id number] Jennifer Hendricks Self - patient is the insured Medical (General) History Medical History History ICD Code TCCA/ Carcinoma (Dx 04/12/2020) CKD diabetes hypertension left renal cyst Surgical History Surgery Date(Month/Year) TURBT 04/2020 Right nephrectomy PACEMAKER INSERTION 02/03/2024 Hospitalization History Reason Date(Month/Year) myocardial infarction 02/02/2024 above
--- OUTSIDE RECORDS SUMMARY | 2025-04-08 15:39 | XMS_ITS | Patient Health Record ---
Author Organization [facility] Address [address] [place] [address] Care Team Providers Care Income Tax Investigator Name Role Phone Snow Rome MD Primary Care Provider Xin garza Gauri Francisco Unavailable [phone] Mayco Milian Unavailable Unavailable Reason For Referral No Information Problems Problem Type SNOMED Code ICD Code Onset Dates Problem Status W/U Status Risk Notes Problem Malignant tumor of kidney (051703048) Renal cell carcinoma of right kidney (C64.1) Active confirmed Plan Of Treatment No Information Insurance Providers Payer Name Payer Address Payer Phone Subscriber Number Group Number Insured Name Patient Relationship to Insured Coverage Start Date Coverage End Date [place] Medicare [address] [place] [phone] [id number] Nicho Hendricks Self - patient is the insured
[2025-04-08 16:02] VITALS: BP 194/111; PULSE 75; RESP 19; TEMP 36.8; O2SAT 95; BMI 32.1
--- NOTE | 2025-04-08 16:29 | USR_ITS ---
PROCEDURE INFORMATION: Exam: US Abdomen, Limited; Right Upper Quadrant Exam date and time: 04/08/2025 5:06 PM Age: 74 years old Clinical indication: Right upper quadrant pain TECHNIQUE: Imaging protocol: Real time ultrasound of the abdomen with image documentation. Limited exam focused on the right upper quadrant. COMPARISON: US gall bladder [id number] 04/06/2025 11:11 PM FINDINGS: Liver: Normal. No masses. Gallbladder: Sludge within the gallbladder. Mild gallbladder wall thickening measuring up to 4 mm. Negative sonographic Morales's sign. Biliary ducts: Normal. No stones. No dilation. Pancreas: Visualized pancreas is unremarkable. Right kidney: Not visualized. Intraperitoneal space: Trace perihepatic ascites. US/US gall bladder [id number] IMPRESSION: Gallbladder sludge with mild wall thickening. Negative sonographic Morales's sign and no pericholecystic fluid. Findings are nonspecific and do not meet sonographic criteria for acute cholecystitis.
[2025-04-08 16:30] VITALS: BP 175/81; PULSE 84; O2SAT 97
--- NOTE | 2025-04-08 16:30 | W.ED.ABDPA2 ---
HPI - Abdominal Pain General: Chief Complaint: Abdominal Pain Stated Complaint: upper abd right side and back Time Seen by Provider: 04/08/25 16:24 Source: patient Mode of arrival: ambulatory Limitations: no limitations History of Present Illness: 74-year-old male who states he been having right upper quadrant abdominal pain for the last 4 days. Patient was seen here on had elevated white count some slight thickening of his gallbladder but his pain did improve and they did discharge him he states that since being home his pain is worse and it has been severe in nature today. States his pain is currently an 8 out of 10 denies any fevers denies any vomiting denies any worse improved factors. Related Data Home Medications ?Medication ?Instructions ?Recorded ?Confirmed acetaminophen 500 mg tablet 1,000 mg PO PRN 03/15/20 03/15/25 (Tylenol Extra Strength) cholecalciferol (vitamin D3) 25 25 mcg PO DAILY 03/15/20 03/15/25 mcg (1,000 unit) capsule (Vitamin D3) metformin 500 mg tablet 500 mg PO DAILY 03/15/20 03/15/25 diphenhydramine HCl 50 mg capsule 50 mg PO QPM PRN Sleep 04/19/20 03/15/25 (Sleep Aid (diphenhydramine)) tamsulosin 0.4 mg capsule (Flomax) 0.4 mg PO BID 12/14/20 03/15/25 glimepiride 1 mg tablet 1 mg PO DAILY 09/13/21 03/15/25 finasteride 5 mg tablet 5 mg PO DAILY 02/01/24 03/15/25 omeprazole 20 mg capsule,delayed 20 mg PO DAILY 02/10/24 03/15/25 release lisinopril 30 mg tablet 30 mg PO DAILY 03/15/25 03/15/25 Previous Rx's ?Medication ?Instructions ?Recorded multivitamin 1 tab PO DAILY #14 tabs 02/03/24 atorvastatin 40 mg tablet 40 mg PO BEDTIME 30 days #90 tabs 02/09/25 clopidogrel 75 mg tablet 75 mg PO DAILY #90 tabs 02/09/25 metoprolol succinate 25 mg 25 mg PO BID #180 tabs 02/09/25 tablet,extended release 24 hr (Toprol XL) furosemide 20 mg tablet (Lasix) 20 mg PO DAILY PRN edema #90 tabs 03/15/25 Allergies Allergy/AdvReac Type Severity Reaction Status Date / Time sulfamethoxazole (From AdvReac Unknown Verified 04/08/25 16:07 Bactrim) trimethoprim (From Bactrim) AdvReac Unknown Verified 04/08/25 16:07 Review of Systems GI: Reports: abdominal pain PFSH ED PFSH: Medical History CAD (coronary artery disease) Atherosclerotic heart disease of [place] coronary artery with other forms of angina pectoris Chronic kidney disease (CKD) Hypertension Carcinoma in situ of bladder High-grade, lamina propria invasion, diffuse bladder wall involvement. Diabetes Renal cyst, left Hx of renal cell carcinoma Surgical History History of bladder surgery TURBT for carcinoma in situ April 2020. History of right nephrectomy Family History Father , AT AGE 91 Lung disease Mother Cancer Social History Smoking and tobacco/nicotine status: former use of tobacco/nicotine (40 years ago) Alcohol intake: unknown Substance/Drug Use: never Caregiver/support person: No Marital status: Current occupational status: retired Physical Exam Const: COMMON NORMALS: no acute distress, patient oriented x3 and healthy appearing HENMT: COMMON NORMALS: normocephalic and atraumatic HEAD & SCALP: normocephalic and atraumatic Neck/C-Spine: COMMON NORMALS: full ROM and supple Chest: COMMONS NORMALS: normal inspection of the chest Resp: COMMON NORMALS: normal respiratory effort Cardio: COMMON NORMALS: regular rate, regular rhythm and No murmurs present (Cardio) RATE: regular rate RHYTHM: regular rhythm GI: COMMON NORMALS: Normal to inspection, nondistended, normoactive bowel sounds present, Soft to palpation and no masses PALPATION: Yes Soft to palpation and Yes Tenderness to palpation present (GI) Details: RUQ Extremity: COMMON NORMALS: normal to inspection and full ROM Neuro: COMMON NORMALS: patient oriented x3, moves all extremities and no focal motor deficits Psych: COMMON NORMALS: mental status grossly normal, Normal thought process present and cooperative THOUGHT PROCESS: Normal thought process present Skin: COMMON NORMALS: no rashes or lesions noted and no wounds GENERAL SKIN EXAM: no rashes or lesions noted Course Vital Signs: Vital signs: Vital Signs Temperature 98.3 F 04/08/25 16:02 Pulse Rate 75 04/08/25 16:02 Respiratory Rate 17 04/08/25 16:44 Blood Pressure 194/111 04/08/25 16:02 Pulse Oximetry 96 04/08/25 16:44 Oxygen Delivery Me thod Room Air 04/08/25 16:02 MDM - Abdominal Pain Medical Decision Making 74-year-old male who presents here with right upper quadrant abdominal pain differential includes cholecystitis, pancreatitis, bowel obstruction. Patient had a CT scan done early this week that showed gallbladder sludge no other acute findings on that CT. He does have tenderness here in his right upper quadrant ultrasound showed gallbladder wall thickening with sludge concerning for cholecystitis lab work shows no significant abnormalities no signs of choledocho cystitis. I spoke to general surgeon Dr. Rubalcava who is admitting patient will give him a dose of Zosyn here to give morphine and Zofran as well. Did speak to hospitalist who is consulted. Medical Records I reviewed the patient's medical records. Lab Data I reviewed the patient's lab results. 04/08/25 16:40 04/08/25 16:40 Labs/Radiology: Laboratory Results WBC 9.02 10^3/uL (3.29-11.43) 04/08/25 16:40 RBC 4.75 10^6/uL (3.85-5.65) 04/08/25 16:40 Hgb 13.40 g/dL (11.27-16.99) 04/08/25 16:40 Hct 41.9 % (37-53) 04/08/25 16:40 MCV 88.2 fl (82-101) 04/08/25 16:40 MCH 28.2 pg (27-33) 04/08/25 16:40 MCHC 32.0 g/dL (30-55) 04/08/25 16:40 RDW 13.6 % (12.1-15.1) 04/08/25 16:40 Plt Count 166 10^3/cmm (157-399) 04/08/25 16:40 MPV 11.4 fL (7.4-10.4) H 04/08/25 16:40 Neut % (Auto) 77.9 % 04/08/25 16:40 Lymph % (Auto) 12.3 % 04/08/25 16:40 [place] % (Auto) 7.2 % 04/08/25 16:40 Eos % (Auto) 1.7 % 04/08/25 16:40 Baso % (Auto) 0.7 % 04/08/25 16:40 Neut # (Auto) 7.03 10^3/uL (1.8-7.7) 04/08/25 16:40 Lymph # (Auto) 1.1 10^3/uL (0.8-4.8) 04/08/25 16:40 [place] # (Auto) 0.7 10^3/uL (0.2-0.9) 04/08/25 16:40 Eos # (Auto) 0.2 10^3/uL (0.0-0.8) 04/08/25 16:40 Baso # (Auto) 0.1 10^3/uL (0.0-0.1) 04/08/25 16:40 Nucleated RBC % (auto) 0 % 04/08/25 16:40 Nucleated RBCs # 0.0 /100WBC 04/08/25 16:40 Sodium 137 mmol/L (136-145) 04/08/25 16:40 Potassium 4.1 mmol/L (3.5-5.1) 04/08/25 16:40 Chloride 103 mmol/L (98-107) 04/08/25 16:40 Carbon Dioxide 23 mmol/L (22-29) 04/08/25 16:40 Anion Gap 15.1 (5-19) 04/08/25 16:40 BUN 16 mg/dL (8-23) 04/08/25 16:40 Creatinine 1.5 mg/dL (0.7-1.2) H 04/08/25 16:40 GFR Calculation Not Reportable 04/08/25 16:40 Glucose 156 mg/dL (65-115) H 04/08/25 16:40 Calculated Osmolality 288 mOsm/kg (285-295) 04/08/25 16:40 Calcium 8.9 mg/dL (8.5-10.5) 04/08/25 16:40 Total Bilirubin 0.4 mg/dL (0.15-1.2) 04/08/25 16:40 AST 29 U/L (0-40) 04/08/25 16:40 ALT 42 U/L (0-41) H 04/08/25 16:40 Alkaline Phosphatase 87 U/L (40-130) 04/08/25 16:40 Total Protein 7.0 g/dL (6.6-8.7) 04/08/25 16:40 Albumin 4.0 g/dL (3.5-5.2) 04/08/25 16:40 Globulin 3.0 g/dL (1.3-4.6) 04/08/25 16:40 Lipase 19 U/L (13-60) 04/08/25 16:40 All radiology interpretation(s) finalized by discharge Discharge Plan Discharge Patient Disposition: Admitted As Inpatient Clinical Impression: Cholecystitis Condition: Stable Coding Level of Care Code ED Design Leader for Griselda Gauthier
[2025-04-08 16:44] VITALS: RESP 17; O2SAT 96
[2025-04-08] MEDS: ondansetron 2 mg/ML SDV 2 mL 4 MG IVP (16:44)
[2025-04-08] MEDS: morphine 4 mg/mL SDV 1 mL IVP (16:44)
[2025-04-08 17:01] LABS: Hematocrit 41.9 % (37-53); Hemoglobin 13.40 g/dL (11.27-16.99); Mean Corpuscular HGB Conc 32.0 g/dL (30-55); Mean Corpuscular Hemoglobin 28.2 pg (27-33); Mean Corpuscular Volume 88.2 fl (82-101); Nucleated Red Blood Cells % 0 %; Platelet Count 166 10^3/cmm (157-399); Red Blood Count 4.75 10^6/uL (3.85-5.65); White Blood Count 9.02 10^3/uL (3.29-11.43)
--- NOTE | 2025-04-08 17:12 | ECG_ITS ---
[facility] 2025-[facility]08 Pat Name: Jennifer Montiel Department: Room: Gender: Male Mail Messenger: : 1950 Requested By: Keny Blackburn Order Number: [id number] Reading MD: CYRUS KAPOOR Measurements Intervals [place] Rate: 72 P: 43 LA: 146 QRS: -27 QRSD: 122 T: 23 QT: 429 QTc: 472 Interpretive Statements ELECTRONIC VENTRICULAR PACEMAKER ABNORMAL RHYTHM ECG Compared to ECG 04/06/2025 21:18:31 No significant changes Electronically Signed On 04-08-2025 18:37:20 HUMAN RESOURCES PROJECT MANAGER by CYRUS KAPOOR [email or web address]
[2025-04-08 17:20] LABS: Alanine Aminotransferase 42 U/L (0-41); Albumin Level 4.0 g/dL (3.5-5.2); Alkaline Phosphatase 87 U/L (40-130); Anion Gap 15.1 (5-19); Aspartate Amino Transferase 29 U/L (0-40); Blood Urea Nitrogen 16 mg/dL (8-23); Calcium 8.9 mg/dL (8.5-10.5); Carbon Dioxide 23 mmol/L (22-29); Chloride 103 mmol/L (98-107); Globulin 3.0 g/dL (1.3-4.6); Glucose 156 mg/dL (65-115); Lipase 19 U/L (13-60); Osmolality Calculated 288 mOsm/kg (285-295); Potassium 4.1 mmol/L (3.5-5.1); Sodium 137 mmol/L (136-145); Total Protein 7.0 g/dL (6.6-8.7)
--- NOTE | 2025-04-08 17:48 | PC.NURSE ---
ANTIBIOTIC ADMINISTRATION DELAYED DUE TO BLOOD CULTURES NEEDING TO BE OBTAINED.
[2025-04-08 18:00] VITALS: BP 169/84; PULSE 72; O2SAT 94
--- NOTE | 2025-04-08 18:10 | PM.HP ---
Providers/Chief Complaint Admitting Physician: Florencio Mclean MD Primary Care Provider: MIREYA Srivastava Chief Complaint: upper abd right side and back pain History of Present Illness Jennifer Montiel is a 74 year old male who presents to the hospital for the second time this week with severe abdominal pain in the right upper quadrant. Patient has been having ongoing right upper quadrant pain that worsens after eating. During last admission white count was elevated but during this admission the white count is normal, ultrasound of the gallbladder shows gallbladder wall thickening with some small amount of fluid around the gallbladder. Review of Systems General: Reports: 10 or more systems reviewed and unremarkable except in HPI and below Medications/Allergies Home Medications ?Medication ?Instructions ?Recorded ?Confirmed ?Last Taken ?Type acetaminophen 500 mg tablet 1,000 mg PO PRN 03/15/20 03/15/25 07/17/22 History (Tylenol Extra Strength) cholecalciferol (vitamin D3) 25 25 mcg PO DAILY 03/15/20 03/15/25 07/17/22 History mcg (1,000 unit) capsule (Vitamin D3) metformin 500 mg tablet 500 mg PO DAILY 03/15/20 03/15/25 07/17/22 History diphenhydramine HCl 50 mg capsule 50 mg PO QPM PRN Sleep 04/19/20 03/15/25 07/17/22 History (Sleep Aid (diphenhydramine)) tamsulosin 0.4 mg capsule (Flomax) 0.4 mg PO BID 12/14/20 03/15/25 07/17/22 History glimepiride 1 mg tablet 1 mg PO DAILY 09/13/21 03/15/25 07/17/22 History finasteride 5 mg tablet 5 mg PO DAILY 02/01/24 03/15/25 Unknown History multivitamin 1 tab PO DAILY #14 tabs 02/03/24 03/15/25 Unknown Rx omeprazole 20 mg capsule,delayed 20 mg PO DAILY 02/10/24 03/15/25 Unknown History release atorvastatin 40 mg tablet 40 mg PO BEDTIME 30 days #90 tabs 02/09/25 03/15/25 Unknown Rx clopidogrel 75 mg tablet 75 mg PO DAILY #90 tabs 02/09/25 03/15/25 Unknown Rx metoprolol succinate 25 mg 25 mg PO BID #180 tabs 02/09/25 03/15/25 Unknown Rx tablet,extended release 24 hr (Toprol XL) furosemide 20 mg tablet (Lasix) 20 mg PO DAILY PRN edema #90 tabs 03/15/25 03/15/25 Unknown Rx lisinopril 30 mg tablet 30 mg PO DAILY 03/15/25 03/15/25 Unknown History Allergies Allergy/AdvReac Type Severity Reaction Status Date / Time sulfamethoxazole (From AdvReac Unknown Verified 04/08/25 16:07 Bactrim) trimethoprim (From Bactrim) AdvReac Unknown Verified 04/08/25 16:07 PFSH Acute PFSH: Medical History (Updated 04/08/25 @ 17:35 by Keny Blackburn MD) CAD (coronary artery disease) Atherosclerotic heart disease of [place] coronary artery with other forms of angina pectoris Chronic kidney disease (CKD) Hypertension Carcinoma in situ of bladder High-grade, lamina propria invasion, diffuse bladder wall involvement. Diabetes Renal cyst, left Hx of renal cell carcinoma Surgical History History of bladder surgery TURBT for carcinoma in situ April 2020. History of right nephrectomy Family History Father , AT AGE 91 Lung disease Mother Cancer Social History Smoking and tobacco/nicotine status: former use of tobacco/nicotine (40 years ago) Alcohol intake: unknown Substance/Drug Use: never Caregiver/support person: No Marital status: Current occupational status: retired Vitals/I&O/Wt Last Vital Signs Temp 98.3 F 04/08/25 16:02 Pulse 75 04/08/25 16:02 Resp 17 04/08/25 16:44 BP 194/111 04/08/25 16:02 Pulse Ox 96 04/08/25 16:44 O2 Del Method Room Air 04/08/25 16:02 Weight last 48 hrs Weight 230 lb Physical Exam Narrative: Abdomen is soft, there is tenderness to palpation in the right upper quadrant. Data 04/08/25 16:40 04/08/25 16:40 A&P Assessment and plan 1. Cholecystitis: 2. CAD (coronary artery disease): 3. Acute renal failure: 4. Hx of renal cell carcinoma: Plan: After a complete history, physical examination and review of all available clinical data I have offered the patient laparoscopic cholecystectomy for acute cholecystitis. All the risk and benefits of the procedure were discussed with the patient including the risks of bleeding, infection, damage to surrounding structures including liver, duodenum, colon, risk of injuring bile ducts requiring extensive surgery at higher level of care facility, risk of retained stones, bile leak, bili Xiao, need for subtotal cholecystectomy, hernia and wound related complications, need to conversion to open procedure. I have explained to the patient that he is not at increased risk for intraoperative complications due to use of Plavix which increases his risk of bleeding and the fact that he had a right nephrectomy increase in the risk of injury of intra-abdominal structures due to adhesions. The patient shows understanding he agrees to proceed. I have requested medical consultation as the patient has multiple medical comorbidities and current blood pressure was noted to be 190/111 PDMP PDMP Reviewed: Not Reviewed Attestations Medical Necessity Statement*: possible discharge tomorrow after surgery depending on patient progression Coding Level of Care Code Acute Code for [facility] Diagnoses Cholecystitis K81.9 CAD (coronary artery disease) I25.10 Acute renal failure N17.9 Hx of renal cell carcinoma Z85.528
--- NOTE | 2025-04-08 18:24 | PM.CONSULT ---
Providers/Reason For Consult Consulting Physician/Specialty*: Hospitalist internal medicine Reason for Consult*: Medical management Attending Physician: Florencio Mclean MD Primary Care Provider: MIREYA Srivastava History of Present Illness History of Present Illness Jennifer Montiel is a 74 year old male with a past medical history of renal cell carcinoma status post nephrectomy, diabetes mellitus type 2, essential hypertension, hyperlipidemia, coronary artery disease status post 2 cardiac stent who presented to the ER with complaints of abdominal pain and nausea that worsens with any oral intake. Patient states that this has happened 2 times the last month. Patient was seen and treated in the ER by provider Dr. Blackburn who ordered gallbladder ultrasound which shows gallbladder wall thickening and still a small amount of fluid around the gallbladder. graciously agrees to admit the patient for symptom management and laparoscopic cholecystectomy for acute cholecystitis. Patient continues to endorse right upper quadrant abdominal pain that radiates through his back. Patient denies current chest pain, shortness of breath, diarrhea, recent falls or injuries, any type of bleeding, recent illness, dark or tarry stools, or syncope. Hospitalist team is grateful for the opportunity to participate in medical management of this patient. All questions and concerns addressed with the patient and his spouse at time of admission. Review of Systems General: Reports: 10 or more systems reviewed and unremarkable except in HPI and below Medications/Allergies Home Medications ?Medication ?Instructions ?Recorded ?Confirmed ?Last Taken ?Type acetaminophen 500 mg tablet 1,000 mg PO PRN 03/15/20 03/15/25 07/17/22 History (Tylenol Extra Strength) cholecalciferol (vitamin D3) 25 25 mcg PO DAILY 03/15/20 03/15/25 07/17/22 History mcg (1,000 unit) capsule (Vitamin D3) metformin 500 mg tablet 500 mg PO DAILY 03/15/20 03/15/25 07/17/22 History diphenhydramine HCl 50 mg capsule 50 mg PO QPM PRN Sleep 04/19/20 03/15/25 07/17/22 History (Sleep Aid (diphenhydramine)) tamsulosin 0.4 mg capsule (Flomax) 0.4 mg PO BID 12/14/20 03/15/25 07/17/22 History glimepiride 1 mg tablet 1 mg PO DAILY 09/13/21 03/15/25 07/17/22 History finasteride 5 mg tablet 5 mg PO DAILY 02/01/24 03/15/25 Unknown History multivitamin 1 tab PO DAILY #14 tabs 02/03/24 03/15/25 Unknown Rx omeprazole 20 mg capsule,delayed 20 mg PO DAILY 02/10/24 03/15/25 Unknown History release atorvastatin 40 mg tablet 40 mg PO BEDTIME 30 days #90 tabs 02/09/25 03/15/25 Unknown Rx clopidogrel 75 mg tablet 75 mg PO DAILY #90 tabs 02/09/25 03/15/25 Unknown Rx metoprolol succinate 25 mg 25 mg PO BID #180 tabs 02/09/25 03/15/25 Unknown Rx tablet,extended release 24 hr (Toprol XL) furosemide 20 mg tablet (Lasix) 20 mg PO DAILY PRN edema #90 tabs 03/15/25 03/15/25 Unknown Rx lisinopril 30 mg tablet 30 mg PO DAILY 03/15/25 03/15/25 Unknown History Allergies Allergy/AdvReac Type Severity Reaction Status Date / Time sulfamethoxazole (From AdvReac Unknown Verified 04/08/25 16:07 Bactrim) trimethoprim (From Bactrim) AdvReac Unknown Verified 04/08/25 16:07 PFSH Acute PFSH: Medical History (Updated 04/08/25 @ 19:21 by Jami Willis NP) Hypertension Diabetes CAD (coronary artery disease) Atherosclerotic heart disease of [place] coronary artery with other forms of angina pectoris Chronic kidney disease (CKD) Carcinoma in situ of bladder High-grade, lamina propria invasion, diffuse bladder wall involvement. Renal cyst, left Hx of renal cell carcinoma Surgical History History of bladder surgery TURBT for carcinoma in situ April 2020. History of right nephrectomy Family History Father , AT AGE 91 Lung disease Mother Cancer Social History Smoking and tobacco/nicotine status: former use of tobacco/nicotine (40 years ago) Alcohol intake: unknown Substance/Drug Use: never Caregiver/support person: No Marital status: Current occupational status: retired Vitals/I&O/Wt Last Vital Signs Temp 98.3 F 04/08/25 16:02 Pulse 75 04/08/25 16:02 Resp 17 04/08/25 16:44 BP 194/111 04/08/25 16:02 Pulse Ox 96 04/08/25 16:44 O2 Del Method Room Air 04/08/25 16:02 Weight last 48 hrs Weight 104.326 kg Physical Exam Narrative: Pleasant, well-groomed 74-year-old male sitting up in bed with abdominal pain. Const: COMMON NORMALS: patient oriented x3 and well nourished ORIENTATION/CONSCIOUSNESS: Yes awake, Yes oriented to person, Yes oriented to place and Yes oriented to time HENMT: COMMON NORMALS: normocephalic and Normal external nose present HEAD & SCALP: normocephalic NOSE: Normal external nose present Eye: COMMON NORMALS: Equal, round and reactive pupils present PUPIL: Yes Equal, round and reactive pupils present Neck/C-Spine: COMMON NORMALS: full ROM, no lymphadenopathy and no JVD Resp: COMMON NORMALS: normal respiratory effort, No retractions and clear to auscultation bilaterally AUSCULTATION: clear to auscultation bilaterally Cardio: COMMON NORMALS: no JVD, regular rate and regular rhythm RATE: regular rate RHYTHM: regular rhythm GI: COMMON NORMALS: Soft to palpation PALPATION: Yes Soft to palpation and Yes Tenderness to palpation present (GI) Details: RUQ Extremity: COMMON NORMALS: normal to inspection and full ROM Neuro: COMMON NORMALS: patient oriented x3 SENSORIUM/ORIENTATION: Yes oriented to person, Yes oriented to place and Yes oriented to time Psych: COMMON NORMALS: mental status grossly normal Data 04/08/25 16:40 04/08/25 16:40 A&P Assessment and plan 1. Cholecystitis: 2. Primary hypertension: 3. Type 2 diabetes mellitus without complication, without long-term current use of insulin: 4. CAD (coronary artery disease): 5. Hx of renal cell carcinoma: Plan: Acute cholecystitis - Management per attending - Admitting WBC 9.02, was 15.02 04/06 - Pending blood culture x 2 - Initiated on IV Zosyn in the ER, continue to 8-hour - N.p.o. - Multimodal pain control Primary hypertension - Admitting blood pressure 194/111 - Elevated blood pressure most likely secondary to pain - As needed IV hydralazine Diabetes mellitus type 2 - Holding oral diabetic medications - Low-dose sliding scale insulin - N.p.o. currently but when diet is resumed will be carb controlled Coronary artery disease - Continue cardioprotective medications - History of cardiac stenting x 2, last dose of Plavix this morning History of renal cell carcinoma Chronic kidney disease III - Admitting creatinine 1.5 - Gentle IV fluid hydration - Renally dose medications - Avoid nephrotoxic agents BPH - Resume tamsulosin when able VTE PPx: SCDs CODE STATUS: Full code PDMP PDMP Reviewed: Not Reviewed Coding Level of Care Code 71471 Diagnoses Cholecystitis K81.9 Primary hypertension I10 Type 2 diabetes mellitus without complication, without long-term current use of insulin E11.9 CAD (coronary artery disease) I25.10 Hx of renal cell carcinoma Z85.528
--- NOTE | 2025-04-08 18:46 | PC.NURSE ---
ZOSYN WAS PULLED AND MIXED BY THIS NURSE. MIXED BAG WAS NOT GIVEN AND TAKEN TO MEDR WITH THE PATIENT.
--- NOTE | 2025-04-08 19:54 | PM.MISC ---
Miscellaneous Note Purpose of Documentation: Update on patient care Note: Final read of the ultrasound was obtained, per radiologist interpretation there is no significant changes concerning for acute cholecystitis, there is only small amount of sludge in the gallbladder but no other changes that indicate cholecystitis, negative Morales sign. Patient pain has resolved at this point. And taking consideration that all laboratory workup is negative at this point I will think that the patient's symptoms are more likely caused by biliary colic rather than acute cholecystitis. I had extensive discussion with the patient, I have explained that in this setting without having acute inflammation my best medical advice will be to do the procedure as an elective operation as outpatient in order to be able to hold his Plavix for full 7 days before the operation to decrease the risk of bleeding, he has history of right nephrectomy which indicates that likely the right colon has been mobilized and most likely there will be adhesions in the right upper quadrant this added to the fact that the patient is on anticoagulation increases her risk for bleeding significantly, while this is a risk that is acceptable in the case of acute pathology without evidence of acute inflammation I cannot justify the increased risk of bleeding and possible surgical complications to proceed to the OR in an emergent setting. After discussion patient has showing understanding and is agreeable to see us in the clinic during the week and planned the procedure as an elective procedure. Will keep him n.p.o. after midnight just in case if there is any changes in the clinical status, we will put him on antibiotics and IV fluids overnight and we will recheck labs in the morning. If there is any changes in clinical status laboratory workup we can reconsider the decision of doing surgery during this hospital stay. Patient shows understanding and agrees.
[2025-04-08 19:57] VITALS: BMI 34.0
[2025-04-08] MEDS: piperacillin-tazobactam 3.375 GM in sodium chloride 0.9% (plus) 50 ML IV (19:58)
[2025-04-08] MEDS: morphine 4 mg/mL SDV 1 mL 2 MG IVP (20:42)
[2025-04-08 21:00] VITALS: BP 163/75; PULSE 78; RESP 16; TEMP 37.1; O2SAT 93
[2025-04-09] VITALS: BP 173/115; PULSE 82; RESP 17; TEMP 36.8; O2SAT 94
[2025-04-09 04:08] LABS: Hematocrit 38.0 % (37-53); Hemoglobin 12.40 g/dL (11.27-16.99); Mean Corpuscular HGB Conc 32.6 g/dL (30-55); Mean Corpuscular Hemoglobin 28.7 pg (27-33); Mean Corpuscular Volume 88.0 fl (82-101); Nucleated Red Blood Cells % 0 %; Platelet Count 144 10^3/cmm (157-399); Red Blood Count 4.32 10^6/uL (3.85-5.65); White Blood Count 8.88 10^3/uL (3.29-11.43)
[2025-04-09 04:36] LABS: Alanine Aminotransferase 39 U/L (0-41); Albumin Level 3.5 g/dL (3.5-5.2); Alkaline Phosphatase 79 U/L (40-130); Blood Urea Nitrogen 14 mg/dL (8-23); Calcium 8.4 mg/dL (8.5-10.5); Carbon Dioxide 23 mmol/L (22-29); Chloride 107 mmol/L (98-107); Globulin 2.5 g/dL (1.3-4.6); Glucose 101 mg/dL (65-115); Osmolality Calculated 291 mOsm/kg (285-295); Sodium 140 mmol/L (136-145); Total Protein 6.0 g/dL (6.6-8.7)
[2025-04-09 04:41] VITALS: BP 132/69; PULSE 74; RESP 17; TEMP 37.3; O2SAT 94
[2025-04-09 04:41] LABS: Anion Gap 14.4 (5-19); Aspartate Amino Transferase 31 U/L (0-40); Potassium 4.4 mmol/L (3.5-5.1)
[2025-04-09] MEDS: piperacillin-tazobactam 3.375 GM in sodium chloride 0.9% (plus) 50 ML IV (05:08)
[2025-04-09 07:30] VITALS: BP 143/73; PULSE 69; RESP 16; TEMP 37; O2SAT 91
--- NOTE | 2025-04-09 07:45 | P.PN_ITS ---
Subjective 2 Subjective: Patient is a very pleasant 74-year-old male seen and examined at bedside on hospital rounds today. Patient seen up in bed stating that his abdominal pain is much improved. Patient denies new or worsening symptoms. Reviewed recommended outpatient diet in preparation for upcoming surgery. Reviewed case with attending Dr. Mclean who states he will discharge patient home with continued oral antibiotics and pain control, to continue to hold Plavix and schedule surgery outpatient. Patient instructed to return to ER if he has return of abdominal pain, nausea, fever or chills. Patient and his spouse verbalized understanding of instructions. All questions and concerns addressed with the patient and his spouse at the bedside today. Hospitalist team grateful to consult in the medical management of this patient and we will sign off to his attending. Vitals/I&O/Wt Last Vital Signs Temp 98.6 F 04/09/25 07:30 Pulse 69 04/09/25 07:30 Resp 16 04/09/25 07:30 BP 143/73 04/09/25 07:30 Pulse Ox 91 04/09/25 07:30 O2 Del Method Room Air 04/09/25 07:30 04/08/25 04/09/25 04/09/25 22:59 06:59 14:59 Intake Total 1000 / 1000 1290 / 2290 262.5 / 262.5 Balance 1000 / 1000 1290 / 2290 262.5 / 262.5 Weight last 48 hrs Weight 110.223 kg Weight 110.586 kg Weight 104.326 kg Physical Exam 2 Narrative: Pleasant, well-groomed 74-year-old male sitting up in bed in no apparent distress. Const: COMMON NORMALS: patient oriented x3 and well nourished O RIENTATION/CONSCIOUSNESS: Yes awake, Yes oriented to person, Yes oriented to place and Yes oriented to time HENMT: COMMON NORMALS: normocephalic and Normal external nose present HEAD & SCALP: normocephalic NOSE: Normal external nose present Eye: COMMON NORMALS: Equal, round and reactive pupils present PUPIL: Yes Equal, round and reactive pupils present Neck/C-Spine: COMMON NORMALS: full ROM, no lymphadenopathy and no JVD Resp: COMMON NORMALS: normal respiratory effort, No retractions and clear to auscultation bilaterally AUSCULTATION: clear to auscultation bilaterally Cardio: COMMON NORMALS: no JVD, regular rate and regular rhythm RATE: r egular rate RHYTHM: regular rhythm GI: COMMON NORMALS: Soft to palpation PALPATION: Yes Soft to palpation Extremity: COMMON NORMALS: normal to inspection and full ROM Neuro: COMMON NORMALS: patient oriented x3 SENSORIUM/ORIENTATION: Yes oriented to person, Yes oriented to place and Yes oriented to time Psych: COMMON NORMALS: mental status grossly normal Data 04/09/25 03:37 04/09/25 03:37 Micro: Microbiology 04/08/25 18:16 Blood Culture - Preliminary Blood SPECIMEN COLLECTED 04/08/25 18:12 Blood Culture - Preliminary Blood SPECIMEN COLLECTED A&P Assessment and plan 1. Biliary colic: 2. Primary hypertension: 3. Type 2 diabetes mellitus without complication, without long-term current use of insulin: 4. CAD (coronary artery disease): 5. Hx of renal cell carcinoma: Plan: Biliary colic - Management per attending - Discharging home with continued oral antibiotic therapy and pain control, holding Plavix and will follow-up outpatient for surgery Primary hypertension - Continue his home medication regimen at discharge Diabetes mellitus type 2 - Advise continue low-fat diet, resume home medications at discharge Coronary artery disease - Continue cardioprotective medications but holding Plavix until further advised by surgeon History of renal cell carcinoma Chronic kidney disease III - Improved creatinine to discharge, encouraged continued good oral hydration BPH - Continue home tamsulosin VTE PPx: SCDs CODE STATUS: Full code PDMP PDMP Reviewed: Not Reviewed Attestations 2 Medical Necessity Statement*: Per attending Coding Level of Care Code 38975 Diagnoses Biliary colic K80.50 Primary hypertension I10 Type 2 diabetes mellitus without complication, without long-term current use of insulin E11.9 CAD (coronary artery disease) I25.10 Hx of renal cell carcinoma Z85.528
--- NOTE | 2025-04-09 08:34 | P.DS_ITS ---
Discharge Providers Date of Admission: 04/08/25 17:31 Date of Discharge: April 09, 2025 Attending Provider at Admission: Florencio Mclean MD Attending Provider at Discharge: Jami Willis NP Primary Care Provider: MIREYA Srivastava Diagnoses at Discharge Discharge Diagnosis 1. Cholecystitis: 2. Primary hypertension: 3. Type 2 diabetes mellitus without complication, without long-term current use of insulin: 4. CAD (coronary artery disease): 5. Hx of renal cell carcinoma: Reason for Visit Reason for Visit: upper abd right side and back pain Hospital Course Hospital Course This a 74-year-old male who presented to the hospital with acute right upper quadrant pain and was diagnosed with biliary colic, he also has slightly elevated creatinine and says he only has 1 kidney I said to admit him for observation IV antibiotics and further management. Normal white count, ultrasound shows no evidence of acute cholecystitis, pain had resolved by the time I evaluated the patient and this morning he is pain-free. Since patient is in blood thinners we have decided to proceed to the outpatient setting and booked this case as an elective procedure. He has been given warning signs to return to the ER as needed Physical Exam GI: OTHER: The abdomen is soft nontender nondistended Discharge Data Studies Completed and Pending Completed Studies During Hospitalization Category Date Time Status US gall bladder 34781 Stat Ultrasound 04/08/25 16:29 Completed Pending at discharge Category Date Time Status Blood Culture Stat Lab 04/08/25 18:16 Results CBC Auto Diff [Complete Blood Count w/Auto] AM LABS Lab 04/10/25 04:00 Ordered CMP [Comprehensive Metabolic Panel] AM LABS Lab 04/10/25 04:00 Ordered Radiology Impressions Gallbladder Ultrasound 04/08/25 16:29 IMPRESSION: Gallbladder sludge with mild wall thickening. Negative sonographic Morales's sign and no pericholecystic fluid. Findings are nonspecific and do not meet sonographic criteria for acute cholecystitis. Laboratory Results WBC 8.88 10^3/uL (3.29-11.43) 04/09/25 03:37 RBC 4.32 10^6/uL (3.85-5.65) 04/09/25 03:37 Hgb 12.40 g/dL (11.27-16.99) 04/09/25 03:37 Hct 38.0 % (37-53) 04/09/25 03:37 MCV 88.0 fl (82-101) 04/09/25 03:37 MCH 28.7 pg (27-33) 04/09/25 03:37 MCHC 32.6 g/dL (30-55) 04/09/25 03:37 RDW 13.5 % (12.1-15.1) 04/09/25 03:37 Plt Count 144 10^3/cmm (157-399) L 04/09/25 03:37 MPV 11.9 fL (7.4-10.4) H 04/09/25 03:37 Neut % (Auto) 71.4 % 04/09/25 03:37 Lymph % (Auto) 15.7 % 04/09/25 03:37 Sumner % (Auto) 11.0 % 04/09/25 03:37 Eos % (Auto) 1.1 % 04/09/25 03:37 Baso % (Auto) 0.6 % 04/09/25 03:37 Neut # (Auto) 6.34 10^3/uL (1.8-7.7) 04/09/25 03:37 Lymph # (Auto) 1.4 10^3/uL (0.8-4.8) 04/09/25 03:37 Sumner # (Auto) 1.0 10^3/uL (0.2-0.9) H 04/09/25 03:37 Eos # (Auto) 0.1 10^3/uL (0.0-0.8) 04/09/25 03:37 Baso # (Auto) 0.1 10^3/uL (0.0-0.1) 04/09/25 03:37 Nucleated RBC % (auto) 0 % 04/09/25 03:37 Nucleated RBCs # 0.0 /100WBC 04/09/25 03:37 Sodium 140 mmol/L (136-145) 04/09/25 03:37 Potassium 4.4 mmol/L (3.5-5.1) 04/09/25 03:37 Chloride 107 mmol/L (98-107) 04/09/25 03:37 Carbon Dioxide 23 mmol/L (22-29) 04/09/25 03:37 Anion Gap 14.4 (5-19) 04/09/25 03:37 BUN 14 mg/dL (8-23) 04/09/25 03:37 Creatinine 1.3 mg/dL (0.7-1.2) H 04/09/25 03:37 GFR Calculation Not Reportable 04/09/25 03:37 Glucose 101 mg/dL (65-115) 04/09/25 03:37 POC Glucose 92 mg/dL (70-110) 04/09/25 06:20 Calculated Osmolality 291 mOsm/kg (285-295) 04/09/25 03:37 Calcium 8.4 mg/dL (8.5-10.5) L 04/09/25 03:37 Total Bilirubin 0.5 mg/dL (0.15-1.2) 04/09/25 03:37 AST 31 U/L (0-40) 04/09/25 03:37 ALT 39 U/L (0-41) 04/09/25 03:37 Alkaline Phosphatase 79 U/L (40-130) 04/09/25 03:37 Total Protein 6.0 g/dL (6.6-8.7) L 04/09/25 03:37 Albumin 3.5 g/dL (3.5-5.2) 04/09/25 03:37 Globulin 2.5 g/dL (1.3-4.6) 04/09/25 03:37 Lipase 19 U/L (13-60) 04/08/25 16:40 Vitals Last Vital Signs Temp 98.6 F 04/09/25 07:30 Pulse 69 04/09/25 07:30 Resp 16 04/09/25 07:30 BP 143/73 04/09/25 07:30 Pulse Ox 91 04/09/25 07:30 O2 Del Method Room Air 04/09/25 07:30 Discharge Plan Discharge Patient Disposition: Home Condition: Stable Prescriptions: New amoxicillin-pot clavulanate 875-125 mg tablet 1 tab PO BID 7 Days Qty: 14 0RF dicyclomine 10 mg capsule 10 mg PO TID Qty: 20 0RF pantoprazole 40 mg tablet,delayed release (DR/EC) 40 mg PO BID 30 Days Qty: 60 0RF Continued glimepiride 1 mg tablet 1 mg PO DAILY lisinopril 30 mg tablet 30 mg PO DAILY furosemide [Lasix] 20 mg tablet 20 mg PO DAILY PRN (Reason: edema) Qty: 90 1RF metoprolol succinate [Toprol XL] 25 mg tablet extended release 24 hr 25 mg PO BID Qty: 180 3RF atorvastatin 40 mg tablet 40 mg PO BEDTIME 30 Days Qty: 90 3RF diphenhydramine HCl [Sleep Aid (diphenhydramine)] 50 mg Capsule 50 mg PO QPM PRN (Reason: Sleep) metformin 500 mg tablet 250 mg PO BID acetaminophen [Tylenol Extra Strength] 500 mg Tablet 1,000 mg PO PRN cholecalciferol (vitamin D3) [Vitamin D3] 25 mcg (1,000 unit) Capsule 25 mcg PO DAILY tamsulosin [Flomax] 0.4 mg capsule 0.4 mg PO BID finasteride 5 mg Tablet 5 mg PO DAILY multivitamin Tablet 1 tab PO DAILY Qty: 14 0RF Held clopidogrel 75 mg tablet 75 mg PO DAILY Qty: 90 3RF Discontinued omeprazole 20 mg capsule,delayed release(DR/EC) 20 mg PO DAILY [employer] OK for DC: Hospitalist Discharge Order = DC NOW: Discharge Order (Routine); Ordered 04/09/25 Ordered By: Florencio Mclean Referrals: Teresa Galicia FNP [Primary Care Provider, Nurse Practitioner] Florencio Mclean MD [Physician, General Surgery] Referral Note: follow up Wednesday 04/11 Discharge Diet: Low Fat Discharge Activity: Resume usual activity Patient Instructions: Acute Wound Care (DC), Abdominal Pain (ED), Opioid Safety, Post Anesthesia Care, Patient Portal & Sonia Instructions Activity Restrictions/Additional Instructions: I will see you in the office on Thursday to discuss planning for gallbladder surgery. Please return to the hospital in case of fever chills severe abdominal pain associated with nausea and vomiting. Please closely follow the diet that we have discussed no processed food no fatty food drink plenty of fluids. Discharge Attestations Time Spent in Discharge Care*: less than 30 min Quality Metrics Clinical Quality Measures [ No reported AMI, CVA or VTE this stay] Coding Level of Care Code Acute Code for Chg Fwd Diagnoses Cholecystitis K81.9 Primary hypertension I10 Hypertension type: primary hypertension Type 2 diabetes mellitus without complication, without long-term current use of insulin E11.9 Diabetes mellitus type: type 2 Diabetes mellitus residential insulin use: without residential use Diabetes mellitus complication status: without complication CAD (coronary artery disease) I25.10 Hx of renal cell carcinoma Z85.528
[2025-04-09 09:14] VITALS: RESP 16; O2SAT 91
[2025-04-09] MEDS: morphine 4 mg/mL SDV 1 mL 2 MG IVP (09:14)
--- NOTE | 2025-04-09 09:50 | PC.NURSE ---
This nurse discussed discharge paperwork with patient and spouse. Patient stated he was in pain, medication given. When discussing discharge medications, patient and spouse stated Dr. Avalos was going to order pain medication. This nurse spoke with Dr. Avalos on the phone and he stated he was in a procedure but he would be able to order something for discharge in about 30 minutes. Patient stated he wished to leave now instead of waiting for the order to be called in. IV line removed. Patient was taken to entrance with all belongings, via wheelchair, by this nurse at 0935.
[2025-04-09 09:55] VITALS: BP 143/73; PULSE 69; RESP 16; TEMP 37; O2SAT 91
--- OUTSIDE RECORDS SUMMARY | 2025-04-09 15:05 | XMS_ITS | Patient Health Record ---
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 Name Role Phone Snow Cade MD Primary Care Provider Unav ailable FRAN ESCUDERO Unavailable [phone] Mayco Milian Unavailable Unavailable Allergies Allergen (clinical drug ingredient) Drug/Non Drug Allergy documented on EMR Reaction Allergy Type Onset Date Status sulfamethoxazole / trimethoprim Bactrim renal failure Drug Allergy Active Results Component Value Reference Range Notes Urinalysis, Routine Reviewed date:07/14/2024 10:29:05 AM Interpretation: Performing Lab: Notes/Report: Urine-Color yellow Appearance clear Glucose - Bilirubin - Ketones - Specific [place] 1.020 Occult Blood - pH 6.0 Urine [...] Status Risk Notes Problem Benign prostatic hyperplasia (967414118) BPH (benign prostatic hyperplasia) (N40.0) Active confirmed Problem Personal history of primary malignant neoplasm of kidney (212408266) History of renal cell carcinoma (Z85.528) Active confirmed Problem Absent kidney (684362123) History of nephrectomy, right (Z90.5) Active confirmed Problem Malignant tumor of kidney (976583272) Renal cell carcinoma of right kidney (C64.1) Active confirmed Problem Personal history of primary malignant neoplasm of urinary bladder (860605426) History of bladder cancer (Z85.51) Active confirmed Problem Malignant tumor of urinary bladder (645032631) Malignant neoplasm of urinary bladder, unspecified site (C67.9) Active confirmed Vital Signs Height-cm 180.34 cm 07/14/2024 Weight-kg 104.33 kg 07/14/2024 Height 71 in 07/14/2024 Weight 230 lbs 07/14/2024 BMI 32.07 kg/m2 07/14/2024 Encounters Encounter Location Date Provider Diagnosis [email or web address] [address] [place] [address] 07/14/2024 FRAN ESCUDERO History of bladder cancer Z85.51 ; History of renal cell carcinoma Z85.528 ; History of nephrectomy, right Z90.5 and BPH (benign prostatic hyperplasia) N40.[address] [email or web address] [address] [place] [address] 07/14/2024 FRAN ESCUDERO Assessments Encounter Date Diagnosis (ICD Code) Assessment Notes Treatment Notes Treatment Clinical Notes Section Notes 07/14/2024 History of bladder cancer (ICD-10 - Z85.51) 73 yo male with history of bladder cancer. Surveillance cysto negative today. Plan: surveillance cysto in 1yr UA sent to [facility] cytology/Uro17 07/14/2024 History of renal cell carcinoma (ICD-10 - Z85.528) 73 yo male with history of bladder cancer. Surveillance cysto negative today. Plan: surveillance cysto in 1yr UA sent to [facility] cytology/Uro17 07/14/2024 History of nephrectomy, right (ICD-10 - Z90.5) 73 yo male with history of bladder cancer. Surveillance cysto negative today. Plan: surveillance cysto in 1yr UA sent to [facility] cytology/Uro17 07/14/2024 BPH (benign prostatic hyperplasia) (ICD-10 - N40.0) 73 yo male with history of bladder cancer. Surveillance cysto negative today. Plan: surveillance cysto in 1yr UA sent to [facility] cytology/Uro17 Plan Of Treatment Next Appt Details Provider Name:FRAN Martinez, 07/20/2025 10:20:00 AM, [address] [place], [address], Insurance Providers Payer Name Payer Address Payer Phone Subscriber Number Group Number Insured Name Patient Relationship to Insured Coverage Start Date Coverage End Date ID Medicare [address] [facility] [place] [id number] Jennifer Hendricks Self - patient is the insured [employer] [address] [address] [place] [address] [id number] Jennifer Hendricks Self - patient is the insured Medical (General) History Medical History History ICD Code TCCA/ Carcinoma (Dx 04/12/2020) CKD diabetes hypertension left renal cyst Surgical History Surgery Date(Month/Year) TURBT 04/2020 Right nephrectomy PACEMAKER INSERTION 02/03/2024 Hospitalization History Reason Date(Month/Year) myocardial infarction 02/02/2024 above
--- OUTSIDE RECORDS SUMMARY | 2025-04-09 15:05 | XMS_ITS | Patient Health Record ---
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 Name Role Phone Snow Rome MD Primary Care Provider iXn garza Gauri Francisco Unavailable [phone] Mayco Milian Unavailable Unavailable Reason For Referral No Information Problems Problem Type SNOMED Code ICD Code Onset Dates Problem Status W/U Status Risk Notes Problem Malignant tumor of kidney (514883620) Renal cell carcinoma of right kidney (C64.1) Active confirmed Plan Of Treatment No Information Insurance Providers Payer Name Payer Address Payer Phone Subscriber Number Group Number Insured Name Patient Relationship to Insured Coverage Start Date Coverage End Date [place] Medicare [address] [place] [phone] [id number] Nicho Hendricks Self - patient is the insured
== END 2025-04-09 09:35 | disposition home or self-care (01) ==
LOC: ER 17:35 → MEDSURG 18:20
PROVIDERS: Admitting Provider Surgery; Emergency Provider Emergency Medicine; PCP Nurse Practitioner; Visit Provider Registered Nurse
DX: K80.50 Calculus of bile duct without cholangitis or cholecystitis without obstruction (principal); E11.22 Type 2 diabetes mellitus with diabetic chronic kidney disease; I12.9 Hypertensive chronic kidney disease with stage 1 through stage 4 chronic kidney disease, or unspecified chronic kidney disease; N18.9 Chronic kidney disease, unspecified; I25.10 Atherosclerotic heart disease of native coronary artery without angina pectoris; Z85.528 Personal history of other malignant neoplasm of kidney; Z79.02 Long term (current) use of antithrombotics/antiplatelets; Z79.84 Long term (current) use of oral hypoglycemic drugs; Z90.5 Acquired absence of kidney; K21.9 Gastro-esophageal reflux disease without esophagitis; Z85.51 Personal history of malignant neoplasm of bladder; Z80.9 Family history of malignant neoplasm, unspecified; Z87.891 Personal history of nicotine dependence
CPT/HCPCS: 36415; 36416; 76705; 80053; 82962; 83690; 85025; 87040; 93005; 96365; 96366; 96375; 96376; 99285; G0378; J2270; J2405; J2543; J7030; J9999

== ENCOUNTER → 2025-04-12 13:38 | Outpatient (BNVA) | payer OTHER, SELFPAY | PROVIDERS: PCP Nurse Practitioner; Visit Provider Surgery | DX: K82.9 Disease of gallbladder, unspecified (principal) | CPT/HCPCS: 99204 ==

== ENCOUNTER 2025-04-19 10:15 | Day surgery (SDC) | payer OTHER, SELFPAY ==
[2025-04-19] VITALS (12 sets, daily range): BP systolic 98–136; BP diastolic 53–82; PULSE 69–94; RESP 16–18; TEMP 36.1–36.7; O2SAT 90–95; BMI 30.2
--- NOTE | 2025-04-19 11:10 | P.HPUD_ITS ---
Surgery/Procedure H&P Update DATE OF PROCEDURE: April 19, 2025 DATE H&P PERFORMED: 04/12/25 H&P UPDATE INFORMATION: I have reviewed H&P completed within last 30 days, I have examined patient prior to procedure, No changes to prior documentation, H&P is in [facility] EMR on date indicated and Risks and benefits of the procedure reviewed PLANNED PROCEDURE: Operation Date: 04/19/25 12:00 Proposed Procedures p Laparoscopic possible open Cholecystectomy 79635 K80.50(Not Applicable) - Florencio Mclean MD
--- NOTE | 2025-04-19 11:10 | ANES.PREANE2 ---
Pre-Anesthetic Assessment Height/Weight: Height 5 ft 11 in Weight 217 lb 0.4 oz Temp Pulse Resp BP Pulse Ox O2 Del Method 97.6 F 83 18 127/82 94 Room Air 04/19/25 10:50 04/19/25 10:50 04/19/25 10:50 04/19/25 10:50 04/19/25 10:50 04/19/25 10:53 Preop Diagnosis: Cholecystitis Operation Date: 04/19/25 12:00 Proposed Procedures p Laparoscopic possible open Cholecystectomy 97608 K80.50(Not Applicable) - Florencio Mclean MD Was Beta Corby taken within 24 hours: N/A Was Clonidine taken within 24 hours: N/A Last intake: Intake Last Liquid Date 04/18/25 Last Liquid Time 21:00 Last Solid Date 04/18/25 Last Solid Time 19:00 Social No alcohol and No tobacco Exam alert, oriented x 3, clear to auscultation bilaterally and regular rate & rhythm Airway Submandibular: within normal limits Cervical ROM: within normal limits Mallampati: Class III Dentition: false Comments: Comments: Missing a few teeth on the bottom, denies any loose Anesthetic Plan ASA status: 3 Anesthesia: General Other: No prior issues with anesthesia NPO since yesterday evening History of hypertension on lisinopril and metoprolol S/p PCI 2023. Plavix last taken on 04/08/2025 GERD on Protonix Patient has a current pacemaker. Recent pacemaker check 03/24/2025 Echo 01/31/2024 showing EF 55 to 60% with no RWMA Labs reviewed 04/09/2025 acceptable for procedure Medications/Allergies Home Medications ?Medication ?Instructions ?Recorded ?Confirmed ?Last Taken ?Type acetaminophen 500 mg tablet 1,000 mg PO PRN 03/15/20 04/19/25 04/07/25 20:00 History (Tylenol Extra Strength) cholecalciferol (vitamin D3) 25 25 mcg PO DAILY 03/15/20 04/19/25 04/18/25 History mcg (1,000 unit) capsule (Vitamin D3) metformin 500 mg tablet 250 mg PO BID 03/15/20 04/18/25 04/18/25 History diphenhydramine HCl 50 mg capsule 50 mg PO QPM PRN Sleep 04/19/20 04/19/25 04/18/25 History (Sleep Aid (diphenhydramine)) tamsulosin 0.4 mg capsule (Flomax) 0.4 mg PO BID 12/14/20 04/18/25 04/18/25 History glimepiride 1 mg tablet 1 mg PO DAILY 09/13/21 04/18/25 04/18/25 History finasteride 5 mg tablet 5 mg PO DAILY 02/01/24 04/19/25 04/18/25 History multivitamin 1 tab PO DAILY #14 tabs 02/03/24 04/19/25 04/08/25 08:00 Rx atorvastatin 40 mg tablet 40 mg PO BEDTIME 30 days #90 tabs 02/09/25 04/19/25 04/18/25 Rx clopidogrel 75 mg tablet 75 mg PO DAILY #90 tabs 02/09/25 04/19/25 04/08/25 08:00 Rx Held on 04/09/25. Instructions: Resume on 04/17/25. metoprolol succinate 25 mg 25 mg PO BID #180 tabs 02/09/25 04/18/25 04/19/25 Rx tablet,extended release 24 hr (Toprol XL) furosemide 20 mg tablet (Lasix) 20 mg PO DAILY PRN edema #90 tabs 03/15/25 04/18/25 Unknown Rx lisinopril 30 mg tablet 30 mg PO DAILY 03/15/25 04/18/25 04/18/25 History pantoprazole 40 mg tablet,delayed 40 mg PO BID 1 month #60 tabs 04/09/25 04/18/25 04/18/25 Rx release Allergies Allergy/AdvReac Type Severity Reaction Status Date / Time sulfamethoxazole (From AdvReac Unknown Verified 04/18/25 11:35 Bactrim) trimethoprim (From Bactrim) AdvReac Unknown Verified 04/18/25 11:35 [facility] Anesthesia Medical History (Updated 04/15/25 @ 00:00 by LANEY Ott) Hypertension Diabetes CAD (coronary artery disease) Atherosclerotic heart disease of [place] coronary artery with other forms of angina pectoris Chronic kidney disease (CKD) Carcinoma in situ of bladder High-grade, lamina propria invasion, diffuse bladder wall involvement. Renal cyst, left Hx of renal cell carcinoma Surgical History History of bladder surgery TURBT for carcinoma in situ April 2020. History of right nephrectomy Family History Father , AT AGE 91 Lung disease Mother Cancer Social History Smoking and tobacco/nicotine status: former use of tobacco/nicotine (40 years ago) Alcohol intake: unknown Substance/Drug Use: never Caregiver/support person: No Marital status: Current occupational status: retired Data Anesthesia Cardiac Studies: Echocardiogram 01/31/24 Echocardiogram Ultrasound 09/21/23 Sestamibi Stress Test (Cardiology) 11/23/23
[2025-04-19] MEDS: ceFAZolin 2,000 mg SDV 2000 MG IVP (12:14)
--- NOTE | 2025-04-19 12:29 | ANE.PACU2 ---
Inpatient post-anesthesia follow up: Airway intact: Yes Vital signs: Temperature 97.6 F Pulse Rate 83 Respiratory Rate 18 Blood Pressure 127/82 Pulse Oximetry 94 Oxygen Delivery Me thod Room Air Oxygen Flow Rate Fraction of Inspir ed Oxygen Hydration adequate: Yes Nausea and vomiting: No Pain level: 2 Mental status: Baseline
[2025-04-19] MEDS: lidocaine-epi 1% PF 1:200,000 30 mL SDV INJECTION (15:20)
[2025-04-19] MEDS: BUPivacaine 0.25% INJ 10 mL INJECTION (15:21)
--- NOTE | 2025-04-19 15:38 | PM.OP ---
Operative Report Date of procedure: April 19, 2025 Pre-op diagnosis: Symptomatic cholelithiasis Post-op diagnosis: Acute on chronic cholecystitis Post-op findings: Extensive adhesions in the right upper quadrant, there were adhesions of the pericolonic tissue to the gallbladder, there was severe inflammatory changes at the level of the infundibulum of the gallbladder and the hepatocystic triangle with chronic and acute inflammation. The wall of the gallbladder was extremely thick making it difficult to grasp. Procedure done: Laparoscopic cholecystectomy (modifier 22) Specimens removed/disposition: Gallbladder and contents Surgeon: Florencio Mclean MD Performance Test Consultant: HELENE OR STaff Estimated blood loss: 15 Brief History: This a 74-year-old male who resented to my office with biliary colic and symptomatic cholelithiasis. After discussion of all risk and benefits we decided to proceed to the OR for laparoscopic possible open cholecystectomy. Procedure: Patient was brought into the OR, he was placed in a supine position. General anesthesia was given. The abdomen was prepped and draped in the usual sterile fashion. The abdomen was accessed via a 5 mm Optiview trocar in the left upper quadrant, initial pneumoperitoneum was achieved and no evidence of visceral injury during entry was noted. A 2 mm trocar was placed in the supra umbilical location under direct visualization, additional 5 mm trocars were placed in the right flank right upper quadrant and epigastrium under direct visualization. There was significant inflammatory changes in the right upper quadrant, the gallbladder was covered by omentum, with careful electrocautery and blunt dissection I was able to ampul the dome of the gallbladder. The gallbladder was then grasped and retracted cephalad, adhesions from the pericolonic tissue to the sides of the gallbladder were taken down with a combination of blunt dissection and electrocautery. There were severe inflammatory changes at the level of the hepatocystic triangle, the peritoneum was extremely thick and inflamed. With careful dissection I was able to take down adhesions from the duodenum to the hepatocystic triangle as well as from the periduodenal tissue to this area. I then used a combination of blunt dissection and electrocautery to carefully open the anterior peritoneal and exposing the critical structures in the hepatocystic triangle, this opening was taken in the medial and lateral direction to the edges of the liver and then on the sides of the gallbladder to allow for better exposure. Dissection was extremely challenging taking several hours, with a combination of blunt dissection, [place] dissection and electrocautery I was eventually able to encircle the cystic duct and the cystic artery and I elevated the lower third of the gallbladder thus creating a critical view of safety. The cystic artery was then double clipped proximally single clipped distally and transected. Since the cystic duct appeared very thickened it was not an amenable to be clip and therefore I decided to take down the gallbladder from the liver bed to then proceed with Endoloop placement at the level of the cystic duct. I took down the gallbladder from the liver bed using electrocautery. There was significant inflammation and therefore I had to sacrifice a small portion of the posterior wall of the gallbladder in order to remove it safely. Bile and purulent fluid was aspirated from inside the gallbladder. The posterior wall that remained in the liver bed was fulgurated. At this point I used 2-0 PDS Endoloops to tightly close the cystic duct. I then transected the cystic duct distal to the closure and close to the infundibulum of the gallbladder. The gallbladder and contents were retrieved from the abdomen via Endo Catch bag through the supraumbilical trocar site. Position of the clips and Endoloops was verified and appeared to be correct, there was no bile leakage or bleeding in the gallbladder fossa. The gallbladder fossa was irrigated with 3 L of fluid, I made an effort to make sure to retrieve any stones that had a spill from the gallbladder during resection. Once I was satisfied with the results I proceeded to place some omentum in the gallbladder fossa. We then proceeded to remove the supraumbilical trocar and closed the supraumbilical trocar site with 0 Vicryl with a Erickson-Haley suture passer under direct visualization. The epigastrium right upper quadrant right flank trocars were removed under direct visualization and the left upper quadrant trocar was used to evacuate the pneumoperitoneum and subsequently removed. Hemostasis was achieved in the wounds. The wounds were closed in layers using #3-0 Vicryl for the subcutaneous tissue and #4 Monocryl for the skin and Dermabond was applied. At the end of the procedure all counts were correct, the patient tolerated well the procedure was transferred to the PACU in stable condition. Due to technical difficulty of this procedure he required additional time and my full is practice to be able to complete it.
== END 2025-04-19 18:50 | disposition home or self-care (01) ==
PROVIDERS: PCP Nurse Practitioner; Visit Provider Surgery
PROC: 0FT44ZZ Resection of Gallbladder, Percutaneous Endoscopic Approach (ICD-10-PCS; CPT 47562; principal; 2025-04-19 12:00)
DX: K81.1 Chronic cholecystitis (principal); K21.9 Gastro-esophageal reflux disease without esophagitis; Z95.0 Presence of cardiac pacemaker; E11.22 Type 2 diabetes mellitus with diabetic chronic kidney disease; I12.9 Hypertensive chronic kidney disease with stage 1 through stage 4 chronic kidney disease, or unspecified chronic kidney disease; N18.9 Chronic kidney disease, unspecified; Z85.51 Personal history of malignant neoplasm of bladder; Z85.528 Personal history of other malignant neoplasm of kidney; I25.118 Atherosclerotic heart disease of native coronary artery with other forms of angina pectoris; Z87.891 Personal history of nicotine dependence; Z79.891 Long term (current) use of opiate analgesic; Z79.02 Long term (current) use of antithrombotics/antiplatelets; Z79.84 Long term (current) use of oral hypoglycemic drugs
CPT/HCPCS: 47562; 36416; 82962; 86850; 86900; 88304; A4216; J0131; J0690; J1100; J2405; J2704; J3010; J3490; J7030; J9999